=== PATIENT | male | born 1945 | race Caucasian/White ===

== ENCOUNTER 2022-12-18 17:23 | Inpatient (IN) | payer MEDICARE, SELFPAY ==
[2022-12-18] VITALS (7 sets, daily range): BP systolic 114–136; BP diastolic 69–110; PULSE 71–179; RESP 12–22; TEMP 36.2–36.8; O2SAT 94–97; BMI 34.0
--- NOTE | 2022-12-18 17:25 | ECG_ITS ---
Test Reason : TACHY Blood Pressure : / mmHG Vent. Rate : 159 BPM Atrial Rate : 318 BPM P-R Int : 000 ms QRS Dur : 070 ms QT Int : 272 ms P-R-T Axes : 000 022 049 degrees QTc Int : 442 ms Atrial flutter with 2:1 A-V conduction ST depression, consider subendocardial injury Abnormal ECG No previous ECGs available Referred By: Generic ED Physician Electronically Signed By:Agapito Ward
--- NOTE | 2022-12-18 17:26 | ED.ARRPALP ---
HPI - Arrhythmia/Palpitations General Chief Complaint: Arrhythmia/Palpitations <Susan Stockton NP - Last Filed: 12/18/22 17:30> Stated Complaint: rapid heart rate <Susan Stockton NP - Last Filed: 12/18/22 17:30> Time Seen by Provider: 12/18/22 17:30 <Susan Stockton NP - Last Filed: 12/18/22 17:30> Source: patient and RN notes reviewed <Jono Crawford - Last Filed: 12/18/22 19:32> Mode of arrival: ambulatory <Jono Crawford - Last Filed: 12/18/22 19:32> Limitations: no limitations <Jono Crawford - Last Filed: 12/18/22 19:32> History of Present Illness HPI narrative: 77-year-old male past medical history significant for hypertension, GERD, hyperlipidemia presents for evaluation of palpitations. This patient presents with his . He reports about 3 hours prior to arrival he noticed his heart was racing. He reports feeling lightheaded and short of breath. Denies any chest pain He denies any history of coronary artery disease He states that he has had this similar sensation last year a few times and then several times over the last 2 days. The patient has not sought medical care for it because ?it was not this fast. ? He heart rate was as high as 170 in triage. <Jono Crawford - Last Filed: 12/18/22 19:32> Related Data Home Medications: Home Medications Medication Instructions Recorded Confirmed atenolol 50 mg tablet 25 mg PO DAILY 12/18/22 12/18/22 enalapril maleate 20 mg tablet 10 mg PO DAILY 12/18/22 12/18/22 latanoprost 0.005 % eye drops 1 drp ophthalmic (eye) DAILY 12/18/22 12/18/22 multivitamin (Daily Multi-Vitamin 1 tab PO DAILY 12/18/22 12/18/22 tablet) omeprazole 20 mg capsule,delayed 20 mg PO DAILY 12/18/22 12/18/22 release simvastatin 10 mg tablet 10 mg PO DAILY 12/18/22 12/18/22 timolol maleate 0.5 % eye drops 1 drp ophthalmic (eye) BEDTIME 12/18/22 12/18/22 <Susan Stockton NP - Last Filed: 12/18/22 17:30> Allergies/Adverse Reactions: Allergies Allergy/AdvReac Type Severity Reaction Status Date / Time meperidine [From DEMEROL] Allergy Unknown SEVERE Unverified 07/17/20 15:50 STOMACH UPSET <Susan Stockton NP - Last Filed: 12/18/22 17:30> Review of Systems Constitutional: Constitutional: Reports as per HPI, Denies chills and Denies fatigue <Jono Crawford - Last Filed: 12/18/22 19:32> Cardiovascular: Cardiovascular: Denies chest pain, Reports lightheadedness, Reports palpitations, Reports dyspnea and Reports dyspnea on exertion <Jono Crawford - Last Filed: 12/18/22 19:32> Respiratory: Respiratory: Denies cough, Reports dyspnea and Reports dyspnea on exertion <Jono Crawford - Last Filed: 12/18/22 19:32> Gastrointestinal: Gastrointestinal: Denies abdominal pain, Denies constipation and Denies vomiting <Jono Crawford - Last Filed: 12/18/22 19:32> Genitourinary: Genitourinary: Denies difficulty urinating and Denies dysuria <Jono Crawford - Last Filed: 12/18/22 19:32> Endocrine: Endocrine: Denies fatigue and Reports palpitations <Jono Crawford - Last Filed: 12/18/22 19:32> FORMERLY [facility], [facility] Past Medical History Attestation statement: The following information was validated with the patient. <Jono Crawford - Last Filed: 12/18/22 19:32> Source: old records reviewed and obtained from family <Jono Crawford - Last Filed: 12/18/22 19:32> Social History Social History: Social History Advance Directives: Yes Advance Directives Information Provided: No Advance Directives on File: No <Susan Stockton NP - Last Filed: 12/18/22 17:30> Physical Exam Vital Signs: Vital Signs: Last Vital Signs Temp 98.2 F 12/18/22 17:27 Pulse 76 12/18/22 18:40 Resp 12 12/18/22 18:40 BP 129/79 02/18/23 18:40 Pulse Ox 96 12/18/22 18:40 O2 Del Method 12/18/22 18:40 BMI result Body Mass Index 34.0 <Susan Stockton NP - Last Filed: 12/18/22 17:30> Vital Signs: Last Vital Signs Temp 98.2 F 12/18/22 17:27 Pulse 76 12/18/22 18:40 Resp 12 12/18/22 18:40 BP 129/79 12/18/22 18:40 Pulse Ox 96 12/18/22 18:40 O2 Del Method 12/18/22 18:40 BMI result Body Mass Index 34.0 <Jono MoyaLucas - Last Filed: 12/18/22 19:32> Const: General: cooperative, healthy appearing, comfortable, no acute distress and well developed <Jono MoyaDouglas - Last Filed: 12/18/22 19:32> Orientation/consciousness: patient oriented x3 <Jono Moya - Last Filed: 12/18/22 19:32> HEENT: Head: Yes normocephalic and Yes atraumatic <Jono - Last Filed: 12/18/22 19:32> Eyes: Conjunctivae: conjunctivae normal <Jono - Last Filed: 12/18/22 19:32> Sclerae: sclerae normal <Jono - Last Filed: 12/18/22 19:32> Corneas: corneas normal <Jono - Last Filed: 12/18/22 19:32> Pupils: Equal, round and reactive pupils present and Pupil accommodation reflex normal <Jono - Last Filed: 12/18/22 19:32> Chest: Chest palpation & inspection: normal inspection of the chest and normal palpation of entire chest wall <Jono O - Last Filed: 12/18/22 19:32> Resp: Effort & Inspection: able to speak in complete sentences and abnormal respiratory pattern <Jono Moya - Last Filed: 12/18/22 19:32> Auscultation: clear to auscultation bilaterally <Jono - Last Filed: 12/18/22 19:32> Cardio: Jugular venous distension: no JVD <Jono Crawford - Last Filed: 12/18/22 19:32> Rate: abnormal rate and tachycardic <Jono Crawford - Last Filed: 12/18/22 19:32> Rhythm: regular rhythm <Jono Crawford - Last Filed: 12/18/22 19:32> GI: Inspection: No Abdominal wall edema and No distended <Jonogrupo Velasquezy - Last Filed: 12/18/22 19:32> Palpation (GI): Soft to palpation, nontender and no guarding <Jono Crawford - Last Filed: 12/18/22 19:32> Skin: General skin exam: no rashes or lesions noted <Jono Crawford - Last Filed: 12/18/22 19:32> Neuro: General: patient oriented x3 <Jono Crawford - Last Filed: 12/18/22 19:32> Cranial nerves: Yes Equal, round and reactive pupils present <Jono Crawford - Last Filed: 12/18/22 19:32> Course Course Course Narrative: This is a rapid medical exam. Deferred additional HPI, ROS, PE to primary provider. 77 yo male w/ history of HTN, HLD, GERD, BPH here with palpitations noted this afternoon. HR 170 in triage. Will bring direct into room. <Susan Stockton NP - Last Filed: 12/18/22 17:30> Reevaluation(s) Reevaluation #1: Patient reports his symptoms have improved as he is no longer lightheaded or short of breath. He does still feel palpitations. His heart rate improved to about 130 after the IV bolus of Cardizem. He also received the Cardizem p.o. which will hopefully have a lasting effect. The patient's blood pressure has remained adequate. <Jono Crawford - Last Filed: 12/18/22 19:32> Time: 18:00 <Jono Crawford - Last Filed: 12/18/22 19:32> Reevaluation #2: Patient's heart rate increased again to about 140 remains in a water. When given a bolus of Cardizem 20 mg IV as his blood pressure remains adequate. Electric cardioversion is felt to be highly risky given the patient reports he had similar symptoms in the last few days and likely has been in and out of a flutter and/or AFib. He is felt to be high risk for thromboembolic disease. The patient is also very stable, so cardioversion with electricity is deferred at this time. <Jono Crawford - Last Filed: 12/18/22 19:32> Time: 18:16 <Jono Crawford - Last Filed: 12/18/22 19:32> Reevaluation #3: Patient did not receive the 2nd dose of Cardizem as he converted to a sinus rhythm with a rate of 74 beats per minute. Repeat EKG confirms the sinus rhythm. Will discuss with the hospitalist <Jono Crawford - Last Filed: 12/18/22 19:32> Time: 18:58 <Jono Crawford - Last Filed: 12/18/22 19:32> Medications Administered Discontinued Medications Generic Name Dose Route Start Last Admin Trade Name Freq PRN Reason Stop Dose Admin Diltiazem HCl 20 mg 12/18/22 17:40 12/18/22 17:46 Diltiazem Hcl 50 Mg/10 Ml Vial IVPUSH 12/18/22 17:41 20 mg STAT STA Administration Diltiazem HCl 30 mg 12/18/22 17:40 12/18/22 17:46 Diltiazem Hcl 30 Mg Tablet PO 12/18/22 17:41 30 mg ONCE ONE Administration Protocol Diltiazem HCl 20 mg 12/18/22 18:15 12/18/22 18:42 Diltiazem Hcl 50 Mg/10 Ml Vial IVPUSH 12/18/22 18:16 Not Given STAT STA Sodium Chloride 1,000 mls @ 999 mls/hr 12/18/22 17:40 12/18/22 17:46 Ns IV 12/18/22 18:40 999 mls/hr .Q1H1M STA Administration <Susan Stockton NP - Last Filed: 12/18/22 17:30> Medications Administered Discontinued Medications Generic Name Dose Route Start Last Admin Trade Name Freq PRN Reason Stop Dose Admin Diltiazem HCl 20 mg 12/18/22 17:40 12/18/22 17:46 Diltiazem Hcl 50 Mg/10 Ml Vial IVPUSH 12/18/22 17:41 20 mg STAT STA Administration Diltiazem HCl 30 mg 12/18/22 17:40 12/18/22 17:46 Diltiazem Hcl 30 Mg Tablet PO 12/18/22 17:41 30 mg ONCE ONE Administration Protocol Diltiazem HCl 20 mg 12/18/22 18:15 12/18/22 18:42 Diltiazem Hcl 50 Mg/10 Ml Vial IVPUSH 12/18/22 18:16 Not Given STAT STA Sodium Chloride 1,000 mls @ 999 mls/hr 12/18/22 17:40 12/18/22 17:46 Ns IV 12/18/22 18:40 999 mls/hr .Q1H1M STA Administration <Jono Crawford - Last Filed: 12/18/22 19:32> Medical Decision Making Medical Decision Making [facility] Narrative: This is a 77-year-old male presents for evaluation of palpitations. He is found to be in atrial flutter with the connection based on EKG with a heart rate as high as 170. Who he is slightly hypertensive to 136/110 on arrival. The patient denies any chest pain. EKG does show some ST depressions in the anterior and inferior leads. This is likely demand ischemia. We will add a troponin level, electrolytes. Patient was also given IV fluids. He was medicated with Cardizem IV push as well as Cardizem 30 mg p.o. <Jono Crawford - Last Filed: 12/18/22 19:32> Differential Diagnosis Cardiac arrhythmia A flutter AFib SVT Sinus tachycardia Electrolyte abnormality <Jono Crawford - Last Filed: 12/18/22 19:32> Lab Data Result Diagrams: 12/18/22 17:46 12/18/22 17:46 <Susan Stockton NP - Last Filed: 12/18/22 17:30> Labs: Lab Results 12/18/22 12/18/22 12/18/22 Range/Units 17:46 17:46 17:46 WBC 12.2 H (4.8-10.8) X10*3/uL RBC 5.16 (4.60-5.80) X10*6/uL Hgb 16.2 (14.0-18.0) g/dl Hct 48.7 (42.0-52.0) % MCV 94.4 (80.0-98.0) fL MCH 31.4 (27.0-33.0) pg MCHC 33.3 (31.0-36.0) g/dl RDW 13.3 (11.0-16.0) % Plt Count 276 (160-400) X10*3/uL MPV 9.3 L (9.4-12.4) fL Immature Gran % (Auto) 0.5 H (0.0-0.4) % Neut % (Auto) 62.3 (45-73) % Lymph % (Auto) 23.3 (20-40) % Major % (Auto) 9.5 (2-11) % Eos % (Auto) 3.9 (0-4) % Baso % (Auto) 0.5 (0-2) % Lymph # (Auto) 2.8 (1.2-4.9) X10*3/uL Major # (Auto) 1.2 (0.1-1.2) X10*3/uL Eos # (Auto) 0.5 H (0.0-0.4) X10*3/uL Baso # (Auto) 0.1 (0.0-0.2) X10*3/uL Abs Immat Gran (auto) 0.06 H (0.00-0.03) X10*3/uL Absolute Neuts (auto) 7.6 (2.0-8.3) x10*3/uL Absolute Nucleated RBC 0.000 (0.0-0.012) X10*3/uL Nucleated RBC % (auto) 0.0 (0.0-0.2) /100WBC PT 13.1 (10.0-13.1) SEC INR 1.1 (0.9-1.1) Sodium 141 (135-145) mmol/L Potassium 4.4 (3.3-5.1) mmol/L Chloride 104 (96-108) mmol/L Carbon Dioxide 26 (22-29) mmol/L Anion Gap 15 (12-20) BUN 14 (9-16) mg/dL Creatinine 1.04 (0.5-1.4) mg/dL Estim Creat Clear Calc 73.0 Estimated GFR > 60 Random Glucose 122 H (60-115) mg/dL Calcium 9.6 (8.4-10.2) mg/dL Magnesium 1.7 (1.6-2.6) mg/dL Total Bilirubin 1.1 H (0.0-1.0) mg/dL Direct Bilirubin 0.3 (0.0-0.5) mg/dL AST 74 H (5-37) U/L ALT 90 H (0-40) U/L Alkaline Phosphatase 111 (39-117) U/L Troponin I High Sens (<3.5-35.0) ng/L Total Protein 6.8 (6.5-8.0) g/dL Albumin 4.1 (3.5-5.0) g/dL COVID-19 (NAVEED) (Negative) COVID-19 Clin Com 12/18/22 12/18/22 Range/Units 17:46 17:46 WBC (4.8-10.8) X10*3/uL RBC (4.60-5.80) X10*6/uL Hgb (14.0-18.0) g/dl Hct (42.0-52.0) % MCV (80.0-98.0) fL MCH (27.0-33.0) pg MCHC (31.0-36.0) g/dl RDW (11.0-16.0) % Plt Count (160-400) X10*3/uL MPV (9.4-12.4) fL Immature Gran % (Auto) (0.0-0.4) % Neut % (Auto) (45-73) % Lymph % (Auto) (20-40) % Major % (Auto) (2-11) % Eos % (Auto) (0-4) % Baso % (Auto) (0-2) % Lymph # (Auto) (1.2-4.9) X10*3/uL Major # (Auto) (0.1-1.2) X10*3/uL Eos # (Auto) (0.0-0.4) X10*3/uL Baso # (Auto) (0.0-0.2) X10*3/uL Abs Immat Gran (auto) (0.00-0.03) X10*3/uL Absolute Neuts (auto) (2.0-8.3) x10*3/uL Absolute Nucleated RBC (0.0-0.012) X10*3/uL Nucleated RBC % (auto) (0.0-0.2) /100WBC PT (10.0-13.1) SEC INR (0.9-1.1) Sodium (135-145) mmol/L Potassium (3.3-5.1) mmol/L Chloride (96-108) mmol/L Carbon Dioxide (22-29) mmol/L Anion Gap (12-20) BUN (9-16) mg/dL Creatinine (0.5-1.4) mg/dL Estim Creat Clear Calc Estimated GFR Random Glucose (60-115) mg/dL Calcium (8.4-10.2) mg/dL Magnesium (1.6-2.6) mg/dL Total Bilirubin (0.0-1.0) mg/dL Direct Bilirubin (0.0-0.5) mg/dL AST (5-37) U/L ALT (0-40) U/L Alkaline Phosphatase (39-117) U/L Troponin I High Sens 3.4 (<3.5-35.0) ng/L Total Protein (6.5-8.0) g/dL Albumin (3.5-5.0) g/dL COVID-19 (NAVEED) Negative (Negative) COVID-19 Clin Com See Note <Susan Stockton, [employer]ER - Last Filed: 12/18/22 17:30> Lab Results 12/18/22 12/18/22 12/18/22 Range/Units 17:46 17:46 17:46 WBC 12.2 H (4.8-10.8) X10*3/uL RBC 5.16 (4.60-5.80) X10*6/uL Hgb 16.2 (14.0-18.0) g/dl Hct 48.7 (42.0-52.0) % MCV 94.4 (80.0-98.0) fL MCH 31.4 (27.0-33.0) pg MCHC 33.3 (31.0-36.0) g/dl RDW 13.3 (11.0-16.0) % Plt Count 276 (160-400) X10*3/uL MPV 9.3 L (9.4-12.4) fL Immature Gran % (Auto) 0.5 H (0.0-0.4) % Neut % (Auto) 62.3 (45-73) % Lymph % (Auto) 23.3 (20-40) % Major % (Auto) 9.5 (2-11) % Eos % (Auto) 3.9 (0-4) % Baso % (Auto) 0.5 (0-2) % Lymph # (Auto) 2.8 (1.2-4.9) X10*3/uL Major # (Auto) 1.2 (0.1-1.2) X10*3/uL Eos # (Auto) 0.5 H (0.0-0.4) X10*3/uL Baso # (Auto) 0.1 (0.0-0.2) X10*3/uL Abs Immat Gran (auto) 0.06 H (0.00-0.03) X10*3/uL Absolute Neuts (auto) 7.6 (2.0-8.3) x10*3/uL Absolute Nucleated RBC 0.000 (0.0-0.012) X10*3/uL Nucleated RBC % (auto) 0.0 (0.0-0.2) /100WBC PT 13.1 (10.0-13.1) SEC INR 1.1 (0.9-1.1) Sodium 141 (135-145) mmol/L Potassium 4.4 (3.3-5.1) mmol/L Chloride 104 (96-108) mmol/L Carbon Dioxide 26 (22-29) mmol/L Anion Gap 15 (12-20) BUN 14 (9-16) mg/dL Creatinine 1.04 (0.5-1.4) mg/dL Estim Creat Clear Calc 73.0 Estimated GFR > 60 Random Glucose 122 H (60-115) mg/dL Calcium 9.6 (8.4-10.2) mg/dL Magnesium 1.7 (1.6-2.6) mg/dL Total Bilirubin 1.1 H (0.0-1.0) mg/dL Direct Bilirubin 0.3 (0.0-0.5) mg/dL AST 74 H (5-37) U/L ALT 90 H (0-40) U/L Alkaline Phosphatase 111 (39-117) U/L Troponin I High Sens (<3.5-35.0) ng/L Total Protein 6.8 (6.5-8.0) g/dL Albumin 4.1 (3.5-5.0) g/dL COVID-19 (NAVEED) (Negative) COVID-19 Clin Com 12/18/22 12/18/22 Range/Units 17:46 17:46 WBC (4.8-10.8) X10*3/uL RBC (4.60-5.80) X10*6/uL Hgb (14.0-18.0) g/dl Hct (42.0-52.0) % MCV (80.0-98.0) fL MCH (27.0-33.0) pg MCHC (31.0-36.0) g/dl RDW (11.0-16.0) % Plt Count (160-400) X10*3/uL MPV (9.4-12.4) fL Immature Gran % (Auto) (0.0-0.4) % Neut % (Auto) (45-73) % Lymph % (Auto) (20-40) % Major % (Auto) (2-11) % Eos % (Auto) (0-4) % Baso % (Auto) (0-2) % Lymph # (Auto) (1.2-4.9) X10*3/uL Major # (Auto) (0.1-1.2) X10*3/uL Eos # (Auto) (0.0-0.4) X10*3/uL Baso # (Auto) (0.0-0.2) X10*3/uL Abs Immat Gran (auto) (0.00-0.03) X10*3/uL Absolute Neuts (auto) (2.0-8.3) x10*3/uL Absolute Nucleated RBC (0.0-0.012) X10*3/uL Nucleated RBC % (auto) (0.0-0.2) /100WBC PT (10.0-13.1) SEC INR (0.9-1.1) Sodium (135-145) mmol/L Potassium (3.3-5.1) mmol/L Chloride (96-108) mmol/L Carbon Dioxide (22-29) mmol/L Anion Gap (12-20) BUN (9-16) mg/dL Creatinine (0.5-1.4) mg/dL Estim Creat Clear Calc Estimated GFR Random Glucose (60-115) mg/dL Calcium (8.4-10.2) mg/dL Magnesium (1.6-2.6) mg/dL Total Bilirubin (0.0-1.0) mg/dL Direct Bilirubin (0.0-0.5) mg/dL AST (5-37) U/L ALT (0-40) U/L Alkaline Phosphatase (39-117) U/L Troponin I High Sens 3.4 (<3.5-35.0) ng/L Total Protein (6.5-8.0) g/dL Albumin (3.5-5.0) g/dL COVID-19 (NAVEED) Negative (Negative) COVID-19 Clin Com See Note <Jono Crawford - Last Filed: 12/18/22 19:32> Discharge Plan Discharge Clinical Impression: Atrial flutter with rapid ventricular response <Susan Stockton NP - Last Filed: 12/18/22 17:30> Patient Disposition: Admitted As Inpatient <Susan Stockton NP - Last Filed: 12/18/22 17:30> Prescriptions: No Action latanoprost 0.005 % drops 1 drp ophthalmic (eye) DAILY enalapril maleate 20 mg tablet 10 mg PO DAILY simvastatin 10 mg tablet 10 mg PO DAILY omeprazole 20 mg capsule,delayed release(DR/EC) 20 mg PO DAILY timolol maleate 0.5 % drops 1 drp ophthalmic (eye) BEDTIME atenolol 50 mg tablet 25 mg PO DAILY multivitamin [Daily Multi-Vitamin] Tablet 1 tab PO DAILY <Susan Stockton NP - Last Filed: 12/18/22 17:30>
[2022-12-18] MEDS: dilTIAZem HCL 30 MG TABLET PO (17:46)
[2022-12-18] MEDS: dilTIAZem HCL 50 MG/10 ML VIAL 20 MG IVPUSH (17:46)
[2022-12-18] MEDS: 0.9 % Sodium Chloride 1,000 ML 999 ML IV (17:46)
[2022-12-18 17:57] LABS: MANUAL DIFF FLAG NO
[2022-12-18 18:09] LABS: Basophils Absolute Auto 0.1 X10*3/uL (0.0-0.2); Basophils Percent Auto 0.5 % (0-2); Eosinophils Absolute Auto 0.5 X10*3/uL (0.0-0.4); Eosinophils Percent Auto 3.9 % (0-4); Hematocrit 48.7 % (42.0-52.0); Hemoglobin 16.2 g/dl (14.0-18.0); Imm Gran Abs Auto 0.06 X10*3/uL (0.00-0.03); Imm Gran Pct Auto 0.5 % (0.0-0.4); Lymphocytes Absolute Auto 2.8 X10*3/uL (1.2-4.9); Lymphocytes Percent Auto 23.3 % (20-40); Mean Corpuscular HGB Conc 33.3 g/dl (31.0-36.0); Mean Corpuscular Hemoglobin 31.4 pg (27.0-33.0); Mean Corpuscular Volume 94.4 fL (80.0-98.0); Mean Platelet Volume 9.3 fL (9.4-12.4); Monocytes Absolute Auto 1.2 X10*3/uL (0.1-1.2); Monocytes Percent Auto 9.5 % (2-11); Neutrophils Absolute Auto 7.6 x10*3/uL (2.0-8.3); Neutrophils Percent Auto 62.3 % (45-73); Platelet Count 276 X10*3/uL (160-400); Red Blood Count 5.16 X10*6/uL (4.60-5.80); Red Cell Distribution Width 13.3 % (11.0-16.0); White Blood Count 12.2 X10*3/uL (4.8-10.8)
[2022-12-18 18:10] LABS: INTERNATIONAL NORM RATIO 1.1 (0.9-1.1); Prothrombin Time 13.1 SEC (10.0-13.1)
--- OUTSIDE RECORDS SUMMARY | 2022-12-18 18:17 | XMS_ITS | Continuity of Care Document ---
:1945 Author Organization [facility] Address [address] [place] [phone]- Care Team Providers Name Role Phone Esteban JOSEPH, Roly Severino Primary Care Physician Encounter [facility] [place] ACCT R [id number] Date(s): 07/16/20 - 08/15/20 [facility] [address] [place] [id number]- [facility] Attending Physician: Admderek, [id number] Admitting Physician: AdmtrLora Referring Physician: Admtr, [id number] Allergies, Adverse Reactions, Alerts Substance Reaction Severity Status Demerol Active Medications atenolol 25 mg oral tablet 25 mg, 1, tablet, By Mouth, Daily, Refills 0, Maintenance, 11/02/19 14:37:00 EST Start Date: 11/02/19 Status: OrderedEnalapril 0 Refills, Maintenance, 11/02/19 14:38:00 EST Start Date: 11/02/19 Status: OrderedFerro-Sequels 0 Refills, Maintenance, 11/02/19 14:38:00 EST Start Date: 11/02/19 Status: Orderedlatanoprost 0.005% ophthalmic solution 1 drops, Daily before dinner, 0 Refills, Maintenance, 11/02/19 14:37:00 EST Start Date: 11/02/19 Status: OrderedNuLYTELY with Flavor Packs oral powder for reconstitution See Instructions, 240 mL By Mouth Every 15 minutes, # 4,000 mL, 0 Refills, Maintenance, 07/16/20 16:04:00 EDT, [id number], 240 mL By Mouth Every 15 minutes Start Date: 07/16/20 Status: OrderedOmeprazole By Mouth, Daily, 0 Refills, Maintenance, 11/02/19 14:37:00 EST Start Date: 11/02/19 Status: Orderedsimvastatin 10 mg oral tablet 10 mg, 1, tablet, By Mouth, Daily at bedtime, Refills 0, Maintenance, 11/02/19 14:38:00 EST Start Date: 11/02/19 Status: Orderedtimolol maleate 0.25% ophthalmic solution 1 drops, Eyes, Both, 2 times a day, 0 Refills, Maintenance, 11/02/19 14:37:00 EST Start Date: 11/02/19 Status: OrderedVitamin B6 Daily, 0 Refills, Maintenance, 11/02/19 14:38:00 EST Start Date: 11/02/19 Status: OrderedVitamin C By Mouth, Daily, 0 Refills, Maintenance, 11/02/19 14:38:00 EST Start Date: 11/02/19 Status: Ordered
--- OUTSIDE RECORDS SUMMARY | 2022-12-18 18:17 | XMS_ITS | Continuity of Care Document ---
:1945 Author Organization [facility] Address [address] [place] [id number]- Care Team Providers Name Role Phone Esteban JOSEPH, Roly Severino [id number] Date(s): 11/02/19 - 11/12/19 [facility] [address] [place] [id number]- [facility] Attending Physician: Lora West Admitting Physician: Lora West Referring Physician: Lora West Allergies, Adverse Reactions, Alerts Substance Reaction Severity [...] 11/02/19 14:37:00 EST Start Date: 11/02/19 Status: OrderedOmeprazole By Mouth, Daily, 0 Refills, [...]
--- OUTSIDE RECORDS SUMMARY | 2022-12-18 18:17 | XMS_ITS | Continuity of Care Document ---
:1945 Author Organization [facility] Address [address] [place] [phone]- Care Team Providers Name Role Phone Esteban JOSEPH, Roly Severino Primary Care Physician [place] [facility] [place](s[place] 07/16/20 - 08/15/20 [facility] [address] [place] [id number]- [facility] Allergies, Adverse Reactions, Alerts Substance Reaction Severity [...] mL, 0 Refills, Maintenance, 07/16/20 16:04:00 EDT, [facility] #[id number], 240 mL By Mouth Every 15 [...]
[2022-12-18 18:19] LABS: Alanine Aminotransferase 90 U/L (0-40); Albumin Level 4.1 g/dL (3.5-5.0); Alkaline Phosphatase 111 U/L (39-117); Anion Gap 15 (12-20); Aspartate Amino Transferase 74 U/L (5-37); Bilirubin Direct 0.3 mg/dL (0.0-0.5); Bilirubin Total 1.1 mg/dL (0.0-1.0); Blood Urea Nitrogen 14 mg/dL (9-16); Calcium 9.6 mg/dL (8.4-10.2); Carbon Dioxide 26 mmol/L (22-29); Chloride 104 mmol/L (96-108); Estimated Glomerular Filt Rate > 60; Glucose Random 122 mg/dL (60-115); Magnesium 1.7 mg/dL (1.6-2.6); Potassium 4.4 mmol/L (3.3-5.1); Sodium 141 mmol/L (135-145); Total Protein 6.8 g/dL (6.5-8.0)
[2022-12-18 18:22] LABS: COVID-19 Test Negative (Negative); IDNOW Serial# 16C4AD1C
[2022-12-18 18:26] LABS: Troponin-I High Sensitivity 3.4 ng/L (<3.5-35.0)
--- NOTE | 2022-12-18 18:38 | PHA.MEDREC ---
Pharmacy Consult ? Medication Reconciliation Pharmacy has completed the medication reconciliation. Patient had medication list that I reviewed with him to complete med rec.
--- NOTE | 2022-12-18 18:45 | ECG_ITS ---
Test Reason : REPEAT Blood Pressure : / mmHG Vent. Rate : 074 BPM Atrial Rate : 074 BPM P-R Int : 178 ms QRS Dur : 072 ms QT Int : 380 ms P-R-T Axes : 006 022 015 degrees QTc Int : 421 ms Normal sinus rhythm Normal ECG When compared with ECG of 18-DEC-2022 17:33, Sinus rhythm has replaced Atrial flutter Vent. rate has decreased BY [address] no longer depressed in Inferior leads Nonspecific T wave abnormality no longer evident in Lateral leads Referred By: Jono Crawford Electronically Signed By:Agapito Ward
--- NOTE | 2022-12-18 19:31 | PM.IMHP ---
History of Present Illness Date of Service: 12/18/22 Chief Complaint: Palpitations This is 77-year-old male with pertinent history of essential hypertension, gastroesophageal reflux disease, mixed hyperlipidemia, diet-controlled diabetes mellitus with last A1c 7.5 who presents to the emergency department for evaluation of palpitations. Patient states he started having palpitations about 2 days ago. It was intermittent and it lasted for about an hour. His heart rate was around 120s during the episode. On the day of presentation, patient states his heart rate jumped to the 160s-170s and it was sustained and hence he decided to present to the ER for further evaluation. States he has never seen a [employer] airspace control officer but he has had intermittent palpitations for the last 2 years. Is not on anticoagulation. Is compliant with his medications. No history of CAD or CHF. Patient denies fever, chills, chest discomfort, shortness of breath, abdominal pain, changes in urinary or bowel habits. In the ER upon arrival, patient's heart rate was in the 170s and he was given IV and p.o. Cardizem. Initial rhythm revealed atrial flutter with 2:1 conduction. Soon after, patient converted to normal sinus rhythm with heart rate in the 70s. Review of Systems Constitutional: Constitutional: Reports no additional constitutional complaints Cardiovascular: Cardiovascular: Reports rapid heart rate and Reports irregular heart rhythm Respiratory: Respiratory: Reports no additional respiratory complaints Gastrointestinal: Gastrointestinal: Reports no additional gastrointestinal complaints Genitourinary: Genitourinary: Reports no additional male genitourinary complaints [facility] Medical History Essential hypertension GERD (gastroesophageal reflux disease) Mixed hyperlipidemia Non-insulin dependent type 2 diabetes mellitus Functional capacity: independent ambulation Pertinent family history: No family history of CAD Social History Advance Directives: Yes Advance Directives Information Provided: No Advance Directives on File: No Meds Allergies Allergy/AdvReac Type Severity Reaction Status Date / Time meperidine [From DEMEROL] Allergy Unknown SEVERE Unverified 07/17/20 15:50 STOMACH UPSET Active Medications: Current Medications Pharmacy Consult (Consult Rx Perform Med Rec) 1 each MISCELLANE ONCE PRN PRN Reason: Consult order Home Medications Medication Instructions Recorded Confirmed Last Taken Type atenolol 50 mg tablet 25 mg PO DAILY 12/18/22 12/18/22 12/18/22 History enalapril maleate 20 mg tablet 10 mg PO DAILY 12/18/22 12/18/22 12/18/22 History latanoprost 0.005 % eye drops 1 drp ophthalmic (eye) DAILY 12/18/22 12/18/22 12/18/22 History multivitamin (Daily Multi-Vitamin 1 tab PO DAILY 12/18/22 12/18/22 12/18/22 History tablet) omeprazole 20 mg capsule,delayed 20 mg PO DAILY 12/18/22 12/18/22 12/18/22 History release simvastatin 10 mg tablet 10 mg PO DAILY 12/18/22 12/18/22 12/18/22 History timolol maleate 0.5 % eye drops 1 drp ophthalmic (eye) BEDTIME 12/18/22 12/18/22 12/17/22 History Physical Exam Vital Signs and Narrative: Vital Signs: Last Vital Signs Temp 98.2 F 12/18/22 17:27 Pulse 76 12/18/22 18:40 Resp 12 12/18/22 18:40 BP 129/79 12/18/22 18:40 Pulse Ox 96 12/18/22 18:40 O2 Del Method 12/18/22 18:40 BMI result Body Mass Index 34.0 Middle-aged male lying in bed in no distress Neck supple, no JVD Regular rate and rhythm, S1-S2 heard Regular breath sounds bilaterally, no wheezing or crackles appreciated Abdomen soft nontender, no guarding, no rigidity Patient is awake, alert and oriented to self, place, time and person ; no focal motor deficit Psych: Normal mood No pedal edema Results Labs 12/18/22 17:46 12/18/22 17:46 Labs: Laboratory Results - last 24 hr 12/18/22 12/18/22 12/18/22 17:46 17:46 17:46 MCV 94.4 MCH 31.4 MCHC 33.3 RDW 13.3 Plt Count 276 MPV 9.3 L Immature Gran % (Auto) 0.5 H Neut % (Auto) 62.3 Lymph % (Auto) 23.3 [place] % (Auto) 9.5 Eos % (Auto) 3.9 Baso % (Auto) 0.5 Lymph # (Auto) 2.8 [place] # (Auto) 1.2 Eos # (Auto) 0.5 H Baso # (Auto) 0.1 Abs Immat Gran (auto) 0.06 H Absolute Neuts (auto) 7.6 Absolute Nucleated RBC 0.000 Nucleated RBC % (auto) 0.0 PT 13.1 INR 1.1 Anion Gap 15 Estim Creat Clear Calc 73.0 Estimated GFR > 60 Random Glucose 122 H Calcium 9.6 Magnesium 1.7 Total Bilirubin 1.1 H Direct Bilirubin 0.3 AST 74 H ALT 90 H Alkaline Phosphatase 111 Troponin I High Sens Total Protein 6.8 Albumin 4.1 COVID-19 (NAVEED) COVID-19 Torbit Com 12/18/22 12/18/22 17:46 17:46 MCV MCH MCHC RDW Plt Count MPV Immature Gran % (Auto) Neut % (Auto) Lymph % (Auto) [place] % (Auto) Eos % (Auto) Baso % (Auto) Lymph # (Auto) [place] # (Auto) Eos # (Auto) Baso # (Auto) Abs Immat Gran (auto) Absolute Neuts (auto) Absolute Nucleated RBC Nucleated RBC % (auto) PT INR Anion Gap Estim Creat Clear Calc Estimated GFR Random Glucose Calcium Magnesium Total Bilirubin Direct Bilirubin AST ALT Alkaline Phosphatase Troponin I High Sens 3.4 Total Protein Albumin COVID-19 (NAVEED) Negative COVID-19 Clin Com See Note Assessment and Plan (1) Atrial flutter with rapid ventricular response: Status: Acute Plan This is 77-year-old male with pertinent history of essential hypertension, gastroesophageal reflux disease, mixed hyperlipidemia, diet-controlled diabetes mellitus with last A1c 7.5 who presents to the emergency department for evaluation of palpitations. #. Atrial flutter with RVR: Converted to sinus rhythm with diltiazem in the ER. Will continue to watch with cardiac monitoring. Consulting Cardiology, appreciate assistance. Obtaining TSH and echo. Chads Vasc score: 4. Will benefit from anticoagulation #. Essential hypertension: Continue home p.o. antihypertensives #. Mixed hyperlipidemia: On statin #. Gastroesophageal reflux disease: On PPI #. Quf-knyystm-tufoliagl diabetes mellitus, last A1c 7.5. Initiating Accu-Cheks with sliding scale insulin while in the hospital DVT prophylaxis: Lovenox 40 mg daily Full code Cardiac diet Time Spent With Patient Time: Total time managing care of this patient today ____ minutes. Quality Stroke Does the patient have a stroke diagnosis?: No VTE Prior VTE?: No VTE Risk Level:: Medical - moderate - high VTE Device Contraindication: Treatment Not Indicated VTE Drug Contraindication: N/A - Med Ordered
[2022-12-18] MEDS: Enoxaparin Sodium 40 MG/0.4 ML SYRINGE SUBCUT (21:36)
[2022-12-18 22:08] LABS: Glucose, Whole Blood 106 mg/dL (60-115)
[2022-12-18] MEDS: 0.9 % Sodium Chloride Flush 3 ML SYRINGE IVFLUSH (22:11)
[2022-12-18] MEDS: timoloL maleate 0.5 % Oph Sol 5 ML DRBTL 1 DROP EYE-BOTH (22:15)
[2022-12-18 22:18] LABS: Thyroid Stimulating Hormone 1.77 uIU/mL (0.32-4.0)
[2022-12-19] VITALS: BP 111/61; PULSE 66; RESP 20; TEMP 36.1; O2SAT 93
[2022-12-19 03:04] VITALS: BP 113/70; PULSE 61; RESP 20; TEMP 36.3; O2SAT 93
[2022-12-19 06:21] LABS: MANUAL DIFF FLAG NO
[2022-12-19 06:29] LABS: Basophils Absolute Auto 0.1 X10*3/uL (0.0-0.2); Basophils Percent Auto 0.6 % (0-2); Eosinophils Absolute Auto 0.4 X10*3/uL (0.0-0.4); Eosinophils Percent Auto 4.3 % (0-4); Hemoglobin 14.3 g/dl (14.0-18.0); Imm Gran Abs Auto 0.04 X10*3/uL (0.00-0.03); Imm Gran Pct Auto 0.5 % (0.0-0.4); Lymphocytes Absolute Auto 2.4 X10*3/uL (1.2-4.9); Lymphocytes Percent Auto 30.2 % (20-40); Mean Corpuscular HGB Conc 32.5 g/dl (31.0-36.0); Mean Corpuscular Hemoglobin 30.7 pg (27.0-33.0); Mean Corpuscular Volume 94.4 fL (80.0-98.0); Mean Platelet Volume 9.2 fL (9.4-12.4); Monocytes Absolute Auto 0.8 X10*3/uL (0.1-1.2); Monocytes Percent Auto 10.3 % (2-11); Neutrophils Absolute Auto 4.4 x10*3/uL (2.0-8.3); Neutrophils Percent Auto 54.1 % (45-73); Platelet Count 193 X10*3/uL (160-400); Red Blood Count 4.66 X10*6/uL (4.60-5.80); Red Cell Distribution Width 13.4 % (11.0-16.0); White Blood Count 8.1 X10*3/uL (4.8-10.8)
[2022-12-19 06:45] LABS: Anion Gap 15 (12-20); Blood Urea Nitrogen 14 mg/dL (9-16); Carbon Dioxide 25 mmol/L (22-29); Chloride 106 mmol/L (96-108); Creatinine Clr Calc Pharmacy 79.1; Estimated Glomerular Filt Rate > 60; Glucose Random 111 mg/dL (60-115); Potassium 4.8 mmol/L (3.3-5.1); Sodium 141 mmol/L (135-145)
[2022-12-19 07:28] VITALS: BP 137/76; PULSE 61; RESP 18; TEMP 36.5; O2SAT 96
[2022-12-19 07:53] LABS: Glucose, Whole Blood 125 mg/dL (60-115)
[2022-12-19] MEDS: Latanoprost 0.005 % Ophth Sol 2.5 ML DROPS 1 DROP EYE-BOTH (09:14)
[2022-12-19] MEDS: Atorvastatin Calcium 10 MG TABLET PO (09:17)
[2022-12-19] MEDS: Omeprazole 20 MG CAPSULE.DR PO (09:17)
[2022-12-19] MEDS: atenoloL 25 MG TABLET PO (09:17)
[2022-12-19] MEDS: Multivitamin TABLET 1 TAB PO (09:17)
[2022-12-19] MEDS: Enalapril Maleate 10 MG TABLET PO (09:17)
[2022-12-19] MEDS: 0.9 % Sodium Chloride Flush 3 ML SYRINGE IVFLUSH (09:22)
[2022-12-19 11:27] VITALS: BP 131/79; PULSE 83; RESP 17; TEMP 36.7; O2SAT 93
--- NOTE | 2022-12-19 11:55 | PM.CNCAR ---
History of Present Illness History of Present Illness Date of Service: 12/19/22 Chief complaint: Atrial flutter Narrative: [age] gentleman presenting with palpitations. He has been experiencing palpitations over the last few months. Also had palpitations earlier this month and saw his primary care physician and was being referred to Cardiology. He had prolonged episode of palpitations with some dizziness and came to the emergency department and was noted to be in atrial flutter. He was given cough Cardizem IV and it appears he reverted back to sinus rhythm. He is completely back to his baseline and is feeling good. Denying chest pain or any dyspnea. Not in heart failure. No bleeding issues. [facility] Past Medical History Medical History Essential hypertension GERD (gastroesophageal reflux disease) Mixed hyperlipidemia Non-insulin dependent type 2 diabetes mellitus Functional capacity: independent ambulation Social History Social History Household Members: Spouse Housing: House Do you presently have visiting nurse or other home services: No Patient Tobacco Use Status: Former Tobacco user Advance Directives Date on File: 12/18/22 Meds Allergies Allergy/AdvReac Type Severity Reaction Status Date / Time meperidine [From DEMEROL] Allergy Unknown SEVERE Verified 12/18/22 20:44 STOMACH UPSET Active Medications: Current Medications Acetaminophen (Acetaminophen 325 Mg Tablet) 650 mg PO Q6H PRN PRN Reason: Pain, Mild (Pain Scale 1-3) Apixaban (Apixaban 5 Mg Tablet) 5 mg PO BID [facility] Atenolol (Atenolol 25 Mg Tablet) 25 mg PO DAILY [facility]; Protocol Last Admin: 12/19/22 09:17 Dose: 25 mg Atorvastatin Calcium (Atorvastatin Calcium 10 Mg Tablet) 10 mg PO DAILY [facility] Last Admin: 12/19/22 09:17 Dose: 10 mg Dextrose (Dextrose 50 % 25 Gm/50 Ml Syringe) 25 gm IVPUSH Q15M PRN; Protocol PRN Reason: per Hypoglycemia Standing Ord. Dronedarone (Dronedarone Hcl 400 Mg Tablet) 400 mg PO BID [facility] Enalapril Maleate (Enalapril Maleate 10 Mg Tablet) 10 mg PO DAILY [facility]; Protocol Last Admin: 12/19/22 09:17 Dose: 10 mg Glucose (Glucose Gel 15 Gm Gel..Gram.) 15 gm PO Q15M PRN; Protocol PRN Reason: per Hypoglycemia Standing Ord. Insulin Human Lispro (Insulin Lispro 100 Unit/Ml 3 Ml Vial) 0 unit SUBCUT QIDACHS [facility]; Protocol Last Admin: 12/19/22 07:54 Dose: Not Given Latanoprost (Latanoprost 0.005 % Ophth [place] 2.5 Ml Drops) 1 drop EYE-BOTH DAILY [facility] Last Admin: 12/19/22 09:14 Dose: 1 drop Melatonin (Melatonin 3 Mg Tablet) 6 mg PO BEDTIME PRN PRN Reason: Insomnia Multivitamins/Vitamin C (Multivitamin Tablet) 1 tab PO DAILY [facility] Last Admin: 12/19/22 09:17 Dose: 1 tab Omeprazole (Omeprazole 20 Mg Capsule.Dr) 20 mg PO DAILY [facility] Last Admin: 12/19/22 09:17 Dose: 20 mg Pharmacy Consult (Consult Rx Perform Med Rec) 1 each MISCELLANE ONCE PRN PRN Reason: Consult order Sodium Chloride (0.9 % Sodium Chloride Flush 3 Ml Syringe) 3 ml IVFLUSH QSHIFT [facility] Last Admin: 12/19/22 09:22 Dose: 3 ml Timolol Maleate (Timolol Maleate 0.5 % Oph [place] 5 Ml Drbtl) 1 drop EYE-BOTH BEDTIME [facility] Last Admin: 12/18/22 22:15 Dose: 1 drop Home Medications Medication Instructions Recorded Confirmed Last Taken Type atenolol 50 mg tablet 25 mg PO DAILY 12/18/22 12/18/22 12/18/22 History enalapril maleate 20 mg tablet 10 mg PO DAILY 12/18/22 12/18/22 12/18/22 History latanoprost 0.005 % eye drops 1 drp ophthalmic (eye) DAILY 12/18/22 12/18/22 12/18/22 History multivitamin (Daily Multi-Vitamin 1 tab PO DAILY 12/18/22 12/18/22 12/18/22 History tablet) omeprazole 20 mg capsule,delayed 20 mg PO DAILY 12/18/22 12/18/22 12/18/22 History release simvastatin 10 mg tablet 10 mg PO DAILY 12/18/22 12/18/22 12/18/22 History timolol maleate 0.5 % eye drops 1 drp ophthalmic (eye) BEDTIME 12/18/22 12/18/22 12/17/22 History Physical Exam Vital Signs: Vital Signs: Last Vital Signs Temp 98.1 F 12/19/22 11:27 Pulse 83 12/19/22 11:27 Resp 17 12/19/22 11:27 BP 131/79 12/19/22 11:27 Pulse Ox 93 12/19/22 11:27 O2 Del Method 12/19/22 11:27 BMI result Body Mass Index 34.0 GENERAL APPEARANCE: in no acute distress, pleasant. NECK: no carotid bruit, no jugular venous distention. SKIN: no suspicious lesions, warm and dry. HEART: no murmurs, regular rate and rhythm. LUNGS: clear to auscultation bilaterally. ABDOMEN: soft, nontender. EXTREMITIES: no edema. PERIPHERAL PULSES: equal. NEUROLOGIC: No gross deficits, AAO X 3 Objective Labs and Meds 12/19/22 06:02 12/19/22 06:02 Lab results: Laboratory Results - last 24 hr 12/18/22 12/18/22 12/18/22 17:46 17:46 17:46 WBC 12.2 H RBC 5.16 Hgb 16.2 Hct 48.7 MCV 94.4 MCH 31.4 MCHC 33.3 RDW 13.3 Plt Count 276 MPV 9.3 L Immature Gran % (Auto) 0.5 H Neut % (Auto) 62.3 Lymph % (Auto) 23.3 [place] % (Auto) 9.5 Eos % (Auto) 3.9 Baso % (Auto) 0.5 Lymph # (Auto) 2.8 [place] # (Auto) 1.2 Eos # (Auto) 0.5 H Baso # (Auto) 0.1 Abs Immat Gran (auto) 0.06 H Absolute Neuts (auto) 7.6 Absolute Nucleated RBC 0.000 Nucleated RBC % (auto) 0.0 PT 13.1 INR 1.1 Sodium 141 Potassium 4.4 Chloride 104 Carbon Dioxide 26 Anion Gap 15 BUN 14 Creatinine 1.04 Estim Creat Clear Calc 73.0 Estimated GFR > 60 POC Glucose Random Glucose 122 H Calcium 9.6 Magnesium 1.7 Total Bilirubin 1.1 H Direct Bilirubin 0.3 AST 74 H ALT 90 H Alkaline Phosphatase 111 Troponin I High Sens Total Protein 6.8 Albumin 4.1 TSH COVID-19 (NAVEED) COVID-19 Clin Com 12/18/22 12/18/22 12/18/22 17:46 17:46 20:58 WBC RBC Hgb Hct MCV MCH MCHC RDW Plt Count MPV Immature Gran % (Auto) Neut % (Auto) Lymph % (Auto) [place] % (Auto) Eos % (Auto) Baso % (Auto) Lymph # (Auto) [place] # (Auto) Eos # (Auto) Baso # (Auto) Abs Immat Gran (auto) Absolute Neuts (auto) Absolute Nucleated RBC Nucleated RBC % (auto) PT INR Sodium Potassium Chloride Carbon Dioxide Anion Gap BUN Creatinine Estim Creat Clear Calc Estimated GFR POC Glucose Random Glucose Calcium Magnesium Total Bilirubin Direct Bilirubin AST ALT Alkaline Phosphatase Troponin I High Sens 3.4 Total Protein Albumin TSH 1.77 COVID-19 (NAVEED) Negative COVID-19 Clin Com See Note 12/18/22 12/19/22 12/19/22 22:04 06:02 06:02 WBC 8.1 RBC 4.66 Hgb 14.3 Hct 44.0 MCV 94.4 MCH 30.7 MCHC 32.5 RDW 13.4 Plt Count 193 D MPV 9.2 L Immature Gran % (Auto) 0.5 H Neut % (Auto) 54.1 Lymph % (Auto) 30.2 [place] % (Auto) 10.3 Eos % (Auto) 4.3 H Baso % (Auto) 0.6 Lymph # (Auto) 2.4 [place] # (Auto) 0.8 Eos # (Auto) 0.4 Baso # (Auto) 0.1 Abs Immat Gran (auto) 0.04 H Absolute Neuts (auto) 4.4 Absolute Nucleated RBC 0.000 Nucleated RBC % (auto) 0.0 PT INR Sodium 141 Potassium 4.8 Chloride 106 Carbon Dioxide 25 Anion Gap 15 BUN 14 Creatinine 0.96 Estim Creat Clear Calc 79.1 Estimated GFR > 60 POC Glucose 106 Random Glucose 111 Calcium 9.0 D Magnesium Total Bilirubin Direct Bilirubin AST ALT Alkaline Phosphatase Troponin I High Sens Total Protein Albumin TSH COVID-19 (NAVEED) COVID-19 Clin Com 12/19/22 07:31 WBC RBC Hgb Hct MCV MCH MCHC RDW Plt Count MPV Immature Gran % (Auto) Neut % (Auto) Lymph % (Auto) [place] % (Auto) Eos % (Auto) Baso % (Auto) Lymph # (Auto) [place] # (Auto) Eos # (Auto) Baso # (Auto) Abs Immat Gran (auto) Absolute Neuts (auto) Absolute Nucleated RBC Nucleated RBC % (auto) PT INR Sodium Potassium Chloride Carbon Dioxide Anion Gap BUN Creatinine Estim Creat Clear Calc Estimated GFR POC Glucose 125 H Random Glucose Calcium Magnesium Total Bilirubin Direct Bilirubin AST ALT Alkaline Phosphatase Troponin I High Sens Total Protein Albumin TSH COVID-19 (NAVEED) COVID-19 Clin Com Assessment and Plan (1) Atrial flutter with rapid ventricular response: Status: Acute Plan 77-year-old gentleman with atrial flutter and high chads Vasc score. Continue atenolol at the same dose. Add Multaq 40 mg b.i.d.. Monitor QTC and please do not add any medications that can prolong QT interval. Apixaban 5 mg twice a day for anticoagulation. He should walk the hallways to see if he has any symptoms. We will arrange Holter monitor for him as part patient. Can be discharged home if stable. Thank you for allowing me to participate in the care of your patient. Please feel free to contact me if you have any questions. Time Spent With Patient Time: Total time managing care of this patient today ____ minutes. Procedures Date of Service Date of Service: 12/19/22
[2022-12-19 12:01] LABS: Glucose, Whole Blood 193 mg/dL (60-115)
[2022-12-19] MEDS: Insulin Lispro 100 UNIT/ML 3 ML VIAL SUBCUT (12:17)
[2022-12-19] MEDS: Dronedarone HCl 400 MG TABLET PO (12:18)
[2022-12-19] MEDS: Apixaban 5 MG TABLET PO (12:18)
--- NOTE | 2022-12-19 12:27 | P.DS_ITS ---
DS: Providers Provider Date of Service: 12/19/22 Date of admission: 12/18/22 19:30 Primary care physician: Roly Orellana MD Consults: 12/18/22 19:45 Consult to Cardiology Routine Consulting Provider: Agapito Ward Reason for consultation: atrial flutter Has provider been notified: Yes Attending physician on discharge: Zana Mccord Discharging clinician: Aundrea Patrick DS: Diagnosis Discharge Diagnosis (1) Atrial flutter with rapid ventricular response: Status: Acute DS: Summary Hospital Course Hospital Course: HP as per admitting provider This is 77-year-old male with pertinent history of essential hypertension, gastroesophageal reflux disease, mixed hyperlipidemia, diet-controlled diabetes mellitus with last A1c 7.5 who presents to the emergency department for evaluation of palpitations.? Patient states he started having palpitations about 2 days ago.? It was intermittent and it lasted for about an hour.? His heart rate was around 120s during the episode.? On the day of presentation, patient states his heart rate jumped to the 160s-170s and it was sustained and hence he decided to present to the ER for further evaluation.? States he has never seen a editorial director but he has had intermittent palpitations for the last 2 years.? Is not on anticoagulation.? Is compliant with his medications.? No history of CAD or CHF.? Patient denies fever, chills, chest discomfort, shortness of breath, abdominal pain, changes in urinary or bowel habits. In the ER upon arrival, patient's heart rate was in the 170s and he was given IV and p.o. Cardizem.? Initial rhythm revealed atrial flutter with 2:1 conduction.? Soon after, patient converted to normal sinus rhythm with heart rate in the 70s . Atrial flutter with RVR. Converted to sinus rhythm with diltiazem in the ER. No further episodes noted while admitted.? Seen and evaluated by Cardiology. Recommended to start Multaq b.i.d., continue atenolol, start Eliquis for anticoa gulation. Will be seen outpatient for Holter monitor. Essential hypertension. Continue home p.o. antihypertensives Mixed hyperlipidemia. On statin Gastroesophageal reflux disease. On PPI Bba-gtbyoie-irjvsqrye diabetes mellitus, last A1c 7.5.? continue home medications Time Spent with Patient Time attestation: Total time managing care of this patient today ____ minutes. Discharge coordination time: Greater than 30 minutes Quality: Safe Use of Opioids Does Pt have an Active Cancer Diagnosis on the Problem List?: No Quality: Stroke Does the patient have a stroke diagnosis?: No Physical Exam Vital Signs: Vital Signs: Last Vital Signs Temp 98.1 F 12/19/22 11:27 Pulse 83 12/19/22 11:27 Resp 17 12/19/22 11:27 BP 131/79 12/19/22 11:27 Pulse Ox 93 12/19/22 11:27 O2 Del Method 12/19/22 11:27 BMI result Body Mass Index 34.0 Appearing in no acute distress head is normocephalic atraumatic eyes pupils are PERRLA sclera is anicteric mouth throat mucous membranes are intact and moist neck is supple no lymphadenopathy, no JVD noted lung sounds are clear to auscultation heart regular rate rhythm, clear S1, S2 positive bowel sounds, abdomen is soft, nontender neuro patient is alert x3, no focal deficits DS: Data Data Completed and Pending Labs on day of discharge: Laboratory Results - last 24 hr 12/18/22 12/18/22 12/18/22 17:46 17:46 17:46 WBC 12.2 H RBC 5.16 Hgb 16.2 Hct 48.7 MCV 94.4 MCH 31.4 MCHC 33.3 RDW 13.3 Plt Count 276 MPV 9.3 L Immature Gran % (Auto) 0.5 H Neut % (Auto) 62.3 Lymph % (Auto) 23.3 [place] % (Auto) 9.5 Eos % (Auto) 3.9 Baso % (Auto) 0.5 Lymph # (Auto) 2.8 [place] # (Auto) 1.2 Eos # (Auto) 0.5 H Baso # (Auto) 0.1 Abs Immat Gran (auto) 0.06 H Absolute Neuts (auto) 7.6 Absolute Nucleated RBC 0.000 Nucleated RBC % (auto) 0.0 PT 13.1 INR 1.1 Sodium 141 Potassium 4.4 Chloride 104 Carbon Dioxide 26 Anion Gap 15 BUN 14 Creatinine 1.04 Estim Creat Clear Calc 73.0 Estimated GFR > 60 POC Glucose Random Glucose 122 H Calcium 9.6 Magnesium 1.7 Total Bilirubin 1.1 H Direct Bilirubin 0.3 AST 74 H ALT 90 H Alkaline Phosphatase 111 Troponin I High Sens Total Protein 6.8 Albumin 4.1 TSH COVID-19 (NAVEED) COVID-19 Clin Com 12/18/22 12/18/22 12/18/22 17:46 17:46 20:58 WBC RBC Hgb Hct MCV MCH MCHC RDW Plt Count MPV Immature Gran % (Auto) Neut % (Auto) Lymph % (Auto) [place] % (Auto) Eos % (Auto) Baso % (Auto) Lymph # (Auto) [place] # (Auto) Eos # (Auto) Baso # (Auto) Abs Immat Gran (auto) Absolute Neuts (auto) Absolute Nucleated RBC Nucleated RBC % (auto) PT INR Sodium Potassium Chloride Carbon Dioxide Anion Gap BUN Creatinine Estim Creat Clear Calc Estimated GFR POC Glucose Random Glucose Calcium Magnesium Total Bilirubin Direct Bilirubin AST ALT Alkaline Phosphatase Troponin I High Sens 3.4 Total Protein Albumin TSH 1.77 COVID-19 (NAVEED) Negative COVID-19 Clin Com See Note 12/18/22 12/19/22 12/19/22 22:04 06:02 06:02 WBC 8.1 RBC 4.66 Hgb 14.3 Hct 44.0 MCV 94.4 MCH 30.7 MCHC 32.5 RDW 13.4 Plt Count 193 D MPV 9.2 L Immature Gran % (Auto) 0.5 H Neut % (Auto) 54.1 Lymph % (Auto) 30.2 [place] % (Auto) 10.3 Eos % (Auto) 4.3 H Baso % (Auto) 0.6 Lymph # (Auto) 2.4 [place] # (Auto) 0.8 Eos # (Auto) 0.4 Baso # (Auto) 0.1 Abs Immat Gran (auto) 0.04 H Absolute Neuts (auto) 4.4 Absolute Nucleated RBC 0.000 Nucleated RBC % (auto) 0.0 PT INR Sodium 141 Potassium 4.8 Chloride 106 Carbon Dioxide 25 Anion Gap 15 BUN 14 Creatinine 0.96 Estim Creat Clear Calc 79.1 Estimated GFR > 60 POC Glucose 106 Random Glucose 111 Calcium 9.0 D Magnesium Total Bilirubin Direct Bilirubin AST ALT Alkaline Phosphatase Troponin I High Sens Total Protein Albumin TSH COVID-19 (NAVEED) COVID-19 Clin Com 12/19/22 12/19/22 07:31 11:56 WBC RBC Hgb Hct MCV MCH MCHC RDW Plt Count MPV Immature Gran % (Auto) Neut % (Auto) Lymph % (Auto) [place] % (Auto) Eos % (Auto) Baso % (Auto) Lymph # (Auto) [place] # (Auto) Eos # (Auto) Baso # (Auto) Abs Immat Gran (auto) Absolute Neuts (auto) Absolute Nucleated RBC Nucleated RBC % (auto) PT INR Sodium Potassium Chloride Carbon Dioxide Anion Gap BUN Creatinine Estim Creat Clear Calc Estimated GFR POC Glucose 125 H 193 H Random Glucose Calcium Magnesium Total Bilirubin Direct Bilirubin AST ALT Alkaline Phosphatase Troponin I High Sens Total Protein Albumin TSH COVID-19 (NAVEED) COVID-19 Clin Com Discharge Plan Discharge Anticipated Discharge Date/Time: 12/19/22 12:21 Patient Disposition: Home, Self-Care Discharge Diagnosis: Atrial fibrillation with rapid ventricular response Referrals: Roly Orellana MD [Primary Care Provider] - 1 Week Agapito Ward MD [Physician] - 1 Week ( Holter monitor) Discharge Medications: New Multaq 400 mg Tablet 400 mg PO BID Qty: 60 0RF Eliquis 5 mg Tablet 5 mg PO BID Qty: 60 0RF Continued latanoprost 0.005 % drops 1 drp ophthalmic (eye) DAILY enalapril maleate 20 mg tablet 10 mg PO DAILY simvastatin 10 mg tablet 10 mg PO DAILY omeprazole 20 mg capsule,delayed release(DR/EC) 20 mg PO DAILY timolol maleate 0.5 % drops 1 drp ophthalmic (eye) BEDTIME atenolol 50 mg tablet 25 mg PO DAILY multivitamin [Daily Multi-Vitamin] Tablet 1 tab PO DAILY Discharge Orders: Discharge Order (Routine); Ordered 12/19/22 Ordered By: Aundrea Patrick Diet: Advance to usual diet Activity on Discharge: As tolerated Stand Alone Forms: Patient Portal Discharge page Care Plan Goals: no further episodes of atrial fibrillation Health Concerns: atrial fibrillation with rapid ventricular response Plan of Treatment: Follow-up with editorial director for Holter monitor Take all medications as prescribed Assessment: see discharge summary
--- NOTE | 2022-12-19 14:05 | MHC.CM.PN ---
PTT REPORTS HE LIVES WITH HIS AND IS INDEPENDENT WITH CARE PT HAS NO SERVICES AND USES ONLY A CPAP FOR DME HE SAYS HIS IS HIS HCP PCP: PEDRO BARTHOLOMEW AND BOOSTED X 2 IMM DELIVERED PT WILL DC HOME TODAY WITH NO SERVICES TO TRANSPORT
== END 2022-12-19 14:05 | disposition home or self-care (01) | DRG 310 ==
LOC: HO.ED 19:32 → HO.EDOVER 19:42 → HO.IMC 20:28
PROVIDERS: Nurse Practitioner Family; Admitting Provider Student in an Organized Health Care Education/Training Program; Emergency Provider Emergency Medicine; PCP Internal Medicine; Visit Provider Nurse Practitioner Acute Care
DX: I48.92 Unspecified atrial flutter (principal); I10 Essential (primary) hypertension; K21.9 Gastro-esophageal reflux disease without esophagitis; E78.2 Mixed hyperlipidemia; E11.9 Type 2 diabetes mellitus without complications; Z20.822 Contact with and (suspected) exposure to COVID-19; Z87.891 Personal history of nicotine dependence; Z88.8 Allergy status to other drugs, medicaments and biological substances; Z79.899 Other long term (current) drug therapy
CPT/HCPCS: 36415; 80048; 80076; 82947; 83735; 84443; 84484; 85025; 85610; 87635; 93005; 99285; J1650

== ENCOUNTER → 2023-01-04 10:44 | Outpatient (REF) | payer MEDICARE, SELFPAY ==
--- NOTE | 2023-01-04 11:07 | HM_ITS ---
Conclusion: 1. Patient was monitored for total period of 7 days 2. Baseline was normal sinus rhythm with average heart of 58 beats per minute, lowest heart rate of 46 beats per minute and highest 78 beats per minute 3. No significant pauses noted 4. Frequent sinus bradycardia with 64.5% of time heart rate below 60 beats per minute 5. Rare ectopy noted 6. Patient reported 1 symptom of shortness of breath that correlated with sinus rhythm MTDD
== END ==
LOC: HO.CARD 10:44
PROVIDERS: PCP Internal Medicine; Visit Provider Internal Medicine Cardiovascular Disease
DX: I48.92 Unspecified atrial flutter (principal)
CPT/HCPCS: 93242

== ENCOUNTER → 2023-01-27 08:46 | Outpatient (BNVA) | payer MEDICARE, SELFPAY | PROVIDERS: PCP Internal Medicine; Referring Provider Internal Medicine; Visit Provider Internal Medicine Cardiovascular Disease | DX: R06.09 Other forms of dyspnea (principal); I48.92 Unspecified atrial flutter; I10 Essential (primary) hypertension | CPT/HCPCS: 93005; 99212 ==

== ENCOUNTER → 2023-02-04 10:05 | Outpatient (REF) | payer MEDICARE, SELFPAY ==
--- NOTE | 2023-02-04 10:09 | CA_ITS ---
Acquisition Time: 2023-02-04 10:16:18 Total Exercise Time: 00:02:58 Test Indications: AFLUTTER Medications: SEE H Protocol: MELANI Max HR: 121 BPM 84% of Pred: 144 BPM Max BP: 140/068 mmHG Max Work Load: 4.6 METS Exercise stress test with exercise 2 min 58 sec of Melani protocol, achieving 84% MPHR with request to stop due to sob, no chest discomfort, without arrythmia, with normotensive response to exercise, without EKG changes meeting criteira for ischemia at achieved workload. In recovery his breathing normalized. Test reviewed with Dr Ward Referred By: Agapito Ward Overread By: JAJA WELCH
== END ==
LOC: HO.CARD 10:05
PROVIDERS: PCP Internal Medicine; Visit Provider Internal Medicine Cardiovascular Disease
DX: R06.09 Other forms of dyspnea (principal)
CPT/HCPCS: 93017

== ENCOUNTER → 2023-03-01 09:08 | Outpatient (REF) | payer MEDICARE, SELFPAY ==
--- NOTE | ~2023-03-01 | NM_ITS ---
Lexiscan Myocardial perfusion study Indication: Atrial flutter, shortness of breath, assess for coronary disease and ischemia Technique: The patient was brought in for a Lexiscan perfusion study on 03/01/2023 and was injected 0.4 mg of Lexiscan intravenously. Within a minute of this injection 35 mCi of sestamibi was given intravenously. Images were obtained using the SPECT gamma camera interlaced with the gating device. Images were obtained in supine position. Resting perfusion study was performed on 03/02/2023. Patient was administered 35 mCi of sestamibi intravenously at rest. Images were then obtained in supine position. Images were processed with the software and compared side to side in short axis, horizontal long axis and vertical long axis views. Total DLP 115mGy-cm. Findings: Raw acquisition reviewed. The stress perfusion study showed diminished tracer uptake in the distal part of inferior wall. With CT attenuation correction, there is improvement suggestive of diaphragmatic attenuation artifact. The gated study shows normal LV systolic function with calculated LVEF of 67%. LV cavity is normal in size. The gated study shows normal wall thickening and contraction of segments. Resting study shows mildly reduced tracer uptake in the basal part of inferoseptal wall. There is improvement with CT attenuation correction suggestive of diaphragmatic attenuation artifact. Gating at rest reveals normal wall motion with ejection fraction at 48%. The findings are consistent with reversible appearing mid to distal inferior defect but possibly from diaphragmatic attenuation artifact. NM/NM cardiolite stress test Impression: 1. Myocardial perfusion imaging study shows small reversible mid to distal inferior defect. Suspected to be from diaphragmatic attenuation artifact. 2. Gated LVEF is 67% during stress and 48% during rest. Correlate with echocardiogram. 3. Transient ischemic dilatation not present. EKG component of the test reported separately.
--- NOTE | 2023-03-01 09:12 | CA_ITS ---
Acquisition Time: 2023-03-01 09:25:17 Total Exercise Time: 00:02:00 Test Indications: SOB Medications: Protocol: LEXISCAN Max HR: 086 BPM 59% of Pred: 144 BPM Max BP: 114/056 mmHG Max Work Load: 1.0 METS Pharmacological stress test with Lexiscan injection, while sitting and kicking his legs, without anginal symptoms, without arrythmia, with normotensive response to injection, with nondiagnostic EKG for ischemia. Nuclear images pending. Test reviewed with Dr Renee. Referred By: Agapito Ward Overread By: JAJA WELCH
== END ==
LOC: HO.CARD 09:08
PROVIDERS: PCP Internal Medicine; Visit Provider Internal Medicine Cardiovascular Disease
DX: R94.39 Abnormal result of other cardiovascular function study (principal)
CPT/HCPCS: 78452; 93017; A9500; J0280; J2785

== ENCOUNTER 2023-04-06 13:03 | Outpatient (REF) | payer MEDICARE, SELFPAY ==
[2023-04-06 14:07] LABS: Anion Gap 11 (12-20); Blood Urea Nitrogen 22 mg/dL (9-16); Calcium 9.8 mg/dL (8.4-10.2); Carbon Dioxide 27 mmol/L (22-29); Chloride 108 mmol/L (96-108); Estimated Glomerular Filt Rate > 60; Glucose Random 88 mg/dL (60-115); Potassium 4.7 mmol/L (3.3-5.1); Sodium 141 mmol/L (135-145)
== END 2023-04-06 13:04 | disposition home or self-care (01) ==
LOC: HO.LAB 13:03
PROVIDERS: PCP Internal Medicine; Visit Provider Nurse Practitioner Family
DX: R94.39 Abnormal result of other cardiovascular function study (principal)
CPT/HCPCS: 36415; 80048

== ENCOUNTER → 2023-05-04 12:56 | Outpatient (BNVA) | payer MEDICARE, SELFPAY | PROVIDERS: Visit Provider Internal Medicine Cardiovascular Disease | DX: I48.0 Paroxysmal atrial fibrillation (principal); R06.00 Dyspnea, unspecified; I25.10 Atherosclerotic heart disease of native coronary artery without angina pectoris; I10 Essential (primary) hypertension; Z87.891 Personal history of nicotine dependence | CPT/HCPCS: 93005; 99212 ==

== ENCOUNTER 2023-06-06 08:36 | Outpatient (REF) | payer MEDICARE, SELFPAY ==
[2023-06-06 11:48] LABS: Hematocrit 40.6 % (42.0-52.0); Mean Corpuscular Hemoglobin 31.4 pg (27.0-33.0); Mean Corpuscular Volume 98.1 fL (80.0-98.0); Mean Platelet Volume 9.7 fL (9.4-12.4); Platelet Count 243 X10*3/uL (160-400); Red Blood Count 4.14 X10*6/uL (4.60-5.80); Red Cell Distribution Width 13.4 % (11.0-16.0); White Blood Count 9.8 X10*3/uL (4.8-10.8)
[2023-06-06 12:05] LABS: INTERNATIONAL NORM RATIO 1.2 (0.9-1.1); Prothrombin Time 14.9 SEC (11.1-13.3)
[2023-06-06 12:23] LABS: Anion Gap 15 (12-20); Blood Urea Nitrogen 24 mg/dL (9-16); Calcium 10.2 mg/dL (8.4-10.2); Carbon Dioxide 24 mmol/L (22-29); Chloride 105 mmol/L (96-108); Estimated Glomerular Filt Rate > 60; Glucose Random 116 mg/dL (60-115); Potassium 4.8 mmol/L (3.3-5.1); Sodium 139 mmol/L (135-145)
== END 2023-06-06 08:37 | disposition home or self-care (01) ==
LOC: HO.HMGCLDS 08:36
PROVIDERS: PCP Internal Medicine; Visit Provider Internal Medicine Cardiovascular Disease
DX: Z01.818 Encounter for other preprocedural examination (principal); R94.39 Abnormal result of other cardiovascular function study
CPT/HCPCS: 36415; 80048; 85027; 85610

== ENCOUNTER 2023-06-09 11:15 | Outpatient (REF) | payer MEDICARE, SELFPAY ==
--- NOTE | 2023-06-09 12:08 | PFT_ITS ---
FLOWS: 1. FEV1 112% of predicted at 3.26 L. 2. FVC 92% of predicted at 3.72 L. 3. FEV1 to FVC ratio of 0.88. 4. No bronchodilator response. LUNG VOLUMES: 1. Total lung capacity 85% of predicted at 5.88 L. 2. Residual volume 87% of predicted at 2.20 L. 3. Slow vital capacity 85% of predicted at 3.68 L. 4. Expiratory reserve volume 76% of predicted at 0.87 L. 5. Diffusion capacity is normal. IMPRESSION: No obstructive or restrictive ventilatory defect. No bronchodilator response. Essentially normal pulmonary function test. MD ARINA Orlando/[facility] / [id number]
== END 2023-06-09 11:16 | disposition home or self-care (01) ==
LOC: HO.RESP 11:15
PROVIDERS: PCP Internal Medicine; Visit Provider Nurse Practitioner Family
DX: R06.09 Other forms of dyspnea (principal)
CPT/HCPCS: 94010; 94727; 94729

== ENCOUNTER → 2023-06-09 12:08 | Outpatient (BNV) | payer MEDICARE, SELFPAY | PROVIDERS: PCP Internal Medicine; Visit Provider Internal Medicine Pulmonary Disease | DX: R06.09 Other forms of dyspnea (principal); G47.33 Obstructive sleep apnea (adult) (pediatric) | CPT/HCPCS: 94060; 94727; 94729 ==

== ENCOUNTER → 2023-06-14 23:59 | Outpatient (BNV) | payer MEDICARE, SELFPAY | PROVIDERS: PCP Internal Medicine; Visit Provider Internal Medicine Cardiovascular Disease | DX: I20.8 Other forms of angina pectoris (principal) | CPT/HCPCS: 93458; 93571; 93572; 99152 ==

== ENCOUNTER 2023-06-22 13:14 | Outpatient (AMB) | payer MEDICARE, SELFPAY ==
--- NOTE | 2023-06-22 13:25 | MHC.OFFVIS ---
Intake Vital Signs 06/22/23 13:26 Height 5 ft 9 in Weight 216 lb 14.958 oz BMI 32.0 BP 110/64 Blood Pressure Location Lt brachial Position Sitting Pulse 54 Pulse Source Monitor Intake Visit Reasons: Follow up post cardiac cath Intake Note: Follow up with EKG after cardiac cath. Inflated Ball Molder Required: No Accompanied by: Self / Same As Patient Allergies meperidine [From DEMEROL] Allergy (Unknown, Verified 06/22/23 13:27) SEVERE STOMACH UPSET Medication List - Last Reconciled 06/22/23 by Agapito Ward MD apixaban (Eliquis) 5 mg PO BID aspirin 81 mg PO DAILY atenolol 25 mg PO DAILY atorvastatin 40 mg PO DAILY dronedarone (Multaq) 400 mg PO BID 90 days enalapril maleate 10 mg PO DAILY latanoprost 0.005% 1 drp ophthalmic (eye) DAILY metformin 500 mg PO BID multivitamin (Daily Multi-Vitamin tablet) 1 tab PO DAILY omeprazole 20 mg PO DAILY timolol maleate 0.5% 1 drp ophthalmic (eye) BEDTIME HPI HPI Comments History of Present Illness Details 78-year-old gentleman with paroxysmal atrial flutter. He has been on apixaban, atenolol and were not drawn. Doing well and Holter monitoring as shows sinus rhythm. EKG in the office also sinus. He has no symptoms palpitations or chest discomfort. He does have dyspnea on exertion which started over the last 5 months. He is saying his weight has been stable. His same when he goes up 1 flight of stairs he gets out of breath. He says he is out of breath for few minutes before recovery. No chest discomfort with activity. Taking medications regularly. No bleeding concerns. Blood pressure control is good. 05/04/23: He is here for follow-up. On last visit he was referred for exercise stress test. He was able to exercise for 2 minute 50 seconds and stopped due to shortness of breath. Subsequent to that he had a Lexiscan performed which showed inferior perfusion defect. It was difficult to say whether it is a true defect versus diaphragmatic attenuation. After discussion with him was sent for coronary CTA. A coronary CTA showed calcification in the LAD and stenosis involving LAD and diagonal. It was thought to have 50% stenosis in the LAD and 50% mid diagonal stenosis. Left circumflex was thought to be less than 50% and similarly RCA was thought to have less than 50% stenosis. There was also a large paraesophageal hernia noted. He had CT FFR performed after the original coronary CTA which showed borderline low FFR in the distal LAD and D2. Distal LAD CT FFR was 0.78 and apical LAD was 0.69. Second diagonal CT FFR 0.76. He is back for follow-up and is complaining that he is short of breath and fatigue. He is saying that he has progressed more over the last few months and feels more short of breath. Has no orthopnea or PND. No peripheral edema to suggest heart failure. He is taking the Multaq along with atenolol. 06/22/23: He returns for follow-up. He had coronary CTA which showed concern for coronary disease as described above. He underwent cardiac catheterization on 06/14/2023. There was a 50% proximal right coronary artery stenosis, lad had 70% stenosis in the diagonal branch and 65% stenosis distally. Left main was approximately 40% stenosis. We performed IFR assessment of left main into circumflex which was normal. IFR assessment into LAD was abnormal at 0.87 but on pullback we noticed diffuse disease and interestingly there was no significant gradient across the left main. He returns for follow-up. He has been doing okay. No chest discomfort. Continues to have some shortness of breath. PFTs have not shown any significant obstructive or restrictive defect. [facility] Medical History (Updated 06/22/23 @ 13:46 by Agapito Ward MD) Essential hypertension GERD (gastroesophageal reflux disease) Mixed hyperlipidemia Non-insulin dependent type 2 diabetes mellitus Surgical History (Updated 06/22/23 @ 13:28 by PING Nelson) History of cardiac cath History of cataract surgery History of cholecystectomy Family History Mother CHF (congestive heart failure) Father No problems noted. Sister Heart attack Social History (Updated 06/22/23 @ 13:29 by PING Nelson) Household Members: Spouse Housing: House Do you presently have visiting nurse or other home services: No Alcohol intake: current Alcohol intake frequency: holidays/special occasions only Patient Tobacco Use Status: Former Tobacco user Quit Date: 1982 Advance Directives Date on File: 12/18/22 service: Yes Current occupational status: retired Review of Systems Const Denies weakness ENT Denies dizziness Card Denies chest pain, Denies chest pain with activity, Denies syncope, Denies rapid heart rate, Denies pedal edema, Denies edema, Denies leg edema, Denies lightheadedness, Denies palpitations, Denies dyspnea, Denies dyspnea on exertion and Denies orthopnea Resp Denies cough, Denies dyspnea and Denies dyspnea on exertion GI Denies hematochezia and Denies change in stool character Musc Denies abnormal gait, Denies muscle cramps, Denies muscle weakness, Denies numbness, Denies radiating pain into limb and Denies tingling Neuro Denies abnormal gait, Denies dizziness, Denies syncope, Denies numbness, Denies tingling and Denies weakness Endo Denies palpitations Physical Exam Vital Signs: Last Vital Signs Pulse 54 06/22/23 13:26 BP 110/64 06/22/23 13:26 BMI result Body Mass Index 32.0 GENERAL APPEARANCE: in no acute distress, pleasant. NECK: no carotid bruit, no jugular venous distention. SKIN: no suspicious lesions, warm and dry. Right radial access site is stable. HEART: no murmurs, regular rate and rhythm. LUNGS: clear to auscultation bilaterally. ABDOMEN: soft, nontender. EXTREMITIES: no edema. PERIPHERAL PULSES: equal. NEUROLOGIC: No gross deficits, AAO X 3 Office Procedures EKG Details: Sinus bradycardia 54 beats per minute, normal axis, normal ECG, QTC 413 milliseconds. [id number], Complete Assessment & Plan Assessment & Plan (1) Stable angina: Code(s): I20.8 - Other forms of angina pectoris (2) CAD (coronary artery disease): Code(s): I25.10 - Atherosclerotic heart disease of [place] coronary artery without angina pectoris (3) Essential hypertension: Code(s): I10 - Essential (primary) hypertension (4) Mixed hyperlipidemia: Code(s): E78.2 - Mixed hyperlipidemia Plan Pleasant 78 year gentleman who is here for follow-up. He has history of dyspnea on exertion and underwent stress testing for but coronary CTA showing coronary disease. Cardiac catheterization was performed which showed 40% left main stenosis which was physiologically in normal by IFR assessment. LAD IFR was abnormal but it was diffuse disease. We decided to medically treat him. He currently has stable angina. He is on atenolol. He is on enalapril for blood pressure control. Blood pressure is well controlled at this point. He has paroxysmal atrial flutter and is currently taking Multaq along with apixaban. Both should be continued. I am referring him for cardiac rehabilitation for stable angina. He should have fasting lipid panel once a year with an LDL target less than 70. Thank you for allowing me to participate in the care of your patient. Please feel free to contact me if you have any questions. Orders: Orders Cardiac Rehab Today I20.8 - Other forms of angina pectoris, Z98.61 - Coronary angioplasty status Coding Level of Care Code Est Pt Level 4 (41861) Diagnoses Stable angina I20.8 CAD (coronary artery disease) I25.10 Essential hypertension I10 Mixed hyperlipidemia E78.2 CPT Codes EKG - CPT: 69571-[id number], Complete ([id number])
[2023-06-22 13:26] VITALS: BP 110/64; PULSE 54; BMI 32.0
== END 2023-06-22 13:42 | disposition home or self-care (01) ==
PROVIDERS: PCP Internal Medicine; Referring Provider Internal Medicine; Visit Provider Internal Medicine Cardiovascular Disease
DX: I25.118 Atherosclerotic heart disease of native coronary artery with other forms of angina pectoris (principal); I10 Essential (primary) hypertension; E78.2 Mixed hyperlipidemia; R00.1 Bradycardia, unspecified
CPT/HCPCS: 93010; 99214

== ENCOUNTER → 2023-06-22 13:14 | Outpatient (BNVA) | payer MEDICARE, SELFPAY | PROVIDERS: PCP Internal Medicine; Referring Provider Internal Medicine; Visit Provider Internal Medicine Cardiovascular Disease | DX: I25.118 Atherosclerotic heart disease of native coronary artery with other forms of angina pectoris (principal); I10 Essential (primary) hypertension; E78.2 Mixed hyperlipidemia | CPT/HCPCS: 93005; 99212 ==

== ENCOUNTER 2023-09-12 14:07 | Outpatient (AMB) | payer MEDICARE, SELFPAY ==
[2023-08-16 12:42] VITALS: BP 126/64; BP 128/64; BMI 32.0
[2023-09-12 14:25] VITALS: BP 110/62; PULSE 64; O2SAT 96; BMI 32.7
--- NOTE | 2023-09-12 14:25 | MHC.OFFVIS ---
Intake Vital Signs 09/12/23 14:25 Height 5 ft 9 in Weight 221 lb 5.506 oz BMI 32.7 BP 110/62 Blood Pressure Location Rt brachial Position Sitting Pulse 64 Pulse Source Pulse Oximeter Pulse Oximetry (%) 96 Oxygen Delivery Method Room Air Intake Visit Reasons: 3 mth f/up Intake Note: Pt presents to the office today for a 3 month follow up. Pt states he has been feeling better than before. Pt denies any cardiac concerns at this time. Allergies meperidine [From DEMEROL] Allergy (Unknown, Verified 09/12/23 14:25) SEVERE STOMACH UPSET Medication List - Last Reconciled 09/12/23 by Agapito Ward MD apixaban (Eliquis) 5 mg PO BID aspirin 81 mg PO DAILY atenolol 25 mg PO DAILY atorvastatin 40 mg PO DAILY dronedarone (Multaq) 400 mg PO BID 90 days enalapril maleate 10 mg PO DAILY latanoprost 0.005% 1 drp ophthalmic (eye) DAILY metformin 500 mg PO BID multivitamin (Daily Multi-Vitamin tablet) 1 tab PO DAILY omeprazole 20 mg PO DAILY timolol maleate 0.5% 1 drp ophthalmic (eye) BEDTIME HPI HPI Comments History of Present Illness Details 78-year-old gentleman with paroxysmal atrial flutter. He has been on apixaban, atenolol and were not drawn. Doing well and Holter monitoring as shows sinus rhythm. EKG in the office also sinus. He has no symptoms palpitations or chest discomfort. He does have dyspnea on exertion which started over the last 5 months. He is saying his weight has been stable. His same when he goes up 1 flight of stairs he gets out of breath. He says he is out of breath for few minutes before recovery. No chest discomfort with activity. Taking medications regularly. No bleeding concerns. Blood pressure control is good. 05/04/23: He is here for follow-up. On last visit he was referred for exercise stress test. He was able to exercise for 2 minute 50 seconds and stopped due to shortness of breath. Subsequent to that he had a Lexiscan performed which showed inferior perfusion defect. It was difficult to say whether it is a true defect versus diaphragmatic attenuation. After discussion with him was sent for coronary CTA. A coronary CTA showed calcification in the LAD and stenosis involving LAD and diagonal. It was thought to have 50% stenosis in the LAD and 50% mid diagonal stenosis. Left circumflex was thought to be less than 50% and similarly RCA was thought to have less than 50% stenosis. There was also a large paraesophageal hernia noted. He had CT FFR performed after the original coronary CTA which showed borderline low FFR in the distal LAD and D2. Distal LAD CT FFR was 0.78 and apical LAD was 0.69. Second diagonal CT FFR 0.76. He is back for follow-up and is complaining that he is short of breath and fatigue. He is saying that he has progressed more over the last few months and feels more short of breath. Has no orthopnea or PND. No peripheral edema to suggest heart failure. He is taking the Multaq along with atenolol. 06/22/23: He returns for follow-up. He had coronary CTA which showed concern for coronary disease as described above. He underwent cardiac catheterization on 06/14/2023. There was a 50% proximal right coronary artery stenosis, lad had 70% stenosis in the diagonal branch and 65% stenosis distally. Left main was approximately 40% stenosis. We performed IFR assessment of left main into circumflex which was normal. IFR assessment into LAD was abnormal at 0.87 but on pullback we noticed diffuse disease and interestingly there was no significant gradient across the left main. He returns for follow-up. He has been doing okay. No chest discomfort. Continues to have some shortness of breath. PFTs have not shown any significant obstructive or restrictive defect. 09/12/23: Rehan returns for follow-up. He has been prescribed tamsulosin for BPH. He is asking because there is dizziness and low blood pressure so seated with the medication. His blood pressure currently is 110/62. He has not started taking tamsulosin. He is saying at home his blood pressures as low as 90 by 50s. He does not have any significant symptoms currently. No chest discomfort shortness of breath. Overall he is feeling better with cardiac rehabilitation. [facility] Medical History GERD (gastroesophageal reflux disease) Non-insulin dependent type 2 diabetes mellitus Mixed hyperlipidemia Essential hypertension Surgical History History of cardiac cath History of cataract surgery History of cholecystectomy Family History Mother CHF (congestive heart failure) Father No problems noted. Sister Heart attack Social History Household Members: Spouse Housing: House Do you presently have visiting nurse or other home services: No Alcohol intake: current Alcohol intake frequency: holidays/special occasions only Patient Tobacco Use Status: Former Tobacco user Quit Date: 45 YRS AGO Tobacco use type: Cigarette Cigarette Packs Per Day: 2 Years Smoked: 10 Advance Directives Date on File: 12/18/22 service: Yes Current occupational status: retired Physical Exam Vital Signs: Last Vital Signs Pulse 64 09/12/23 14:25 BP 110/62 09/12/23 14:25 Pulse Ox 96 09/12/23 14:25 Oxygen Delivery Method Room Air 09/12/23 14:25 BMI result Body Mass Index 32.7 GENERAL APPEARANCE: in no acute distress, pleasant. NECK: no carotid bruit, no jugular venous distention. SKIN: no suspicious lesions, warm and dry. HEART: no murmurs, regular rate and rhythm. LUNGS: clear to auscultation bilaterally. ABDOMEN: soft, nontender. EXTREMITIES: no edema. PERIPHERAL PULSES: equal. NEUROLOGIC: No gross deficits, AAO X 3 Assessment & Plan Assessment & Plan (1) Stable angina: Code(s): I20.8 - Other forms of angina pectoris (2) Essential hypertension: Code(s): I10 - Essential (primary) hypertension Plan [age] gentleman is here for follow-up. He has history of stable angina. Clinically stable right now. His blood pressure is somewhat low and he is going to start taking tamsulosin. At home his blood pressures have been as low as 90/50. I have advised him to cut the enalapril to 5 mg daily. On Multaq for rhythm control strategy. In sinus rhythm. Thank you for allowing me to participate in the care of your patient. Please feel free to contact me if you have any questions. Medications: New enalapril maleate 5 mg PO DAILY 60 tabs 3RF Coding Level of Care Code Est Pt Level 4 (40708) Diagnoses Stable angina I20.8 Essential hypertension I10
== END 2023-09-12 15:07 | disposition home or self-care (01) ==
PROVIDERS: PCP Internal Medicine; Visit Provider Internal Medicine Cardiovascular Disease
DX: I20.8 Other forms of angina pectoris (principal); I10 Essential (primary) hypertension
CPT/HCPCS: 99214

== ENCOUNTER → 2023-09-12 14:07 | Outpatient (BNVA) | payer MEDICARE, SELFPAY ==
[2023-08-16 12:42] VITALS: BP 126/64; BP 128/64; BMI 32.0
== END ==
PROVIDERS: PCP Internal Medicine; Visit Provider Internal Medicine Cardiovascular Disease
DX: I20.89 Other forms of angina pectoris (principal); I10 Essential (primary) hypertension
CPT/HCPCS: 99212

== ENCOUNTER 2023-11-14 08:30 | Outpatient (RCR) | payer MEDICARE, SELFPAY ==
[2023-08-16 12:42] VITALS: BP 126/64; BP 128/64; BMI 32.0
--- NOTE | 2023-08-16 14:54 | MHC.CR.ITI ---
[address] [phone] F: [phone] Please see additional notes from [facility] Cardiac Rehab Initial Assessment/ITP Cardiac Rehab Initial Assessment/ITP Start: 08/11/23 10:22 Freq: Status: Active Protocol: Activity Type Activity Date Activity User E-sign Co-sign Detail Recorded Client Recorded Date Recorded By Document 08/16/23 12:42 RICHELLE [id number] 08/11/23 11:07 RICHELLE 08/16/23 12:42 Cardiac Rehab ITP Initial [Excercise] -Weight Control Engineer Required No -Preferred Language Maltese -Number of sessions approved 36 -Diagnosis Current Stable Angina I20.9 -Other Diagnosis CAD, Essential Hypertention. Hx of Afib, mixed Hyperlipidemia, GERD, DM2, -Comments Cardiac Catheterization , with no stenting. recommended aggressive secondary risk factor modification. Reports shortness of breath with ex. Sometimes gets pain in middle of back ( movement related) THAO has cpap. [Functional Assessment] -6 Min Walk (distance in ft) 848 -Stress Test (Mode) WALK -METS Achieved 2.23 -Resting HR 58 -Resting BP 126/64 -Resting SpO2 99 -Exercise HR 76 -Exercise BP 128/64 -Exercise SpO2 97 -RPE 11 -Dyspnea No -ECG Summary SR -Comments MILD LIGHT HEADEDNESS [Pre Rehab] -Pre Rehab Home Exercise No -Comments 1 yr ago he used to walk regularly, 3-4 times a week 1- 1.5 miles. but stopped about a year ago. REALLY WANTS TO GET BACK TO DOING MORE -Risk Stratification: Low Risk No resting or Participants exercise induced myocardial ischemia manifest as angina,No significant left ventricular dysfunction (EF > = 30%) -Fall Risk No -Assistive Devices None [Exercise Plan] [Intervention] -Exercise Prescription NuStep, Recumbent Bike, Recumbent Elliptical, Rower,Treadmill ,UBE,Upright Bike,Weights -Duration Intensity 36 Sessions -Frequency 2-3x/week -Angina with Exercise No [Exercise Education] -Exercise Education Exercise orientation, Exercise safety ,Home exercise, RPE,Self pulse checking,Signs and symptoms, Warmup/cooldown -Date Completed 08/16/23 -Initials CSP -Education Summary taught self puls at wrist. he has bp cuff at home that takes pulse as well and pulse oximeter. [Exercise Goals] -Exercise Most Days of the Week Yes -Exercise 30-45 mins/day Yes -Target HR Range +20 - +30 beats above resting -Target RPE range 11-13 -Increase METS next 30 days 0.5-1.0 METS Every two weeks -METs goal by Discharge 5 METS [Nutrition] [Hyperlipidemia] -Hyperlipidemia Yes -Are lab results available Yes -Lipid Draw Date 03/15/23 -Total Cholesterol 181 -LDL 95 -HDL 62 -Tryglycerides 118 [Diabetes] -Diabetes Yes -Diabetes Type 2 -Are lab results available No -HbA1C 5.60 -Monitors Glucose Yes -Frequency DAILY IN AM [Weight Management] -Height 5 ft 9 in -Weight 97.97 kg -BMI 32 -Recommended Diet DASH, low sodium 200 mg or less, low saturated fat, CONSISTENT CARB -Comments FINDS HE IS EATING LESS. [Drug/Alchohol Use] -Drug/Alcohol Use Yes -Type BEER -Comment ONCE IN A WHILE 1 BEER ( EVERY 2 WEEKS) [Nutritional Screen (Rate Your Plate)] -Score 52 -Interpretation of Score CAN MAKE SOME HEALTHY CHANGES -Comments 1) ADD 1 FRUIT AND VEG SERVING A DAY 2) ADD 1 MEATLESS MEAL A WEEK 3)CUT BACK ON NUMBER OF EGGS A WEEK. [Nutrition Plan] [Intervention] -Referral(s) Nutrition Brochures [Nutrition Education] -Nutrition Education Diabetes and excercise, Hydration, Nutrition, Reading food labels,Signs and symptoms of Hypo/Hyper- glycemia -Date Completed 08/16/23 -Initials CSP [Nutrition Goals] -Goals BMI < 25, Fasting BG 80- 120 mg/dL,HDL > 40,LDL < 70, Total CHOL < 200 -Weight goal 180 -Comments FEELS HE IS LOSING WEIGHT RIGHT NOW. [Psycho/Social] -Stage of Change Action -Learning Barriers Hearing -Occupation Retired -Job Description [employer] -PHQ9 Score 4 -Interpretation of Score LOW RISK FOR FOR DEPRESSION -Plan of Action/Follow-up FEELING EXCITED FOR MAKING POSITIVE IMPROVEMENTS IN HIS HEALTH -Comments A LITTLE HARD OF HEARING -Patient Self-Reports Depression No -Family Support Lives with spouse/others -Comments HAS A DOG AND CAT [Psycho/Social Plan] [Intervention] -Referral(s) No consult needed [Psycho/Social Education] -Psycho/Social Education Advanced directives, Coping techniques, Depression and CAD,Positive support system, Relaxation Techniques, Reviewed PHQ9 Score w/pt, Sexuality and CAD,Signs and symptoms of CAD ,Stress management -Date Completed 08/16/23 -Initials CSP -Education Summary DISCUSSED HOW EMOTIONAL HEALTH CAN AFFECT [Psycho/Social Goals] -Goals Not Applicable [Other Core Comp] [Risk Factors] -Risk Factors Diabetes, Dyslipidemia, Family History of CAD, Hypertension, Obesity, Physical Inactivity, Tobacco Use -Comments: DISCUSSED RISK FACTORS THAT ARE NOT MODIFIABLE. [Hypertension] -Hypertention Yes -Resting BP: 126/64 [Tobacco Use] -Patient Tobacco Use Status Former Tobacco user -Tobacco use type Cigarette -Smoking packs per day 2 -Years smoked 10 -Patient Interested in Nicotine No Replacement -Smoking Quit Date 45 YRS AGO -Exposure to secondhand smoke No [Heart Failure] -Heart Failure No [Other Core Comp Plan] [Intervention] -Referral(s) Self Monitoring BP [Other Core Comp Education] -Other Core Comp Education Medication compliance,Risk factor modifications, RPD Scale/SOB management, Understanding hypertension -Date Completed 08/16/23 -Initials CSP -Education Summary REPORTS BEING EXCELLENT WITH TAKING AM MEDS AND MISSED PM DOSE RARELY. WILL CONSIDER TIMER FOR PM MEDS [Other Core Comp Goals] -Goals Improve dyspnea ,Manage risk factors, Medication compliance, Resting BP < 130/80,Not Applicable -Comments BP STAYS LOW, WILL WORK ON MODIFICABLE RISK FACTORS [Medication Plan] [Intervention] -Medications APIXABAN, 5 MG BID ASA 81 MG DAILY ATENOLOL 25 MG DAILY DRONEDARONE 400 MG BID ENALAPRIL MALEATE 10 MG DAILY LANTADOPROST 0. 005% DROPS DAILY METFORMIN 500 MG BID MULTIVITAMIN DAILY OMEPRAZOLE 20 MG DAILY TIMOLOL MALEATE 0.5% AT BED TIME -Compliance Patient reports compliance w/ prescribed meds [Medication Education] -Education Importance of medication compliance, Medication purpose, Medication schedule, Medication side effects -Date Completed 08/16/23 -Initials CSP -Education Summary UNDERSTANDS ALL HIS MEDICATIONS AND WHAT THEY ARE FOR. [Medication Goals] -Goals Adherence to medication compliance -Comments REPORTS MED COMPLIANCE THE MOJORITY OF THE TIME. [Treatment Times] -Rehab Services with ECG Monitor -Time 1300 -End Time 1445 -Visit Duration 105
[2023-09-12 16:11] VITALS: BP 126/64; BMI 32.0
--- NOTE | 2023-09-12 16:33 | MHC.CR.ITR ---
[address] [phone] F: [phone] Please see additional notes from [facility] Reassessment/ITP Cardiac Rehab Reassessment/ITP Start: 08/11/23 10:22 Freq: Status: Active Protocol: Activity Type Activity Date Activity User E-sign Co-sign Detail Recorded Client Recorded Date Recorded By Document 09/12/23 16:11 FLORECITA [id number] 09/12/23 16:33 DEXTERXin 09/12/23 16:11 Cardiac Rehab Reassessment/ITP [Exercise] -Hat Cleaner Required No -Preferred Language Greenlandic -Progress Note Type 60-Day Note -Total Sessions Attended 10 -Comments Cardiac Catheterization , with no stenting. recommended aggressive secondary risk factor modification. Reports shortness of breath with ex. Sometimes gets pain in middle of back ( movement related) THAO has cpap. 09/12/23-VSS. Tel. SR. Rehan has increased his exercise time/intensity. Had cold symptoms/nasal congestion at last session. Denied SOB; expressed nasal congestion was bothering him. He was able to talk with exercise. [Functional Assessment] -ECG Summary SR -Home-Based Rehab Pt approved for home-based exercise -Comments 09/12/23-He is walking at home . -Fall Risk No [Exercise Plan] [Intervention] -Exercise Prescription NuStep, Recumbent Bike, Recumbent Elliptical, Rower,Treadmill ,UBE,Upright Bike,Weights -Duration Intensity 36 Sessions -Angina with Exercise No [Home Exercise] -Mode Walking -Frequency Non rehab days -Intensity Low -Comments Walking at home without issues ; he walks up to 1.6 miles/ day [Exercise Education] -Exercise Education Exercise orientation, Exercise safety ,Home exercise, RPE,Self pulse checking,Signs and symptoms, Warmup/cooldown -Date Completed 08/16/23 -Initials CSP -Education Summary taught self pulse at wrist. he has bp cuff at home that takes pulse as well and pulse oximeter. 09/12/23- Information reinforced each session. [Exercise Goals] -Exercise Most Days of the Week Yes -Exercise 30-45 mins/day Yes -Target HR Range +20 - +30 beats above resting -Target RPE range 11-13 -Increase METS next 30 days 0.5-1.0 METS Every two weeks -METs goal by Discharge 5 METS -Comments 09/12/23- Currently at Max Mets of 3.2 on 09/12/23. [Nutrition] [Hyperlipidemia] -Are lab results available Yes -Hyperlipidemia Yes [Diabetes] -Diabetes Yes -Diabetes Type 2 -HbA1C 5.60 [Weight Management] -Weight 97.97 kg -BMI 32 -Comments FINDS HE IS EATING LESS. 09/12/23-Weight 100.5KG [Drug/Alchohol Use] -Drug/Alcohol Use Yes -Comment ONCE IN A WHILE 1 BEER ( EVERY 2 WEEKS) [Nutrition Plan] [Intervention] -Attended Nutrition Brochures [Nutrition Education] -Nutrition Education Diabetes and excercise, Hydration, Nutrition, Reading food labels,Signs and symptoms of Hypo/Hyper- glycemia -Date Completed 08/16/23 -Initials CSP -Education Summary 09/12/23-No issues with Diabetes at this time. He is on Metformin . HbA1C <6. Rehan will be attending the cardiac sessions on exercise safety / guidelines and also nutrition. Written information was given during orientation. [Nutrition Goals] -Goals BMI < 25, Fasting BG 80- 120 mg/dL,HDL > 40,LDL < 70, Total CHOL < 200 -Weight goal 180 -Comments FEELS HE IS LOSING WEIGHT RIGHT NOW. 09/12/23-Weight 100.5KG [Psycho/Social] -Stage of Change Action -Occupation Retired -PHQ9 Score 4 -Interpretation of Score LOW RISK FOR FOR DEPRESSION -Plan of Action/Follow-up FEELING EXCITED FOR MAKING POSITIVE IMPROVEMENTS IN HIS HEALTH. 09/12/23- Consistent with attendance. He was out due to babysitting grandson. -Patient Self-Reports Depression No -Comments A LITTLE HARD OF HEARING [Psycho/Social Plan] [Intervention] -Attended No consult needed [Psycho/Social Education] -Psycho/Social Education Advanced directives, Coping techniques, Depression and CAD,Positive support system, Relaxation Techniques, Reviewed PHQ9 Score w/pt, Sexuality and CAD,Signs and symptoms of CAD ,Stress management -Date Completed 08/16/23 -Initials CSP -Education Summary DISCUSSED HOW EMOTIONAL HEALTH CAN AFFECT 09/12/23- Attended class on relaxation, coping techniques [Psycho/Social Goals] -Goals Not Applicable [Other Core Comp] [Hypertension] -Hypertention Yes -Resting BP: 126/64 -Comments Resting BP on 09/12 was 124/ 72. [Tobacco Use] -Change in Use No [Heart Failure] -Heart Failure No [Other Core Comp Plan] [Intervention] -Attended Self Monitoring BP [Other Core Comp Education] -Other Core Comp Education Medication compliance,Risk factor modifications, RPD Scale/SOB management, Understanding hypertension -Date Completed 08/16/23 -Initials CSP -Education Summary REPORTS BEING EXCELLENT WITH TAKING AM MEDS AND MISSED PM DOSE RARELY. WILL CONSIDER TIMER FOR PM MEDS [Other Core Comp Goals] -Goals Improve dyspnea ,Manage risk factors, Medication compliance, Resting BP < 130/80,Not Applicable -Comments BP STAYS LOW, WILL WORK ON MODIFICABLE RISK FACTORS 09/12/23-VS stable. No issues or changes with medications reported. [Medication Plan] [Intervention] -Medications APIXABAN, 5 MG BID ASA 81 MG DAILY ATENOLOL 25 MG DAILY DRONEDARONE 400 MG BID ENALAPRIL MALEATE 10 MG DAILY LANTADOPROST 0. 005% DROPS DAILY METFORMIN 500 MG BID MULTIVITAMIN DAILY OMEPRAZOLE 20 MG DAILY TIMOLOL MALEATE 0.5% AT BED TIME -Compliance Patient reports compliance w/ prescribed meds [Medication Education] -Education Importance of medication compliance, Medication purpose, Medication schedule, Medication side effects -Date Completed 08/16/23 -Initials CSP -Education Summary UNDERSTANDS ALL HIS MEDICATIONS AND WHAT THEY ARE FOR. [Medication Goals] -Goals Adherence to medication compliance -Comments REPORTS MED COMPLIANCE THE MOJORITY OF THE TIME.
[2023-10-11 13:40] VITALS: BP 126/64; BMI 32.0
--- NOTE | 2023-10-11 15:28 | MHC.CR.ITR ---
[address] [phone] F: [phone] Please see additional notes from [facility] Re[facility]P Cardiac Rehab Reassessment/ITP Start: 08/11/23 10:22 Freq: Status: Active Protocol: Activity Type Activity Date Activity User E-sign Co-sign Detail Recorded Client Recorded Date Recorded By Document 10/11/23 13:40 VICXin Desktop 10/11/23 15:28 VICXin 10/11/23 13:40 Cardiac Rehab Reassessment/ITP [Exercise] -[employer] [place] Marshal Required No -Preferred Language Sami -Progress Note Type 60-Day Note -Total Sessions Attended 18 -Comments Cardiac Catheterization , with no stenting. recommended aggressive secondary risk factor modification. Reports shortness of breath with ex. Sometimes gets pain in middle of back ( movement related) THAO has CPAP. 09/12/23-VSS. Tel. SR. Rehan has increased his exercise time/intensity. Had cold symptoms/nasal congestion at last session. Denied SOB; expressed nasal congestion was bothering him. He was able to talk with exercise. 10/11/23: Rehan has been doing well in CR, attending regularly and engaging in education as well as ex. Education includes: Relaxation and Copin09/02/23 Risk modification Understanding Htn and Medication compliance 09/30 He has achieved a MET of 4.3 and does not report any CV symptoms [Functional Assessment] -ECG Summary SR -Home-Based Rehab Pt approved for home-based exercise -Comments 09/12/23-He is walking at home . -Fall Risk No [Exercise Plan] [Intervention] -Exercise Prescription NuStep, Recumbent Bike, Recumbent Elliptical, Rower,Treadmill ,UBE,Upright Bike,Weights -Duration Intensity 36 Sessions -Exercise Minutes/Day 45 -Exercise Days/Week 3 -Angina with Exercise No -Peak METs 4.3 [Home Exercise] -Mode Walking -Frequency Non rehab days -Intensity Low -Comments Walking at home without issues ; he walks up to 1.6 miles/ day Continues with walking 2022 [Exercise Education] -Exercise Education Exercise orientation, Exercise safety ,Home exercise, RPE,Self pulse checking,Signs and symptoms, Warmup/cooldown -Date Completed 08/16/23 -Initials CSP -Education Summary taught self pulse at wrist. he has bp cuff at home that takes pulse as well and pulse oximeter. 09/12/23- Information reinforced each session. 10/11/23 Continue to remind of RPE scale and guidelines for exercise. [Exercise Goals] -Exercise Most Days of the Week Yes -Exercise 30-45 mins/day Yes -Target HR Range +20 - +30 beats above resting -Target RPE range 11-13 -Increase METS next 30 days 0.5-1.0 METS Every two weeks -METs goal by Discharge 5 METS -Comments 09/12/23- Currently at Max Mets of 3.2 on 09/12/23. 10/11/23 working toward goal [Nutrition] [Hyperlipidemia] -Are lab results available Yes -Hyperlipidemia Yes -Medication Changes No [Diabetes] -Diabetes Yes -Diabetes Type 2 -HbA1C 5.60 -Comments no new labs available [Weight Management] -Weight 97.97 kg -BMI 32 -Comments FINDS HE IS EATING LESS. 09/12/23-Weight 100.5KG [Drug/Alchohol Use] -Drug/Alcohol Use Yes -Change in Use No -Comment ONCE IN A WHILE 1 BEER ( EVERY 2 WEEKS) [Nutrition Plan] [Intervention] -Attended Nutrition Brochures [Nutrition Education] -Nutrition Education Diabetes and excercise, Hydration, Nutrition, Reading food labels,Signs and symptoms of Hypo/Hyper- glycemia -Date Completed 08/16/23 -Initials CSP -Education Summary 09/12/23-No issues with Diabetes at this time. He is on Metformin . HbA1C <6. Rehan will be attending the cardiac sessions on exercise safety / guidelines and also nutrition. Written information was given during orientation. Reminders for hydration at each session. 10/11/23 [Nutrition Goals] -Goals BMI < 25, Fasting BG 80- 120 mg/dL,HDL > 40,LDL < 70, Total CHOL < 200 -Weight goal 180 -Comments FEELS HE IS LOSING WEIGHT RIGHT NOW. 09/12/23-Weight 100.5KG [Psycho/Social] -Stage of Change Action -Occupation Retired -PHQ9 Score 4 -Interpretation of Score LOW RISK FOR FOR DEPRESSION -Plan of Action/Follow-up FEELING EXCITED FOR MAKING POSITIVE IMPROVEMENTS IN HIS HEALTH. 09/12/23- Consistent with attendance. He was out due to babysitting grandson. -Patient Self-Reports Depression No -Comments A LITTLE HARD OF HEARING 10/11/23 Reports no new concerns and feels happy [Psycho/Social Plan] [Intervention] -Attended No consult needed [Psycho/Social Education] -Psycho/Social Education Advanced directives, Coping techniques, Depression and CAD,Positive support system, Relaxation Techniques, Reviewed PHQ9 Score w/pt, Sexuality and CAD,Signs and symptoms of CAD ,Stress management -Date Completed 08/16/23 -Initials CSP -Education Summary DISCUSSED HOW EMOTIONAL HEALTH CAN AFFECT 09/12/23- Attended class on relaxation, coping techniques [Psycho/Social Goals] -Goals Not Applicable -Comments Stable/no concerns [Other Core Comp] [Hypertension] -Hypertention Yes -Resting BP: 126/64 -Medication Changes No -Comments Resting BP on 09/12 was 124/ 72. [Tobacco Use] -Change in Use No [Heart Failure] -Heart Failure No [Other Core Comp Plan] [Intervention] -Attended Self Monitoring BP [Other Core Comp Education] -Other Core Comp Education Medication compliance,Risk factor modifications, RPD Scale/SOB management, Understanding hypertension -Date Completed 08/16/23 -Initials CSP -Education Summary REPORTS BEING EXCELLENT WITH TAKING AM MEDS AND MISSED PM DOSE RARELY. WILL CONSIDER TIMER FOR PM MEDS [Other Core Comp Goals] -Goals Improve dyspnea ,Manage risk factors, Medication compliance, Resting BP < 130/80,Not Applicable -Comments BP STAYS LOW, WILL WORK ON MODIFICABLE RISK FACTORS 09/12/23-VS stable. No issues or changes with medications reported. [Medication Plan] [Intervention] -Medications APIXABAN, 5 MG BID ASA 81 MG DAILY ATENOLOL 25 MG DAILY DRONEDARONE 400 MG BID ENALAPRIL MALEATE 10 MG DAILY LANTADOPROST 0. 005% DROPS DAILY METFORMIN 500 MG BID MULTIVITAMIN DAILY OMEPRAZOLE 20 MG DAILY TIMOLOL MALEATE 0.5% AT BED TIME -Compliance Patient reports compliance w/ prescribed meds [Medication Education] -Education Importance of medication compliance, Medication purpose, Medication schedule, Medication side effects -Date Completed 08/16/23 -Initials CSP -Education Summary UNDERSTANDS ALL HIS MEDICATIONS AND WHAT THEY ARE FOR. Doing well with compliance per his report 10/22 [Medication Goals] -Goals Adherence to medication compliance -Comments REPORTS MED COMPLIANCE THE MAJORITY OF THE TIME.
[2023-11-07 08:57] VITALS: BP 126/64; BMI 32.0
--- NOTE | 2023-11-07 09:38 | MHC.CR.ITR ---
[address] [phone] F: [phone] Please see additional notes from [facility] Reassessment/ITP Cardiac Rehab Reassessment/ITP Start: 08/11/23 10:22 Freq: Status: Active Protocol: Activity Type Activity Date Activity User E-sign Co-sign Detail Recorded Client Recorded Date Recorded By Document 11/07/23 08:57 FLORECITA [id number] 11/07/23 09:05 FLORECITA 11/07/23 08:57 Cardiac Rehab Reassessment/ITP [Exercise] -Glass Products Inspector Required No -Preferred Language Slovenian -Progress Note Type 90-Day Note -Total Sessions Attended 28 -Comments Cardiac Catheterization , with no stenting. recommended aggressive secondary risk factor modification. Reports shortness of breath with ex. Sometimes gets pain in middle of back ( movement related) THAO has CPAP. 09/12/23-VSS. Tel. SR. Rehan has increased his exercise time/intensity. Had cold symptoms/nasal congestion at last session. Denied SOB; expressed nasal congestion was bothering him. He was able to talk with exercise. 10/11/23: Rehan has been doing well in CR, attending regularly and engaging in education as well as ex. Education includes: Relaxation and Copin09/02/23 Risk modification Understanding Htn and Medication compliance 09/30 He has achieved a MET of 4.3 and does not report any CV symptoms 11/07/23-VSS. Tel . SR. Max Mets 4.5. COnsistent with attendance and continues to increaseexercis e intensity. Rehan attends educational sessions: 10/14 -S/S of hyper/ hypoglycemia, DM and exercise :10/19- Relaxation Techniques 10/28-Risk Modification 11/04/23-Exercise safety, pulse taking [Functional Assessment] -ECG Summary SR -Home-Based Rehab Pt approved for home-based exercise -Comments 09/12/23-He is walking at home . 11/07/23-Rehan is walking 1.6 miles at home without CV symptoms. -Fall Risk No [Exercise Plan] [Intervention] -Exercise Prescription NuStep, Recumbent Bike, Recumbent Elliptical, Rower,Treadmill ,UBE,Upright Bike,Weights -Duration Intensity 36 Sessions -Exercise Minutes/Day 45 -Exercise Days/Week 3 -Angina with Exercise No -Peak METs 4.5 [Home Exercise] -Mode Walking -Frequency Non rehab days -Intensity Low -Comments Walking at home without issues ; he walks up to 1.6 miles/ day Continues with walking 202211/07/23- Continues walking as above [Exercise Education] -Exercise Education Exercise orientation, Exercise safety ,Home exercise, RPE,Self pulse checking,Signs and symptoms, Warmup/cooldown -Date Completed 08/16/23 -Initials CSP -Education Summary taught self pulse at wrist. he has bp cuff at home that takes pulse as well and pulse oximeter. 09/12/23- Information reinforced each session. 10/11/23 Continue to remind of RPE scale and guidelines for exercise. 11/07/22-CHecks BP, HR, O2 Sat at home. Reports RPE, and states understanding. Expresses he is comfortable taking pulse. He will check pulse with walks at home. [Exercise Goals] -Exercise Most Days of the Week Yes -Exercise 30-45 mins/day Yes -Target HR Range +20 - +30 beats above resting -Target RPE range 11-13 -Increase METS next 30 days 0.5-1.0 METS Every two weeks -METs goal by Discharge 5 METS -Comments 09/12/23- Currently at Max Mets of 3.2 on 09/12/23. 10/11/23 working toward goal 11/07/22- Increased exercise intensity today without complaints. MAx Mets is 4.5. Goal discussed today. [Nutrition] [Hyperlipidemia] -Are lab results available Yes -Hyperlipidemia Yes -Medication Changes No -Comments 11/07/23-No new labs [Diabetes] -Diabetes Yes -Diabetes Type 2 -HbA1C 5.60 -Comments no new labs available 11/07/23-No new labs. FBS , per patient , was 109 at home. [Weight Management] -Weight 97.97 kg -BMI 32 -Comments FINDS HE IS EATING LESS. 09/12/23-Weight 100.5KG 11/07/23-Weight 104 KG. Weight while he has been in the program discussed. He believes his scale at home is not accurate . [Drug/Alchohol Use] -Drug/Alcohol Use Yes -Change in Use No -Comment ONCE IN A WHILE 1 BEER ( EVERY 2 WEEKS) [Nutrition Plan] [Intervention] -Attended Nutrition Brochures [Nutrition Education] -Nutrition Education Diabetes and excercise, Hydration, Nutrition, Reading food labels,Signs and symptoms of Hypo/Hyper- glycemia -Date Completed 08/16/23 -Initials CSP -Education Summary 09/12/23-No issues with Diabetes at this time. He is on Metformin . HbA1C <6. Rehan will be attending the cardiac sessions on exercise safety / guidelines and also nutrition. Written information was given during orientation. Reminders for hydration at each session. 10/11/23 11/07/23-States he is increasing his fluid intake for hydration, is eating more fruit and vegetables, and is trimming fat off of meat. No S/S of hyper/ hypoglycemia. [Nutrition Goals] -Goals BMI < 25, Fasting BG 80- 120 mg/dL,HDL > 40,LDL < 70, Total CHOL < 200 -Weight goal 180 -Comments FEELS HE IS LOSING WEIGHT RIGHT NOW. 09/12/23-Weight 100.5KG 11/07/23-Weight 104 KG. Weight gain discussed with Rehan [Psycho/Social] -Stage of Change Action -Occupation Retired -PHQ9 Score 4 -Interpretation of Score LOW RISK FOR FOR DEPRESSION -Plan of Action/Follow-up FEELING EXCITED FOR MAKING POSITIVE IMPROVEMENTS IN HIS HEALTH. 09/12/23- Consistent with attendance. He was out due to babysitting grandson. 11/07/23- Increasing exercise intensity. Rehan is consistent with his attendance. -Patient Self-Reports Depression No -Comments A LITTLE HARD OF HEARING 10/11/23 Reports no new concerns and feels happy 11/07/23-Daughter is engaged; Rehan is optimistic. [Psycho/Social Plan] [Intervention] -Attended No consult needed [Psycho/Social Education] -Psycho/Social Education Advanced directives, Coping techniques, Depression and CAD,Positive support system, Relaxation Techniques, Reviewed PHQ9 Score w/pt, Sexuality and CAD,Signs and symptoms of CAD ,Stress management -Date Completed 08/16/23 -Initials CSP -Education Summary DISCUSSED HOW EMOTIONAL HEALTH CAN AFFECT 09/12/23- Attended class on relaxation, coping techniques 11/07/23-PhQ9 to be done again at discharge. No expression fo depression or anxiety. No CV complaints. [Psycho/Social Goals] -Goals Not Applicable -Comments Stable/no concerns [Other Core Comp] [Hypertension] -Hypertention Yes -Resting BP: 126/64 -Medication Changes No -Comments Resting BP on 09/12 was 124/ 72. 11/07/23-BP 122/ 62 at rest today [Tobacco Use] -Change in Use No [Heart Failure] -Heart Failure No [Other Core Comp Plan] [Intervention] -Attended Self Monitoring BP [Other Core Comp Education] -Other Core Comp Education Medication compliance,Risk factor modifications, RPD Scale/SOB management, Understanding hypertension -Date Completed 08/16/23 -Initials CSP -Education Summary REPORTS BEING EXCELLENT WITH TAKING AM MEDS AND MISSED PM DOSE RARELY. WILL CONSIDER TIMER FOR PM MEDS 11/07/23-Rehan states medications, reason for meds , and how they have been adjusted over time. States BS better controlled since starting Metformin. No CP, SOB. [Other Core Comp Goals] -Goals Improve dyspnea ,Manage risk factors, Medication compliance, Resting BP < 130/80,Not Applicable -Comments BP STAYS LOW, WILL WORK ON MODIFICABLE RISK FACTORS 09/12/23-VS stable. No issues or changes with medications reported. 11/07/23-VSS. No new medications . Rehan states all medications , reasons for taking. States I know my medications [Medication Plan] [Intervention] -Medications APIXABAN, 5 MG BID ASA 81 MG DAILY ATENOLOL 25 MG DAILY DRONEDARONE 400 MG BID ENALAPRIL MALEATE 10 MG DAILY LANTADOPROST 0. 005% DROPS DAILY METFORMIN 500 MG BID MULTIVITAMIN DAILY OMEPRAZOLE 20 MG DAILY TIMOLOL MALEATE 0.5% AT BED TIME -Compliance Patient reports compliance w/ prescribed meds [Medication Education] -Education Importance of medication compliance, Medication purpose, Medication schedule, Medication side effects -Date Completed 08/16/23 -Initials CSP -Education Summary UNDERSTANDS ALL HIS MEDICATIONS AND WHAT THEY ARE FOR. Doing well with compliance per his report 10/2211/07/23-No issues. [Medication Goals] -Goals Adherence to medication compliance -Comments REPORTS MED COMPLIANCE THE MAJORITY OF THE TIME. 11/07/23-No issues with medication.
[2023-11-25 16:13] VITALS: BP 126/62; BP 132/60; BMI 33.7
--- NOTE | 2023-11-25 16:26 | MHC.CR.ITD ---
[address] [phone] F: [phone] Please see additional notes from [facility] Completed full 36 sessions of CR. Joining Phase 3 here at [facility] [place] Cardiac Rehab Discharge/ITP Cardiac Rehab Discharge/ITP Start: 08/11/23 10:22 Freq: Status: Active Protocol: Activity Type Activity Date Activity User E-sign Co-sign Detail Recorded Client Recorded Date Recorded By Document 11/25/23 16:13 RICHELLE [id number] 11/25/23 16:26 RICHELLE 11/25/23 16:13 Cardiac Rehab Discharge/ITP [Exercise] -Information Technology Specialist Required No -Preferred Language Israeli -Total Sessions Attended 36 -Comments Cardiac Catheterization , with no stenting. recommended aggressive secondary risk factor modification. Reports shortness of breath with ex. Sometimes gets pain in middle of back ( movement related) THAO has CPAP. 09/12/23-VSS. Tel. SR. Rehan has increased his exercise time/intensity. Had cold symptoms/nasal congestion at last session. Denied SOB; expressed nasal congestion was bothering him. He was able to talk with exercise. 10/11/23: Rehan has been doing well in CR, attending regularly and engaging in education as well as ex. Education includes: Relaxation and Copin09/02/23 Risk modification Understanding Htn and Medication compliance 09/30 He has achieved a MET of 4.3 and does not report any CV symptoms 11/07/23-VSS. Tel . SR. Max Mets 4.5. COnsistent with attendance and continues to increaseexercis e intensity. Rehan attends educational sessions: 10/14 -S/S of hyper/ hypoglycemia, DM and exercise :10/19- Relaxation Techniques 10/28-Risk Modification 11/04/23-Exercise safety, pulse taking 11/25/2023 Pat has participated in 36 sessions of exercise including various Education in- session in- services related to Cardiac Health and Modifiable Risk factors. Pt's is doing very well and reports he has learned a lot and feels so much better now . He plans to Join Phase 3 CR here at [facility] [place]. Pt states that he was afraid when he first started rehab, didn't think he could do it, and now feels better, motivated and will continue to keep exercise a part of his lifestyle for as long as he can. [Functional Assessment] -6 Min Walk (distance in ft) 1,225 -Stress Test (Mode) WALK -METS Achieved 2.78 -Resting HR 58 -Resting BP 126/62 -Resting SpO2 97 -Exercise HR 93 -Exercise BP 132/60 -Exercise SpO2 99 -RPE 13 -Dyspnea 0 -ECG Summary SR -Fall Risk No [Exercise Plan] [Intervention] -Exercise Prescription NuStep, Recumbent Bike, Recumbent Elliptical, Rower,Treadmill ,UBE,Upright Bike,Weights -Duration Intensity 36 Sessions -Exercise Minutes/Day 45 -Exercise Days/Week 3 -Angina with Exercise No -Peak METs 4.7 [Home Exercise] -Mode Walking -Frequency Non rehab days -Intensity Low -Comments Walking at home without issues ; he walks up to 1.6 miles/ day Continues with walking 202211/07/23- Continues walking as above Continues with above and will take part in Phase 3 rehab for 45 min ex session 3 days a week. [Exercise Education] -Exercise Education Exercise orientation, Exercise safety ,Home exercise, RPE,Self pulse checking,Signs and symptoms, Warmup/cooldown -Date Completed 08/16/23 -Initials CSP -Education Summary taught self pulse at wrist. he has bp cuff at home that takes pulse as well and pulse oximeter. 09/12/23- Information reinforced each session. 10/11/23 Continue to remind of RPE scale and guidelines for exercise. 11/07/22-CHecks BP, HR, O2 Sat at home. Reports RPE, and states understanding. Expresses he is comfortable taking pulse. He will check pulse with walks at home. 11/25/2023 Reviewed importance of Medication Compliance, Trending and take BP at home and Hypertension. [Exercise Goals] -Exercise Most Days of the Week Yes -Exercise 30-45 mins/day Yes -Target HR Range +20 - +30 beats above resting -Target RPE range 11-13 -Increase METS next 30 days 0.5-1.0 METS Every two weeks -METs goal by Discharge 5 METS -Comments 09/12/23- Currently at Max Mets of 3.2 on 09/12/23. 10/11/23 working toward goal 11/07/22- Increased exercise intensity today without complaints. MAx Mets is 4.5. Goal discussed today. Met a max met of 4.7 at Discharge. He will continue to work toward a met of 5 in Phase 3. [Nutrition] [Hyperlipidemia] -Are lab results available Yes -Hyperlipidemia Yes -Lipid Draw Date 03/15/23 -Total Cholesterol 181 -LDL 95 -HDL 62 -Tryglycerides 118 -Comments 11/07/23-No new labs [Diabetes] -Diabetes Yes -Diabetes Type 2 -HbA1C 5.60 -Comments no new labs available 11/07/23-No new labs. FBS , per patient , was 109 at home. [Weight Management] -Weight 103.5 kg -BMI 33.69 -Comments FINDS HE IS EATING LESS. 09/12/23-Weight 100.5KG 11/07/23-Weight 104 KG. Weight while he has been in the program discussed. He believes his scale at home is not accurate . [Drug/Alchohol Use] -Drug/Alcohol Use Yes -Change in Use No -Comment ONCE IN A WHILE 1 BEER ( EVERY 2 WEEKS) [Nutrition Plan] [Intervention] -Attended Nutrition Brochures [Nutrition Education] -Nutrition Education Diabetes and excercise, Hydration, Nutrition, Reading food labels,Signs and symptoms of Hypo/Hyper- glycemia -Date Completed 08/16/23 -Initials CSP -Education Summary 09/12/23-No issues with Diabetes at this time. He is on Metformin . HbA1C <6. Rehan will be attending the cardiac sessions on exercise safety / guidelines and also nutrition. Written information was given during orientation. Reminders for hydration at each session. 10/11/23 11/07/23-States he is increasing his fluid intake for hydration, is eating more fruit and vegetables, and is trimming fat off of meat. No S/S of hyper/ hypoglycemia. 11/23/2023 Pt feels he is eating healthier and remembers to keep hydrated. [Nutrition Goals] -Goals BMI < 25, Fasting BG 80- 120 mg/dL,HDL > 40,LDL < 70, Total CHOL < 200 -Weight goal 180 -Comments FEELS HE IS LOSING WEIGHT RIGHT NOW. 09/12/23-Weight 100.5KG 11/07/23-Weight 104 KG. Weight gain discussed with Rehan [Psycho/Social] -Stage of Change Action -Occupation Retired -PHQ9 Score 2 -Interpretation of Score LOW RISK FOR FOR DEPRESSION -Plan of Action/Follow-up FEELING EXCITED FOR MAKING POSITIVE IMPROVEMENTS IN HIS HEALTH. 09/12/23- Consistent with attendance. He was out due to babysitting grandson. 11/07/23- Increasing exercise intensity. Rehan is consistent with his attendance. PHQ9 score is down to 2 and is related to concentration and having less interest in doing things. He looks forward to warmer weather and getting outdoors again and puttering around his property. -Patient Self-Reports Depression No -Comments A LITTLE HARD OF HEARING 10/11/23 Reports no new concerns and feels happy 11/07/23-Daughter is engaged; Rehan is optimistic. -Medication Changes No [Psycho/Social Plan] [Intervention] -Attended No consult needed [Psycho/Social Education] -Psycho/Social Education Advanced directives, Coping techniques, Depression and CAD,Positive support system, Relaxation Techniques, Reviewed PHQ9 Score w/pt, Sexuality and CAD,Signs and symptoms of CAD ,Stress management -Date Completed 08/16/23 -Initials CSP -Education Summary DISCUSSED HOW EMOTIONAL HEALTH CAN AFFECT 09/12/23- Attended class on relaxation, coping techniques 11/07/23-PhQ9 to be done again at discharge. No expression fo depression or anxiety. No CV complaints. [Psycho/Social Goals] -Goals Not Applicable -Comments Stable/no concerns [Other Core Comp] [Hypertension] -Hypertention Yes -Resting BP: 126/62 -Medication Changes No -Comments Resting BP on 09/12 was 124/ 72. 11/07/23-BP 122/ 62 at rest today Resting BP nearly the same at Discharge as it was at Admission. His BP respods well to Ex, and is usually lower after ex session. [Tobacco Use] -Change in Use No [Other Core Comp Plan] [Intervention] -Attended Self Monitoring BP [Other Core Comp Education] -Other Core Comp Education Medication compliance,Risk factor modifications, RPD Scale/SOB management, Understanding hypertension -Date Completed 08/16/23 -Initials CSP -Education Summary REPORTS BEING EXCELLENT WITH TAKING AM MEDS AND MISSED PM DOSE RARELY. WILL CONSIDER TIMER FOR PM MEDS 11/07/23-Rehan states medications, reason for meds , and how they have been adjusted over time. States BS better controlled since starting Metformin. No CP, SOB. [Other Core Comp Goals] -Goals Improve dyspnea ,Manage risk factors, Medication compliance, Resting BP < 130/80,Not Applicable -Comments BP STAYS LOW, WILL WORK ON MODIFICABLE RISK FACTORS 09/12/23-VS stable. No issues or changes with medications reported. 11/07/23-VSS. No new medications . Rehan states all medications , reasons for taking. States I know my medications [Medication Plan] [Intervention] -Medications APIXABAN, 5 MG BID ASA 81 MG DAILY ATENOLOL 25 MG DAILY DRONEDARONE 400 MG BID ENALAPRIL MALEATE 10 MG DAILY LANTADOPROST 0. 005% DROPS DAILY METFORMIN 500 MG BID MULTIVITAMIN DAILY OMEPRAZOLE 20 MG DAILY TIMOLOL MALEATE 0.5% AT BED TIME -Compliance Patient reports compliance w/ prescribed meds [Medication Education] -Education Importance of medication compliance, Medication purpose, Medication schedule, Medication side effects -Date Completed 08/16/23 -Initials CSP -Education Summary UNDERSTANDS ALL HIS MEDICATIONS AND WHAT THEY ARE FOR. Doing well with compliance per his report 10/2211/07/23-No issues. 11/25/2023 Discharge: no real changes with medication compliance. Discussed today alternative options should his was of taking meds result in decrease in compliance. [Medication Goals] -Goals Adherence to medication compliance -Comments REPORTS MED COMPLIANCE THE MAJORITY OF THE TIME. 11/07/23-No issues with medication. Reports nearly 100% accuracy with med compliance.
== END 2023-11-25 16:28 | disposition home or self-care (01) ==
LOC: HO.CR 08:30
PROVIDERS: PCP Internal Medicine; Visit Provider Internal Medicine Cardiovascular Disease
DX: Z98.61 Coronary angioplasty status (principal); I20.89 Other forms of angina pectoris
CPT/HCPCS: 93798

== ENCOUNTER 2024-01-11 08:22 | Emergency (ER) | payer MEDICARE, SELFPAY ==
[2024-01-11 08:23] VITALS: BP 152/61; PULSE 64; RESP 16; TEMP 36.8; O2SAT 95; BMI 32.5
--- NOTE | 2024-01-11 08:35 | PC.NURSE ---
Patient reports accidentally picked scab off x 1 hour ago and reports steady stream of blood since scab came off that he was been unable to control. Reports takes attila
--- NOTE | 2024-01-11 09:23 | ED_ITS ---
HPI - Wound/Laceration General Chief Complaint: Wound/Laceration Stated Complaint: Bleeding L Leg Time Seen by Provider: 01/11/24 09:07 Source: patient and family (patient's son) Mode of arrival: ambulatory Limitations: no limitations History of Present Illness HPI narrative: Patient is a 78 year old, assigned male at , with a history of CAD, atrial flutter on anti-coags, HTN, HLD, DM II, and GERD presents to the ED with a 3 hour history of a bleeding sore from his left leg. Patient states he was sitting on the toilet picking a scab, when it began to bleed uncontrollably. Patient reports he is on eliquis and usually bleeds for longer than normal, but is usually able to get it to stop after 5 minutes. He has been applying pressure all morning and has not been able to get the bleeding to stop. Denies dizziness, lightheadedness, fever, chills, SOB, chest pain. Onset (ago): hour(s) (3) Location: other (Left leg) Extremity Location: left: lower leg (2 mm wound) Place: home Patient tetanus UTD: Yes Context: self-inflicted assault (Scratching a scab) Associated symptoms: none Treatments prior to arrival: bandage Related Data Home Medications Medication Instructions Recorded Confirmed atenolol 50 mg tablet 25 mg PO DAILY 12/18/22 09/12/23 latanoprost 0.005 % eye drops 1 drp ophthalmic (eye) DAILY 12/18/22 09/12/23 multivitamin (Daily Multi-Vitamin 1 tab PO DAILY 12/18/22 09/12/23 tablet) omeprazole 20 mg capsule,delayed 20 mg PO DAILY 12/18/22 09/12/23 release timolol maleate 0.5 % eye drops 1 drp ophthalmic (eye) BEDTIME 12/18/22 09/12/23 metformin 500 mg tablet 500 mg PO BID 01/27/23 09/12/23 Previous Rx's Medication Instructions Recorded aspirin 81 mg tablet,delayed 81 mg PO DAILY #120 tabs 05/04/23 release atorvastatin 40 mg tablet 40 mg PO DAILY #90 tabs 05/04/23 dronedarone 400 mg tablet (Multaq) 400 mg PO BID 90 days #180 tabs 08/22/23 apixaban 5 mg tablet (Eliquis) 5 mg PO BID #60 tabs 08/29/23 enalapril maleate 5 mg tablet 5 mg PO DAILY #60 tabs 09/12/23 Allergies Allergy/AdvReac Type Severity Reaction Status Date / Time meperidine [From DEMEROL] Allergy Unknown SEVERE Verified 01/11/24 08:26 STOMACH UPSET Review of Systems 2 Constitutional: Constitutional: Reports no additional constitutional complaints, Denies chills, Denies fever(s) and Denies night sweats Eyes: Eyes: Reports no additional eye complaints, Denies blurry vision, Denies change in vision, Denies diplopia, Denies eye discharge, Denies loss of vision and Denies eye pain ENT: Denies dizziness Cardiovascular: Cardiovascular: Reports no additional cardiovascular complaints, Denies chest pain, Denies lightheadedness, Denies Loss of Consciousness and Denies dyspnea Respiratory: Respiratory: Reports no additional respiratory complaints and Denies dyspnea Gastrointestinal: Gastrointestinal: Reports no additional gastrointestinal complaints, Denies abdominal pain, Denies melena, Denies hematochezia, Denies change in bowel habits and Denies change in stool character Genitourinary: Genitourinary: Reports no additional male genitourinary complaints, Denies hematuria, Denies oliguria, Denies difficulty urinating, Denies dysuria, Denies urinary frequency, Denies urinary hesitancy, Denies urinary incontinence and Denies urinary urgency Musculoskeletal: Musculoskeletal: Reports no additional musculoskeletal complaints, Denies numbness and Denies tingling Comments: left lower leg laceration Neurologic: Denies dizziness, Denies loss of vision, Denies numbness and Denies tingling Psychiatric: Psychiatric: Reports no additional psychiatric complaints Endocrine: Endocrine: Reports no additional endocrine complaints Hematologic/Lymphatic: Hematologic/Lymphatic: Reports no additional hematologic/lymphatic complaints Allergic/Immunologic: Allergic/Immunologic: Reports no additional allergic/immunologic complaints PMFSH Past Medical History Attestation statement: The following information was validated with the patient. (patient's son validated all information) Source: old records reviewed, obtained from family (patient's son provided additional history and confirmed the history provided by the patient.) and nursing notes reviewed Medical History GERD (gastroesophageal reflux disease) Non-insulin dependent type 2 diabetes mellitus Mixed hyperlipidemia Essential hypertension Surgical History History of cardiac cath History of cataract surgery History of cholecystectomy Family History Family History Mother CHF (congestive heart failure) Father No problems noted. Sister Heart attack Social History Social History Household Members: Spouse Housing: House Do you presently have visiting nurse or other home services: No Alcohol intake: current Alcohol intake frequency: holidays/special occasions only Patient Tobacco Use Status: Former Tobacco user Quit Date: 45 YRS AGO Tobacco use type: Cigarette Cigarette Packs Per Day: 2 Years Smoked: 10 Advance Directives: Yes Advance Directives on File: Yes Advance Directives Date on File: 12/18/22 service: Yes Current occupational status: retired Physical Exam 2 Vital Signs: Vital Signs: Last Vital Signs Temp 98.3 F 01/11/24 08:23 Pulse 64 01/11/24 08:23 Resp 16 01/11/24 08:23 BP 152/61 H 01/11/24 08:23 Pulse Ox 95 01/11/24 08:23 O2 Del Method Room Air 01/11/24 08:23 BMI result Body Mass Index 32.5 Const: General: cooperative, no acute distress, alert and awake Nutritional Appearance: overweight Orientation/consciousness: patient oriented x3 L imitations: no limitations HEENT: Head: Yes normal to inspection Ears: hearing grossly normal bilaterally General nose exam: Normal external nose present Face and sinus: Yes normal facial exam Mouth: Normal oral and palatal mucosa present, no drooling and no muffled voice Eyes: General: appearance normal, both eyes and all related structures P eriorbital: periorbital findings normal Eyelids: Yes eyelids normal C onjunctivae: conjunctivae normal Pupils: Equal, round and reactive pupils present EOM: EOMs intact bilaterally Neck: Neck: Yes normal visual inspection Chest: Chest palpation & inspection: normal inspection of the chest Resp: Effort & Inspection: normal respiratory effort and able to speak in complete sentences Auscultation: clear to auscultation bilaterally Cardio: Jugular venous distension: no JVD Palpation: normal PMI Rate: r egular rate Rhythm: regular rhythm GI: Inspection: Yes normal to inspection Neuro: General: patient oriented x3 Cranial nerves: Yes Equal, round and reactive pupils present Cognition (Neuro): normal cognition Motor exam (neuro): 5/5 motor strength present throughout Sensory Exam: Normal double simultaneous stimulation for sensation Coordination: [id number] test normal Extrem: Other: very small laceration to the left anterolateral lower leg, minimal oozing of blood, no gaping General: Yes full ROM and Yes capillary refill normal Ankle/foot/toe images: 1. 2 mm bleeding wound Psych: Appearance: grossly normal Mental Status: mental status grossly normal Affect: normal affect Attitude: cooperative Thought process: N ormal thought process present Thought content: Normal thought content present Insight: Good insight present (Psych) Medical Decision Making Medical Decision Making MDM Narrative: Patient is a 78 year old assigned male at with a history of DM, CAD, and atrial fib on an anti-coag, presenting to the emergency department today with left lower leg bleeding. Patient's physical exam was as noted in the physical exam portion of this note. I explained my physical exam findings to the patient and the patient's son. I answered all questions asked by the patient and the patient's son. Patient's left lower leg wound had dermabond and pressure applied which resolved the bleeding, without incident. Patient's PMS was intact prior to and after dermabond and bandage placement. I stressed the importance of the patient taking his medication as prescribed. I stressed the importance of the patient following up with his primary care provider. I stressed the importance of the patient returning to the emergency department immediately if his symptoms were to worsen or if he were to develop any dizziness, shortness of breath, difficulty breathing, chest pain, blurry vision, loss of vision, nausea, vomiting, abdominal pain, fever, chills, back pain, or any other complaints. Patient verbalized agreement and understanding with this treatment plan and discharge. Differential Diagnosis Differential Diagnoses: The differential diagnosis associated with the presentation includes Left lower leg laceration Left lower leg abrasion Admission/Observation Consideration of admission/observation: Escalation of care including admission/observation considered Patient would have been admitted to the hospital had his clinical presentation warranted hospital admission. Independent Historian Clinical information obtained from an independent historian. History obtained from or confirmed by: Other (patient's son provided additional history and confirmed the history provided by the patient.) Chronic Conditions Patient?s care impacted by: Diabetes Procedures Laceration Laceration 1: Site: lower extremity Side (If applicable): left Size (cm): 0.25 Depth: simple, single layer Skin layer closed with: other (dermabond) Size (cm): other (dermabond) Technique: other (dermabond) Discharge Plan Discharge Clinical Impression: Laceration of left leg Patient Disposition: Home, Self-Care Instructions: Laceration (DC) Additional Instructions: Do NOT get the affected area wet for at LEAST 7 days. Follow up with your primary care provider. Return to the emergency department immediately if your symptoms worsen or if you develop any dizziness, shortness of breath, difficulty breathing, chest pain, blurry vision, loss of vision, nausea, vomiting, abdominal pain, fever, chills, back pain, or any other complaints. Do NOT remove your bandage until the evening of 01/12/2024. Prescriptions: No Action Multaq 400 mg tablet 400 mg PO BID 90 Days Qty: 180 3RF Eliquis 5 mg tablet 5 mg PO BID Qty: 60 6RF latanoprost 0.005 % drops 1 drp ophthalmic (eye) DAILY omeprazole 20 mg capsule,delayed release(DR/EC) 20 mg PO DAILY timolol maleate 0.5 % drops 1 drp ophthalmic (eye) BEDTIME atenolol 50 mg tablet 25 mg PO DAILY multivitamin [Daily Multi-Vitamin] Tablet 1 tab PO DAILY metformin 500 mg tablet 500 mg PO BID aspirin 81 mg tablet,delayed release (DR/EC) 81 mg PO DAILY Qty: 120 4RF atorvastatin 40 mg tablet 40 mg PO DAILY Qty: 90 3RF enalapril maleate 5 mg tablet 5 mg PO DAILY Qty: 60 3RF Referrals: Roly Orellana MD [Primary Care Provider] - Interventions: ED Discharge Assessment Last Done: 01/11/24 10:33 Discharge Date/Time: 01/11/24 10:34 Print Language: Irish
--- NOTE | 2024-01-11 09:23 | ED.GENADULT ---
HPI - General Adult General Chief complaint: Wound/Laceration Stated complaint: Bleeding L Leg Time Seen by Provider: 01/11/24 09:07 Source: patient Mode of arrival: ambulatory Limitations: no limitations Related Data Home Medications Medication Instructions Recorded Confirmed atenolol 50 mg tablet 25 mg PO DAILY 12/18/22 09/12/23 latanoprost 0.005 % eye drops 1 drp ophthalmic (eye) DAILY 12/18/22 09/12/23 multivitamin (Daily Multi-Vitamin 1 tab PO DAILY 12/18/22 09/12/23 tablet) omeprazole 20 mg capsule,delayed 20 mg PO DAILY 12/18/22 09/12/23 release timolol maleate 0.5 % eye drops 1 drp ophthalmic (eye) BEDTIME 12/18/22 09/12/23 metformin 500 mg tablet 500 mg PO BID 01/27/23 09/12/23 Previous Rx's Medication Instructions Recorded aspirin 81 mg tablet,delayed 81 mg PO DAILY #120 tabs 05/04/23 release atorvastatin 40 mg tablet 40 mg PO DAILY #90 tabs 05/04/23 dronedarone 400 mg tablet (Multaq) 400 mg PO BID 90 days #180 tabs 08/22/23 apixaban 5 mg tablet (Eliquis) 5 mg PO BID #60 tabs 08/29/23 enalapril maleate 5 mg tablet 5 mg PO DAILY #60 tabs 09/12/23 Allergies Allergy/AdvReac Type Severity Reaction Status Date / Time meperidine [From DEMEROL] Allergy Unknown SEVERE Verified 01/11/24 08:26 STOMACH UPSET PMFSH Past Medical History Medical History GERD (gastroesophageal reflux disease) Non-insulin dependent type 2 diabetes mellitus Mixed hyperlipidemia Essential hypertension Surgical History History of cardiac cath History of cataract surgery History of cholecystectomy Family History Family History Mother CHF (congestive heart failure) Father No problems noted. Sister Heart attack Social History Social History Household Members: Spouse Housing: House Do you presently have visiting nurse or other home services: No Alcohol intake: current Alcohol intake frequency: holidays/special occasions only Patient Tobacco Use Status: Former Tobacco user Quit Date: 45 YRS AGO Tobacco use type: Cigarette Cigarette Packs Per Day: 2 Years Smoked: 10 Advance Directives: Yes Advance Directives on File: Yes Advance Directives Date on File: 12/18/22 service: Yes Current occupational status: retired Physical Exam ED Vital Signs: Vital Signs - 24 hr 01/11/24 08:23 Temperature 98.3 F Pulse Rate 64 Respiratory Rate 16 Blood Pressure 152/61 H Pulse Oximetry 95 Oxygen Delivery Method Room Air BMI result Body Mass Index 32.5 Discharge Plan Discharge Prescriptions: No Action Multaq 400 mg tablet 400 mg PO BID 90 Days Qty: 180 3RF Eliquis 5 mg tablet 5 mg PO BID Qty: 60 6RF latanoprost 0.005 % drops 1 drp ophthalmic (eye) DAILY omeprazole 20 mg capsule,delayed release(DR/EC) 20 mg PO DAILY timolol maleate 0.5 % drops 1 drp ophthalmic (eye) BEDTIME atenolol 50 mg tablet 25 mg PO DAILY multivitamin [Daily Multi-Vitamin] Tablet 1 tab PO DAILY metformin 500 mg tablet 500 mg PO BID aspirin 81 mg tablet,delayed release (DR/EC) 81 mg PO DAILY Qty: 120 4RF atorvastatin 40 mg tablet 40 mg PO DAILY Qty: 90 3RF enalapril maleate 5 mg tablet 5 mg PO DAILY Qty: 60 3RF
== END 2024-01-11 10:34 | disposition home or self-care (01) ==
PROVIDERS: Emergency Provider Emergency Medicine Emergency Medical Services; PCP Internal Medicine
DX: S81.812A Laceration without foreign body, left lower leg, initial encounter (principal); M79.605 Pain in left leg; W45.8XXA Other foreign body or object entering through skin, initial encounter; Y93.9 Activity, unspecified; Y92.9 Unspecified place or not applicable; Y99.8 Other external cause status
CPT/HCPCS: 12001; 99282; 99283; 99284

== ENCOUNTER 2024-01-16 12:35 | Outpatient (AMB) | payer MEDICARE, SELFPAY ==
[2023-08-16 12:42] VITALS: BP 126/64; BP 128/64; BMI 32.0
[2024-01-16 12:50] VITALS: BP 136/70; PULSE 52; BMI 34.2
--- NOTE | 2024-01-16 12:50 | MHC.OFFVIS ---
Intake Vital Signs 01/16/24 12:50 Height 5 ft 9 in Weight 231 lb 7.766 oz BMI 34.2 BP 136/70 Blood Pressure Location Lt brachial Position Sitting Pulse 52 Intake Visit Reasons: 4 mth f/up Intake Note: pt is here for a 4 mth f/up/ pts states that he its doing fine. [employer] Insurance Required: No Accompanied by: Self / Same As Patient Allergies meperidine [From DEMEROL] Allergy (Unknown, Verified 01/11/24 08:26) SEVERE STOMACH UPSET Medication List - Last Reconciled 01/16/24 by Agapito Ward MD apixaban (Eliquis) 5 mg PO BID aspirin 81 mg PO DAILY atenolol 25 mg PO DAILY atorvastatin 40 mg PO DAILY dronedarone (Multaq) 400 mg PO BID 90 days enalapril maleate 5 mg PO DAILY latanoprost 0.005% 1 drp ophthalmic (eye) DAILY metformin 500 mg PO BID multivitamin (Daily Multi-Vitamin tablet) 1 tab PO DAILY omeprazole 20 mg PO DAILY timolol maleate 0.5% 1 drp ophthalmic (eye) BEDTIME HPI HPI Comments History of Present Illness Details 78-year-old gentleman with paroxysmal atrial flutter. He has been on apixaban, atenolol and were not drawn. Doing well and Holter monitoring as shows sinus rhythm. EKG in the office also sinus. He has no symptoms palpitations or chest discomfort. He does have dyspnea on exertion which started over the last 5 months. He is saying his weight has been stable. His same when he goes up 1 flight of stairs he gets out of breath. He says he is out of breath for few minutes before recovery. No chest discomfort with activity. Taking medications regularly. No bleeding concerns. Blood pressure control is good. 05/04/23: He is here for follow-up. On last visit he was referred for exercise stress test. He was able to exercise for 2 minute 50 seconds and stopped due to shortness of breath. Subsequent to that he had a Lexiscan performed which showed inferior perfusion defect. It was difficult to say whether it is a true defect versus diaphragmatic attenuation. After discussion with him was sent for coronary CTA. A coronary CTA showed calcification in the LAD and stenosis involving LAD and diagonal. It was thought to have 50% stenosis in the LAD and 50% mid diagonal stenosis. Left circumflex was thought to be less than 50% and similarly RCA was thought to have less than 50% stenosis. There was also a large paraesophageal hernia noted. He had CT FFR performed after the original coronary CTA which showed borderline low FFR in the distal LAD and D2. Distal LAD CT FFR was 0.78 and apical LAD was 0.69. Second diagonal CT FFR 0.76. He is back for follow-up and is complaining that he is short of breath and fatigue. He is saying that he has progressed more over the last few months and feels more short of breath. Has no orthopnea or PND. No peripheral edema to suggest heart failure. He is taking the Multaq along with atenolol. 06/22/23: He returns for follow-up. He had coronary CTA which showed concern for coronary disease as described above. He underwent cardiac catheterization on 06/14/2023. There was a 50% proximal right coronary artery stenosis, lad had 70% stenosis in the diagonal branch and 65% stenosis distally. Left main was approximately 40% stenosis. We performed IFR assessment of left main into circumflex which was normal. IFR assessment into LAD was abnormal at 0.87 but on pullback we noticed diffuse disease and interestingly there was no significant gradient across the left main. He returns for follow-up. He has been doing okay. No chest discomfort. Continues to have some shortness of breath. PFTs have not shown any significant obstructive or restrictive defect. 09/12/23: Rehan returns for follow-up. He has been prescribed tamsulosin for BPH. He is asking because there is dizziness and low blood pressure so seated with the medication. His blood pressure currently is 110/62. He has not started taking tamsulosin. He is saying at home his blood pressures as low as 90 by 50s. He does not have any significant symptoms currently. No chest discomfort shortness of breath. Overall he is feeling better with cardiac rehabilitation. 01/16/24: He returns for follow-up. He said he accidentally scratched a scab on his left leg and had significant bleeding which took him to the emergency department and it took them 3 1/2 hour to achieve hemostasis with manual compression. He is saying he has been very careful since then. His blood pressure is better controlled now he was previously hypotensive and his enalapril dose was cut to 5 mg. Denying any significant chest discomfort or shortness of breath. [facility] Medical History GERD (gastroesophageal reflux disease) Non-insulin dependent type 2 diabetes mellitus Mixed hyperlipidemia Essential hypertension Surgical History History of cardiac cath History of cataract surgery History of cholecystectomy Family History Mother CHF (congestive heart failure) Father No problems noted. Sister Heart attack Social History Household Members: Spouse Housing: House Do you presently have visiting nurse or other home services: No Alcohol intake: current Alcohol intake frequency: holidays/special occasions only Patient Tobacco Use Status: Former Tobacco user Quit Date: 45 YRS AGO Tobacco use type: Cigarette Cigarette Packs Per Day: 2 Years Smoked: 10 Advance Directives Date on File: 12/18/22 service: Yes Current occupational status: retired Review of Systems Const Denies chills, Denies fatigue, Denies fever(s), Denies frequent falls, Denies weakness, Denies weight gain and Denies weight loss ENT Denies dizziness Card Denies chest pain, Denies leg edema, Denies lightheadedness, Denies palpitations, Denies dyspnea and Denies dyspnea on exertion Resp Denies cough, Denies dyspnea and Denies dyspnea on exertion GI Denies hematochezia Musc Denies abnormal gait, Denies muscle weakness, Denies numbness, Denies radiating pain into limb and Denies tingling Neuro Denies abnormal gait, Denies dizziness, Denies frequent falls, Denies numbness, Denies tingling and Denies weakness Endo Denies fatigue and Denies palpitations Physical Exam Vital Signs: Last Vital Signs Pulse 52 01/16/24 12:50 BP 136/70 01/16/24 12:50 BMI result Body Mass Index 34.2 GENERAL APPEARANCE: in no acute distress, pleasant. NECK: no carotid bruit, no jugular venous distention. SKIN: no suspicious lesions, warm and dry. HEART: no murmurs, regular rate and rhythm. LUNGS: clear to auscultation bilaterally. ABDOMEN: soft, nontender. EXTREMITIES: no edema. PERIPHERAL PULSES: equal. NEUROLOGIC: No gross deficits, AAO X 3 Office Procedures EKG Details: Sinus bradycardia, 52 beats per minute, EKG otherwise normal, QTC 407 milliseconds. [id number], Complete Assessment & Plan Assessment & Plan (1) Stable angina: Code(s): I20.8 - Other forms of angina pectoris (2) Atrial flutter: Code(s): I48.92 - Unspecified atrial flutter (3) Essential hypertension: Code(s): I10 - Essential (primary) hypertension Plan Pleasant 78 year gentleman who is here for follow-up. He has 40% left main as well as diffuse LAD stenosis. He had IFR assessment of left main into circumflex which was normal and IFR in LAD was abnormal but pullback was only abnormal in the LAD and left main was not significant physiologically. We decided to medically treat him and he has been doing reasonably well with this approach. He also had episode of atrial flutter in the past and has been on Eliquis and dronedarone. He is also taking baby aspirin at this point. I have explained to him that if he has any further episodes of bleeding then we may have to consider stopping aspirin. Currently no changes in medications. He will see us back in 4 months. Thank you for allowing me to participate in the care of your patient. Please feel free to contact me if you have any questions. Coding Level of Care Code Est Pt Level 4 (76075) Diagnoses Stable angina I20.8 Atrial flutter I48.92 Essential hypertension I10 CPT Codes EKG - CPT: 00760-[id number], Complete ([id number])
== END 2024-01-16 13:16 | disposition home or self-care (01) ==
PROVIDERS: PCP Internal Medicine; Visit Provider Internal Medicine Cardiovascular Disease
DX: I20.89 Other forms of angina pectoris (principal); I48.92 Unspecified atrial flutter; I10 Essential (primary) hypertension
CPT/HCPCS: 93010; 99214

== ENCOUNTER → 2024-01-16 12:35 | Outpatient (BNVA) | payer MEDICARE, SELFPAY | PROVIDERS: PCP Internal Medicine; Visit Provider Internal Medicine Cardiovascular Disease | DX: I48.92 Unspecified atrial flutter (principal); I20.89 Other forms of angina pectoris; I10 Essential (primary) hypertension; R06.00 Dyspnea, unspecified; Z79.01 Long term (current) use of anticoagulants | CPT/HCPCS: 93005; 99212 ==

== ENCOUNTER 2024-05-21 09:05 | Outpatient (AMB) | payer MEDICARE, SELFPAY ==
--- NOTE | 2024-05-21 09:24 | A.OFFVIS_ITS ---
Vital Signs 05/21/24 09:25 Height 5 ft 9 in Weight 228 lb 6.382 oz BMI 33.7 BP 110/64 Blood Pressure Location Lt brachial Position Sitting Pulse 54 Pulse Source Monitor Intake Visit Reasons: 4 mth f/up Intake Note: 4 mth f/up with ekg/ pt is feeling fine. [employer] Supervisor Required: No Accompanied by: Self / Same As Patient Allergies meperidine [From DEMEROL] Allergy (Unknown, Verified 01/11/24 08:26) SEVERE STOMACH UPSET Medication List - Last Reconciled 05/21/24 by Agapito Ward MD apixaban (Eliquis) 5 mg PO BID aspirin 81 mg PO DAILY atenolol 25 mg PO DAILY atorvastatin 40 mg PO DAILY dorzolamide-timolol (PF) 2-0.5 % 1 drp ophthalmic (eye) BID dronedarone (Multaq) 400 mg PO BID 90 days enalapril maleate 5 mg PO DAILY latanoprost 0.005% 1 drp ophthalmic (eye) DAILY metformin 500 mg PO BID multivitamin (Daily Multi-Vitamin tablet) 1 tab PO DAILY omeprazole 20 mg PO DAILY timolol maleate 0.5% 1 drp ophthalmic (eye) BEDTIME HPI Comments Details: 78-year-old gentleman with paroxysmal atrial flutter. He has been on apixaban, atenolol and were not drawn. Doing well and Holter monitoring as shows sinus rhythm. EKG in the office also sinus. He has no symptoms palpitations or chest discomfort. He does have dyspnea on exertion which started over the last 5 months. He is saying his weight has been stable. His same when he goes up 1 flight of stairs he gets out of breath. He says he is out of breath for few minutes before recovery. No chest discomfort with activity. Taking medications regularly. No bleeding concerns. Blood pressure control is good. 05/04/23: He is here for follow-up. On last visit he was referred for exercise stress test. He was able to exercise for 2 minute 50 seconds and stopped due to shortness of breath. Subsequent to that he had a Lexiscan performed which showed inferior perfusion defect. It was difficult to say whether it is a true defect versus diaphragmatic attenuation. After discussion with him was sent for coronary CTA. A coronary CTA showed calcification in the LAD and stenosis involving LAD and diagonal. It was thought to have 50% stenosis in the LAD and 50% mid diagonal stenosis. Left circumflex was thought to be less than 50% and similarly RCA was thought to have less than 50% stenosis. There was also a large paraesophageal hernia noted. He had CT FFR performed after the original coronary CTA which showed borderline low FFR in the distal LAD and D2. Distal LAD CT FFR was 0.78 and apical LAD was 0.69. Second diagonal CT FFR 0.76. He is back for follow-up and is complaining that he is short of breath and fatigue. He is saying that he has progressed more over the last few months and feels more short of breath. Has no orthopnea or PND. No peripheral edema to suggest heart failure. He is taking the Multaq along with atenolol. 06/22/23: He returns for follow-up. He had coronary CTA which showed concern for coronary disease as described above. He underwent cardiac catheterization on 06/14/2023. There was a 50% proximal right coronary artery stenosis, lad had 70% stenosis in the diagonal branch and 65% stenosis distally. Left main was approximately 40% stenosis. We performed IFR assessment of left main into circumflex which was normal. IFR assessment into LAD was abnormal at 0.87 but on pullback we noticed diffuse disease and interestingly there was no significant gradient across the left main. He returns for follow-up. He has been doing okay. No chest discomfort. Continues to have some shortness of breath. PFTs have not shown any significant obstructive or restrictive defect. 09/12/23: Rehan returns for follow-up. He has been prescribed tamsulosin for BPH. He is asking because there is dizziness and low blood pressure so seated with the medication. His blood pressure currently is 110/62. He has not started taking tamsulosin. He is saying at home his blood pressures as low as 90 by 50s. He does not have any significant symptoms currently. No chest discomfort shortness of breath. Overall he is feeling better with cardiac rehabilitation. 01/16/24: He returns for follow-up. He said he accidentally scratched a scab on his left leg and had significant bleeding which took him to the emergency department and it took them 3 1/2 hour to achieve hemostasis with manual compression. He is saying he has been very careful since then. His blood pressure is better controlled now he was previously hypotensive and his enalapril dose was cut to 5 mg. Denying any significant chest discomfort or shortness of breath. 05/21/24: He is here for follow-up. He has been experiencing shortness of breath with activity. He is saying that when he goes up hill he gets out of breath. No chest discomfort. He was previously referred for cardiac rehabilitation and had some improvement in symptoms. [facility] Medical History GERD (gastroesophageal reflux disease) Non-insulin dependent type 2 diabetes mellitus Mixed hyperlipidemia Essential hypertension Surgical History History of cardiac cath History of cataract surgery History of cholecystectomy Family History Mother CHF (congestive heart failure) Father No problems noted. Sister Heart attack Social History Household Members: Spouse Housing: House Do you presently have visiting nurse or other home services: No Alcohol intake: current Alcohol intake frequency: holidays/special occasions only Patient Tobacco Use Status: Former Tobacco user Tobacco use type: Cigarette Cigarette Packs Per Day: 2 Years Smoked: 10 Advance Directives Date on File: 12/18/22 service: Yes Current occupational status: retired Review of Systems Const Denies chills, Denies fatigue, Denies fever(s), Denies frequent falls, Denies weakness, Denies weight gain and Denies weight loss ENT Denies dizziness Card Denies chest pain, Denies leg edema, Denies lightheadedness, Denies palpitations, Denies dyspnea and Denies dyspnea on exertion Resp Denies cough, Denies dyspnea and Denies dyspnea on exertion GI Denies hematochezia Musc Denies abnormal gait, Denies muscle weakness, Denies numbness, Denies radiating pain into limb and Denies tingling Neuro Denies abnormal gait, Denies dizziness, Denies frequent falls, Denies numbness, Denies tingling and Denies weakness Endo Denies fatigue and Denies palpitations Physical Exam Vital Signs: Last Vital Signs Pulse 54 05/21/24 09:25 BP 110/64 05/21/24 09:25 BMI result Body Mass Index 33.7 GENERAL APPEARANCE: in no acute distress, pleasant. NECK: no carotid bruit, no jugular venous distention. SKIN: no suspicious lesions, warm and dry. HEART: no murmurs, regular rate and rhythm. LUNGS: clear to auscultation bilaterally. ABDOMEN: soft, nontender. EXTREMITIES: no edema. PERIPHERAL PULSES: equal. NEUROLOGIC: No gross deficits, AAO X 3 Office Procedures EKG Details: Sinus bradycardia 54 beats per minute, left ventricular hypertrophy, QTC 400 milliseconds. [id number], Complete Assessment & Plan Assessment & Plan (1) Dyspnea on exertion: Code(s): R06.09 - Other forms of dyspnea Category: Medical (2) Stable angina: Code(s): I20.8 - Other forms of angina pectoris Category: Medical Plan [age] year gentleman who is here for follow-up. He has dyspnea on exertion. He had 40% left main stenosis as well as diffuse LAD stenosis. IFR was abnormal in the LAD but pullback showed many step-ups pointing to her diffuse LAD stenosis. He has been medically treated since then. Clinically not in heart failure. Arranging PFTs and the echocardiogram. Refer him back to cardiac rehabilitation. If dyspnea does not improve or ECHO showed any LV dysfunction then we will consider repeat diagnostic catheterization to see if there is any progression in the left main or LAD. He will see us back in few months. Thank you for allowing me to participate in the care of your patient. Please feel free to contact me if you have any questions. Orders: Orders CA echo transthoracic complete Today I20.8 - Other forms of angina pectoris Cardiac Rehab Today I20.8 - Other forms of angina pectoris, Z98.61 - Coronary angioplasty status PFT pulmonary function test Today R06.09 - Other forms of dyspnea Coding Level of Care Code Est Pt Level 4 (55424) Diagnoses Dyspnea on exertion R06.09 Stable angina I20.8 CPT Codes EKG - CPT: 80603-[id number], Complete ([id number])
[2024-05-21 09:25] VITALS: BP 110/64; PULSE 54; BMI 33.7
== END 2024-05-21 09:50 | disposition home or self-care (01) ==
PROVIDERS: PCP Internal Medicine; Visit Provider Internal Medicine Cardiovascular Disease
DX: R06.09 Other forms of dyspnea (principal); I20.89 Other forms of angina pectoris
CPT/HCPCS: 93010; 99214

== ENCOUNTER → 2024-05-21 09:05 | Outpatient (BNVA) | payer MEDICARE, SELFPAY | PROVIDERS: PCP Internal Medicine; Visit Provider Internal Medicine Cardiovascular Disease | DX: I20.89 Other forms of angina pectoris (principal); R06.09 Other forms of dyspnea; Z87.891 Personal history of nicotine dependence; Z98.61 Coronary angioplasty status | CPT/HCPCS: 93005; 99212 ==

== ENCOUNTER → 2024-06-13 09:36 | Outpatient (REF) | payer MEDICARE, SELFPAY ==
--- NOTE | 2024-06-13 09:38 | CA_ITS ---
Transthoracic Echocardiogram Patient (Last, First, Middle): Rehan Hathaway D Gender: Male Date of : 1945 Age: 79 Procedure Date: 06/13/2024 Procedure Type: Transthoracic Echocardiogram Location: OP Height: 175.26 cm Weight: 103.42 kg BSA: 2.18 m2 Heart Rate: 56 bpm BP: 112 / 68 mmHg Director Power: SB Referring MD: Agapito Ward MD Protective Services Officer: Agapito Ward MD Symptoms: I20.8 - Other forms of angina pectoris Study Quality: Adequate w contrast ECG Rhythm: Bradycardia Conclusions: - Normal left ventricular size, thickness, systolic function, and wall motion. The visually estimated ejection fraction is between 55-60%. Abnormal diastolic function is noted. Spectral Doppler is indicative of a pseudonormal filling pattern. E/E prime ratio is between 8 and 15 consistent with indeterminate filling pressures. - Normal right ventricular cavity size and systolic function. Findings Procedure Information Contrast agent, definity, is being given per protocol without apparent complications. The quality of the study was technically difficult. The study quality is limited by patients body habitus and lung artifact. Left Ventricle Normal left ventricular size, thickness, systolic function, and wall motion. The visually estimated ejection fraction is between 55-60%. Abnormal diastolic function is noted. Spectral Doppler is indicative of a pseudonormal filling pattern. E/E prime ratio is between 8 and 15 consistent with indeterminate filling pressures. Right Ventricle Normal right ventricular cavity size and systolic function. Atria The left atrium is normal in size. Aortic Valve Normal aortic valve structure and function. There is no aortic valve stenosis. There is no aortic valve regurgitation. Mitral Valve The mitral valve appears normal. There is no mitral valve regurgitation. There is no mitral valve stenosis. Pulmonic Valve Normal pulmonic valve structure and function. There is trace pulmonic valve regurgitation. Tricuspid Valve Normal tricuspid valve structure. There is no tricuspid valve regurgitation. Normal right atrial pressure. There is no evidence of pulmonary hypertension. Great Vessels All visible segments of the aorta are normal in size. The visualized portions of the pulmonary artery and branches are normal. Venous The inferior vena cava is normal in size and collapses greater than 50% with inspiration. Pericardium/Pleural There is no evidence of pericardial effusion. Prior Study Comparison No prior study available for comparison. Measurements 2D Linear Measurements IVSd: 0.82 0.6-0.9/0.6-1.0 cm LVIDd: 5.10 3.9-5.3/4.2-5.9 cm LVIDd Index: 2.34 2.4-3.2/2.2-3.1 cm/m2 LVIDs: 3.15 2.0-3.6 cm LVPWd: 0.58 0.7-1.1 cm LA Diam: 3.30 2.7-3.8/3.0-4.0 cm LAIDs Index: 1.51 1.5-2.3 cm/m2 LV Mass: 147.52 67-162/88-224 g LV Mass Index: 67.67 43-95/49-115 g/m2 LVOT Diam: 2.40 3.0+(-)1.3 cm 2D Systolic Function EF 4C: 51.70 >55% EF 2C: 68.50 >55% EF BiP: 59.50 >55% Mitral Valve MV Pk E: 0.69 MV PK A: 0.59 MV Decel Time: 214.00 E/A: 1.20 E'Lateral: 6.20 E'Medial: 5.66 E/E' Med: 12.30 E/E' Lat: 11.20 PHT: 63.00 MVA PHT: 3.49 Decel [place]: 3.24 Aortic Valve AoV Pk [place]: 1.11 AoV Pk Grad: 5.00 MOO: 4.60 LVOT LVOT Pk [place]: 1.13 LVOT Mn [place]: 0.78 LVOT VTI: 0.25 LVOT Pk Grad: 5.00 LVOT Mn Grad: 3.00 LVOT Diam: 2.40 LVOT Area: 4.52 Diastolic Function MV Pk E: 0.69 MV Pk A: 0.59 E/A: 1.20 E'Medial: 5.66 E/E' Med: 12.30 E' Laterial: 6.20 E/E' Lat: 11.20 Right Ventricle TAPSE (mm): 21.90 TVS' [place]: 11.70 Tricuspid Valve TR Pk [place]: 1.83 TR Pk Grad: 13.00 RA Press: 8.00 RVSP: 21.00 Great Vessels Aorta Sinus of Valsalva: 3.50 2.0-3.5 cm Ao Asc: 3.40 2.1-3.4 cm Ao Arch: 3.40 Pulmonary Veins Pulm Vein S/D 1.20 Pulmonary Valve PV Pk [place]: 1.05 Peak PV Grad: 4.00 Updated in Other Vendor System with Status of Final Agapito Ward MD electronically signed on 06/13/2024 9:01:55 PM with status of Final
== END ==
LOC: HO.CARD 09:36
PROVIDERS: PCP Internal Medicine; Visit Provider Internal Medicine Cardiovascular Disease
DX: I20.81 Angina pectoris with coronary microvascular dysfunction (principal)
CPT/HCPCS: 93306; Q9957

== ENCOUNTER → 2024-06-13 09:38 | Outpatient (BNV) | payer MEDICARE, SELFPAY | PROVIDERS: PCP Internal Medicine; Visit Provider Internal Medicine Cardiovascular Disease | DX: I20.89 Other forms of angina pectoris (principal); R93.1 Abnormal findings on diagnostic imaging of heart and coronary circulation | CPT/HCPCS: 93306 ==

== ENCOUNTER 2024-09-24 08:19 | Outpatient (AMB) | payer MEDICARE, SELFPAY ==
[2024-09-24 09:07] VITALS: BP 92/56; PULSE 66; BMI 32.0
--- NOTE | 2024-09-24 09:07 | A.OFFVIS_ITS ---
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 Required: No Accompanied by: Self / Same As Patient Allergies meperidine [From DEMEROL] Allergy (Unknown, Verified 01/11/24 08:26) SEVERE STOMACH UPSET Medication List - Last Reconciled 09/24/24 by Agapito Ward MD apixaban (Eliquis) 5 mg PO BID aspirin 81 mg PO DAILY atenolol 25 mg PO DAILY atorvastatin 40 mg PO DAILY dorzolamide-timolol (PF) 2-0.5 % 1 drp ophthalmic (eye) BID dronedarone (Multaq) 400 mg PO BID 90 days enalapril maleate 5 mg PO DAILY latanoprost 0.005% 1 drp ophthalmic (eye) DAILY metformin 500 mg PO BID multivitamin (Daily Multi-Vitamin tablet) 1 tab PO DAILY omeprazole 20 mg PO DAILY sertraline 50 mg PO DAILY timolol maleate 0.5% 1 drp ophthalmic (eye) BEDTIME HPI Comments Details: 79-year-old gentleman with paroxysmal atrial flutter. He has been on apixaban, atenolol and were not drawn. Doing well and Holter monitoring as shows sinus rhythm. EKG in the office also sinus. He has no symptoms palpitations or chest discomfort. He does have dyspnea on exertion which started over the last 5 months. He is saying his weight has been stable. His same when he goes up 1 flight of stairs he gets out of breath. He says he is out of breath for few minutes before recovery. No chest discomfort with activity. Taking medications regularly. No bleeding concerns. Blood pressure control is good. 05/04/23: He is here for follow-up. On last visit he was referred for exercise stress test. He was able to exercise for 2 minute 50 seconds and stopped due to shortness of breath. Subsequent to that he had a Lexiscan performed which showed inferior perfusion defect. It was difficult to say whether it is a true defect versus diaphragmatic attenuation. After discussion with him was sent for coronary CTA. A coronary CTA showed calcification in the LAD and stenosis involving LAD and diagonal. It was thought to have 50% stenosis in the LAD and 50% mid diagonal stenosis. Left circumflex was thought to be less than 50% and similarly RCA was thought to have less than 50% stenosis. There was also a large paraesophageal hernia noted. He had CT FFR performed after the original coronary CTA which showed borderline low FFR in the distal LAD and D2. Distal LAD CT FFR was 0.78 and apical LAD was 0.69. Second diagonal CT FFR 0.76. He is back for follow-up and is complaining that he is short of breath and fatigue. He is saying that he has progressed more over the last few months and feels more short of breath. Has no orthopnea or PND. No peripheral edema to suggest heart failure. He is taking the Multaq along with atenolol. 06/22/23: He returns for follow-up. He had coronary CTA which showed concern for coronary disease as described above. He underwent cardiac catheterization on 06/14/2023. There was a 50% proximal right coronary artery stenosis, lad had 70% stenosis in the diagonal branch and 65% stenosis distally. Left main was approximately 40% stenosis. We performed IFR assessment of left main into circumflex which was normal. IFR assessment into LAD was abnormal at 0.87 but on pullback we noticed diffuse disease and interestingly there was no significant gradient across the left main. He returns for follow-up. He has been doing okay. No chest discomfort. Continues to have some shortness of breath. PFTs have not shown any significant obstructive or restrictive defect. 09/12/23: Rehan returns for follow-up. He has been prescribed tamsulosin for BPH. He is asking because there is dizziness and low blood pressure so seated with the medication. His blood pressure currently is 110/62. He has not started taking tamsulosin. He is saying at home his blood pressures as low as 90 by 50s. He does not have any significant symptoms currently. No chest discomfort shortness of breath. Overall he is feeling better with cardiac rehabilitation. 01/16/24: He returns for follow-up. He said he accidentally scratched a scab on his left leg and had significant bleeding which took him to the emergency department and it took them 3 1/2 hour to achieve hemostasis with manual compression. He is saying he has been very careful since then. His blood pressure is better controlled now he was previously hypotensive and his enalapril dose was cut to 5 mg. Denying any significant chest discomfort or shortness of breath. 05/21/24: He is here for follow-up. He has been experiencing shortness of bravo ath with activity. He is saying that when he goes up hill he gets out of breath. No chest discomfort. He was previously referred for cardiac rehabilitation and had some improvement in symptoms. 09/24/2024: He is here for follow-up. He has been going to cardiac rehabilitation and has been exercising regularly. He is saying that his breathing has been improving. He is saying he also had very good sugar control and recent A1c was also good. He underwent PFTs which showed no significant lung disease or problem with diffusion capacity. Main issue was some restriction which was due to being overweight. Overall he has been doing well and has no concerning symptoms. [facility] Medical History GERD (gastroesophageal reflux disease) Non-insulin dependent type 2 diabetes mellitus Mixed hyperlipidemia Essential hypertension Surgical History History of cardiac cath History of cataract surgery History of cholecystectomy Family History Mother CHF (congestive heart failure) Father No problems noted. Sister Heart attack Social History Household Members: Spouse Housing: House Do you presently have visiting nurse or other home services: No Alcohol intake: current Alcohol intake frequency: holidays/special occasions only Patient Tobacco Use Status: Former Tobacco user Tobacco use type: Cigarette Cigarette Packs Per Day: 2 Years Smoked: 10 Advance Directives Date on File: 12/18/22 service: Yes Current occupational status: retired Review of Systems Const Denies chills, Denies fatigue, Denies fever(s), Denies weight gain and Denies weight loss ENT Denies dizziness Card Denies chest pain, Denies leg edema, Denies lightheadedness, Denies palpitations, Denies dyspnea on exertion, Denies orthopnea and Denies other Resp Denies cough and Denies dyspnea on exertion GI Denies hematochezia and Denies change in stool character Musc Denies abnormal gait, Denies muscle weakness, Denies numbness, Denies radiating pain into limb and Denies tingling Neuro Denies abnormal gait, Denies dizziness, Denies numbness and Denies tingling Endo Denies fatigue and Denies palpitations Physical Exam Vital Signs: Last Vital Signs Pulse 66 09/24/24 09:07 BP 92/56 L 09/24/24 09:07 BMI result Body Mass Index 32.0 GENERAL APPEARANCE: in no acute distress, pleasant. NECK: no carotid bruit, no jugular venous distention. SKIN: no suspicious lesions, warm and dry. HEART: no murmurs, regular rate and rhythm. LUNGS: clear to auscultation bilaterally. ABDOMEN: soft, nontender. Abdominal obesity. EXTREMITIES: no edema. PERIPHERAL PULSES: equal. NEUROLOGIC: No gross deficits, AAO X 3 Office Procedures EKG Details: Sinus rhythm 66 beats per minute, normal axis, normal ECG, QTC 429 milliseconds. [id number], Complete Assessment & Plan Assessment & Plan (1) Stable angina: Code(s): I20.8 - Other forms of angina pectoris Category: Medical (2) Atrial flutter: Code(s): I48.92 - Unspecified atrial flutter Category: Medical (3) Dyspnea on exertion: Code(s): R06.09 - Other forms of dyspnea Category: Medical Plan Pleasant 79-year-old gentleman who is here for follow-up. He has known history of diabetes, hypertension and hyperlipidemia. He has known coronary artery disease and had 40% left main disease as well as diffuse LAD stenosis on cardiac catheterization in the past. We performed IFR assessment of left main into LAD and it was abnormal with multiple step-ups in LAD. Due to diffuse disease he was medically treated. He has done well with this strategy and is going to cardiac rehabilitation and has been progressing. PFTs did not show any significant lung disease or issues with diffusion capacity. He does have restrictive defect which is due to obesity and we discussed about weight loss and that he should continue to exercise. He seems motivated and has been asymptomatic. We will continue same strategy for now. He will see us back in 4 months. Thank you for allowing me to participate in the care of your patient. Please feel free to contact me if you have any questions. Coding Level of Care Code Est Pt Level 4 (84771) Diagnoses Stable angina I20.8 Atrial flutter I48.92 Dyspnea on exertion R06.09 CPT Codes EKG - CPT: 69568-[id number], Complete ([id number])
== END 2024-09-24 09:35 | disposition home or self-care (01) ==
PROVIDERS: PCP Internal Medicine; Visit Provider Internal Medicine Cardiovascular Disease
DX: I20.89 Other forms of angina pectoris (principal); I48.92 Unspecified atrial flutter; R06.09 Other forms of dyspnea
CPT/HCPCS: 93010; 99214

== ENCOUNTER → 2024-09-24 08:19 | Outpatient (BNVA) | payer MEDICARE, SELFPAY | PROVIDERS: PCP Internal Medicine; Visit Provider Internal Medicine Cardiovascular Disease | DX: I48.92 Unspecified atrial flutter (principal); R06.09 Other forms of dyspnea; I20.89 Other forms of angina pectoris; I10 Essential (primary) hypertension | CPT/HCPCS: 93005; 99212 ==

== ENCOUNTER 2024-10-19 07:00 | Outpatient (RCR) | payer MEDICARE, SELFPAY | END 2024-10-19 10:48 | disposition home or self-care (01) | LOC: HO.CR 07:00 | PROVIDERS: PCP Internal Medicine; Visit Provider Internal Medicine Cardiovascular Disease | DX: I20.81 Angina pectoris with coronary microvascular dysfunction (principal); Z98.61 Coronary angioplasty status | CPT/HCPCS: 93798 ==

== ENCOUNTER 2025-01-23 08:29 | Outpatient (AMB) | payer MEDICARE, SELFPAY ==
[2024-09-24 09:34] VITALS: BP 126/62; BP 132/60; BMI 33.7
--- OUTSIDE RECORDS SUMMARY | 2025-01-23 08:55 | XMS_ITS | Data Portability ---
Author Organization [facility], Main Office Address [address] [facility] [address] [place] [address] Care Team Providers Care Hospice Team Lead Name Role Phone PEDRO ORELLANA Primary Care Provider LAMAR MAYEN Route Salesman [phone] CESAR LEROY Referring Provider ELIANA ORTIZ Cement Truck Loader RIAN AN Urologist [facility] Referring Provider Assessment No assessment recorded. Plan of Treatment Reminders Order Date Submit Date Provider Last Modified By Organization Details Last Modified Time Details Appointments None recorded . Lab hemoglob in A1C, fingerst ick 2023 024 [email or web address] In-Office Order, Internal Use Only DO Not Attach Compendium DO Not Attach Compendium, Do Not Delete/merge, [id number] 10:40:45 CMP, serum or plasma 2023 024 [email or web address] [facility] (Centralized Electronic Ordering - All Locations), Patient Can Go To The Location Of Their Choice, [id number] 4 10:40:43 hemoglob in A1C, fingerst ick 2023 024 [email or web address] In-Office Order, Internal Use Only DO Not Attach Compendium DO Not Attach Compendium, Do Not Delete/merge, [id number] 4 11:27:10 microalb umin/cre atinine, mass ratio, urine 2023 024 [email or web address] [facility] (Centralized Electronic Ordering - All Locations), Patient Can Go To The Location Of Their Choice, 4 11:27:09 lipid panel, serum 2023 024 KIMBERLEY [facility] (Centralized Electronic Ordering - All Locations), Patient Can Go To The Location Of Their Choice, 4 16:07:20 CMP, serum or plasma 2023 024 KIMBERLEY [facility] (Centralized Electronic Ordering - All Locations), Patient Can Go To The Location Of Their Choice, 4 16:07:19 hemoglob in A1C, fingerst ick 2022 023 [email or web address] In-Office Order, Internal Use Only DO Not Attach Compendium DO Not Attach Compendium, Do Not Delete/merge, [id number] 3 11:04:07 TSH, serum or plasma 2022 023 KIMBERLEY [facility], [address], [address], [place], [address], 3 04:53:49 CMP, serum or plasma 2022 023 KIMBERLEY [facility], [address], [address], [place], [address], 3 04:53:47 hemoglob in A1C, fingerst ick 2022 023 [email or web address] In-Office Order, Internal Use Only DO Not Attach Compendium DO Not Attach Compendium, Do Not Delete/merge, [id number] 3 11:17:57 microalb umin, urine 2022 023 KIMBERLEY [facility], [address], [address], [place], [address], 3 15:19:05 lipid panel, serum 2022 023 KIMBERLEY [facility], [address], [address], [place], [address], 3 17:14:48 Referral None recorded . Procedures None recorded . Surgeries None recorded . Imaging XR, cervical spine - Neck pain for 8 months especial ly when turning to the left. R/o lesion. 2023 024 [email or web address] In-Office Order, Internal Use Only DO Not Attach Compendium DO Not Attach Compendium, Do Not Delete/merge, [id number] 4 17:04:10 Medication Orders sertrali ne 50 mg tablet 2023 024 [email or web address] [id number], [address] [place], [address], 4 14:18:24 tamsulos in 0.4 mg capsule 2022 023 [email or web address] [id number], [address] [place], [address], 3 13:51:55 Patient TargetsNo targets recorded. Patient Instructions Encounter Date Encounter Id Patient Instructions Last Modified By Organization Details Last Modified Time 03/15/2023 [id number] high blood press ure: care instructions [email or web address] Not available 03/15/2023 11:17:57 learning about h igh blood pressure acennerazzo Not available 03/15/2023 11:17:57 type 2 diabetes: care instructions acennerazzo Not available 03/15/2023 11:17:57 shortness of bravo ath: care instructions acennerazzo Not available 03/15/2023 12:29:38 high cholesterol : care instructions acennerazzo Not available 03/15/2023 11:17:57 09/06/2023 [id number] gastroesophageal reflux disease (GERD): care instructions acennerazzo Not available 09/06/2023 11:04:04 preventing falls : care instructions acennerazzo Not available 09/06/2023 11:04:04 medicare prevent gisela services guide (male 74 rs and under) acennerazzo Not available 09/06/2023 11:04:46 medicare prevent gisela services guide (male >75yrs) acennerazzo Not available 09/06/2023 11:04:46 high cholesterol : care instructions acennerazzo Not available 09/06/2023 11:04:04 type 2 diabetes: care instructions acennerazzo Not available 09/06/2023 11:04:05 high blood press ure: care instructions acennerazzo Not available 09/06/2023 11:04:04 learning about h igh blood pressure acennerazzo Not available 09/06/2023 11:04:04 shortness of bravo ath: care instructions acennerazzo Not available 09/06/2023 13:48:15 03/13/2024 [id number] electrical cardioversion: before your procedure acennerazzo Not available 03/13/2024 09:42:07 Electrophysiolog y (EP) Study: Before Your Procedure acennerazzo Not available 03/13/2024 09:42:07 high cholesterol : care instructions acennerazzo Not available 03/13/2024 09:47:41 08/09/2024 [id number] depression treatment: care instructions acennerazzo Not available 08/09/2024 15:54:47 09/11/2024 [id number] advance care planning: care instructions acennerazzo Not available 09/11/2024 10:40:43 type 2 diabetes: care instructions acennerazzo Not available 09/11/2024 10:40:43 preventing falls : care instructions acennerazzo Not available 09/11/2024 10:40:43 well visit, over 65: care instructions acennerazzo Not available 09/11/2024 10:40:43 Reason for Referral None Reported. Results Created Date Observation Date Name Description Value Unit Range Abnormal Flag Note LastModifiedBy Organization Detail LastModifiedTime 03/15/20 23 03/15/2023 URINA RY MICRO ALBUM IN micro-albumi n 33.0 mg/L (<20) high The urine micro album in test is desig blair to monit or renal funct ion. When scree candy for Bence Lindsey prote inuri a, urine elect ropho resis is recom rafa dLuisa Not Available [facility] (Centralized Electronic Ordering - All Locations) Patient Can Go To The Location Of Their Choice, 03/15/2023 15:19:05 03/15/2003/15/2023 URINA RY MICRO ALBUM IN malb/creat ratio 32.1 mg/gm (0-20) high Not Available [facility] ([facility] Ordering - All Locations) Patient Can Go To The Location Of Their Choice, 03/15/2023 15:19:05 03/15/20 23 03/15/2023 URINA RY MICRO ALBUM IN urine creat for micro albumin 103.8 mg/dL Not Available [facility] ([facility] Ordering - All Locations) Patient Can Go To The Location Of Their Choice, 03/15/2023 15:19:05 03/15/2003/15/2023 LIPID PANEL cholesterol, total 181 mg/dL (<200) Not Available [facility] ([facility] Ordering - All Locations) Patient Can Go To The Location Of Their Choice, 03/15/2023 17:14:48 03/15/2003/15/2023 LIPID PANEL triglyceride 118 mg/dL (<150) Not Available [facility] ([facility] Ordering - All Locations) Patient Can Go To The Location Of Their Choice, 03/15/2023 17:14:48 03/15/2003/15/2023 LIPID PANEL HDL chol 62 mg/dL (>39) Not Available [facility] (Centralized Electronic Ordering - All Locations) Patient Can Go To The Location Of Their Choice, 03/15/2023 17:14:48 03/15/2003/15/2023 LIPID PANEL LDL cholesterol, calculated 95 mg/dL (0-130 ) Not Available [facility] (Centralized Electronic Ordering - All Locations) Patient Can Go To The Location Of Their Choice, 03/15/2023 17:14:48 03/15/2003/15/2023 LIPID PANEL non HDL cholesterol (calc) 119 mg/dL (<160) Not Available [facility] ([facility] Ordering - All Locations) Patient Can Go To The Location Of Their Choice, 03/15/2023 17:14:48 03/15/2003/15/2023 hemog lobin A1C, finge rstic k A1C 5.7 % 4-6 normal Not Available In-Office Order Internal Use Only DO Not Attach Compendium DO Not Attach Compendium, Do Not Delete/merge, [id number] 03/15/2023 10:48:57 09/06/2009/07/2023 COMPR EHENS GISELA METAB OLIC PANL glucose 98 mg/dL (70-99 ) Not Available [facility] (Centralized Electronic Ordering - All Locations) Patient Can Go To The Location Of Their Choice, 09/07/2023 04:53:47 09/06/2009/07/2023 COMPR EHENS GISELA METAB OLIC PANL BUN 22 mg/dL (8-23) Not Available [facility] (Centralized Electronic Ordering - All Locations) Patient Can Go To The Location Of Their Choice, 09/07/2023 04:53:47 09/06/2009/07/2023 COMPR EHENS GISELA METAB OLIC PANL creatinine 0.9 mg/dL (0.7-1 .2) Not Available [facility] (Centralized Electronic Ordering - All Locations) Patient Can Go To The Location Of Their Choice, 09/07/2023 04:53:47 09/06/2009/07/2023 COMPR EHENS GISELA METAB OLIC PANL sodium 140 mmol/ L (133-1 45) Not Available [facility] (Centralized Electronic Ordering - All Locations) Patient Can Go To The Location Of Their Choice, 09/07/2023 04:53:47 09/06/2009/07/2023 COMPR EHENS GISELA METAB OLIC PANL potassium 4.6 mmol/ L (3.6-5 .2) Not Available [facility] (Centralized Electronic Ordering - All Locations) Patient Can Go To The Location Of Their Choice, 09/07/2023 04:53:47 09/06/2009/07/2023 COMPR EHENS GISELA METAB OLIC PANL chloride 105 mmol/ L (98-10 7) Not Available [facility] (Centralized Electronic Ordering - All Locations) Patient Can Go To The Location Of Their Choice, 09/07/2023 04:53:47 09/06/2009/07/2023 COMPR EHENS GISELA METAB OLIC PANL bicarbonate 25 mmol/ L (22-29 ) Not Available [facility] (Centralized Electronic Ordering - All Locations) Patient Can Go To The Location Of Their Choice, 09/07/2023 04:53:47 09/06/2009/07/2023 COMPR EHENS GISELA METAB OLIC PANL anion gap 10 (4-17) Not Available [facility] (Centralized Electronic Ordering - All Locations) Patient Can Go To The Location Of Their Choice, 09/07/2023 04:53:47 09/06/2009/07/2023 COMPR EHENS GISELA METAB OLIC PANL albumin 4.1 gm/dL (3.4-4 .8) Not Available [facility] (Centralized Electronic Ordering - All Locations) Patient Can Go To The Location Of Their Choice, 09/07/2023 04:53:47 09/06/2009/07/2023 COMPR EHENS GISELA METAB OLIC PANL calcium 9.4 mg/dL (8.6-1 0.5) Not Available [facility] ([facility]ized Electronic Ordering - All Locations) Patient Can Go To The Location Of Their Choice, 09/07/2023 04:53:47 09/06/2009/07/2023 COMPR EHENS GISELA METAB OLIC PANL bilirubin,to elizabeth 0.9 mg/dL (0-1.2 ) Not Available [facility] ([facility]ized Electronic Ordering - All Locations) Patient Can Go To The Location Of Their Choice, 09/07/2023 04:53:47 09/06/2009/07/2023 COMPR EHENS GISELA METAB OLIC PANL total protein 6.2 gm/dL (6.2-8 .2) Not Available [facility] ([facility]ized Electronic Ordering - All Locations) Patient Can Go To The Location Of Their Choice, 09/07/2023 04:53:47 09/06/2009/07/2023 COMPR EHENS GISELA METAB OLIC PANL Ag ratio 2.0 Not Available [facility] ([facility]ized Electronic Ordering - All Locations) Patient Can Go To The Location Of Their Choice, 09/07/2023 04:53:47 09/06/2009/07/2023 COMPR EHENS GISELA METAB OLIC PANL AST 21 U/L (0-40) Not Available [facility] ([facility]ized Electronic Ordering - All Locations) Patient Can Go To The Location Of Their Choice, 09/07/2023 04:53:47 09/06/2009/07/2023 COMPR EHENS GISELA METAB OLIC PANL alk phos 95 U/L (40-12 9) Not Available [facility] ([facility]ized Electronic Ordering - All Locations) Patient Can Go To The Location Of Their Choice, 09/07/2023 04:53:47 09/06/2009/07/2023 COMPR EHENS GISELA METAB OLIC PANL ALT 20 U/L (0-41) Not Available [facility] ([facility]ized Electronic Ordering - All Locations) Patient Can Go To The Location Of Their Choice, 09/07/2023 04:53:47 09/06/2009/07/2023 COMPR EHENS GISELA METAB OLIC PANL estimated GFR creatinine 85 mL/mi n/1.7 3_M2 Creat inine based estim ated glome rular filtr ation (eGFR ) in adult s is calcu lated using the Natio nal Kidne y Found ation recom rafa d 2020 CKD-E PI equat ion. Estim ates GFR from serum creat inine , age and sex. Not Available [facility] (Centralized Electronic Ordering - All Locations) Patient Can Go To The Location Of Their Choice, 09/07/2023 04:53:47 09/06/2009/07/2023 TSH WITH REFLE X TO FT4 TSH 1.19 uIU/m L (0.4-4 .2) Not Available [facility] ([facility]ized Electronic Ordering - All Locations) Patient Can Go To The Location Of Their Choice, 09/07/2023 04:53:49 09/06/2009/06/2023 hemog lobin A1C, finge rstic k A1C 5.8 % 4-6 Not Available In-Office Order Internal Use Only DO Not Attach Compendium DO Not Attach Compendium, Do Not Delete/merge, [id number] 09/06/2023 10:41:25 03/13/20 24 03/14/2024 COMP. METAB OLIC PANEL (14) glucose 103 mg/dL 70-99 above high normal Not Available [facility] ([facility]) [address] [facility] [address], [place], [address], 03/14/2024 16:07:19 03/13/20 24 03/14/2024 COMP. METAB OLIC PANEL (14) BUN 20 mg/dL 8-27 Not Available [facility] ([facility]) [address] [place], [address], 03/14/2024 16:07:19 03/13/20 24 03/14/2024 COMP. METAB OLIC PANEL (14) creatinine 1.07 mg/dL 0.76-1 .27 Not Available [facility] ([facility]) [address] [place], [address], 03/14/2024 16:07:19 03/13/20 24 03/14/2024 COMP. METAB OLIC PANEL (14) eGFR 71 mL/mi n/1.7 3 >59 Not Available [facility] ([facility]) [address] [place], [address], 03/14/2024 16:07:19 03/13/20 24 03/14/2024 COMP. METAB OLIC PANEL (14) BUN/creatini ne ratio 19 10-24 Not Available [facility] ([facility]) [address] [place], [address], 03/14/2024 16:07:19 03/13/20 24 03/14/2024 COMP. METAB OLIC PANEL (14) sodium 139 mmol/ L 134-14 4 Not Available [facility] ([facility]) [address] [place], [address], 03/14/2024 16:07:19 03/13/20 24 03/14/2024 COMP. METAB OLIC PANEL (14) potassium 4.9 mmol/ L 3.5-5. 2 Not Available [facility] ([facility]) [address] [place], [address], 03/14/2024 16:07:19 03/13/20 24 03/14/2024 COMP. METAB OLIC PANEL (14) chloride 103 mmol/ L 96-106 Not Available [facility] ([facility]) [address] [facility] [place], [address], 03/14/2024 16:07:19 03/13/20 24 03/14/2024 COMP. METAB OLIC PANEL (14) carbon dioxide, total 24 mmol/ L 20-29 Not Available [facility] ([facility]) [address] [facility], [place], [address], 03/14/2024 16:07:19 03/13/20 24 03/14/2024 COMP. METAB OLIC PANEL (14) calcium 9.2 mg/dL 8.6-10 .2 Not Available [facility] ([facility]) [address] [facility] [place], [address], 03/14/2024 16:07:19 03/13/20 24 03/14/2024 COMP. METAB OLIC PANEL (14) protein, total 6.2 g/dL 6.0-8. 5 Not Available [facility] ([facility]) [address] [place], [address], 03/14/2024 16:07:19 03/13/20 24 03/14/2024 COMP. METAB OLIC PANEL (14) albumin 3.9 g/dL 3.8-4. 8 Not Available [facility] ([facility]) [address] [place], [address], 03/14/2024 16:07:19 03/13/20 24 03/14/2024 COMP. METAB OLIC PANEL (14) globulin, total 2.3 g/dL 1.5-4. 5 Not Available [facility] ([facility]) [address] [place], [address], 03/14/2024 16:07:19 03/13/20 24 03/14/2024 COMP. METAB OLIC PANEL (14) A/G ratio 1.7 1.2-2. 2 Not Available [facility] ([facility]) [address] [facility] [place], [address], 03/14/2024 16:07:19 03/13/20 24 03/14/2024 COMP. METAB OLIC PANEL (14) bilirubin, total 1.0 mg/dL 0.0-1. 2 Not Available [facility] ([facility]) [address] [facility] [place], [address], 03/14/2024 16:07:19 03/13/20 24 03/14/2024 COMP. METAB OLIC PANEL (14) alkaline phosphatase 151 IU/L 44-121 above high normal Not Available [facility] ([facility]) [address] [facility] [place], [address], 03/14/2024 16:07:19 03/13/20 24 03/14/2024 COMP. METAB OLIC PANEL (14) AST (SGOT) 32 IU/L 0-40 Not Available [facility] ([facility]) [address] [facility] [place], [address], 03/14/2024 16:07:19 03/13/20 24 03/14/2024 COMP. METAB OLIC PANEL (14) ALT (SGPT) 25 IU/L 0-44 Not Available [facility] ([facility]) [address] [facility] [place], [address], 03/14/2024 16:07:19 03/13/20 24 03/14/2024 LIPID PANEL cholesterol, total 112 mg/dL 100-19 9 Not Available [facility] ([facility]) [address] [facility] [place], [address], 03/14/2024 16:07:20 03/13/20 24 03/14/2024 LIPID PANEL triglyceride s 69 mg/dL 0-149 Not Available [facility] ([facility]) [address] [facility] [place], [address], 03/14/2024 16:07:20 03/13/20 24 03/14/2024 LIPID PANEL HDL cholesterol 50 mg/dL >39 Not Available [facility] ([facility]) [address] [place], [address], 03/14/2024 16:07:20 03/13/20 24 03/14/2024 LIPID PANEL VLDL cholesterol moshe 15 mg/dL 5-40 Not Available [facility] ([facility]) [address] [place], [address], 03/14/2024 16:07:20 03/13/20 24 03/14/2024 LIPID PANEL LDL chol calc ([facility]) 47 mg/dL 0-99 Not Available [facility] ([facility]) [address] [place], [address], 03/14/2024 16:07:20 03/13/20 24 03/14/2024 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 Not Available [facility] ([facility]) [address] [place], [address], 03/14/2024 16:07:21 03/13/20 24 03/14/2024 ALBUM IN/CR EAT RATIO , RANDO M UR albumin, urine 21.4 ug/mL not estab. Not Available [facility] ([facility]) [address] [place], [address], 03/14/2024 16:07:21 03/13/20 24 03/14/2024 ALBUM IN/CR EAT RATIO , RANDO M UR alb/creat ratio 21 mg/g_ creat 0-29 Kanika l: 0 - 29 Moder ately incre ased: 30 - 300 Sever darío incre ased: >300 Not Available [facility] ([facility]) [address], [place], [address], 03/14/2024 16:07:21 03/13/20 24 03/13/2024 hemog lobin A1C, finge rstic k A1C 6.5 % 4-6 Not Available In-Office Order Internal Use Only DO Not Attach Compendium DO Not Attach Compendium, Do Not Delete/merge, [id number] 03/13/2024 09:15:04 09/11/20 24 09/11/2024 hemog lobin A1C, finge rstic k A1C 6.0 % 4-6 normal Not Available In-Office Order Internal Use Only DO Not Attach Compendium DO Not Attach Compendium, Do Not Delete/merge, [id number] 09/11/2024 10:32:56 09/11/20 24 09/11/2024 XR, cervi moshe spine , 4 or 5 view Cervic al Spine 4 or 5 Views Reason : cervic algia neck pain for eight months ; Clinic al Questi on(s): lesion COMPAR KAY: None. FINDIN GS: No bone lesion s or fractu res. Normal odonto id and C1/2 relati onship . Alignm ent is normal . There is marked disc space narrow ing with margin al osteop hyte format ion at C5-C6. There is modera te disc space narrow ing at C6-C7 with minima l osteop hyte format ion. There is multil evel uncove rtebra l joint arthro armani as well as scatte red facet hypert rophy. There is mild neural forami nal encroa chment at C5-C6 and C6-C7 right C5-C6 left. Normal prever tebral soft tissue s and clear lung apices . IMPRES SAMINA: Multil evel cervic al spondy losis, most advanc ed at C5-C6. No acute findin gs. WSN: [id number] Orderi ng Physic fariha: Pedro Godinez Dictat ed By: Kelsey gonzalez MD, Sofie alberts H Dictat ed Date/T zuri: 4:20 pm Review ed By: Kelsey gonzalez MD, Sofie Fernandez Signed By: Sofie Wagner MD Signed Date/T zuri: 4:20 pm Transc ribed By: LAVELL Transc ribed Date/T zuri: 4:16 pm Patien t Class: Outpat ient [facility] (Outpt Imaging) [address], [place], [address], 09/12/2024 09:39:16 Result Notes None recorded. Problems Name Problem SNOMED Code Status Onset Date Resolution Date Notes Provider Name and Address Organization Details Recorded Time Acute sinusiti s 26802882 Completed 201205/21/2014 RECORDED 01/23/20 13 8:43AM BY MARIO QUIROZ ON/HENRY Orellana MD [address] [facility] [address], [place], [address] , [facility] 6 09:46:56 Au' s esophagu s [id number] Active Last EGD by Dr Cl gonzalez 08/2017; now seeing Dr Chambers . Pedro Orellana MD [address] [facility] [address], [place], [address] , [facility] 4 10:28:30 Cough [id number] Completed 201105/21/2014 RECORDED 07/24/20 12 9:12AM BY MARIO QUIROZ ON/HENRY Orellana MD [address], [place], [address] , [facility] 6 09:46:56 Essentia l hyperten samina [id number] Completed 201105/21/2014 RECORDED 07/24/20 12 9:12AM BY MARIO QUIROZ ON/HENRY Orellana MD [address] [facility] [address], [place], [address] , [facility] 6 09:46:56 General examinat ion of patient Completed 200705/21/2014 RECORDED 02/13/20 08 1:57PM BY PEDRO CHEATHAM MD, MARIO ON/ADDEN DUM Pedro Orellana MD [address], [place], [address] , [facility] 6 09:46:56 Pure hypercho lesterol emia [id number] Completed 12/31/2016 Pedro Orellana MD [address] [facility] [address], [place], [address] , [facility] 7 13:18:50 Essentia l hyperten samina 98554757 Active Not Available [facility] 3 12:19:36 Renewal of prescrip tion Completed 201205/21/2014 RECORDED 01/23/20 13 8:43AM BY SHELLI VALENZUELA I, MARIO ON/EN DUM Pedro Orellana MD [address] [facility] [address], [place], [address] , [facility] 6 09:46:56 Administ ration of bacteria l and viral vaccine Completed 200705/21/2014 RECORDED 08/14/20 08 4:17PM BY RICKEY GUTIERREZ, OFFICE VISIT Pedro Orellana MD [address] [facility] [address], [place], [address] , [facility] 6 09:46:56 Nocturia [id number] Completed 201105/21/2014 RECORDED 07/24/20 12 9:11AM BY MARIO QUIROZ ON/HENRY Orellana MD [address] [facility] [address], [place], [address] , [facility] 6 09:46:56 Immuniza tion refused Completed 201305/21/2014 IMPRESSI ON: HE WILL BE GETTING IT AT WORK.; RECORDED 02/06/20 14 6:57AM BY MARIO QUIROZ ON/HENRY Orellana MD [address] [facility] [address], [place], [address] , [facility] 6 09:46:56 Tobacco user [id number] Completed 201205/21/2014 RECORDED 07/31/20 13 6:59AM BY MARIO QUIROZ ON/HENRY Orellana MD [address] [facility] [address], [place], [address] , [facility] 6 09:46:56 History of clinical finding in subject [id number] Completed 201208/08/2014 RECORDED 07/31/20 13 6:59AM BY MARIO QUIROZ ON/HENRY Orellana MD [address] [facility] [address], [place], [address] , [facility] 6 09:46:56 Active or passive immuniza tion Completed 201205/21/2014 RECORDED 01/23/20 13 9:29AM BY PEDRO CHEATHAM MD, OFFICE VISIT Pedro Orellana MD [address] [address], [place], [address] , [facility] 6 09:46:56 Hemorrha ge of rectum and anus 699283207 Completed 201105/21/2014 RECORDED 07/24/20 12 9:11AM BY MARIO QUIROZ/HENRY Orellana MD [address] [facility] [address], [place], [address] , [facility] 6 09:46:56 Influenz a vaccine needed [id number] 06 Completed 201105/21/2014 RECORDED 07/24/20 12 9:16AM BY SHELLI VALENZUELA I, OFFICE VISIT Pedro Orellana MD [address] [facility] [address], [place], [address] , [facility] 6 09:46:56 Adult health examinat ion Completed 201308/08/2014 RECORDED 02/06/20 14 9:25AM BY SHELLI VALENZUELA I, OFFICE VISIT Pedro Orellana MD [address] [facility] [address], [place], [address] , [facility] 6 09:46:56 Adult health examinat ion Completed 201105/21/2014 RECORDED 07/24/20 12 9:11AM BY MARIO QUIROZ ON/ADDEN DUM Pedro Orellana MD [address] [facility] [address], [place], [address] , [facility] 6 09:46:56 Dyspnea 070523898 Completed 201105/21/2014 RECORDED 07/24/20 12 9:11AM BY MARIO QUIROZ ON/ADDRE Orellana MD [address] [facility] [address], [place], [address] , [facility] 3 13:51:35 Screenin g for malignan t neoplasm of colon Completed 201105/21/2014 RECORDED 07/24/20 12 9:11AM BY MARIO QUIROZ ON/ADDEN ALMAZ Orellana MD [address] [facility] [address], [place], [address] , [facility] 6 09:46:56 Tinnitus [id number] Completed 201105/21/2014 RECORDED 07/24/20 12 9:11AM BY MARIO QUIROZ ON/ADDRE Orellana MD [address] [address], [place], [address] , [facility] 6 09:46:56 Acute sinusiti s [id number] Completed 201206/10/2014 RECORDED 01/23/20 13 8:43AM BY MARIO QUIROZ ON/HENRY Orellana MD [address] [facility] [address], [place], [address] , [facility] 6 09:46:56 Cough [id number] Completed 201106/10/2014 RECORDED 07/24/20 12 9:12AM BY MARIO QUIROZ/HENRY Orellana MD [address] [facility] [address], [place], [address] , [facility] 6 09:46:56 Essentia l hyperten samina [id number] Completed 201106/10/2014 RECORDED 07/24/20 12 9:12AM BY MARIO QUIROZ ON/HENRY Orellana MD [address], [place], [address] , [facility] 6 09:46:56 General examinat ion of patient Completed 200706/10/2014 RECORDED 02/13/20 08 1:57PM BY PEDRO CHEATHAM MD, MARIO ON/HENRY Orellana MD [address], [place], [address] , [facility] 6 09:46:56 Renewal of prescrip tion Completed 201206/10/2014 RECORDED 01/23/20 13 8:43AM BY MARIO QUIROZ/HENRY Orellana MD [address] [facility] [address], [place], [address] , [facility] 6 09:46:56 Administ ration of bacteria l and viral vaccine Completed 200706/10/2014 RECORDED 08/14/20 08 4:17PM BY RICKEY GUTIERREZ, OFFICE VISIT Pedro Orellana MD [address] [facility] [address], [place], [address] , [facility] 6 09:46:56 Nocturia [id number] Completed 201106/10/2014 RECORDED 07/24/20 12 9:11AM BY MARIO QUIROZ ON/ADDEN DUM Pedro Orellana MD [address] [facility] [address], [place], [address] , [facility] 6 09:46:56 Immuniza tion refused Completed 201306/10/2014 IMPRESSI ON: HE WILL BE GETTING IT AT WORK.; RECORDED 02/06/20 14 6:57AM BY MARIO QUIROZ ON/ADDEN DUM Pedro Orellana MD [address] [facility] [address], [place], [address] , [facility] 6 09:46:56 Tobacco user [id number] Completed 201206/10/2014 RECORDED 07/31/20 13 6:59AM BY MARIO QUIROZ ON/ADDEN DUM Pedro Orellana MD [address] [address], [place], [address] , [facility] 6 09:46:56 Active or passive immuniza tion Completed 201206/10/2014 RECORDED 01/23/20 13 9:29AM BY PEDRO CHEATHAM MD, OFFICE VISIT Pedro Orellana MD [address] [facility] [address], [place], [address] , [facility] 6 09:46:56 Hemorrha ge of rectum and anus 449513734 Completed 201106/10/2014 RECORDED 07/24/20 12 9:11AM BY MARIO QUIROZ ON/ADDEN ALMAZ Orellana MD [address], [place], [address] , [facility] 6 09:46:56 Influenz a vaccine needed [id number] 06 Completed 201106/10/2014 RECORDED 07/24/20 12 9:16AM BY SHELLI VALENZUELA I, OFFICE VISIT Pedro Orellana MD [address] [facility] [address], [place], [address] , [facility] 6 09:46:56 Dyspnea [id number] Completed 201106/10/2014 RECORDED 07/24/20 12 9:11AM BY MARIO QUIROZ ON/ADDEN ALMAZ Orellana MD [address] [facility] [address], [place], [address] , [facility] 3 13:51:35 Screenin g for malignan t neoplasm of colon Completed 201106/10/2014 RECORDED 07/24/20 12 9:11AM BY MARIO QUIROZ ON/HENRY Orellana MD [address] [facility] [address], [place], [address] , [facility] 6 09:46:56 Tinnitus [id number] Completed 201106/10/2014 RECORDED 07/24/20 12 9:11AM BY MARIO QUIROZ ON/ADDEN ALMAZ Orellana MD [address] [facility] [address], [place], [address] , [facility] 6 09:46:56 Nocturia 827294787 Active Not Available [facility] 3 12:19:36 Anemia 104318323 Active Not Available [facility] 3 12:19:36 Sinusiti s 59835780 Active Not Available [facility] 3 12:19:36 Glaucoma 44210295 Active Open angle; on drops Not Available [facility] 3 12:19:36 Tinea corporis 97206714 Active Not Available [facility] 3 12:19:36 Gastroes ophageal reflux disease 800571347 Active 2016 Not Available [facility] 3 12:19:36 Binocula r diplopia 914440323 Active 2017 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 Followed by Dr Diop Not Available [facility] 3 12:19:36 Hyperlip idemia 75316470 Active 2017 Pedro Orellana MD [address], [place], [address] , [facility] 4 10:29:12 Hydronep hrosis 32236942 Active 2017 Left; seen by urology; secondar y to left ureteral stone. Not Available [facility] 3 12:19:36 Glaucoma 39529216 Active 2020 Using drops Pedro Orellana MD [address], [place], [address] , [facility] 4 10:30:13 Obstruct gisela sleep apnea syndrome 98468490 Active 2021 Not Available [facility] 3 12:19:36 Atrial flutter 1701653 Active 2022 Followed by cardiolo gy On eliquis. Pedro Orellana MD [address], [place], [address] , [facility] 4 10:29:04 Coronary arterios clerosis 63144468 Active 2022 He had a cath done showing 50% stenosis in LAD, 50% in diagonal . RCA and left circumfl ex both <50%. Treated medicall y. Pedro Orellana MD [address], [place], [address] , [facility] 4 10:29:59 Dyspnea 606033431 Active 2022 Cardiac cath done; no stentabl e lesions. PFT's were normal. 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 Followed by HALIE Orellana MD [address] [facility] [address], [place], [address] , [facility] 5 11:01:05 Problem Notes None recorded. Procedures Surgical History Date Name Laterality Status Provider Name and Address Organization Details Recorded Time 09/11 Advanced Care Planning completed Deisy Miller LPN [facility] 4 09:52:54 01/30 diabetic retinopathy screening completed Lupe Rojas [facility] 4 08:08:18 09/06 Advanced Care Planning completed Pedro Orellana MD [address] [facility] [address], [place], [address] , [facility] 3 11:06:49 09/06 Diabetic Foot Exam (Monofilament) completed Pedro Orellana MD [address] [facility] [address], [place], [address] , [facility] 3 11:06:12 10/25 /2023 Eye Surgery completed Rebeca Murphy MA [facility] 3 10:25:24 06/22 cardiac catheterization completed Lupe Rojas [facility] 3 12:43:19 10/31 Cataract Surgery completed Nikky Castellanos MA [facility] 2 09:38:30 10/07 Colonoscopy completed Amarilis Batres [facility] 0 14:10:13 10/07 esophagogastroduodenoscopy completed Kolotn Batres [facility] 0 14:53:18 05/05 Six-Item Cognitive Test completed Shelli Hay [facility] 0 09:15:00 04/17 Mini-Cog Test completed Shelli Hay [facility] 9 09:23:00 04/17 Mini-Cog Test completed Shelli Hay [facility] 8 09:59:57 09/09 Endoscopic us exam esoph completed Elsa Chin [facility] 7 14:41:11 08/29 Upper GI Endoscopy completed Rosalina Cutler [facility] 7 16:38:21 04/13 Fall Risk Assessment completed Shelli Hay [facility] 7 13:02:11 04/13 Mini-Cog Test completed Shelli Hay [facility] 7 13:02:20 02/06 [facility] 10:14[facility]42 02/06 Mini-Cog Test completed Linda Steve [facility] 5 10:14:42 Circumcision completed [facility] 5 10:06:30 Cholecystectomy completed Pedro Orellana MD [address] [facility] [address], [place], [address] , [facility] 4 11:26:44 Tonsillectomy completed Nikky Castellanos MA [facility] 2 09:38:30 release of trigger finger completed Fernie kaiser MA [facility] 3 09:39:09 Imaging Results Imaging Date Name Status LastModified by Organiz ation Details LastModified Time 09/11/2024 XR, cervical spine, 4 or 5 view completed [facility] [address] [place], [address], 09/12/2024 09:39:16 Procedure Notes None recorded. Medical Equipment None Reported. Allergies Allergen ID Allergen Name Allergen Category Reaction Reaction Severity Criticality Documentation Date Start Date Code Code System Note Provider Name and Address Organization Details Recorded Time 26239 Demerol medicatio n nausea severe Not available 05/14/2014 76496 1 RxNorm Not Available [facility] 3 12:19:38 66041 No known allergy (situatio n) Not available Not available Not available Not available 05/14/20142011 86422 6003 SNOMED COMME NT: RECOR DED 07/24 9:12A M BY SHELLI LEÓN, OFFIC E VISIT ; Linda mercado [facility] 5 10:05:59 Medications Name Sig Start Date Stop Date Status Note LastModified by Organization Details LastModified Time amoxicill in 500 mg capsule Take 4 capsules as needed by oral route for 3 days. 09/06 completed For Dental care Not Available Not Available Not Available latanopro st 0.005 % eye drops LOCATION : BOTH EYES. ONE DROP INTO BOTH EYES AT BEDTIME, 90 DAY SUPPLY active Not Available Not Available No t Available atorvasta tin 40 mg tablet TAKE 1 TABLET BY MOUTH EVERY DAY active Not Available Not Available No t Available metformin 500 mg tablet TAKE 1 TABLET TWICE A DAY BY ORAL ROUTE FOR 90 DAYS. 2024 active Not Available Not Available Not Avai lable ketoconaz ole 2 % shampoo PLEASE SEE ATTACHED FOR DETAILED DIRECTIO NS active Not Available Not Available No t Available enalapril maleate 5 mg tablet TAKE 1 TABLET BY MOUTH DAILY active Not Available Not Available No t Available atorvasta tin 10 mg tablet DAILY 2008 active RECORDED 01/09/20 10 9:40AM BY FERNIE MCBRIDE MA, OFFICE VISIT; Not Available Not Available Not Available ofloxacin 0.3 % eye drops DROP 1 DROP 4 TIMES A DAY INTO RIGHT EYE FOR 1 WEEK 05/31 completed Not Available Not Available Not Available metoprolo l succinate ER 50 mg tablet,ex tended release 24 hr Take 1 tablet every day by oral route. 02/02 completed Not Available Not Available Not Available valacyclo vir 1 gram tablet Take 1 tablet every 8 hours by oral route for 7 days. 04/13 completed Not Available Not Available Not Available enalapril maleate 20 mg tablet TAKE 1 TABLET BY MOUTH EVERY DAY 09/16 completed Having dizzines s and low BP. Not Available Not Available Not Available simvastat in 10 mg tablet TAKE 1 TABLET BY MOUTH EVERY DAY 09/06 completed Not Available Not Available Not Available ciproflox acin 500 mg tablet 10/17 completed Not Available Not Available Not Available sulfameth oxazole 800 mg-trimet hoprim 160 mg tablet 10/17 completed Not Available Not Available Not Available peg-elect rolyte solution 420 gram oral solution MIX DIRECTED AND DRINK 240 ML BY MOUTH EVERY 15 MINUTES. FINISH ENTIRE JUG. 10/08 completed Not Available Not Available Not Available tramadol 50 mg tablet 10/17 completed Not Available Not Available Not Available oxycodone -acetamin ophen 5 mg-325 mg tablet 10/17 completed Not Available Not Available Not Available prednisol one acetate 1 % eye drops,shalom pension USE 1 DROP INTO THE RIGHT EYE 4 TIMES DAILY DIRECTED 05/31 completed Not Available Not Available Not Available Vitamin C 1,000 mg tablet Take 1 tablet every day by oral route. 12/15 completed taking 500 mg daily Not Available Not Available Not Available tamsulosi n 0.4 mg capsule TAKE 1 CAPSULE BY MOUTH DAILY FOR 90 DAYS, FOR BPH. active Not Available Not Available No t Available betametha sone, augmented 0.05 % topical ointment APPLY TO THE AFFECTED AREA(S) BY TOPICAL ROUTE ONCE DAILY ; DO NOT EXCEED 45 GRAMS PER WEEK. 05/16 completed Not Available Not Available Not Available omeprazol e 20 mg capsule,d elayed release TAKE 1 CAPSULE BY MOUTH EVERY DAY active Not Available Not Available No t Available dorzolami de 22.3 mg-timolo l 6.8 mg/mL eye drops APPLY ONE DROP TO THE LEFT EYE TWICE DAILY. active Not Available Not Available No t Available codeine 10 mg-guaife nesin 100 mg/5 mL oral liquid TAKE 10 MILLILIT ERS BY MOUTH EVERY 4 HOURS NEEDED 03/15 completed Not Available Not Available Not Available pyridoxin e (vitamin B6) 100 mg tablet TAKE 1 TABLET BY MOUTH EVERY DAY 05/31 completed Not Available Not Available Not Available oxycodone -acetamin ophen 7.5 mg-325 mg tablet 10/17 completed Not Available Not Available Not Available timolol maleate 0.5 % eye drops INSTILL 1 DROP INTO BOTH EYES EVERY MORNING active Not Available Not Available No t Available fluticaso ne propionat e 50 mcg/actua tion nasal spray,shalom pension [place] 2 sprays every day by nasal route as needed for 60 days. 2020 active Not Available Not Available Not Avai lable sertralin e 50 mg tablet TAKE 1 TABLET BY MOUTH EVERY DAY FOR DEPRESSI ON/MOOD 2024 active Not Available Not Available Not Avai lable doxycycli ne hyclate 100 mg tablet take 2 tabs at one time 04/17 completed Not Available Not Available Not Available atenolol 50 mg tablet TAKE 1 TABLET BY MOUTH EVERY DAY active Not Available Not Available No t Available amoxicill in 875 mg-potass ium clavulana te 125 mg tablet Take 1 tablet every 12 hours by oral route for 10 days. active Not Available Not Available No t Available ProctoCar e-HC 2.5 % rectal cream with applicato r THREE TIMES DAILY 06/12 completed RECORDED 06/23/20 09 2:45PM BY PEDRO CHEATHAM MD, MEDICATI ON AUTO-BRIANDA CTIVATIO N; Not Available Not Available Not Available Multivita min 50 Plus tablet Take 1 tablet every day by oral route. active Not Available Not Available No t Available bromfenac 0.09 % eye drops DROP 1 DROP ONCE DAILY INTO RIGHT EYE EVERY DAY 05/31 completed Not Available Not Available Not Available Boostrix Tdap 2.5 Lf unit-8 mcg-5 Lf/0.5 mL intramusc ular syringe 05/16 completed Not Available Not Available Not Available iron 1 PO QD 05/31 completed Not Available Not Available Not Available dorzolami de 09/11 completed Not Available Not Available Not Available Promethaz ine W/Codeine AT BEDTIME 02/20 completed RECORDED 04/23/20 11 2:41PM BY PEDRO CHEATHAM MD, MEDICATI ON AUTO-BRIANDA CTIVATIO N; Not Available Not Available Not Available hydrocodo ne 5 mg-acetam inophen 300 mg tablet Take 1 tablet every 8 hours by oral route as needed for 7 days. 10/17 completed Not Available Not Available Not Available Multaq 400 mg tablet TAKE 1 TABLET BY MOUTH TWICE A DAY active Not Available Not Available No t Available Eliquis 5 mg tablet TAKE 1 TABLET BY MOUTH TWICE A DAY active Not Available Not Available No t Available B6 100 mg-FA 800 mcg-B12 200 mcg-co Q10 100 mg-herbal no.225 tablet Take 1 tablet every day by oral route. 11/11 completed Not Available Not Available Not Available Fluzone High-Dose 0678-5970 (PF) 180 mcg/0.5 mL intramusc ular syringe 10/17 completed Not Available Not Available Not Available Fluzone High-Dose Quad (PF) 240 mcg/0.7 mL IM syringe PHARMACY ADMINIST ERED 11/11 completed Not Available Not Available Not Available Vitals Date Recorded Body height Body mass index (BMI) Body weight Heart rate Oxygen saturation Oxygen saturation in Arterial blood by Pulse oximetry Body temperature Systolic blood pressure Diastolic blood pressure Provider Name and Address Organization Details Last Updated DateTime 3 173.99 cm 33 kg/m2 89315.4 2 g 55 /min 95 % 95 % 97.7 [degF] 118 mm[Hg] 74 mm[Hg] Nikky Castellanos MA [facility] 3 10:52:53 Date Recorded Body height Body mass index (BMI) Body weight Heart rate Oxygen saturation Oxygen saturation in Arterial blood by Pulse oximetry Body temperature Systolic blood pressure Diastolic blood pressure Provider Name and Address Organization Details Last Updated DateTime 3 173.99 cm 32.8 kg/m2 53553.7 3 g 73 /min 100 % 100 % 97.7 [degF] 133 mm[Hg] 83 mm[Hg] Rebeca Murphy MA [facility] 3 10:23:04 Date Recorded Body height Body mass index (BMI) Body weight Heart rate Oxygen saturation Oxygen saturation in Arterial blood by Pulse oximetry Body temperature Systolic blood pressure Diastolic blood pressure Provider Name and Address Organization Details Last Updated DateTime 4 173.99 cm 34.3 kg/m2 886155. 65 g 53 /min 96 % 96 % 98 [degF] 118 mm[Hg] 71 mm[Hg] Rebeca Murphy MA [facility] 4 09:22:04 Date Recorded Body height Body mass index (BMI) Body weight Heart rate Oxygen saturation Oxygen saturation in Arterial blood by Pulse oximetry Body temperature Systolic blood pressure Diastolic blood pressure Provider Name and Address Organization Details Last Updated DateTime 4 173.99 cm 34.2 kg/m2 561288. 06 g 63 /min 96 % 96 % 98.3 [degF] 115 mm[Hg] 74 mm[Hg] Rebeca Murphy MA [facility] 4 14:04:03 Date Recorded Body height Body mass index (BMI) Body weight Heart rate Oxygen saturation Oxygen saturation in Arterial blood by Pulse oximetry Body temperature Systolic blood pressure Diastolic blood pressure Provider Name and Address Organization Details Last Updated DateTime 4 173.99 cm 32.7 kg/m2 76255.1 4 g 52 /min 99 % 99 % 98 [degF] 132 mm[Hg] 77 mm[Hg] Deisy Miller LPN [facility] 4 09:57:42 Social History Question Answer Notes LastModified by Organizat ion Details LastModified Time Tobacco Smoking Status Former Smoker 1 ppd for about 10 years; quit 50 years ago Not Available [facility] 09/02/2020 03:36:38 Do You Have An Advance Directive? Yes Information not available 05/31/2022 What Is Your Level Of Alcohol Consumption? Occasional Information not available 05/31/2022 Animal Exposure? Yes Information not available 05/31/2022 Is Blood Transfusion Acceptable In An Emergency? Yes [id number] Information not available 09/02/2020 What Is Your Level Of Caffeine Consumption? Moderate 2 Cups Coffee Daily Information not available 05/31/2022 How Much Tobacco Do You Chew? None [id number] Information not available 09/02/2020 Are You Currently Employed? No Retired [email or web address] Information not available 12/29/2022 What Type Of Diet Are You Following? REGULAR [id number] Information not available 09/02/2020 Which Illicit Or Recreational Drugs Have You Used? None [id number] Information not available 09/02/2020 Do You Or Have You Ever Used E-cigarettes Or Vape? 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 No Information not available 05/31/2022 When Did You Quit Smoking? 16+yearssince alejo [email or web address] Information not available 05/12/2021 Are There Any Guns Present In Your Home? No Information not available 05/31/2022 Legally Blind In One Or Both Eyes? No Information not available 05/31/2022 Live Alone Or With Others? With Others (Tiffany) Information not available 05/31/2022 Do You Take Precautions To Prevent Distracted Driving? Yes coy Information not available 02/10/2016 How Often Do You Need To Have Someone Help You When You Read Instructions, Pamphlets, Or Other Written Material From Your Doctor Or Pharmacy? Never [email or web address] Information not available 02/10/2016 Have You Served In The ? Yes [email or web address] Information not available 04/13/2017 Have You Or Anyone In Your Household Had Any Of The Following Symptoms In The Last 14 Days: Sore Throat, Cough, Chills, Body Aches For Unknown Reasons, Shortness Of Breath For Unknown Reasons, Loss Of Smell, Loss Of Taste, Fever At Or Greater Than 100 Degrees Fahrenheit? No [email or web address] Information not available 11/11/2020 Are You Or Anyone In Your Household A Health Care Provider Or Emergency Responder? No [email or web address] Information not available 11/11/2020 To The Best Of Your Knowledge Have You Been In Close Proximity To Any Individual Who Tested Positive For COVID-19? No [email or web address] Information not available 11/11/2020 Have You Recently Traveled To A COVID-19 High Risk Area Or Gathering In The Last 10 Days? No [email or web address] Information not available 11/11/2020 Marital Status Informatio n not available 05/31/2022 What Was The Date Of Your Most Recent Tobacco Screening? 09/11/2024 [email or web address] Information not available 09/11/2024 Total Number Of Stairs In Home 28 Information not available 05/31/2022 How Many Children Do You Have? 3 2 Sons And 1 Daughter And 3 GC [email or web address] Information not available 05/31/2022 What Is Your Current Pack Years? 10-19packyear s Information not available 12/29/2022 Difficulty Reading? No Information not available 05/31/2022 What Is Your Relationship Status? Information not available 05/31/2022 Do You Use Your Seat Belt Or Car Seat Routinely? Yes Information not available 05/31/2022 Seat Belts Used Routinely No Information not available 05/31/2022 Are You Sexually Active? No [id number] Information not available 09/02/2020 Smoke Alarm In Home Yes Information not available 05/31/2022 Do You Have Smoke And Carbon Monoxide Detectors In Your Home? Yes Information not available 05/31/2022 At What Age Did You Start Smoking Tobacco? 20 Quit At 30 Information not available 12/29/2022 Are You Passively Exposed To Smoke? No [email or web address] Information not available 05/12/2021 Do You Or Have You Ever Used Smokeless Tobacco? Never Used Smokeless Tobacco [id number] Information not available 09/02/2020 How Much Tobacco Do You Smoke? 1 PPD Information not available 12/29/2022 What Types Of Sporting Activities Do You Participate In? Golf Information not available 05/31/2022 Do You Use Any Illicit Or Recreational Drugs? No Information not available 05/31/2022 Do You Use Sunscreen Routinely? No [id number] Information not available 09/02/2020 How Many Years Have You Smoked Tobacco? 10 Information not available 05/31/2022 Do You Or Have You Ever Used Any Other Forms Of Tobacco Or Nicotine? No Information not available 05/31/2022 Sex: Unknown Functional Status Question Answer Note LastModified by Organizat ion Details LastModified Time Do you have difficulty walking or climbing stairs? No Information not available 05/31/2022 Difficulty driving at night? No Information no t available 05/31/2022 Are you able to walk? [email or web address] Information not available 05/31/2022 Are you able to care for yourself? Yes [id number] Information not available 09/02/2020 Do you have difficulty dressing or bathing? No Information not available 05/31/2022 What is your exercise level? Occasional Information not available 05/31/2022 Mental Status Question Answer Note LastModified by Organization D etails LastModified Time Do you have difficulty concentrating, remembering or making decisions? No Information no t available 05/31/2022 Family History Relationship Description Onset Age of this Age Resolved Age Notes LastModified by Organization Details LastModified Time Mother Diabetes mellitus 96 [email or web address] Not available 04/30 10:23:52 Mother Hypertensive disorder [email or web address] Not available 02/09 09:26:14 Mother Sleep disorder [email or web address] Not available 05/12 09:55:40 Mother Atrial fibrillation 94 96 [email or web address] Not available 0 05/12/2021 10:23:35 Mother Congestive heart failure 96 [email or web address] Not available 2021 09:25:32 Father Diabetes mellitus 84 [email or web address] Not available 2021 09:25:32 Sister Hypertensive disorder [email or web address] Not available 03/2020 09:38:01 Sister Hypertensive disorder [email or web address] Not available 03/2020 09:38:07 Sister Myocardial infarction 64 [email or web address] Not available 05/31 09:25:32 Unspecified Relation Depressive disorder [email or web address] Not available 2021 09:25:32 Son Small cell neuroendocri ne carcinoma 40 [email or web address] Not available 10:00:39 Notes:2 sisters (he's oldest ) Medical History Condition Response Coronary Artery Disease N Other N Gout N Kidney Stones Y Blood Diseases N Hyperthyroidism N Breast Cancer N Lung Disease N COPD N Depression N Hypothyroidism N Defects or Inherited Disease N Anesthesia Complications N Headaches/Migraines N Varicose Veins N Anxiety Disorder N Obesity N Vision or Eye Problems Y Arthritis N Head Injury/Concussion N Polyps N Infertility N Congenital Anomalies N Acid Reflux (GERD) Y Cancer N Stroke N ADHD N Endometriosis N High Cholesterol Y Liver Disease N Fibromyalgia N Kidney Disease N Heart Problems N Ear or Hearing Problems Y Hospitalizations N Thyroid Problems N GI Problems N Acne N Skin Problems N Eating Disorder N Anemia Y Constipation N Bladder Problems N Mental Illness N Ovarian Cancer N Diabetes N Blood Transfusions N Seizures/Epilepsy N Tuberculosis N AIDS/HIV N Congestive Heart Failure (CHF) N Eczema N Diverticulitis N Abuse/Domestic Violence N Allergies N Asthma N Reflux/GERD N Hepatitis N Pulmonary Embolism N Hypertension Y Osteoporosis N Chicken Pox N Autism Spectrum Disorder (ASD) N Immunizations Vaccine Type Date Status Note Provider Nam e and Address Organization Details Recorded Time Influenza, high-dose, trivalent, PF 8 completed Lupe mercado [facility] 08/19/2023 12:42:50 Influenza, adjuvanted, trivalent, PF 9 completed Lupe mercado [facility] 08/19/2023 12:42:50 Influenza, high-dose, quadrivalent, PF 0 completed Lupe mercado [facility] 08/19/2023 12:42:50 COVID-19, mRNA, LNP-S, PF, 30 mcg/0.3 mL dose 1 completed Lupe Rojas null, [facility] 08/19/2023 12:42:50 COVID-19, mRNA, LNP-S, PF, 30 mcg/0.3 mL dose 1 completed Lupe Rojas null, [facility] 08/19/2023 12:42:50 COVID-19, mRNA, LNP-S, PF, 30 mcg/0.3 mL dose 1 completed Lupe Rojas null, [facility] 08/19/2023 12:42:50 Influenza, adjuvanted, quadrivalent, PF 1 completed Lupe Rojas null, [facility] 08/19/2023 12:42:50 Tdap 8 completed Lupe Rojas null, [facility] 08/19/2023 12:42:50 Pneumococcal conjugate PCV 13 5 completed Not Available [facility] 11/17/2019 02:21:36 Influenza, split virus, quadrivalent, PF 5 completed Not Available [facility] 11/17/2019 02:22:01 COVID-19, mRNA, LNP-S, bivalent, PF, 30 mcg/0.3 mL dose 2 completed Lupe Rojas null, [facility] 08/19/2023 12:42:50 Influenza, high-dose, quadrivalent, PF 2 completed Lupe Rojas null, [facility] 08/19/2023 12:42:50 Influenza, adjuvanted, quadrivalent, PF 3 completed Deisy Miller LPN null, [facility] 09/11/2024 09:57:55 COVID-19, mRNA, LNP-S, PF, 50 mcg/0.5 mL 3 completed Lupe mercado, [facility] 08/19/2023 12:42:50 COVID-19, mRNA, LNP-S, PF, 50 mcg/0.5 mL 4 completed Lupe mercado, [facility] 09/03/2024 13:43:20 Influenza, high-dose, trivalent, PF 4 completed Lupe mercado, [facility] 09/03/2024 13:43:20 Influenza, high-dose, trivalent, PF 6 completed Not Available [facility] 11/17/2019 02:22:03 Influenza, high-dose, trivalent, PF 7 completed Not Available [facility] 11/17/2019 02:22:21 Influenza, split virus, trivalent, PF 4 completed Not Available [facility] 11/17/2019 02:21:57 Td (adult), 2 Lf tetanus toxoid, preservative free, adsorbed 8 completed Not Available [facility] 11/17/2019 02:21:30 Tdap 8 completed Lupe mercado, [facility] 08/19/2023 12:42:50 pneumococcal polysaccharide PPV23 3 completed Lupe mercado, [facility] 08/19/2023 12:42:50 Past Encounters Encounter ID Performer Location Encounter Start Date Encounter Closed Date Diagnosis/Indication Diagnosis SNOMED-CT Code Diagnosis ICD10 Code Diagnosis Note [id number] [facility]ce [address] [facility] [place] [address] 01/19/2007 00:00:00 [id number] auto[facility] erce [address] [facility],[address] [place] [address] 01/19/2007 00:00:00 [id number] auto[employer]Comm erce [address] [facility],[address] [place] [address] 02/13/2008 00:00:00 [id number] [address] erce [address] [place] [address] 02/13/2008 00:00:00 [id number] auto[facility]Comm erce [address] [place] [address] 02/13/2008 00:00:00 [id number] auto[facility] [facility] [address] [place] [address] 08/14/2008 00:00:00 [id number] auto[facility] erce [address] [place] [address] 05/13/2009 00:00:00 [id number] auto[facility] erce [address] [facility] [address] [place] [address] 05/13/2009 00:00:00 [id number] auto[employer]Comm erce [address] [facility] [address] [place] [address] 05/13/2009 00:00:00 [id number] auto[employer] erce [address] [facility] [address] [place] [address] 11/25/2009 00:00:00 [id number] auto[employer] erce [address] [facility] [address] [place] [address] 11/25/2009 00:00:00 [id number] auto[employer]Comm erce [address] [facility],[address] [place] [address] 11/25/2009 00:00:00 [id number] auto[employer]Comm erce [address] [facility] [address] [place] [address] 11/25/2009 00:00:00 [id number] auto[employer] erce [address] [facility] [address] [place] [address] 01/08/2010 00:00:00 [id number] autoEComm erce [address] [facility] [address] [place] [address] 01/08/2010 00:00:00 [id number] autoEComm erce [address] [facility] [address] [place] [address] 01/08/2010 00:00:00 [id number] autoEComm erce [address] [place] [address] 01/08/2010 00:00:00 [id number] auto[employer] erce [address] [place] [address] 07/16/2010 00:00:00 [id number] autoEComm erce [address] [place] [address] 07/16/2010 00:00:00 [id number] autoEComm erce [address] [place] [address] 07/16/2010 00:00:00 [id number] autoEComm erce [address] [place] [address] 07/16/2010 00:00:00 [id number] autoEComm erce [address] [facility] [address] [place] [address] 01/18/2011 00:00:00 [id number] autoEComm erce [address] [facility] [address] [place] [address] 01/18/2011 00:00:00 [id number] auto[employer]Comm erce [address] [facility] [address] [place] [address] 01/18/2011 00:00:00 [id number] autoEComm erce [address] [facility] [address] [place] [address] 01/18/2011 00:00:00 [id number] autoEComm erce [address] [place] [address] 02/10/2011 00:00:00 [id number] auto[facility]Comm erce [address] [place] [address] 02/10/2011 00:00:00 [id number] auto[facility] erce [address] [place] [address] 02/10/2011 00:00:00 [id number] auto[employer]Comm erce [address] [place] [address] 08/11/2011 00:00:00 [id number] autoEComm erce [address] [place] [address] 01/26/2012 00:00:00 [id number] autoEComm erce [address] [place] [address] 01/26/2012 00:00:00 [id number] auto[facility] erce [address] [place] [address] 01/26/2012 00:00:00 [id number] autoEComm erce [address] [place] [address] 01/26/2012 00:00:00 [id number] autoEComm erce [address] [place] [address] 07/24/2012 00:00:00 [id number] autoEComm erce [address] [place] [address] 07/24/2012 00:00:00 [id number] auto[facility] erce [address] [place] [address] 2013 00:00:00 [id number] autoEComm erce [address] [place] [address] 2013 00:00:00 [id number] autoEComm erce [address] [place] [address] 07/31/2013 00:00:00 [id number] autoEComm erce [address] [place] [address] 07/31/2013 00:00:00 [id number] autoEComm erce [address] [place] [address] 02/05/2014 00:00:00 [id number] auto[facility] erce [address] [place] [address] 02/05/2014 00:00:00 [id number] autoEComm erce [address] [facility], [address] [place], [place] [address] 02/05/2014 00:00:00 [id number] autoEComm erce [address] [facility] [place], [place] [address] 02/05/2014 00:00:00 [id number] Shelli Hay Main Office [address] [address] [place] [address] 08/08/2014 10:22:43 08/08/2014 11:26:35 Needs influenza immunization 866328691 Essential hypertension 12272402 Pure hypercholesterolemia 694049649 Au's esophagus 163311635 followed by Dr Molina; due for an EGD next year. [id number] Linda Steve Main Office [address] [address] [place] [address] 01/21/2015 12:42:34 01/21/2015 14:16:20 Sinusitis 08851733 [id number] Hermila Isabel Main Office [address] [address] [place] [address] 02/06/2015 09:53:17 02/06/2015 10:59:08 Adult health examination 875108082 Anemia 013765458 Essential hypertension 52707895 Pure hypercholesterolemia 272215668 Varicella vaccination 44338532 [id number] Peña Hinojosa Main Office [address] [address] [place] [address] 08/12/2015 08:49:42 08/12/2015 09:45:21 Essential hypertension 52717990 I10 Anemia 247971207 D64.9 Administra tion of pneumococcal vaccine 87565742 Z23 Au's esophagus 3029 [address] Molina and had EGD in April. [id number] Pedro Orellana MD Main Office [address] [address] [place] [address] 08/21/2015 09:00:11 08/21/2015 09:07:10 Needs influenza immunization 612163394 Z23 [id number] Elsa Chin Main Office [address] [address] [place] [address] 02/10/2016 09:01:34 02/10/2016 10:19:13 Adult health examination 081581365 Z00.00 Varicella vaccination 68 808853 Z23 Essential hypertension 05240380 I10 good control; continue current mgmt Pure hypercholesterolemia 323853749 E78.0 good control [id number] Pedro Orellana MD Main Office [address] [facility] [address] [place] [address] 08/11/2016 09:30:37 08/11/2016 10:40:04 Essential hypertension 85354657 I10 Influenza vaccine needed 4624107110 106 Z23 Body mass index 30+ - obesity 322662557 E66.01 Dyspnea on exertion 6084 5006 R06.09 Varicella vaccination 68 011946 Z23 [id number] Pedro Orellana MD Main Office [address] [facility] [address] [place] [address] 01/10/2017 10:41:07 01/10/2017 11:08:38 Herpes zoster 1336906 B02.9 Will treat with antiviral and he was instructed to call here if pain becomes a problem and we will start neurontin. [id number] Pedro Orellana MD Main Office [address] [address] [place] [address] 04/13/2017 12:41:23 04/13/2017 13:39:47 Adult health examination 136672246 Z00.00 Has had pneumonia shots and tetanus but not UTD with shingles. He had a bout of shingles a few years ago and is not sure if his insurance will cover the shot. Anemia 705779143 D64.9 Varicella vaccination 68 286529 Z23 Screening for malignant neoplasm of colon 634214073 Z12.11 He is due for a 5-year f/u this year. Last done by Dr Molina Essential hypertension 04471233 I10 Good control; continue current mgmt. [id number] Pedro Orellana MD Main Office [address] [facility] [address] [place] [address] 10/12/2017 08:56:06 10/12/2017 09:51:28 Essential hypertension 49214595 I10 Good control; continue current mgmt. Influenza vaccine needed 4566555803 106 Z23 Tinea corporis 79546408 B35.4 Obesity 081209927 E66.9 Body mass index 30+ - obesity 443547471 Z68.34 Gastroesop hageal reflux disease 523269170 K21.9 Cough 61752468 R05 [id number] Pedro Orellana MD Main Office [address] [address] [place] [address] 02/02/2018 15:12:25 02/02/2018 16:15:04 Tick bite 33018940 S00.96XA He will call if he develops a bulls eye rash. Skin lesion 32106919 L98 .9 [id number] Pedro Orellana MD Main Office [address] [address] [place] [address] 04/17/2018 09:16:16 04/17/2018 10:31:32 Adult health examination 917490421 Z00.00 Has had pneumonia shots and tetanus but not UTD with shingles. He had a bout of shingles a few years ago and is not sure if his insurance will cover the shot. He is due for a colonoscop y in 2021. Gastroesop hageal reflux disease 952525225 K21.9 Essential hypertension 38511489 I10 Good control; continue current mgmt. Hyperlipidemia 61230658 E78.5 Au's esophagus 3029 [address]22[address] Davis. Due for an EGD in 2018. [id number] Pedro Orellana MD Main Office [address] [address] [place] [address] 05/16/2018 15:55:09 05/16/2018 16:53:06 Flank pain 579591902 R10.9 [id number] Pedro Orellana MD Main Office [address] [address] [place] [address] 10/17/2018 08:46:15 10/17/2018 09:35:33 Essential hypertension 80487340 I10 Good control; continue current mgmt. Requires a tetanus booster 462429015 Z23 [id number] Pedro Orellana MD Main Office [address] [address] [place] [address] 04/17/2019 09:13:14 04/17/2019 10:32:38 Adult health examination 260542112 Z00.00 Has had pneumonia shots and tetanus but not UTD with shingles. He had a bout of shingles a few years ago and his insurance will not cover the shot. He is due for a colonoscop y in 2021. Hyperlipidemia 50661631 E78.5 Glaucoma 28391642 H40.9 on drops and followed by ophthshoaib Au's esophagus 3029 [address] Davis. Due for an EGD in 2019. Anemia 673863784 D64.9 Essential hypertension 08685088 I10 Good control; continue current mgmt. [id number] Pedro Orellana MD Main Office [address] [facility] [place] [address] 10/17/2019 08:48:22 10/17/2019 10:06:27 Essential hypertension 57750352 I10 Good control; continue current mgmt. Au's esophagus 3029 [address] Davis. Due for an EGD in 2018. Glaucoma 27643642 H40.9 on drops and followed by ophtho Hyperlipidemia 10047749 E78.5 [id number] Pedro [facility] MD [facility] [address] [facility] [place] [address] 05/05/2020 08:08:13 05/05/2020 10:53:36 Adult health examination 234258198 Z00.00 Has had pneumonia shots and tetanus but not UTD with shingles. He had a bout of shingles a few years ago and his insurance will not cover the shot. He is due for a colonoscop y in 2021. Au's esophagus 3029 76786 K22.70 Last EGD was 2017. Dr Chambers will do the next one the end of this year. Essential hypertension 31428898 I10 Good control; continue current mgmt. Binocular diplopia 28207 5008 H53.2 Wears special glasses which have resolved this. Hyperlipidemia 14703835 E78.5 On meds and at goal. Snoring 43458384 R06.83 Not interested in a sleep study at this time. [id number] Maira Mcintyre [facility] [address] [facility] [place] [address] 07/11/2020 12:59:20 07/11/2020 15:10:32 Diarrhea 55646743 R19.7 MARLENE diet, clear fluids, advance to bland diet as tolerated. Avoid dairy for a few days. Call if any increasing pain, blood in stool, fevers. Will go to lab to have bloodwork to rule out acute infection (check for elevated wbc and esr), take home stool collection kit and return sandy to lab. Stop lomotil and can try immodium if stool studies negative. If diarrhea persistent and labs normal would refer to GI. [id number] Pedro Orellana MD Main Office [address] [facility] [address] [place] [address] 11/11/2020 08:54:59 11/11/2020 10:43:21 Essential hypertension 96374467 I10 Good control; continue current mgmt. Raynaud's phenomenon 266 427296 I73.00 Skin lesion 23005520 L98 .9 We discussed a derm referral for a full body check but he declined. Pain of le ft shoulder joint 4229280915 3765589 M25.512 He will do exercises at home and take pain meds prn. He will call for a referral if this persists or gets worse. Right now he is not interested in injection or PT. Increased frequency of urination 988810464 R35.0 Intermitte nt claudication 03201679 I73.9 Type 2 meche betes mellitus without complication 713921508 E11.9 We discussed starting meds but he would like to try lifestyle changes first. This is a new dx. He will f/u in 6 months. [id number] Pedro Orellana MD Main Office [address] [facility] [address] [place] [address] 05/12/2021 09:48:15 05/12/2021 10:48:36 Adult health examination 833248482 Z00.00 Has had pneumonia shots and tetanus but not UTD with shingles. He had a bout of shingles a few years ago and his insurance will not cover the shot. He is due for a colonoscop y in 2021. He is UTD with COVID vaccine. Benign pro static hyperplasia with outflow obstruction 310497998 N40.1 Having incontinen ce. Will start med and see him back in a few months. Essential hypertension 28460488 I10 Good control; continue current mgmt. Gastroesop hageal reflux disease 451782509 K21.9 Hyperlipidemia 87034117 E78.5 On meds and at goal. Hyperglycemia 25868681 R 73.9 Parents with dm2. [id number] Pedro Orellana MD Main Office [address] [facility] [address] [place] [address] 08/13/2021 10:22:50 08/13/2021 11:06:39 Essential hypertension 17795260 I10 Good control; continue current mgmt. Gastroesop hageal reflux disease 861743166 K21.9 [id number] LUIS Foreman Main Office [address] [facility] [address] [facility] [place] [address] 10/08/2021 12:38:32 10/08/2021 13:45:22 Pre-surgery evaluation 235585936 Z01.818 Low cardiac risk for cataract surgery, no labs or EKG requested, should proceed as scheduled. Bilateral cataracts 9572 2003 H26.9 Having one surgery right 10/14 and the other on left 11/11. Essential hypertension 44734242 I10 BP well controlled , continue as directed. Glaucoma 50588785 H40.9 Au's esophagus 3029 64029 K22.70 [id number] Pedro Orellana MD Main Office [address] [facility] [address] [place] [address] 05/31/2022 09:24:33 05/31/2022 10:41:46 Adult health examination 396190338 Z00.00 Has had pneumonia shots and tetanus but not UTD with shingles. He had a bout of shingles a few years ago and his insurance will not cover the shot. He had his last colonoscop y September 2020 and does not want another one. He is UTD with COVID vaccine and boosted x1. Intermitte nt claudication 52859864 I73.9 This has improved some. Type 2 meche betes mellitus without complication 217534875 E11.9 His A1C went from 6.7 to 6.1 last year. He has never been on meds. Thoracic back pain 09548 8004 M54.6 possibly muscular; will get an xray to r/o compressio n fracture. Hereditary essential tremor 248102607 G25.0 This appears to be benign. Dyspnea on exertion 6084 5006 R06.09 Has not been as active because of back pain and probably due to deconditio candy. Daytime somnolence 17632 66251 00 R40.0 Some snoring at night as well. Hyperlipidemia 72732763 E78.5 On meds and at goal. [id number] Pedro Orellana MD [facility] [address] [address] [place] [address] 09/02/2022 11:04:52 09/06/2022 11:22:23 COVID-19 626971494 U07.1 He is past the window for taking paxlovid. Advised him to continue resting and to not try to do too much when he is feeling better in order to avoid a relapse. Cough 34926037 R05.9 Secondary to PND. Nasal discharge 82948179 J00 Advised an OTC decongesta nt. [id number] Pedro Orellana MD [address] Office [address] [place] [address] 12/15/2022 09:09:14 12/15/2022 09:51:22 Essential hypertension 86608827 I10 Good control; continue current mgmt. Hyperlipidemia 71448705 E78.5 On meds and at goal. Hyperglycemia 98587285 R 73.9 Both parents w/diabetes . Anemia 133441760 D64.9 Tachycardia 7772021 R00. 0 He gets episodes monthly with dizziness that may last for about an hour. Denies CP or SOB. Will refer to cardiology for further evaluation . May need a 30-day recorder to r/o an arrhythmia . Type 2 meche betes mellitus without complication 745391098 E11.9 His A1C went from 6.2 to 7.4. He will make a concerted effort to bring this down with lifestyle changes and will f/u in 3 months. [id number] Maira Mcintyre Main Office [address] [address] [place] [address] 12/21/2022 08:30:25 12/29/2022 07:13:37 [id number] Maira Mcintyre Main Office [address] [place] [address] [place] [address] 12/29/2022 09:20:56 12/29/2022 10:15:02 Atrial flutter 4884136 I48.92 See intake, converted to NSR, on multaq and eliquis, to followup with cardiology , has appt, stable at thsi time. Essential hypertension 55372702 I10 BP is controlled on present regimen, continue all meds at current dosages. Continue with low salt diet, exercise Type 2 meche betes mellitus 82302366 E11.9 recently diagnosed, on metformin and getting diabetes education. Has followup in February with Dr Mireles. [id number] Pedro Orellana MD Main Office [address] [facility] [address] [facility] [place] [address] 03/15/2023 10:18:21 03/15/2023 11:27:55 Essential hypertension 75830554 I10 Good control; continue current mgmt. Type 2 meche betes mellitus without complication 551886166 E11.9 A1C has gone from 7.4 to 5.7. We will continue with the same dose of metformin and recheck in 3 months. If it is still normal we will discuss decreasing his dose Hyperlipidemia 50213095 E78.5 On meds and at goal. Will recheck fasting lipid level. Dyspnea 065466512 R06.00 With exertion. Seen by cardiology and had a nuclear stress that was abnormal and will be getting a cath done at [facility]. Also getting PFT's done. [id number] Pedro Orellana MD Main Office [address] [facility] [address] [facility] [place] [address] 09/06/2023 10:15:55 09/06/2023 11:12:26 Adult health examination 593918690 Z00.00 Has had pneumonia shots and tetanus but not UTD with shingles. He had a bout of shingles a few years ago and his insurance will not cover the shot. He had his last colonoscop y September 2020 and does not want another one. He is UTD with COVID vaccine and boosted x1. Essential hypertension 49331156 I10 Good control; continue current mgmt. Gastroesop hageal reflux disease 110921093 K21.9 Hyperlipidemia 69347315 E78.5 On meds and at goal. Will recheck fasting lipid level. Type 2 meche betes mellitus without complication 902884321 E11.9 A1C remains below 6.0. He will continue with the same meds and we will now follow him every 6 months. Advance care planning 71 5453486 Z71.89 Discussed HCP and MOLST forms. Benign pro static hyperplasia with outflow obstruction 434740905 N40.1 Having incontinen ce. Will restart med and see him back in a few months. Dyspnea 436817816 R06.00 With exertion. Seen by cardiology and had a cardiac cath showing some blockage but did not need a stent or surgery. PFT's were normal. He was referred to cardiac rehab and has been exercising on his own. Coronary arteriosclerosis 08959323 I25.10 [id number] Meenakshi Davis Main Office [address] [facility] [address] [place] [address] 03/13/2024 09:00:22 03/13/2024 09:57:11 Atrial flutter 0132679 I48.92 Followed by cardiology . Next appointmen t is in 2 months. Hyperlipidemia 64395062 E78.5 On meds and at goal. Will recheck fasting lipid level. Fatigue 86202686 R53.83 Probably multifacto rial---age , deconditio candy, and meds. He will speak to his cardiologi about stopping his beta antwon. Type 2 meche betes mellitus without complication 992009322 E11.9 Very good control. No changes. [id number] Pedro Orellana MD Main Office [address] [facility] [address] [place] [address] 08/09/2024 14:03:02 08/09/2024 15:32:17 Mild major depression, single episode 51052273 F32.0 Will start a low dose of sertraline and then see him in one month to adjust the dose as needed. [id number] Pedro Orellana MD Main Office [address] [facility] [address] [place] [address] 09/11/2024 09:40:39 09/11/2024 10:46:05 Adult health examination [id number] Z00.00 Has had pneumonia shots and tetanus but not UTD with shingles. He had a bout of shingles a few years ago and his insurance will not cover the shot. He had his last colonoscop y September 2020 and does not want another one. He is UTD with COVID vaccine and had a recent booster along with a flu vaccine. Advance di rective discussed with patient [id number] Z71.89 Type 2 meche betes mellitus without complication [id number] E11.9 Very good control. No changes. Neck pain [id number] M54.2 Probable arthritis. Health Concerns Section Related Observation LastModified by Organization Detai ls LastModified Time None Recorded Concern Status LastModified by Organization Details LastModified Time None Recorded Advance Directives Directive Y: Payers Encounter Date Sequence Insurance Name Policy Number Policy Reed Covered Member ID Reed Member ID Guarantor Name 03/15/2023 1 [facility] (MEDICARE REPLACEMENT PPO) [id number] Rehan D Dout [id number] Rehan D Dout 09/06/2023 1 [facility] (MEDICARE [place]PLACEMENT PPO) [id number] Rehan D Dout [id number] Rehan D Dout 03/13/2024 1 [place] PPO) [id number] Rehan D Dout [id number] Rehan D Dout 08/09/2024 1 [place] PPO) [id number] Rehan D Dout [id number] Rehan D Dout 09/11/2024 1 [place] PPO) [id number] Rehan D Dout [id number] Rehan D Dout Notes Date Note Type Note Provider Name and Address Organization Details Recorded Time 03/15/2023 text/html AnemiaReported bypatient.Notes:Mild anemia with an elevated MCV.Diabetes F/UReported bypatient.Context:no rmal range of home blood sugars (in the low 100s); seeing eye doctor regularly; checking feet regularly Associated Symptoms:no dizziness; no sweats; no headaches; no confusion; no increased urination; no blurred vision; no calluses on feet;weight loss (13 lbs)HyperlipidemiaRe ported bypatient.Notes:On meds and last LDL was at goal.Hypertension F/UReported bypatient.Associated Symptoms:no dizziness; no lightheadedness; no chest pain; no shortness of breath; no palpitations; no edema; no calf pain with exertion Lifestyle:regular exercise; limiting/avoiding salt Medications:taking medications as directed; no side effects from medication Having GARCIAS. Seen by cardiology and had an abnormal nuclear stress and will be getting a cath done. Also scheduled for PFT's. Pedro Orellana MD [address] [address], [place], [phone], [facility] 03/15/2023 12:31:25 09/06/2023 text/html Medicare Annual Wellness VisitReported bypatient.Diet and Nutrition:healthy diet Fracture Risk:no history of fractures Physical Activity:decreased physical activity(he just started to do some walking to build up his stamina.) Depression Risk:no significant changes in weight; no history of depression;sleep disturbances or insomnia(gets up once nightly; now improved with CPAP) Concentration and Memory:no memory lapses or loss Speech/Motor difficulties:no speech difficulties; no difficulty writing/copying Hearing:wears hearing aids Vision:no vision problems Activities of Daily Living:able to bathe with limited or no assistance; able to dress with limited or no assistance; able to get out of chair or bed with limited or no assistance; able to toilet with limited or no assistance Instrumental Activities of Daily Living:able to do house work with limited or no assistance; able to manage medications with limited or no assistance; able to manage money with limited or no assistance; able to prepare meals with limited or no assistance Home Safety:working smoke/CO detectors; no fire arms;does not use seatbeltsNotes:Jael g mid back with radiation to left side for months or longer. Denies injury. 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 He becomes easily SOB when climbing stairs. He has been less active recently because of this and low back pain; no injury. He was seen by cardiology and had a cath done which showed some blockages but nothing that needed surgery or stenting. PFT's were normal. He was referred to cardiac rehab. Pedro Orellana MD [address] [address], [place], [phone], [facility] 09/06/2023 13:52:32 03/13/2024 text/html Diabetes F/URepo rted bypatient.Context:no rmal range of home blood sugars (in the low 100s); seeing eye doctor regularly; checking feet regularly Associated Symptoms:no dizziness; no sweats; no headaches; no confusion; no increased urination; no blurred vision; no calluses on feet;weight loss (13 lbs)HyperlipidemiaRe ported bypatient.Notes:On meds and last LDL was at goal.Hypertension F/UReported bypatient.Associated Symptoms:no dizziness; no lightheadedness; no chest pain; no shortness of breath; no palpitations; no edema; no calf pain with exertion Lifestyle:regular exercise; limiting/avoiding salt Medications:taking medications as directed; no side effects from medication Having more fatigue recently. He cannot do as much as in the past and finds this frustrating. He has some GARCIAS which is probably from his atrial flutter and he is followed regularly by cardiology. He is on a beta antwon which is probably adding to his fatigue. Meenakshi mercado [facility] 03/16/2024 11:27:15 08/09/2024 text/html Anxiety/Depressi onRe ported bypatient.Quality:sy mptoms worse in the evening;symptoms worse during the day;mood worse Severity:able to maintain relationships; does not interfere with activities of daily living Duration:symptoms lasting over 2 weeks Context:no major life stressors Modifying Factors:social support Associated Symptoms:no significant weight gain; no significant weight loss; appetite good; energy good; maintaining functionality;high irritability;anxiety ;hypersensitivityNot es:He has never taken meds in the past. Pedro Orellana MD [address] [facility] [address], [place], [address], [facility] 08/09/2024 15:58:01 09/11/2024 text/html Medicare Annual Wellness VisitReported bypatient.Diet and Nutrition:healthy diet Fracture Risk:no history of fractures Physical Activity:decreased physical activity(improving since he started cardiac rehab 3 times a week.) Depression Risk:no significant changes in weight; no history of depression;sleep disturbances or insomnia(gets up once nightly; now improved with CPAP) Concentration and Memory:no memory lapses or loss Speech/Motor difficulties:no speech difficulties; no difficulty writing/copying Hearing:wears hearing aids Vision:no vision problems Activities of Daily Living:able to bathe with limited or no assistance; able to dress with limited or no assistance; able to get out of chair or bed with limited or no assistance; able to toilet with limited or no assistance Instrumental Activities of Daily Living:able to do house work with limited or no assistance; able to manage medications with limited or no assistance; able to manage money with limited or no assistance; able to prepare meals with limited or no assistance Home Safety:working smoke/CO detectors; no fire arms;does not use seatbeltsNotes:Jael phipps mid back with radiation to left side for months or longer. Denies injury. 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 He becomes easily SOB when climbing stairs but this has been improving since he started cardiac rehab 3 times a week. His PFTs were normal and his cardiac cath showed some blockage which is treated medically. Pedro Orellana MD [address] [address], [place], [phone], [facility] 09/11/2024 12:27:34
--- NOTE | 2025-01-23 08:57 | A.OFFVIS_ITS ---
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 Machine Required: No Accompanied by: Self / Same As Patient Allergies meperidine [From DEMEROL] Allergy (Unknown, Verified 01/11/24 08:26) SEVERE STOMACH UPSET Medication List - Last Reconciled 01/23/25 by Agapito Ward MD apixaban (Eliquis) 5 mg PO BID aspirin 81 mg PO DAILY atenolol 25 mg PO DAILY atorvastatin 40 mg PO DAILY dorzolamide-timolol (PF) 2-0.5 % 1 drp ophthalmic (eye) BID dronedarone (Multaq) 400 mg PO BID 90 days enalapril maleate 5 mg PO DAILY latanoprost 0.005% 1 drp ophthalmic (eye) DAILY metformin 500 mg PO BID multivitamin (Daily Multi-Vitamin tablet) 1 tab PO DAILY omeprazole 20 mg PO DAILY sertraline 50 mg PO DAILY timolol maleate 0.5% 1 drp ophthalmic (eye) BEDTIME HPI Comments Details: 79-year-old gentleman with paroxysmal atrial flutter. He has been on apixaban, atenolol and were not drawn. Doing well and Holter monitoring as shows sinus rhythm. EKG in the office also sinus. He has no symptoms palpitations or chest discomfort. He does have dyspnea on exertion which started over the last 5 months. He is saying his weight has been stable. His same when he goes up 1 flight of stairs he gets out of breath. He says he is out of breath for few minutes before recovery. No chest discomfort with activity. Taking medications regularly. No bleeding concerns. Blood pressure control is good. 05/04/23: He is here for follow-up. On last visit he was referred for exercise stress test. He was able to exercise for 2 minute 50 seconds and stopped due to shortness of breath. Subsequent to that he had a Lexiscan performed which showed inferior perfusion defect. It was difficult to say whether it is a true defect versus diaphragmatic attenuation. After discussion with him was sent for coronary CTA. A coronary CTA showed calcification in the LAD and stenosis involving LAD and diagonal. It was thought to have 50% stenosis in the LAD and 50% mid diagonal stenosis. Left circumflex was thought to be less than 50% and similarly RCA was thought to have less than 50% stenosis. There was also a large paraesophageal hernia noted. He had CT FFR performed after the original coronary CTA which showed borderline low FFR in the distal LAD and D2. Distal LAD CT FFR was 0.78 and apical LAD was 0.69. Second diagonal CT FFR 0.76. He is back for follow-up and is complaining that he is short of breath and fatigue. He is saying that he has progressed more over the last few months and feels more short of breath. Has no orthopnea or PND. No peripheral edema to suggest heart failure. He is taking the Multaq along with atenolol. 06/22/23: He returns for follow-up. He had coronary CTA which showed concern for coronary disease as described above. He underwent cardiac catheterization on 06/14/2023. There was a 50% proximal right coronary artery stenosis, lad had 70% stenosis in the diagonal branch and 65% stenosis distally. Left main was approximately 40% stenosis. We performed IFR assessment of left main into circumflex which was normal. IFR assessment into LAD was abnormal at 0.87 but on pullback we noticed diffuse disease and interestingly there was no significant gradient across the left main. He returns for follow-up. He has been doing okay. No chest discomfort. Continues to have some shortness of breath. PFTs have not shown any significant obstructive or restrictive defect. 09/12/23: Rehan returns for follow-up. He has been prescribed tamsulosin for BPH. He is asking because there is dizziness and low blood pressure so seated with the medication. His blood pressure currently is 110/62. He has not started taking tamsulosin. He is saying at home his blood pressures as low as 90 by 50s. He does not have any significant symptoms currently. No chest discomfort shortness of breath. Overall he is feeling better with cardiac rehabilitation. 01/16/24: He returns for follow-up. He said he accidentally scratched a scab on his left leg and had significant bleeding which took him to the emergency department and it took them 3 1/2 hour to achieve hemostasis with manual compression. He is saying he has been very careful since then. His blood pressure is better controlled now he was previously hypotensive and his enalapril dose was cut to 5 mg. Denying any significant chest discomfort or shortness of breath. 05/21/24: He is here for follow-up. He has been experiencing shortness of breath with activity. He is saying that when he goes up hill he gets out of breath. No chest discomfort. He was previously referred for cardiac rehabilitation and had some improvement in symptoms. 09/24/2024: He is here for follow-up. He has been going to cardiac rehabilitation and has been exercising regularly. He is saying that his breathing has been improving. He is saying he also had very good sugar control and recent A1c was also good. He underwent PFTs which showed no significant l rashel disease or problem with diffusion capacity. Main issue was some restriction which was due to being overweight. Overall he has been doing well and has no concerning symptoms. 01/23/2025: He is here for follow-up. He has been exercising at rehab facility and progressing in his breathing is becoming better with exercise. Denying any chest discomfort. Blood pressure is low again. I have advised him to stop the enalapril. [facility] Medical History GERD (gastroesophageal reflux disease) Non-insulin dependent type 2 diabetes mellitus Mixed hyperlipidemia Essential hypertension Surgical History History of cardiac cath History of cataract surgery History of cholecystectomy Family History Mother CHF (congestive heart failure) Father No problems noted. Sister Heart attack Social History Household Members: Spouse Housing: House Do you presently have visiting nurse or other home services: No Alcohol intake: current Alcohol intake frequency: holidays/special occasions only Patient Tobacco Use Status: Former Tobacco user Tobacco use type: Cigarette Cigarette Packs Per Day: 2 Years Smoked: 10 Advance Directives Date on File: 12/18/22 service: Yes Current occupational status: retired Review of Systems Const Denies chills, Denies fatigue, Denies fever(s), Denies frequent falls, Denies weakness, Denies weight gain and Denies weight loss ENT Denies dizziness Card Denies chest pain, Denies leg edema, Denies lightheadedness, Denies palpitations, Denies dyspnea and Denies dyspnea on exertion Resp Denies cough, Denies dyspnea and Denies dyspnea on exertion GI Denies hematochezia Musc Denies abnormal gait, Denies muscle weakness, Denies numbness, Denies radiating pain into limb and Denies tingling Neuro Denies abnormal gait, Denies dizziness, Denies frequent falls, Denies numbness, Denies tingling and Denies weakness Endo Denies fatigue and Denies palpitations Physical Exam Vital Signs: Last Vital Signs Pulse 64 01/23/25 08:59 BP 92/54 L 01/23/25 08:59 BMI result Body Mass Index 31.6 GENERAL APPEARANCE: in no acute distress, pleasant. NECK: no carotid bruit, no jugular venous distention. SKIN: no suspicious lesions, warm and dry. HEART: no murmurs, regular rate and rhythm. LUNGS: clear to auscultation bilaterally. ABDOMEN: soft, nontender. Abdominal obesity. EXTREMITIES: no edema. PERIPHERAL PULSES: equal. NEUROLOGIC: No gross deficits, AAO X 3 Office Procedures EKG Details: Sinus rhythm 64 beats per minute, minimal voltage criteria for left ventricular hypertrophy, QTC 412 milliseconds. [id number], Complete Assessment & Plan Assessment & Plan (1) Stable angina: Code(s): I20.8 - Other forms of angina pectoris Category: Medical (2) Atrial flutter: Code(s): I48.92 - Unspecified atrial flutter Category: Medical (3) Dyspnea on exertion: Code(s): R06.09 - Other forms of dyspnea Category: Medical Plan Pleasant 80-year-old gentleman who is here for follow-up. He has known history of diabetes, hypertension and hyperlipidemia. He has known coronary artery disease and had 40% left main disease as well as diffuse LAD stenosis on cardiac catheterization in the past. We performed IFR assessment of left main into LAD and it was abnormal with multiple step-ups in LAD. Due to diffuse disease he was medically treated. He has done well with this strategy and is going to re habilitation and has been progressing. His blood pressure is low and I have advised him to stop the enalapril. Clinically stable and we will continue regular exercise. Follow-up with us in 4 months. If he has any change in symptomatology then we will do further testing otherwise medical management for now. Thank you for allowing me to participate in the care of your patient. Please feel free to contact me if you have any questions. Medications: Discontinued enalapril maleate Discontinued Reason: Doctor's Order 5 mg PO DAILY 90 tabs 3RF Coding Level of Care Code Est Pt Level 4 (86359) Diagnoses Stable angina I20.8 Atrial flutter I48.92 Dyspnea on exertion R06.09 CPT Codes EKG - CPT: 11375-Ikrtfbvwynflmteky, Complete ([id number])
[2025-01-23 08:59] VITALS: BP 92/54; PULSE 64; BMI 31.6
== END 2025-01-23 09:16 | disposition home or self-care (01) ==
LOC: HO.HCS 08:29
PROVIDERS: PCP Internal Medicine; Visit Provider Internal Medicine Cardiovascular Disease
DX: I20.89 Other forms of angina pectoris (principal); I48.92 Unspecified atrial flutter; R06.09 Other forms of dyspnea
CPT/HCPCS: 93010; 99214

== ENCOUNTER → 2025-01-23 08:29 | Outpatient (BNVA) | payer MEDICARE, SELFPAY ==
[2024-09-24 09:34] VITALS: BP 126/62; BP 132/60; BMI 33.7
== END ==
PROVIDERS: PCP Internal Medicine; Visit Provider Internal Medicine Cardiovascular Disease
DX: I20.89 Other forms of angina pectoris (principal); I48.92 Unspecified atrial flutter; R06.09 Other forms of dyspnea
CPT/HCPCS: 93005; 99212

== ENCOUNTER 2025-05-29 08:06 | Outpatient (AMB) | payer MEDICARE, SELFPAY ==
[2024-09-24 09:34] VITALS: BP 126/62; BP 132/60; BMI 33.7
--- OUTSIDE RECORDS SUMMARY | 2025-05-29 08:11 | XMS_ITS | Clinical Summary ---
Author Organization [facility] Address [address] [place], [place] [id number] Phone Care Team Providers Care Tile Power Shear Operator Name Role Phone Roly Orellana MD Primary Care Provid er Social History Tobacco Use Types Packs/Day Years Used Date Smoking Tobacco: Never Assessed Sex and Gender Information Value Date Recorded Sex Assigned at Not on file Legal Sex Male 2:50 PM EST Gender Identity Not on file Sexual Orientation Not on file Plan of Treatment Not on file Medical Devices Not on file Insurance MEDICARE PPO BLUE REPLACEMENT MEDICARE PPO BLUE REPLACEMENT MEDICARE PPO BLUE [place]PLAC[place] REPLACEMENT Care Teams Tile Power Shear Operator Relationship Specialty Start Date End Date Roly Orellana MD [address] [address] PCP - General Pediatrics 12/17/22 Additional Source Comments The information contained in this document represents components of the legal health record. It is not the complete legal health record.[facility]
--- OUTSIDE RECORDS SUMMARY | 2025-05-29 08:11 | XMS_ITS | Patient Health Record ---
Author Organization [facility] Address [address] [place] [address] Care Team Providers Care Station Attendant Name Role Phone Esteban JOSEPH, Roly Primary Care Provider Unav ailable Gustabo Lang Unavailable [phone] Allergies No Known Allergies Results Component Value Reference Range Notes HEMOGLOBIN A1C (GLYCOHEMOGLO BIN) Reviewed date:02/05/2025 02:05:35 PM Interpretation: Performing Lab: Notes/Report: HEMOGLOBIN A1C % (HH) 6.6 HEMOGLOBIN A1C (GLYCOHEMOGLO BIN) Reviewed date:05/24/2025 12:08:59 PM Interpretation: Performing Lab: Notes/Report: HEMOGLOBIN A1C % (HH) 6.4 Reason For Referral No Information Medications Medication SIG (Take, Route, Frequency, Duration) Notes Start Date End Date Status Tamsulosin HCl 0.4 MG 1 capsule Orally O nce a day Active Sertaconazole Nitrate Active Dorzolamide HCl-Timolol Mal 2-0.5 % 1 drop into affected eye Ophthalmic Twice a day Active Baby Aspirin Active Extra Depth Orthopedic Shoes (1 Pair) with Customized Heat Molded Multidensity Innersoles (3 Pair) as directed Dx: NIDDM/Polyneuropathy (E11.42), Hammertoe Foot Deformity (M20.41,M20.42), Preulcerative Skin Lesion(s) (L85.1 02/05/2025 Active Ammonium Lactate 12 % 1 application Exte rnally to affected areas of dry skin to feet except for between the toes Twice a day; Duration: 30 days Active Latanoprost 0.005 % 1 drop into affected eye in the evening Ophthalmic Once a day Active Timolol Maleate 0.5 % 1 drop into affect ed eye Ophthalmic Once a day Active Atenolol 50 MG 1 tablet Orally Once a day Active Omeprazole 20 MG 1 capsule 1/2 to 1 h our before morning meal Orally Once a day Active Multaq 400 MG 1 tablet with meals Orally Twice a day Active Eliquis 5 MG as directed Orally Active Atorvastatin Calcium 40 MG 1 tablet Orally Once a day Active metFORMIN HCl 500 MG 1 tablet with a sary l Orally Once a day Active Enalapril Maleate 5 MG 1 tablet Orally O nce a day Not-Taking Immunizations Vaccine Route Administration Date Status Comme nts Influenza Unknown 07/31/2024 Administered Social History Tobacco Use: Social History Observation Description Date Details (start date - stop date) Never Smoker NA - NA Tobacco use other than smoking: Question Answer Notes Are you an other tobacco user? No Tobacco Control (Standard) Question Answer Notes Tobacco use: Nonsmoker AUDIT-C (Standard) Question Answer Notes Did you have a drink contain ing alcohol in the past year? Yes How often did you have six o r more drinks on one occasion in the past year? Never (0 point) How many drinks did you have on a typical day when you were drinking in the past year? 1 or 2 drinks (0 point) How often did you have a dri nk containing alcohol in the past year? Never (0 point) Points 0 Interpretation Negative Problems Problem Type SNOMED Code ICD Code Onset Dates Problem Status W/U Status Risk Notes Problem Acquired hammer toe of right foot (5284095346488713 ) Other hammer toe(s) (acquired), right foot (M20.41) Active confirmed Problem Acquired hammer toe of left foot (0322166454162777 ) Other hammer toe(s) (acquired), left foot (M20.42) Active confirmed Problem Polyneuropathy due to type 2 diabetes mellitus (050127144) Type 2 diabetes mellitus with diabetic polyneuropathy (E11.42) Active confirmed Vital Signs Blood pressure diastolic 65 mm Hg 05/24/2025 Height 5 ft 9inch in 05/24/2025 Blood pressure systolic 128 mm Hg 05/24/2025 Weight 215 lbs 05/24/2025 BMI 31.75 kg/m2 05/24/2025 Procedures Procedure Date Ordered Date Performed Result Body Sit e 95529-SNUD SKIN LESIONS, 2 TO 4 02/05/2025 N/A J0945-TMKSEKOS DYSTROPHIC NAILS ANY # 02/05/2025 N/A 98383-UTAG SKIN LESIONS, 2 TO 4 05/24/2025 N/A Z2716-SSVGHGWP DYSTROPHIC NAILS ANY # 05/24/2025 N/A Encounters Encounter Location Date Provider Diagnosis [address] [address] 02/05/2025 Gustabo Lang Type 2 diabetes mellitus with diabetic polyneuropathy E11.42 ; Other hammer toe(s) (acquired), right foot M20.41 and Other hammer toe(s) (acquired), left foot M20.42 [facility] [address] 05/24/2025 Gustabo Lang Type 2 diabetes mellitus with diabetic polyneuropathy E11.42 and Xerosis of skin L85.3 Assessments Encounter Date Diagnosis (ICD Code) Assessment Notes Treatment Notes Treatment Clinical Notes Section Notes 02/05/2025 Other hammer toe(s) (acquired), right foot (ICD-10 - M20.41) Patient Educated with: DIABETIC FOOT CARE INSTRUCTIONS. pdf (DIABETIC FOOT CARE INSTRUCTIONS. pdf) 02/05/2025 Type 2 diabetes mellitus with diabetic polyneuropathy (ICD-10 - E11.42) 05/24/2025 Type 2 diabetes mellitus with diabetic polyneuropathy (ICD-10 - E11.42) 05/24/2025 Xerosis of skin (ICD-10 - L85.3) 02/05/2025 Other hammer toe(s) (acquired), left foot (ICD-10 - M20.42) Plan Of Treatment Pending Test Test Name Order Date 31079-RWHO SKIN LESIONS, 2 TO 4 02/06/20 15731-ZHWM SKIN LESIONS, 2 TO 4 05/24/20 Y8409-OGHXYINM DYSTROPHIC NAILS ANY # V8561-XCYPXZHE DYSTROPHIC NAILS ANY # Next Appt Details Provider Name:Gustabo Lang , 09/10/2025 01:30:00 PM, [address] [place] [address], [phone], Insurance Providers Payer Name Payer Address Payer Phone Subscriber Number Group Number Insured Name Patient Relationship to Insured Coverage Start Date Coverage End Date [facility] 65 Medicare Preferred [address] [place] [address] [id number] Rehan Hathaway Self - patient is the insured Medical (General) History Medical History History ICD Code Arthritis CAD (Cholesterol) Cataracts type II diabetes Glaucoma Heart disease High Blood Pressure Reflux ( GERD) Measles Mumps Chicken pox Transfusions Surgical History Surgery Date(Month/Year) Gall bladder
[2025-05-29 08:57] VITALS: BP 100/72; PULSE 57; BMI 31.6
--- NOTE | 2025-05-29 08:57 | MHC.OFFVIS ---
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: No Allergies meperidine (From DEMEROL) Allergy (Unknown, Verified 01/11/24 08:26) SEVERE STOMACH UPSET Medication List - Last Reconciled 05/29/25 by Agapito Ward MD apixaban (Eliquis) 5 mg PO BID aspirin 81 mg PO DAILY atenolol 25 mg PO DAILY atorvastatin 40 mg PO DAILY dorzolamide-timolol (PF) 2-0.5 % 1 drp ophthalmic (eye) BID dronedarone (Multaq) 400 mg PO BID 90 days latanoprost 0.005% 1 drp ophthalmic (eye) DAILY metformin 500 mg PO BID multivitamin (Daily Multi-Vitamin tablet) 1 tab PO DAILY omeprazole 20 mg PO DAILY sertraline 50 mg PO DAILY timolol maleate 0.5% 1 drp ophthalmic (eye) BEDTIME HPI Comments Details: 80-year-old gentleman with paroxysmal atrial flutter. He has been on apixaban, atenolol and were not drawn. Doing well and Holter monitoring as shows sinus rhythm. EKG in the office also sinus. He has no symptoms palpitations or chest discomfort. He does have dyspnea on exertion which started over the last 5 months. He is saying his weight has been stable. His same when he goes up 1 flight of stairs he gets out of breath. He says he is out of breath for few minutes before recovery. No chest discomfort with activity. Taking medications regularly. No bleeding concerns. Blood pressure control is good. 05/04/23: He is here for follow-up. On last visit he was referred for exercise stress test. He was able to exercise for 2 minute 50 seconds and stopped due to shortness of breath. Subsequent to that he had a Lexiscan performed which showed inferior perfusion defect. It was difficult to say whether it is a true defect versus diaphragmatic attenuation. After discussion with him was sent for coronary CTA. A coronary CTA showed calcification in the LAD and stenosis involving LAD and diagonal. It was thought to have 50% stenosis in the LAD and 50% mid diagonal stenosis. Left circumflex was thought to be less than 50% and similarly RCA was thought to have less than 50% stenosis. There was also a large paraesophageal hernia noted. He had CT FFR performed after the original coronary CTA which showed borderline low FFR in the distal LAD and D2. Distal LAD CT FFR was 0.78 and apical LAD was 0.69. Second diagonal CT FFR 0.76. He is back for follow-up and is complaining that he is short of breath and fatigue. He is saying that he has progressed more over the last few months and feels more short of breath. Has no orthopnea or PND. No peripheral edema to suggest heart failure. He is taking the Multaq along with atenolol. 06/22/23: He returns for follow-up. He had coronary CTA which showed concern for coronary disease as described above. He underwent cardiac catheterization on 06/14/2023. There was a 50% proximal right coronary artery stenosis, lad had 70% stenosis in the diagonal branch and 65% stenosis distally. Left main was approximately 40% stenosis. We performed IFR assessment of left main into circumflex which was normal. IFR assessment into LAD was abnormal at 0.87 but on pullback we noticed diffuse disease and interestingly there was no significant gradient across the left main. He returns for follow-up. He has been doing okay. No chest discomfort. Continues to have some shortness of breath. PFTs have not shown any significant obstructive or restrictive defect. 09/12/23: Rehan returns for follow-up. He has been prescribed tamsulosin for BPH. He is asking because there is dizziness and low blood pressure so seated with the medication. His blood pressure currently is 110/62. He has not started taking tamsulosin. He is saying at home his blood pressures as low as 90 by 50s. He does not have any significant symptoms currently. No chest discomfort shortness of breath. Overall he is feeling better with cardiac rehabilitation. 01/16/24: He returns for follow-up. He said he accidentally scratched a scab on his left leg and had significant bleeding which took him to the emergency department and it took them 3 1/2 hour to achieve hemostasis with manual compression. He is saying he has been very careful since then. His blood pressure is better controlled now he was previously hypotensive and his enalapril dose was cut to 5 mg. Balbirying any significant chest discomfort or shortness of breath. 05/21/24: He is here for follow-up. He has been experiencing shortness of breath with activity. He is saying that when he goes up hill he gets out of breath. No chest discomfort. He was previously referred for cardiac rehabilitation and had some improvement in symptoms. 09/24/2024: He is here for follow-up. He has been going to cardiac rehabilitation and has been exercising regularly. He is saying that his breathing has been improving. He is saying he also had very good sugar control and recent A1c was also good. He underwent PFTs which showed no significant lung disease or problem with diffusion capacity. Main issue was some restriction which was due to being overweight. Overall he has been doing well and has no concerning symptoms. 01/23/2025: He is here for follow-up. He has been exercising at rehab facility and progressing in his breathing is becoming better with exercise. Denying any chest discomfort. Blood pressure is low again. I have advised him to stop the enalapril. 05/29/2025: He is here for follow-up. He continues to have dizziness and lightheadedness. This has been bothering him at the cardiac rehab 2. He is saying that he gets tired and fatigued when he exercises. He is saying that his breathing is more or less stable but he gets some dyspnea. Blood pressure in the office is 100/72. He was previously taken off the enalapril. He is saying that he drinks lot of water. [facility] Medical History GERD (gastroesophageal reflux disease) Non-insulin dependent type 2 diabetes mellitus Mixed hyperlipidemia Essential hypertension Surgical History History of cardiac cath History of cataract surgery History of cholecystectomy Family History Mother CHF (congestive heart failure) Father No problems noted. Sister Heart attack Social History Household Members: Spouse Housing: House Do you presently have visiting nurse or other home services: No Alcohol intake: current Alcohol intake frequency: holidays/special occasions only Patient Tobacco Use Status: Former Tobacco user Tobacco use type: Cigarette Cigarette Packs Per Day: 2 Years Smoked: 10 Advance Directives Date on File: 12/18/22 service: Yes Current occupational status: retired Review of Systems Const Denies chills, Denies fatigue, Denies fever(s), Denies frequent falls, Denies weakness, Denies weight gain and Denies weight loss ENT Denies dizziness Card Denies chest pain, Denies leg edema, Denies lightheadedness, Denies palpitations, Denies dyspnea, Denies dyspnea on exertion, Denies orthopnea and Denies other (loss of consciousness) Resp Denies cough, Denies dyspnea and Denies dyspnea on exertion GI Denies hematochezia and Denies change in stool character Musc Denies abnormal gait, Denies muscle weakness, Denies numbness, Denies radiating pain into limb and Denies tingling Neuro Denies abnormal gait, Denies dizziness, Denies frequent falls, Denies numbness, Denies tingling and Denies weakness Endo Denies fatigue and Denies palpitations Physical Exam Vital Signs: Last Vital Signs Pulse 57 05/29/25 08:57 BP 100/72 05/29/25 08:57 BMI result Body Mass Index 31.6 GENERAL APPEARANCE: in no acute distress, pleasant. NECK: no carotid bruit, no jugular venous distention. SKIN: no suspicious lesions, warm and dry. HEART: no murmurs, regular rate and rhythm. Sinus bradycardia LUNGS: clear to auscultation bilaterally. ABDOMEN: soft, nontender. Abdominal obesity. EXTREMITIES: no edema. PERIPHERAL PULSES: equal. NEUROLOGIC: No gross deficits, AAO X 3 Office Procedures EKG Details: Sinus bradycardia 57 beats per minute, normal axis, otherwise normal EKG, QTC is 418 milliseconds. 70129-Wvjjozoodthgljzch, Complete Assessment & Plan Assessment & Plan (1) Stable angina: Code(s): I20.8 - Other forms of angina pectoris Category: Medical (2) Atrial flutter: Code(s): I48.92 - Unspecified atrial flutter Category: Medical (3) Dyspnea on exertion: Code(s): R06.09 - Other forms of dyspnea Category: Medical Plan Pleasant 80-year-old gentleman who is here for follow-up. He has known history of diabetes, hypertension and hyperlipidemia. He has known coronary artery disease and had 40% left main disease as well as diffuse LAD stenosis on cardiac catheterization in the past. We performed IFR assessment of left main into LAD and it was abnormal with multiple step-ups in LAD. Due to diffuse disease he was medically treated. With medical management. He has background of atrial flutter and is currently on Multaq for rhythm control strategy and continues to be in sinus rhythm. He is on Eliquis for anticoagulation. He has been experiencing some dizziness. Previously his blood pressure was low and he was taken off the enalapril. He is also taking timolol eyedrops with sometimes can worsen the bradycardia. He is bradycardic at rest but with activities his heart rates cross 100 beats per minute and I think he does not have any chronotropic incompetence. I have advised him to stop the atenolol for now. He will report to us in a week how he is feeling. If blood pressure starts rising then we can try half dose of atenolol or started different medication. Follow up with us in 2 months. Thank you for allowing me to participate in the care of your patient. Please feel free to contact me if you have any questions. Coding Level of Care Code Est Pt Level 4 (83297) Diagnoses Stable angina I20.8 Atrial flutter I48.92 Dyspnea on exertion R06.09 CPT Codes EKG - CPT: 71254-Oqhutvrcluownxfel, Complete ([id number])
== END 2025-05-29 10:00 | disposition home or self-care (01) ==
LOC: HO.HCS 08:07
PROVIDERS: PCP Internal Medicine; Visit Provider Internal Medicine Cardiovascular Disease
DX: I20.89 Other forms of angina pectoris (principal); I48.92 Unspecified atrial flutter; R06.09 Other forms of dyspnea
CPT/HCPCS: 93010; 99214

== ENCOUNTER → 2025-05-29 08:06 | Outpatient (BNVA) | payer MEDICARE, SELFPAY ==
[2024-09-24 09:34] VITALS: BP 126/62; BP 132/60; BMI 33.7
== END ==
PROVIDERS: PCP Internal Medicine; Visit Provider Internal Medicine Cardiovascular Disease
DX: I10 Essential (primary) hypertension (principal); I48.92 Unspecified atrial flutter; R06.09 Other forms of dyspnea; I20.89 Other forms of angina pectoris; E11.9 Type 2 diabetes mellitus without complications; E78.5 Hyperlipidemia, unspecified; R42 Dizziness and giddiness
CPT/HCPCS: 93005; 99212

== ENCOUNTER 2025-07-25 04:33 | Emergency (ER) | payer MEDICARE, SELFPAY ==
[2024-09-24 09:34] VITALS: BP 126/62; BP 132/60; BMI 33.7
--- NOTE | ~2025-07-25 | CT_ITS ---
CLINICAL HISTORY: Constipation; Night Sweats; Weight Loss CT abdomen and pelvis with contrast Comparison: None provided Findings: No consolidation or effusion. Moderate hiatal hernia. Severe atherosclerotic disease of the coronary arteries. The gallbladder is absent. The liver, spleen, splenule, adrenal glands and pancreas are unremarkable. Kidneys, ureters and bladder demonstrate no acute or suspicious abnormality. There is extensive diverticulosis along the colon. No bowel obstruction or free air. No retroperitoneal or mesenteric adenopathy. Moderate to severe atherosclerotic disease of the aorta. 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 Impression: Extensive diverticulosis without current evidence of diverticulitis. No bowel obstruction or definite focal or segmental bowel wall thickening. No acute process identified. Large hiatal hernia. This document has been electronically signed by: Marcelo Olguin MD on 07/25/2025 08:29:48
--- NOTE | ~2025-07-25 | XR_ITS ---
CLINICAL HISTORY: Cough; Diaphoresis 2 view chest x-ray Comparison: None provided Findings: No consolidation or effusion. There is [id number] hiatal hernia. There is scattered mild pulmonary scarring. There is mild left lower lobe pulmonary infiltrate and mild linear subsegmental atelectasis. Heart size is normal. No acute fracture. IMPRESSION: [id number] hiatal hernia mild left lower lobe pulmonary infiltrate and mild linear subsegmental atelectasis. This document has been electronically signed by: Leonard Szymanski MD on 07/25/2025 06:57:22
[2025-07-25 04:36] VITALS: BP 172/74; PULSE 84; RESP 16; TEMP 36.6; O2SAT 95; BMI 32.5
--- NOTE | 2025-07-25 04:43 | ECG_ITS ---
Test Reason : CHEST DISCOMFORT Blood Pressure : */* mmHG Vent. Rate : 78 BPM Atrial Rate : 78 BPM P-R Int : 166 ms QRS Dur : 76 ms QT Int : 364 ms P-R-T Axes : 25 16 22 degrees QTcB Int : 414 ms Normal sinus rhythm Normal ECG When compared with ECG of 18-Dec-2022 18:58, No significant change was found Referred By: Generic ED Physician Electronically Signed By: Agapito Ward
--- NOTE | 2025-07-25 05:07 | ED.CHESTPAIN ---
HPI - Chest Pain General Chief Complaint: Chest Pain Stated Complaint: Afib? Time Seen by Provider: 07/25/25 05:06 Source: patient and family Mode of arrival: ambulatory Limitations: no limitations History of Present Illness ED Provider: Arvin NEWMAN HPI narrative: The patient is a 80-year-old male with a history of CAD, atrial fibrillation on Eliquis b.i.d., hypertension, hyperlipidemia, fpy-trqrsxf-teelaokmc diabetes, and GERD, who presents to the ED reporting he woke this morning around 03:00 with a ?odd sensation? in his left chest with dizziness described as an off-balance sensation. The patient denies left chest sensation as a pain, palpitations, racing heart sensation, pleurisy, or heaviness, patient states he is unable to describe this sensation. Patient reports he checked his blood pressure and heart rate, noted the heart rate indicate her on his pulse oximeter to be subjectively irregular but normal rate. The patient denies associated fever/chills, nausea, vomiting, diarrhea, abdominal pain, headache, or focal neurological deficit. Due to chest sensation, dizziness, and considered for atrial fibrillation, patient notified his daughter of his symptoms who brought him to the ED for evaluation. Patient reports left chest sensation and dizziness resolved prior to arrival in the ED. The patient advises for the past 2 days he has also been experiencing slight constipation, and has experienced night sweats. Patient reports mild nonproductive cough which is chronic for him, reports he attended a football game on Tuesday, denies any known sick contacts from that event or otherwise. The patient denies any recent fall or blunt trauma. In addition to the reported night sweats for the past 2 days the patient also reports he has experienced a 15 lb unintentional weight loss over the past 6 months. Patient reports he has also begun experiencing issues with constipation, denies associated hematochezia, melena, hematemesis, or other sources of bleeding. Related Data Home Medications ?Medication ?Instructions ?Recorded ?Confirmed latanoprost 0.005 % eye drops 1 drp ophthalmic (eye) DAILY 12/18/22 07/29/25 multivitamin (Daily Multi-Vitamin 1 tab PO DAILY 12/18/22 07/29/25 tablet) omeprazole 20 mg capsule,delayed 20 mg PO DAILY 12/18/22 07/29/25 release timolol maleate 0.5 % eye drops 1 drp ophthalmic (eye) BEDTIME 12/18/22 07/29/25 metformin 500 mg tablet 500 mg PO BID 01/27/23 07/29/25 dorzolamide-timolol (PF) 2 %-0.5 % 1 drp ophthalmic (eye) BID 05/21/24 07/29/25 eye drops in a dropperette sertraline 50 mg tablet 50 mg PO DAILY 09/24/24 07/29/25 Previous Rx's ?Medication ?Instructions ?Recorded aspirin 81 mg tablet,delayed 81 mg PO DAILY #120 tabs 05/04/23 release dronedarone 400 mg tablet (Multaq) 400 mg PO BID 90 days #180 tabs 09/10/24 atorvastatin 40 mg tablet 40 mg PO DAILY #90 tabs 04/02/25 apixaban 5 mg tablet (Eliquis) 5 mg PO BID #180 tabs 07/22/25 doxycycline hyclate 100 mg tablet 100 mg PO BID #14 tabs 07/25/25 Allergies Allergy/AdvReac Type Severity Reaction Status Date / Time meperidine (From DEMEROL) Allergy Unknown SEVERE Verified 07/29/25 15:18 STOMACH UPSET Review of Systems Review of Systems: Yes all other systems are reviewed and are negative [facility] Past Medical History Medical History (Updated 07/29/25 @ 15:56 by PHILIP Chand) GERD (gastroesophageal reflux disease) Non-insulin dependent type 2 diabetes mellitus Mixed hyperlipidemia Essential hypertension Surgical History (Updated 07/29/25 @ 15:57 by Ainsley Dutta NP-C) History of cardiac cath History of cataract surgery History of cholecystectomy Family History Family History Mother CHF (congestive heart failure) Father No problems noted. Sister Heart attack Social History Social History Household Members: Spouse Housing: House Do you presently have visiting nurse or other home services: No Alcohol intake: former Patient Tobacco Use Status: Former Tobacco user Tobacco use type: Cigarette Cigarette Packs Per Day: 2 Years Smoked: 10 Advance Directives Date on File: 12/18/22 service: Yes Current occupational status: retired Physical Exam Vital Signs: Vital Signs: Last Vital Signs Temp 97.9 F 07/25/25 09:02 Pulse 57 07/25/25 09:02 Resp 14 07/25/25 09:02 BP 165/85 H 07/25/25 09:02 Pulse Ox 96 07/25/25 09:02 O2 Del Method Room Air 07/25/25 08:47 BMI result Body Mass Index 32.5 CONSTITUTIONAL: The patient appears non-toxic, well nourished and in no acute distress. Vital signs as documented. HEAD: Atraumatic, normocephalic. EYES: EOMs grossly intact, pupils equal, conjunctiva clear, no exudate. ENT: Nares patent, no discharge. Airway patent, no audible stridor, visible mucosa is pink and moist without noted lesions. NECK: Trachea is midline, no obvious masses or gross abnormalities. CHEST: Symmetric movement, normal appearance. LUNGS: LS present and CTAB, no w/r/r. Non-labored work of breathing. CARDIAC: Regular Rhythm, S1/S2 appreciated, no murmurs, rubs or gallops. ABDOMEN: Abdomen soft and non-tender x4 quadrants, no palpable masses or organomegaly. : Deferred. EXTREMITIES: Normal tone, moves all extremities spontaneously without reported pain. No obvious acute injury or deformity noted. NEURO: Alert and oriented x3, CN II-XII appear grossly intact. Cerebellar Functioning grossly intact. No obvious sensory or motor deficits. Speech clear and appropriate. PSYCH: normal affect, appropriate eye contact, fluid speech, with appropriate response to questioning. No reported suicidality or homicidality. SKIN: Warm, dry, color appropriate, normal turgor. No rashes noted. Medications Administered Discontinued Medications Generic Name Dose Route Start Last Admin Trade Name Freq PRN Reason Stop Dose Admin Doxycycline Monohydrate 100 mg 07/25/25 08:47 07/25/25 08:53 Doxycycline Monohydrate 100 Mg Capsule PO 07/25/25 08:48 100 mg ONCE ONE Administration Iohexol 85 ml 07/25/25 06:46 07/25/25 06:46 Iohexol 350 Mg/Ml 100 Ml Infus..Btl IV 07/25/25 06:47 85 ml ONCE ONE Administration Medical Decision Making Medical Decision Making MDM Narrative: 5:32 AM 07/25/2025 (George NEWMAN): The patient is a 80-year-old male with a history of CAD, atrial fibrillation on Eliquis b.i.d., hypertension, hyperlipidemia, ssk-zolelpq-xyxyrxlsx diabetes, and GERD, who presents to the ED reporting he woke this morning around 03:00 with a ?odd sensation? in his left chest with dizziness described as an off-balance sensation. The patient denies left chest sensation as a pain, palpitations, racing heart sensation, pleurisy, or heaviness, patient states he is unable to describe this sensation. Patient reports he checked his blood pressure and heart rate, noted the heart rate indicate her on his pulse oximeter to be subjectively irregular but normal rate. The patient denies associated fever/chills, nausea, vomiting, diarrhea, abdominal pain, headache, or focal neurological deficit. Due to chest sensation, dizziness, and considered for atrial fibrillation, patient notified his daughter of his symptoms who brought him to the ED for evaluation. Patient reports left chest sensation and dizziness resolved prior to arrival in the ED. The patient advises for the past 2 days he has also been experiencing slight constipation, and has experienced night sweats. Patient reports mild nonproductive cough which is chronic for him, reports he attended a football game on Tuesday, denies any known sick contacts from that event or otherwise. The patient denies any recent fall or blunt trauma. In addition to the reported night sweats for the past 2 days the patient also reports he has experienced a 15 lb unintentional weight loss over the past 6 months. Patient reports he has also begun experiencing issues with constipation, denies associated hematochezia, melena, hematemesis, or other sources of bleeding. On arrival in the ED the patient is in a rate controlled sinus rhythm, without hypoxia, fever, or tachypnea. The source of the patient's symptoms over the past few days is not entirely clear, may be viral in nature, we will obtain basic laboratory evaluation, cardiac enzymes x2, chest x-ray, and viral swabs. Additionally, due to the patient's night sweats and unintentional weight loss, with associated diarrhea, we will obtain CT abdomen to evaluate for malignant or other acute intra-abdominal pathology. 6:10 AM 07/25/2025 (George NEWMAN): Patient's case signed out to Dr. Lindsey pending remainder of workup. Admission/Observation Consideration of admission/observation: Escalation of care including admission/observation considered Lab Data MDM Lab Attestation statement: I reviewed the patient's lab results. 07/25/25 04:51 07/25/25 04:51 Labs: Lab Results 07/25/25 07/25/25 07/25/25 Range/Units 04:51 05:32 06:53 WBC 8.1 (4.8-10.8) X10*3/uL RBC 4.18 L (4.60-5.80) X10*6/uL Hgb 11.6 L (14.0-18.0) g/dl Hct 36.7 L (42.0-52.0) % MCV 87.8 (80.0-98.0) fL MCH 27.8 (27.0-33.0) pg MCHC 31.6 (31.0-36.0) g/dl RDW 17.2 H (11.0-16.0) % Plt Count 243 (160-400) X10*3/uL MPV 9.3 L (9.4-12.4) fL Immature Gran % (Auto) 0.4 (0.0-0.4) % Neut % (Auto) 61.8 (45-73) % Lymph % (Auto) 21.9 (20-40) % [place] % (Auto) 8.1 (2-11) % Eos % (Auto) 7.1 H (0-4) % Baso % (Auto) 0.7 (0-2) % Lymph # (Auto) 1.8 (1.2-4.9) X10*3/uL [place] # (Auto) 0.7 (0.1-1.2) X10*3/uL Eos # (Auto) 0.6 H (0.0-0.4) X10*3/uL Baso # (Auto) 0.1 (0.0-0.2) X10*3/uL Abs Immat Gran (auto) 0.03 (0.00-0.03) X10*3/uL Absolute Neuts (auto) 5.0 (2.0-8.3) x10*3/uL Absolute Nucleated RBC 0.000 (0.0-0.012) X10*3/uL Nucleated RBC % (auto) 0.0 (0.0-0.2) /100WBC PT 18.7 H (10.9-12.4) SEC INR 1.6 H (0.9-1.1) Sodium 143 (135-145) mmol/L Potassium 4.1 (3.3-5.1) mmol/L Chloride 109 H (96-108) mmol/L Carbon Dioxide 25 (22-29) mmol/L Anion Gap 13 (12-20) BUN 20 H (9-16) mg/dL Creatinine 0.97 (0.5-1.4) mg/dL Estim Creat Clear Calc 73.0 Estimated GFR > 60 Random Glucose 139 H (60-115) mg/dL Calcium 9.0 D (8.4-10.2) mg/dL Magnesium 1.7 (1.6-2.6) mg/dL Total Bilirubin 0.7 (0.0-1.0) mg/dL AST 30 (5-37) U/L ALT 24 (0-40) U/L Alkaline Phosphatase 108 (39-117) U/L Troponin I High Sens < 2.7 < 2.7 (<3.5-35.0) ng/L Total Protein 6.3 L (6.5-8.0) g/dL Albumin 3.9 (3.5-5.0) g/dL Lipase 22 (8-78) U/L COVID-19 (NAVEED) Negative (Negative) COVID-19 Clin Com See Note Influenza Type A (SUZY) Negative (Negative) Influenza Type B (SUZY) Negative (Negative) Influenza A & B Note See Note Independent Interpretation I performed an independent interpretation of an: EKG (EKG shows sinus rhythm with a rate of 78, no evidence of acute ischemia, no ST elevation, no ectopy. QTC 414. Compared to previous on 12/18/2022 there is no significant morphology changes. ) External Record Review External record reviewed: Outpatient record and Prior outpatient labs Discharge Plan Discharge Clinical Impression: Pneumonia, Chest pain, Abdominal pain Patient Disposition: Home, Self-Care Instructions: Abdominal Pain (ED) Prescriptions: New doxycycline hyclate 100 mg tablet 100 mg PO BID Qty: 14 0RF No Action Multaq 400 mg tablet 400 mg PO BID 90 Days Qty: 180 3RF atorvastatin 40 mg tablet 40 mg PO DAILY Qty: 90 3RF Eliquis 5 mg tablet 5 mg PO BID Qty: 180 3RF latanoprost 0.005 % drops 1 drp ophthalmic (eye) DAILY omeprazole 20 mg capsule,delayed release(DR/EC) 20 mg PO DAILY timolol maleate 0.5 % drops 1 drp ophthalmic (eye) BEDTIME multivitamin [Daily Multi-Vitamin] Tablet 1 tab PO DAILY metformin 500 mg tablet 500 mg PO BID aspirin 81 mg tablet,delayed release (DR/EC) 81 mg PO DAILY Qty: 120 4RF dorzolamide-timolol (PF) 2-0.5 % dropperette 1 drp ophthalmic (eye) BID sertraline 50 mg tablet 50 mg PO DAILY Referrals: Roly Orellana MD [Primary Care Provider, Medical] Interventions: ED Discharge Assessment Last Done: 07/25/25 09:02 Discharge Date/Time: 07/25/25 09:03 Print Language: [place]
[2025-07-25 05:18] LABS: MANUAL DIFF FLAG NO
[2025-07-25 05:19] LABS: Hematocrit 36.7 % (42.0-52.0); Hemoglobin 11.6 g/dl (14.0-18.0); Imm Gran Abs Auto 0.03 X10*3/uL (0.00-0.03); Imm Gran Pct Auto 0.4 % (0.0-0.4); Lymphocytes Absolute Auto 1.8 X10*3/uL (1.2-4.9); Mean Corpuscular HGB Conc 31.6 g/dl (31.0-36.0); Mean Corpuscular Hemoglobin 27.8 pg (27.0-33.0); Mean Corpuscular Volume 87.8 fL (80.0-98.0); NRBC Abs Auto 0.000 X10*3/uL (0.0-0.012); NRBC Pct Auto 0.0 /100WBC (0.0-0.2); Platelet Count 243 X10*3/uL (160-400); Red Blood Count 4.18 X10*6/uL (4.60-5.80); White Blood Count 8.1 X10*3/uL (4.8-10.8)
[2025-07-25 05:24] LABS: INTERNATIONAL NORM RATIO 1.6 (0.9-1.1); Prothrombin Time 18.7 SEC (10.9-12.4)
[2025-07-25 05:41] LABS: Alanine Aminotransferase 24 U/L (0-40); Albumin Level 3.9 g/dL (3.5-5.0); Alkaline Phosphatase 108 U/L (39-117); Anion Gap 13 (12-20); Aspartate Amino Transferase 30 U/L (5-37); Blood Urea Nitrogen 20 mg/dL (9-16); Calcium 9.0 mg/dL (8.4-10.2); Carbon Dioxide 25 mmol/L (22-29); Chloride 109 mmol/L (96-108); Creatinine Clr Calc Pharmacy 73.0; Estimated Glomerular Filt Rate > 60; Lipase 22 U/L (8-78); Magnesium 1.7 mg/dL (1.6-2.6); Potassium 4.1 mmol/L (3.3-5.1); Sodium 143 mmol/L (135-145); Total Protein 6.3 g/dL (6.5-8.0)
[2025-07-25 05:42] LABS: Troponin-I High Sensitivity < 2.7 ng/L (<3.5-35.0)
[2025-07-25 05:52] LABS: COVID-19 Test Negative (Negative); IDNOW Serial# 08D9AD1C; IDNOW Serial# 6674DD1D; Influenza B2 Negative (Negative)
--- OUTSIDE RECORDS SUMMARY | 2025-07-25 05:55 | XMS_ITS | Patient Health Record ---
Author Organization [facility] Address [address] [place] [address] Care Team Providers Care Utilities Manager Name Role Phone Esteban JOSEPH, Roly Primary Care Provider Unav ailable Gustabo Lang Unavailable [phone] Allergies No Known Allergies Results Component Value [...] Problem Acquired hammer toe of right foot (6240751544196932 ) Other hammer toe(s) (acquired), right foot (M20.41) Active confirmed Problem Acquired hammer toe of left foot ([id number] ) Other hammer toe(s) (acquired), left foot (M20.42) Active confirmed Problem Polyneuropathy due to type 2 diabetes mellitus (942387881) Type 2 diabetes mellitus with diabetic polyneuropathy (E11.42) Active confirmed Vital Signs Blood pressure diastolic 65 mm Hg 05/24/2025 Height 5 ft 9inch in 05/24/2025 Blood pressure systolic 128 mm Hg 05/24/2025 Weight 215 lbs 05/24/2025 BMI 31.75 kg/m2 05/24/2025 Procedures Procedure Date Ordered Date Performed Result Body Sit e 94083-WPLB SKIN LESIONS, 2 TO 4 02/05/2025 N/A [id number] DYSTROPHIC NAILS ANY # 02/05/2025 N/A 87318-RPEG SKIN LESIONS, 2 TO 4 05/24/2025 N/A [id number] DYSTROPHIC NAILS ANY # 05/24/2025 N/A Encounters Encounter Location Date Provider Diagnosis [address] [address] 02/05/2025 Gustabo Lang Type 2 diabetes mellitus with diabetic polyneuropathy E11.42 ; Other hammer toe(s) (acquired), right foot M20.41 and Other hammer toe(s) (acquired), left foot M20.42 [facility] [address] 05/24/2025 Gustabo Lang Type 2 diabetes mellitus [...] Treatment Pending Test Test Name Order Date 52479-EOCF SKIN LESIONS, 2 TO 4 02/06/20 76236-RVTT SKIN LESIONS, 2 TO 4 05/24/20 [id number] DYSTROPHIC NAILS ANY # U8460-VCPKUHQU DYSTROPHIC NAILS ANY # Next Appt Details Provider Name:Gustabo Lang , 09/10/2025 01:30:00 PM, [address] [place] [address], [id number], Insurance Providers Payer Name Payer Address Payer Phone Subscriber Number Group Number Insured Name Patient Relationship to Insured Coverage Start Date Coverage End Date [facility] 65 Medicare Preferred [address] [place] [address] [id number] Rehan Hathaway Self - patient is the insured Medical (General) History Medical History History ICD Code Arthritis CAD (Cholesterol) Cataracts type II diabetes Glaucoma Heart disease High Blood Pressure Reflux ( GERD) Measles Mumps Chicken pox Transfusions Surgical History Surgery Date(Month/Year) Gall bladder
--- OUTSIDE RECORDS SUMMARY | 2025-07-25 05:56 | XMS_ITS | Data Portability ---
Author Organization [facility], Main Office Address [address] [facility] [address] [place] [id number] Care Team Providers Care [employer] Installer Name Role Phone PEDRO ORELLANA Primary Care Provider LAMAR MAYEN [employer] Support Technicians [phone] CESAR LEROY Referring Provider [phone] Buyer RIAN AN Urologist [facility] Referring Provider [phone] Assessment No assessment recorded. Plan of Treatment Reminders Order Date Submit Date Provider Last Modified By Organization Details Last Modified Time Details Appointments [id number] 2024 09:00A M Pedro cramer MD Not available Not available Not available Lab PSA, serum or plasma 2024 025 K[facility] (Centralized Electronic Ordering - All Locations), Patient Can Go To The Location Of Their Choice, 02/26/2025 18:07:03 HbA1c (hemog lobin A1c), blood 2024 025 [facility] (Centralized Electronic Ordering - All Locations), Patient Can Go To The Location Of Their Choice, 02/26/2025 18:07:04 microa lbumin /creat inine, mass ratio, urine 2024 025 [facility] (Centralized Electronic Ordering - All Locations), Patient Can Go To The Location Of Their Choice, 02/26/2025 18:07:02 CMP, serum or plasma 04/28/ 2025 04/28/2 025 [facility] (Centralized Electronic Ordering - All Locations), Patient Can Go To The Location Of Their Choice, 02/26/2025 18:07:01 lipid panel, serum 2024 025 [facility] (Centralized Electronic Ordering - All Locations), Patient Can Go To The Location Of Their Choice, 02/26/2025 18:07:02 CBC w/ auto diff 2024 025 [facility] (Centralized Electronic Ordering - All Locations), Patient Can Go To The Location Of Their Choice, 02/26/2025 18:07:00 hemogl obin A1C, finger stick 2023 024 [email or web address] In-Office Order, Internal Use Only DO Not Attach Compendium DO Not Attach Compendium, Do Not Delete/merge, 09/11/2024 10:40:45 CMP, serum or plasma 2023 024 [email or web address] [facility] (Centralized Electronic Ordering - All Locations), Patient Can Go To The Location Of Their Choice, 04/09/2025 10:09:44 hemogl obin A1C, finger stick 2023 024 [email or web address] In-Office Order, Internal Use Only DO Not Attach Compendium DO Not Attach Compendium, Do Not Delete/merge, 03/16/2024 11:27:10 microa lbumin /creat inine, mass ratio, urine 2023 024 [email or web address] [facility] (Centralized Electronic Ordering - All Locations), Patient Can Go To The Location Of Their Choice, 03/16/2024 11:27:09 lipid panel, serum 2023 024 [facility] (Centralized Electronic Ordering - All Locations), Patient Can Go To The Location Of Their Choice, 03/14/2024 16:07:20 CMP, serum or plasma 2023 024 [facility] (Centralized Electronic Ordering - All Locations), Patient Can Go To The Location Of Their Choice, 03/14/2024 16:07:19 hemogl obin A1C, finger stick 2022 023 [email or web address] In-Office Order, Internal Use Only DO Not Attach Compendium DO Not Attach Compendium, Do Not Delete/merge, [id number] 09/06/2023 11:04:07 TSH, serum or plasma 2022 023 [facility], [address], [place], [address], 09/07/2023 04:53:49 CMP, serum or plasma 2022 023 [facility] [facility], [address], [place], [address], 09/07/2023 04:53:47 Referral None record ed. Procedures None record ed. Surgeries None record ed. Imaging XR, cervic al spine - Neck pain for 8 months especi ally when turnin g to the left. R/o lesion . 2023 024 [email or web address] In-Office Order, Internal Use Only DO Not Attach Compendium DO Not Attach Compendium, Do Not Delete/merge, [id number] 09/12/2024 17:04:10 Medication Orders sertra line 50 mg tablet 2023 024 [email or web address] [id number], [address] [place], [address], 08/31/2024 14:18:24 tamsul osin 0.4 mg capsul e 2022 023 [email or web address] [id number], [address] [place], [address], 09/06/2023 13:51:55 Patient TargetsNo targets recorded. Patient Instructions Encounter Date Encounter Id Patient Instructions Last Modified By Organization Details Last Modified Time 09/06/2023 [id number] gastroesophageal reflux disease (GERD): care instructions [email or web address] Not available 09/06/2023 11:04:04 preventing falls : [...] instructions [email or web address] Not available 09/06/2023 13:48:15 03/13/2024 [id number] electrical cardioversion: before your procedure [email or web address] Not available 03/13/2024 09:42:07 Electrophysiolog y (EP) Study: Before Your Procedure [email or web address] Not available 03/13/2024 09:42:07 high cholesterol : care instructions [email or web address] Not available 03/13/2024 09:47:41 08/09/2024 [id number] depression treatment: care instructions [email or web address] Not available 08/09/2024 15:54:47 09/11/2024 [id number] advance care planning: care instructions [email or web address] Not available 09/11/2024 10:40:43 type 2 diabetes: care instructions [email or web address] Not available 09/11/2024 10:40:43 preventing falls : care instructions [email or web address] Not available 09/11/2024 10:40:43 well visit, over 65: care instructions [email or web address] Not available 09/11/2024 10:40:43 02/25/2025 [id number] high blood press ure: care instructions acennerazzo Not available 02/25/2025 17:00:30 learning about h igh blood pressure acennerazzo Not available 02/25/2025 17:00:30 type 2 diabetes: care instructions acennerazzo Not available 02/25/2025 15:27:02 Reason for Referral None Reported. Results Created Date Observation Date Name Description Value Unit Range Abnormal Flag Note LastModifiedBy Organization Detail LastModifiedTime 09/06/2009/07/2023 COMPR EHENS GISELA METAB OLIC PANL [...] DO Not Attach Compendium, Do Not Delete/merge, [id number] 09/06/2023 10:41:25 03/13/20 24 03/14/2024 COMP. METAB OLIC PANEL (14) glucose 103 mg/dL 70-99 above high normal Not Available [facility] ([facility]) [address] [facility], [place], [address], 03/14/2024 16:07:19 03/13/20 24 03/14/2024 COMP. METAB OLIC PANEL (14) BUN 20 mg/dL 8-27 Not Available [facility] ([facility]) [address] [facility], [place], [address], 03/14/2024 16:07:19 03/13/20 24 03/14/2024 COMP. METAB OLIC PANEL (14) creatinine 1.07 mg/dL 0.76-1 .27 Not Available [facility] ([facility]) [address] [facility], [place], [address], 03/14/2024 16:07:19 03/13/20 24 03/14/2024 COMP. METAB OLIC PANEL (14) eGFR 71 mL/mi n/1.7 3 >59 Not Available [facility] ([facility]) [address] [place], [address], 03/14/2024 16:07:19 03/13/20 24 03/14/2024 COMP. METAB OLIC PANEL (14) BUN/creatini ne ratio 19 10-24 Not Available [facility] ([facility]) [address] [place], [address], 03/14/2024 16:07:19 03/13/20 24 03/14/2024 COMP. METAB OLIC PANEL (14) sodium 139 mmol/ L 134-14 4 Not Available [facility] ([facility]) [address] [place], [address], 03/14/2024 16:07:19 03/13/20 24 03/14/2024 COMP. METAB OLIC PANEL (14) potassium 4.9 mmol/ L 3.5-5. 2 Not Available [facility] ([facility]) [address] [place], [address], 03/14/2024 16:07:19 03/13/20 24 03/14/2024 COMP. METAB OLIC PANEL (14) chloride 103 mmol/ L 96-106 Not Available [facility] ([facility] [address] [facility] [place], [address], 03/14/2024 16:07:19 03/13/20 24 03/14/2024 COMP. METAB OLIC PANEL (14) carbon dioxide, total 24 mmol/ L 20-29 Not Available [facility] ([facility]) [address] [facility], [place], [address], 03/14/2024 16:07:19 03/13/20 24 03/14/2024 COMP. METAB OLIC PANEL (14) calcium 9.2 mg/dL 8.6-10 .2 Not Available [facility] ([facility]) [address] [facility], [place], [address], 03/14/2024 16:07:19 03/13/20 24 03/14/2024 COMP. METAB OLIC PANEL (14) protein, total 6.2 g/dL 6.0-8. 5 Not Available [facility] ([facility]) [address] [facility] [place], [address], 03/14/2024 16:07:19 03/13/20 24 03/14/2024 COMP. METAB OLIC PANEL (14) albumin 3.9 g/dL 3.8-4. 8 Not Available [facility] ([facility]) [address] [facility] [place], [address], 03/14/2024 16:07:19 03/13/20 24 03/14/2024 COMP. METAB OLIC PANEL (14) globulin, total 2.3 g/dL 1.5-4. 5 Not Available [facility] ([facility]) [address] [facility] [place], [address], 03/14/2024 16:07:19 03/13/20 24 03/14/2024 COMP. METAB OLIC PANEL (14) A/G ratio 1.7 1.2-2. 2 Not Available [facility] ([place] [facility]) [address] [place], [address], 03/14/2024 16:07:19 03/13/20 24 03/14/2024 COMP. METAB OLIC PANEL (14) bilirubin, total 1.0 mg/dL 0.0-1. 2 Not Available [facility] ([place] [facility]) [address] [place], [address], 03/14/2024 16:07:19 03/13/20 24 03/14/2024 COMP. METAB OLIC PANEL (14) alkaline phosphatase 151 IU/L 44-121 above high normal Not Available [facility] ([place] [facility]) [address] [facility] [place], [address], 03/14/2024 16:07:19 03/13/20 24 03/14/2024 COMP. METAB OLIC PANEL (14) AST (SGOT) 32 IU/L 0-40 Not Available [facility] ([place] [facility]) [address] [place], [address], 03/14/2024 16:07:19 03/13/20 24 03/14/2024 COMP. METAB OLIC PANEL (14) ALT (SGPT) 25 IU/L 0-44 Not Available [facility] ([place] [facility]) [address] [facility] [place], [address], 03/14/2024 16:07:19 03/13/20 24 03/14/2024 LIPID PANEL cholesterol, total 112 mg/dL 100-19 9 Not Available [facility] ([place] [facility]) [address] [facility] [place], [address], 03/14/2024 16:07:20 03/13/20 24 03/14/2024 LIPID PANEL triglyceride s 69 mg/dL 0-149 Not Available [facility] ([place] [facility]) [address] [facility] [place], [address], 03/14/2024 16:07:20 03/13/20 24 03/14/2024 LIPID PANEL HDL cholesterol 50 mg/dL >39 Not Available [facility] ([facility]) [address] [place], [address], 03/14/2024 16:07:20 03/13/20 24 03/14/2024 LIPID PANEL VLDL cholesterol moshe 15 mg/dL 5-40 Not Available [facility] ([facility]) [address] [facility], [place], [address], 03/14/2024 16:07:20 03/13/20 24 03/14/2024 LIPID PANEL LDL chol calc ([facility]) 47 mg/dL 0-99 Not Available [facility] ([facility]) [address] [facility], [place], [address], 03/14/2024 16:07:20 03/13/20 24 03/14/2024 LIPID PANEL comment: HEALTH MANAGEMENT CONSULTANT Not Available [facility] ([facility]) [address] [facility], [place], [address], 03/14/2024 16:07:20 03/13/20 24 03/14/2024 ALBUM IN/CR EAT RATIO , RANDO M UR creatinine, urine 100.0 mg/dL not estab. Not Available [facility] ([facility]) [address] [place], [address], 03/14/2024 16:07:21 03/13/20 24 03/14/2024 ALBUM IN/CR EAT RATIO , RANDO M UR albumin, urine 21.4 ug/mL not estab. Not Available [facility] ([facility]) [address] [place], [address], 03/14/2024 16:07:21 03/13/20 24 03/14/2024 ALBUM IN/CR EAT RATIO , RANDO M UR alb/creat ratio 21 mg/g_ creat 0-29 Kanika l: 0 - 29 Moder ately incre ased: 30 - 300 Sever darío incre ased: >300 Not Available [facility] ([facility]) [address] [facility], [place], [address], 03/14/2024 16:07:21 03/13/20 24 03/13/2024 hemog lobin A1C, finge rstic k A1C 6.5 % 4-6 Not Available In-Office Order Internal Use Only DO Not Attach Compendium DO Not Attach Compendium, Do Not Delete/merge, [id number] 03/13/2024 09:15:04 09/11/20 24 09/11/2024 hemog lobin A1C, finge rstic k A1C 6.0 % 4-6 normal Not Available In-Office Order Internal Use Only DO Not Attach Compendium DO Not Attach Compendium, Do Not Delete/merge, [id number] 09/11/2024 10:32:56 02/26/20 25 02/26/2025 CBC WITH DIFFE RENTI AL/PL ATELE T WBC 10.2 x10e3 /uL 3.4-10 .8 normal Not Available [facility] ([facility]) [address] [facility], [place], [address], 02/26/2025 18:07:00 02/26/20 25 02/26/2025 CBC WITH DIFFE RENTI AL/PL ATELE T RBC 3.78 x10e6 /uL 4.14-5 .80 below low normal Not Available [facility] ([facility]) [address] [facility], [place], [address], 02/26/2025 18:07:00 02/26/20 25 02/26/2025 CBC WITH DIFFE RENTI AL/PL ATELE T hemoglobin 11.2 g/dL 13.0-1 7.7 below low normal Not Available [facility] ([facility]) [address] [place], [address], 02/26/2025 18:07:00 02/26/20 25 02/26/2025 CBC WITH DIFFE RENTI AL/PL ATELE T hematocrit 34.9 % 37.5-5 1.0 below low normal Not Available [facility] ([facility]) [address] [place], [address], 02/26/2025 18:07:00 02/26/20 25 02/26/2025 CBC WITH DIFFE RENTI AL/PL ATELE T MCV 92 fL 79-97 normal Not Available [facility] ([facility]) [address] [place], [address], 02/26/2025 18:07:00 02/26/20 25 02/26/2025 CBC WITH DIFFE RENTI AL/PL ATELE T MCH 29.6 pg 26.6-3 3.0 normal Not Available [facility] ([facility]) [address] [place], [address], 02/26/2025 18:07:00 02/26/20 25 02/26/2025 CBC WITH DIFFE RENTI AL/PL ATELE T MCHC 32.1 g/dL 31.5-3 5.7 normal Not Available [facility] ([facility]) [address] [place], [address], 02/26/2025 18:07:00 02/26/20 25 02/26/2025 CBC WITH DIFFE RENTI AL/PL ATELE T RDW 13.1 % 11.6-1 5.4 Not Available [facility] ([facility]) [address] [place], [address], 02/26/2025 18:07:00 02/26/20 25 02/26/2025 CBC WITH DIFFE RENTI AL/PL ATELE T platelets 278 x10e3 /uL 150-45 0 normal Not Available [facility] ([facility]) [address] [place], [address], 02/26/2025 18:07:00 02/26/20 25 02/26/2025 CBC WITH DIFFE RENTI AL/PL ATELE T neutrophils 63 % not estab. normal Not Available [facility] ([facility]) [address] [facility], [place], [address], 02/26/2025 18:07:00 02/26/20 25 02/26/2025 CBC WITH DIFFE RENTI AL/PL ATELE T lymphs 21 % not estab. normal Not Available [facility] ([facility]) [address] [facility], [place], [address], 02/26/2025 18:07:00 02/26/20 25 02/26/2025 CBC WITH DIFFE RENTI AL/PL ATELE T monocytes 9 % not estab. normal Not Available [facility] ([facility]) [address] [facility], [place], [address], 02/26/2025 18:07:00 02/26/20 25 02/26/2025 CBC WITH DIFFE RENTI AL/PL ATELE T eos 6 % not estab. normal Not Available [facility] ([facility]) [address] [facility], [place], [address], 02/26/2025 18:07:00 02/26/20 25 02/26/2025 CBC WITH DIFFE RENTI AL/PL ATELE T basos 1 % not estab. normal Not Available [facility] ([facility]) [address] [place], [address], 02/26/2025 18:07:00 02/26/20 25 02/26/2025 CBC WITH DIFFE RENTI AL/PL ATELE T immature cells HEALTH MANAGEMENT CONSULTANT Not Available [facility] ([facility]) [address] [place], [address], 02/26/2025 18:07:00 02/26/20 25 02/26/2025 CBC WITH DIFFE RENTI AL/PL ATELE T neutrophils (absolute) 6.5 x10e3 /uL 1.4-7. 0 normal Not Available [facility] ([facility]) [address] [place], [address], 02/26/2025 18:07:00 02/26/20 25 02/26/2025 CBC WITH DIFFE RENTI AL/PL ATELE T lymphs (absolute) 2.1 x10e3 /uL 0.7-3. 1 normal Not Available [facility] ([facility]) [address] [facility], [place], [address], 02/26/2025 18:07:00 02/26/20 25 02/26/2025 CBC WITH DIFFE RENTI AL/PL ATELE T monocytes(ab solute) 0.9 x10e3 /uL 0.1-0. 9 normal Not Available [facility] ([facility]) [address] [place], [address], 02/26/2025 18:07:00 02/26/20 25 02/26/2025 CBC WITH DIFFE RENTI AL/PL ATELE T eos (absolute) 0.6 x10e3 /uL 0.0-0. 4 above high normal Not Available [facility] ([facility]) [address] [facility], [place], [address], 02/26/2025 18:07:00 02/26/20 25 02/26/2025 CBC WITH DIFFE RENTI AL/PL ATELE T baso (absolute) 0.1 x10e3 /uL 0.0-0. 2 normal Not Available [facility] ([facility]) [address] [place], [address], 02/26/2025 18:07:00 02/26/20 25 02/26/2025 CBC WITH DIFFE RENTI AL/PL ATELE T immature granulocytes 0 % not estab. Not Available [facility] ([facility]) [address] [place], [address], 02/26/2025 18:07:00 02/26/20 25 02/26/2025 CBC WITH DIFFE RENTI AL/PL ATELE T immature grans (abs) 0.0 x10e3 /uL 0.0-0. 1 Not Available [facility] ([facility]) [address], [place], [address], 02/26/2025 18:07:00 02/26/20 25 02/26/2025 CBC WITH DIFFE RENTI AL/PL ATELE T NRBC HEALTH MANAGEMENT CONSULTANT Not Available [facility] ([facility]) [address], [place], [address], 02/26/2025 18:07:00 02/26/20 25 02/26/2025 CBC WITH DIFFE RENTI AL/PL ATELE T hematology comments: HEALTH MANAGEMENT CONSULTANT Not Available [facility] ([facility]) [address], [place], [address], 02/26/2025 18:07:00 02/26/20 25 02/26/2025 COMP. METAB OLIC PANEL (14) glucose 82 mg/dL 70-99 normal Not Available [facility] ([facility]) [address], [place], [address], 02/26/2025 18:07:01 02/26/20 25 02/26/2025 COMP. METAB OLIC PANEL (14) BUN 22 mg/dL 8-27 normal Not Available [facility] ([facility]) [address] [place], [address], 02/26/2025 18:07:01 02/26/20 25 02/26/2025 COMP. METAB OLIC PANEL (14) creatinine 0.97 mg/dL 0.76-1 .27 normal Not Available [facility] ([facility]) [address] [place], [address], 02/26/2025 18:07:01 02/26/20 25 02/26/2025 COMP. METAB OLIC PANEL (14) eGFR 80 mL/mi n/1.7 3 >59 normal Not Available [facility] ([facility]) [address] [place], [address], 02/26/2025 18:07:01 02/26/20 25 02/26/2025 COMP. METAB OLIC PANEL (14) BUN/creatini ne ratio 23 10-24 normal Not Available [facility] ([facility]) [address] [facility] [place], [address], 02/26/2025 18:07:01 02/26/20 25 02/26/2025 COMP. METAB OLIC PANEL (14) sodium 141 mmol/ L 134-14 4 normal Not Available [facility] ([facility]) [address] [facility] [place], [address], 02/26/2025 18:07:01 02/26/20 25 02/26/2025 COMP. METAB OLIC PANEL (14) potassium 4.6 mmol/ L 3.5-5. 2 normal Not Available [facility] ([facility]) [address] [facility], [place], [address], 02/26/2025 18:07:01 02/26/20 25 02/26/2025 COMP. METAB OLIC PANEL (14) chloride 105 mmol/ L 96-106 normal Not Available [facility] ([facility]) [address] [facility] [place], [address], 02/26/2025 18:07:01 02/26/20 25 02/26/2025 COMP. METAB OLIC PANEL (14) carbon dioxide, total 21 mmol/ L 20-29 normal Not Available [facility] ([facility]) [address] [facility] [place], [address], 02/26/2025 18:07:01 02/26/20 25 02/26/2025 COMP. METAB OLIC PANEL (14) calcium 9.1 mg/dL 8.6-10 .2 normal Not Available [facility] ([facility]) [address] [facility] [place], [address], 02/26/2025 18:07:01 02/26/20 25 02/26/2025 COMP. METAB OLIC PANEL (14) protein, total 6.2 g/dL 6.0-8. 5 normal Not Available [facility] ([facility]) [address] [facility] [place], [address], 02/26/2025 18:07:01 02/26/20 25 02/26/2025 COMP. METAB OLIC PANEL (14) albumin 4.0 g/dL 3.8-4. 8 normal Not Available [facility] ([facility]) [address] [facility] [place], [address], 02/26/2025 18:07:01 02/26/20 25 02/26/2025 COMP. METAB OLIC PANEL (14) globulin, total 2.2 g/dL 1.5-4. 5 Not Available [facility] ([facility]) [address] [facility] [place], [address], 02/26/2025 18:07:01 02/26/20 25 02/26/2025 COMP. METAB OLIC PANEL (14) bilirubin, total 1.1 mg/dL 0.0-1. 2 normal Not Available [facility] ([facility]) [address] [facility] [place], [address], 02/26/2025 18:07:01 02/26/20 25 02/26/2025 COMP. METAB OLIC PANEL (14) alkaline phosphatase 120 IU/L 44-121 normal Not Available [facility] ([facility]) [address] [facility] [place], [address], 02/26/2025 18:07:01 02/26/20 25 02/26/2025 COMP. METAB OLIC PANEL (14) AST (SGOT) 25 IU/L 0-40 normal Not Available [facility] ([facility]) [address] [facility], [place], [address], 02/26/2025 18:07:01 02/26/20 25 02/26/2025 COMP. METAB OLIC PANEL (14) ALT (SGPT) 19 IU/L 0-44 normal Not Available [facility] ([facility]) [address] [place], [address], 02/26/2025 18:07:01 02/26/20 25 02/26/2025 LIPID PANEL cholesterol, total 111 mg/dL 100-19 9 normal Not Available [facility] ([facility]) [address] [place], [address], 02/26/2025 18:07:02 02/26/20 25 02/26/2025 LIPID PANEL triglyceride s 76 mg/dL 0-149 normal Not Available [facility] ([facility]) [address] [place], [address], 02/26/2025 18:07:02 02/26/20 25 02/26/2025 LIPID PANEL HDL cholesterol 53 mg/dL >39 normal Not Available [facility] ([facility]) [address] [place], [address], 02/26/2025 18:07:02 02/26/20 25 02/26/2025 LIPID PANEL VLDL cholesterol moshe 16 mg/dL 5-40 Not Available [facility] ([facility]) [address] [place], [address], 02/26/2025 18:07:02 02/26/20 25 02/26/2025 LIPID PANEL LDL chol calc ([facility]) 42 mg/dL 0-99 Not Available [facility] ([facility]) [address] [place], [address], 02/26/2025 18:07:02 02/26/20 25 02/26/2025 LIPID PANEL LDL calc comment: HEALTH MANAGEMENT CONSULTANT Not Available [facility] ([facility]) [address] [place], [address], 02/26/2025 18:07:02 02/26/20 25 02/26/2025 ALBUM IN/CR EAT RATIO , RANDO M UR creatinine, urine 104.5 mg/dL not estab. normal Not Available [facility] ([facility]) [address] [facility], [place], [address], 02/26/2025 18:07:02 02/26/20 25 02/26/2025 ALBUM IN/CR EAT RATIO , RANDO M UR albumin, urine 22.8 ug/mL not estab. Not Available [facility] ([facility]) [address] [facility], [place], [address], 02/26/2025 18:07:02 02/26/2002/26/2025 ALBUM IN/CR EAT RATIO , RANDO M UR alb/creat ratio 22 mg/g_ creat 0-29 Kanika l: 0 - 29 Moder ately incre ased: 30 - 300 Sever darío incre ased: >300 Not Available [facility] ([facility]) [address] [facility], [place], [address], 02/26/2025 18:07:02 02/26/20 25 02/25/2025 PSA TOTAL (REFL EX TO FREE) reflex criteria Commen t The perce nt free PSA is perfo rmed on a refle x basis only when the total PSA is betwe en 4.0 and 10.0 ng/mL . Not Available [facility] ([facility]) [address] [place], [address], 02/26/2025 18:07:03 02/26/2002/26/2025 PSA TOTAL (REFL EX TO FREE) prostate specific Ag 0.3 NG/mL 0.0-4. 0 normal Deepti ECLIA metho dolog y. Accor ding to the [employer]i can [employer] g[employer] iatio n, Serum PSA shoul d decre ase and remai n at undet ectab le level s after radic al prost atect [place]. The AUA defin es bioch emica l recur rence as an initi al PSA value 0.2 ng/mL or great er follo wed by a subse quent confi rmato ry PSA value 0.2 ng/mL or great er. Value s obtai blair with diffe rent assay metho ds or kits canno t be used inter simpson eably . Resul ts canno t be inter prete d as absol ivonne evide nce of the prese nce or absen ce of stephanie childs disea se. Not Available [facility] ([facility]) [address] [facility] [facility], [place], [address], 02/26/2025 18:07:03 02/26/20 25 02/26/2025 HEMOG LOBIN A1C hemoglobin A1C 6.0 % 4.8-5. 6 above high normal Predi abete s: 5.7 - 6.4 Diabe dena: >6.4 Glyce thelma contr ol for adult s with diabe dena: <7.0 Not Available [facility] ([facility]) [address] [facility], [place], [address], 02/26/2025 18:07:03 09/11/20 24 09/11/2024 XR, cervi moshe spine [...] at C5-C6. No acute findin gs. WSN: [id number] Orderi ng Physic fariha: Pedro Godinez Dictat ed By: Sofie Wagner MD Dictat ed Date/T zuri: 4:20 pm Review ed By: Sofie Wagner MD Signed By: Sofie Wagner MD Signed Date/T zuri: 4:20 pm Transc ribed By: LAVELL Transc ribed Date/T zuri: 4:16 pm Patien t Class: Outpat ient [facility] (Out[facility]) [address] [place], [address], 09/12/2024 09:39:16 Result Notes Documentation Provider Name and Address Organization Details Recorded Time Xr, Cervical Spine, 4 Or 5 View : Cervical Spine 4 or 5 Views Reason: cervicalgia neck pain for eight months; Clinical Question(s): lesion COMPARISON: None. FINDINGS: No bone lesions or fractures. Normal odontoid and C1/2 relationship. Alignment is normal. There is marked disc space narrowing with marginal osteophyte formation at C5-C6. There is moderate disc space narrowing at C6-C7 with minimal osteophyte formation. There is multilevel uncovertebral joint arthropathy as well as scattered facet hypertrophy. There is mild neural foraminal encroachment at C5-C6 and C6-C7 right C5-C6 left. Normal prevertebral soft tissues and clear lung apices. IMPRESSION: Multilevel cervical spondylosis, most advanced at C5-C6. No acute findings. WSN: [id number] Ordering Physician: Pedro Orellana Dictated By: Myles Braswell MD Dictated Date/Time: 09/11/24 4:20 pm Reviewed By: Myles Braswell MD Signed By: Myles Braswell MD Signed Date/Time: 09/11/24 4:20 pm Transcribed By: LAVELL Transcribed Date/Time: 09/11/24 4:16 pm Patient Class: Outpatient Pedro Orellana MD [address] [facility] [address] [facility], [place], [address], [facility] 09/11/2024 18:59:11 Problems Name Problem SNOMED Code Status Onset Date Resolution Date Notes Provider Name and Address Organization Details Recorded Time Au' s esophagu s 959377389 Active Last EGD by Dr Cl gonzalez 08/2017; now seeing Dr Chambers . 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 Completed 12/31/2016 Pedro Orellana MD [address] [address], [place], [address] , [facility] 7 13:18:50 Essentia l hyperten samina 73959782 Active Not Available [facility] 3 12:19:36 Nocturia 563436018 Active Not Available [facility] 3 12:19:36 Anemia 932938129 Active Pedro Orellana MD [address] [address], [place], [address] , [facility] 5 19:54:50 Sinusiti s 64842162 Active Not Available [facility] 3 12:19:36 Glaucoma 53800593 Active Open angle; on drops Not Available [facility] 3 12:19:36 Tinea corporis 03593218 Active Not Available [facility] 3 12:19:36 General examinat ion of patient Completed 200705/21/2014 RECORDED 02/13/20 08 1:57PM BY PEDRO CHEATHAM MD, ANNOTATI ON/ADDRE DUM Pedro Orellana MD [address], [place], [address] , [facility] 6 09:46:56 General examinat ion of patient Completed 200706/10/2014 RECORDED 02/13/20 08 1:57PM BY PEDRO CHEATHAM MD, ANNOTATI ON/ADDEN DUM Pedro Orellana MD [address] [address], [place], [address] , [facility] 6 09:46:56 Administ ration of bacteria l and viral vaccine Completed 200705/21/2014 RECORDED 08/14/20 08 4:17PM BY RICKEY GUTIERREZ, OFFICE VISIT Pedro Orellana MD [address] [address], [place], [address] , [facility] 6 09:46:56 Administ ration of bacteria l and viral vaccine Completed 200706/10/2014 RECORDED 08/14/20 08 4:17PM BY RICKEY GUTIERREZ, OFFICE VISIT Pedro Orellana MD [address] [address], [place], [address] , [facility] 6 09:46:56 Cough 99471746 Completed 201105/21/2014 RECORDED 07/24/20 12 9:12AM BY MARIO QUIROZ ON/HENRY Orellana MD [address], [place], [address] , [facility] 6 09:46:56 Essentia l hyperten samina 27668156 Completed 201105/21/2014 RECORDED 07/24/20 12 9:12AM BY MARIO QUIROZ ON/HENRY Orellana MD [address], [place], [address] , [facility] 6 09:46:56 Nocturia 468471212 Completed 201105/21/2014 RECORDED 07/24/20 12 9:11AM BY MARIO QUIROZ ON/HENRY Orellana MD [address] [address], [place], [address] , [facility] 6 09:46:56 Hemorrha ge of rectum and anus 973679527 Completed 201105/21/2014 RECORDED 07/24/20 12 9:11AM BY MARIO QUIROZ ON/HENRY Orellana MD [address], [place], [address] , [facility] 6 09:46:56 Influenz a vaccine needed [id number] 06 Completed 201105/21/2014 RECORDED 07/24/20 12 9:16AM BY SHELLI VALENZUELA I, OFFICE VISIT Pedro Orellana MD [address], [place], [address] , [facility] 6 09:46:56 Adult health examinat ion Completed 201105/21/2014 RECORDED 07/24/20 12 9:11AM BY MARIO QUIROZ ON/HENRY Orellana MD [address] [address], [place], [address] , [facility] 6 09:46:56 Dyspnea 522954506 Completed 201105/21/2014 RECORDED 07/24/20 12 9:11AM BY MARIO QUIROZ ON/HENRY Orellana MD [address], [place], [address] , [facility] 3 13:51:35 Screenin g for malignan t neoplasm of colon Completed 201105/21/2014 RECORDED 07/24/20 12 9:11AM BY MARIO QUIROZ ON/HENRY Orellana MD [address], [place], [address] , [facility] 6 09:46:56 Tinnitus 31611779 Completed 201105/21/2014 RECORDED 07/24/20 12 9:11AM BY MARIO QUIROZ ON/HENRY Orellana MD [address], [place], [address] , [facility] 6 09:46:56 Cough 11481484 Completed 201106/10/2014 RECORDED 07/24/20 12 9:12AM BY MARIO QUIROZ ON/HENRY Orellana MD [address], [place], [address] , [facility] 6 09:46:56 Essentia l hyperten samina 98428582 Completed 201106/10/2014 RECORDED 07/24/20 12 9:12AM BY MARIO QUIROZ ON/HENRY Orellana MD [address] [address], [place], [address] , [facility] 6 09:46:56 Nocturia 536676723 Completed 201106/10/2014 RECORDED 07/24/20 12 9:11AM BY MARIO QUIROZ ON/HENRY Orellana MD [address] [address], [place], [address] , [facility] 6 09:46:56 Hemorrha ge of rectum and anus 875005911 Completed 201106/10/2014 RECORDED 07/24/20 12 9:11AM BY MARIO QUIROZ ON/HENRY Orellana MD [address] [address], [place], [address] , [facility] 6 09:46:56 Influenz a vaccine needed [id number] 06 Completed 201106/10/2014 RECORDED 07/24/20 12 9:16AM BY SHELLI VALENZUELA I, OFFICE VISIT Pedro Orellana MD [address], [place], [address] , [facility] 6 09:46:56 Dyspnea 832422352 Completed 201106/10/2014 RECORDED 07/24/20 12 9:11AM BY MARIO QUIROZ/HENRY Orellana MD [address], [place], [address] , [facility] 3 13:51:35 Screenin g for malignan t neoplasm of colon Completed 201106/10/2014 RECORDED 07/24/20 12 9:11AM BY MARIO QUIROZ/HENRY Orellana MD [address], [place], [address] , [facility] 6 09:46:56 Tinnitus 58825008 Completed 201106/10/2014 RECORDED 07/24/20 12 9:11AM BY MARIO QUIROZ/HENRY Orellana MD [address] [facility] [address], [place], [address] , [facility] 6 09:46:56 Acute sinusiti s 53909396 Completed 201205/21/2014 RECORDED 01/23/20 13 8:43AM BY MARIO QUIROZ/HENRY Orellana MD [address], [place], [address] , [facility] 6 09:46:56 Renewal of prescrip tion Completed 201205/21/2014 RECORDED 01/23/20 13 8:43AM BY MARIO QUIROZ/HENRY Orellana MD [address] [facility] [address], [place], [address] , [facility] 6 09:46:56 Active or passive immuniza tion Completed 201205/21/2014 RECORDED 01/23/20 13 9:29AM BY PEDRO CHEATHAM MD, OFFICE VISIT Pedro Orellana MD [address], [place], [address] , [facility] 6 09:46:56 Acute sinusiti s 54370683 Completed 201206/10/2014 RECORDED 01/23/20 13 8:43AM BY MARIO QUIROZ ON/ADDEN ALMAZ Orellana MD [address], [place], [address] , [facility] 6 09:46:56 Renewal of prescrip tion Completed 201206/10/2014 RECORDED 01/23/20 13 8:43AM BY MARIO QUIROZ ON/ADDRE Orellana MD [address], [place], [address] , [facility] 6 09:46:56 Active or passive immuniza tion Completed 201206/10/2014 RECORDED 01/23/20 13 9:29AM BY PEDRO CHEATHAM MD, OFFICE VISIT Pedro Orellana MD [address], [place], [address] , [facility] 6 09:46:56 Tobacco user [id number] Completed 201205/21/2014 RECORDED 07/31/20 13 6:59AM BY MARIO QUIROZ ON/ADDEN ALMAZ Orellana MD [address], [place], [address] , [facility] 6 09:46:56 History of clinical finding in subject 893237919 Completed 201208/08/2014 RECORDED 07/31/20 13 6:59AM BY MARIO QUIROZ ON/HENRY Orellana MD [address], [place], [address] , [facility] 6 09:46:56 Tobacco user [id number] Completed 201206/10/2014 RECORDED 07/31/20 13 6:59AM BY MARIO QUIROZ ON/HENRY Orellana MD [address], [place], [address] , [facility] 6 09:46:56 Immuniza tion refused Completed 201305/21/2014 IMPRESSI ON: HE WILL BE GETTING IT AT WORK.; RECORDED 02/06/20 14 6:57AM BY MARIO QUIROZ ON/HENRY Orellana MD [address], [place], [address] , [facility] 6 09:46:56 Adult health examinat ion Completed 201308/08/2014 RECORDED 02/06/20 14 9:25AM BY SHELLI VALENZUELA I, OFFICE VISIT Pedro Orellana MD [address], [place], [address] , [facility] 6 09:46:56 Immuniza tion refused Completed 201306/10/2014 IMPRESSI ON: HE WILL BE GETTING IT AT WORK.; RECORDED 02/06/20 14 6:57AM BY MARIO QUIROZ ON/HENRY Orellana MD [address], [place], [address] , [facility] 6 09:46:56 Gastroes ophageal reflux disease 334208425 Active 2016 Not Available [facility] 3 12:19:36 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 Followed by Dr Diop Not Available [facility] 3 12:19:36 Hyperlip idemia 16878167 Active 2017 Pedro Orellana MD [address], [place], [address] , [facility] 4 10:29:12 Hydronep hrosis 64525064 Active 2017 Left; seen by urology; secondar y to left ureteral stone. Not Available [facility] 3 12:19:36 Glaucoma 92733385 Active 2020 Using drops Pedro Orellana MD [address], [place], [address] , [facility] 4 10:30:13 Obstruct gisela sleep apnea syndrome 29340811 Active 2021 Not Available [facility] 3 12:19:36 Atrial flutter 2064640 Active 2022 Followed by cardiolo gy On eliquis. Pedro Orellana MD [address], [place], [address] , [facility] 4 10:29:04 Coronary arterios clerosis 50725626 Active 2022 He had a cath done showing 50% stenosis in LAD, 50% in diagonal . RCA and left circumfl ex both <50%. Treated medicall y. Pedro Orellana MD [address], [place], [address] , [facility] 4 10:29:59 Dyspnea 590467928 Active 2022 Cardiac cath done; no stentabl e lesions. PFT's were normal. 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 Followed by HALIE Orellana MD [address], [place], [address] , [facility] 5 11:01:05 Problem Notes None recorded. Procedures Surgical History Date Name Laterality Status Provider Name and Address Organization Details Recorded Time 09/11 Advanced Care Planning completed Deisy Miller LPN [facility] 4 09:52:54 01/30 diabetic retinopathy screening completed Lupe Rojas [facility] 4 08:08:18 09/06 Advanced Care Planning completed Pedro Orellana MD [address] [facility] [address], [place], [address] , [facility] 3 11:06:49 09/06 Diabetic Foot Exam (Monofilament) completed Pedro Orellana MD [address], [place], [address] , [facility] 3 11:06:12 08/24 Eye Surgery completed Rebeca Murphy MA [facility] 3 10:25:24 06/22 cardiac catheterization completed Lupe Rojas [facility] 3 12:43:19 10/31 Cataract Surgery completed Nikky Castellanos MA [facility] 2 09:38:30 10/07 Colonoscopy completed Amarilis Batres [facility] 0 14:10:13 10/07 esophagogastroduodenoscopy completed Kolton Batres [facility] 0 14:53:18 05/05 Six-Item Cognitive Test completed Shelli Hay [facility] 0 09:15:00 04/17 Mini-Cog Test completed Shelli Hay [facility] 9 09:23:00 04/17 Mini-Cog Test completed Shelli Hay [facility] 8 09:59:57 09/09 Endoscopic us exam esoph completed Elsa Chin [facility] 7 14:41:11 08/29 Upper GI Endoscopy completed Rosalina Cutler [facility] 7 16:38:21 04/13 Fall Risk Assessment completed Shelli Hay [facility] 7 13:02:11 04/13 Mini-Cog Test completed Shelli Hay [facility] 7 13:02:20 02/06 Fall Risk Assessment completed [facility] 5 10:14:42 02/06 Mini-Cog Test completed [facility] 5 10:14:42 Circumcision completed [facility] 5 10:06:30 Cholecystectomy completed Pedro Orellana MD [address] [facility] [address], [place], [address] , [facility] 4 11:26:44 Tonsillectomy completed Nikky Castellanos MA [facility] 2 09:38:30 release of trigger finger completed Fernie kaiser MA [facility] 3 09:39:09 Imaging Results None recorded. Procedure Notes None recorded. Medical Equipment None Reported. Allergies Allergen ID Allergen Name Allergen Category Reaction Reaction Severity Criticality Documentation Date Start Date Code Code System Note Provider Name and Address Organization Details Recorded Time 79492 Demerol medicatio n nausea severe Not available 05/14/2014 45358 1 RxNorm Not Available [facility] 3 12:19:38 61063 No known allergy (situatio n) Not available Not available Not available Not available 05/14/20142011 07529 6003 SNOMED COMME NT: RECOR DED 07/24 9:12A M BY SHELLI LEÓN, KATELYN E VISIT ; Lidna mercado [place] - [facility] 5 10:05:59 Medications Name Sig Start Date Stop Date Status Note LastModified by Organization Details LastModified Time amoxicill in 500 mg capsule TAKE 1 CAPSULE BY MOUTH FOUR TIMES A DAY UNTIL GONE 02/25 completed Not Available Not Available Not Available latanopro [...] DAY BY ORAL ROUTE FOR 90 DAYS. active Not Available Not Available No t Available ketoconaz ole 2 % shampoo PLEASE SEE ATTACHED FOR DETAILED DIRECTIO NS active Not Available Not Available No t Available enalapril maleate 5 mg tablet TAKE 1 TABLET BY MOUTH DAILY 02/25 completed Not Available Not Available Not Available atorvasta tin 10 mg tablet DAILY 2008 active RECORDED 01/09/20 10 9:40AM BY FERNIE MCBRIDE MA, OFFICE VISIT; Not Available Not Available Not Available ibuprofen 800 mg tablet TAKE 1 TABLET BY MOUTH EVERY 8 HOURS NEEDED FOR PAIN active Not Available Not Available No t Available ofloxacin 0.3 % eye drops DROP [...] oxycodone -acetamin ophen 5 mg-325 mg tablet TAKE 1 TABLET EVERY 4-6 HOURS NEEDED FOR PAIN 02/25 completed Not Available Not Available Not Available codeine 10 mg-guaife nesin 200 mg/5 mL oral liquid Take 10 mL every 4 hours by oral route as needed for 7 days. 12/15 completed Not Available Not Available Not Available [...] MOUTH DAILY FOR 90 DAYS, FOR BPH. 2024 active Not Available Not Available Not Avai lable betametha sone, augmented 0.05 % topical ointment [...] completed Not Available Not Available Not Available lorazepam 1 mg tablet TAKE 2 TABLETS BY MOUTH 1 AND 1/4 HOURS BEFORE APPOINTM ENT active Not Available Not Available No t Available oxycodone -acetamin ophen 7.5 mg-325 mg tablet 10/17 completed Not Available Not Available Not Available timolol maleate 0.5 % eye drops INSTILL 1 DROP INTO BOTH EYES EVERY MORNING active Not Available Not Available No t Available fluticaso ne propionat e 50 mcg/actua tion nasal spray,shalom pension [place] 2 sprays every day by nasal route [...] TAKE 1 TABLET BY MOUTH EVERY DAY 2024 active Not Available Not Available Not Avai lable amoxicill in 875 mg-potass ium clavulana te [...] Available Not Available Not Available Fluzone High-Dose 3807-9599 (PF) 180 mcg/0.5 mL intramusc ular syringe 10/17 completed Not Available Not Available Not Available Fluzone High-Dose Quad (PF) 240 mcg/0.7 mL IM syringe PHARMACY ADMINIST ERED 11/11 completed Not Available Not Available Not Available Vitals Date Recorded Body height Body mass index (BMI) Body weight Heart rate Oxygen saturation Oxygen saturation in Arterial blood by Pulse oximetry Body temperature Systolic And Diastolic Provider Name and Address Organization Details Last Updated DateTime 5 173.99 cm 32.5 kg/m2 20548.5 4 g 64 /min 99 % 99 % 98 [degF] 108/65 mm[Hg] Vinayak cassidy MA [facility] 5 14:51:04 Date Recorded Body height Body mass index (BMI) Body weight Heart rate Oxygen saturation Oxygen saturation in Arterial blood by Pulse oximetry Body temperature Systolic And Diastolic Provider Name and Address Organization Details Last Updated DateTime 4 173.99 cm 34.3 kg/m2 566718. 65 g 53 /min 96 % 96 % 98 [degF] 118/71 mm[Hg] Rebeca Murphy MA [facility] 4 09:22:04 Date Recorded Body height Body mass index (BMI) Body weight Heart rate Oxygen saturation Oxygen saturation in Arterial blood by Pulse oximetry Body temperature Systolic And Diastolic Provider Name and Address Organization Details Last Updated DateTime 4 173.99 cm 34.2 kg/m2 323726. 06 g 63 /min 96 % 96 % 98.3 [degF] 115/74 mm[Hg] Rebeca Murphy MA [facility] 4 14:04:03 Date Recorded Body height Body mass index (BMI) Body weight Heart rate Oxygen saturation Oxygen saturation in Arterial blood by Pulse oximetry Body temperature Systolic And Diastolic Provider Name and Address Organization Details Last Updated DateTime 3 173.99 cm 32.8 kg/m2 81710.7 3 g 73 /min 100 % 100 % 97.7 [degF] 133/83 mm[Hg] Rebeca Murphy MA [facility] 3 10:23:04 Date Recorded Body height Body mass index (BMI) Body weight Heart rate Oxygen saturation Oxygen saturation in Arterial blood by Pulse oximetry Body temperature Systolic And Diastolic Provider Name and Address Organization Details Last Updated DateTime 4 173.99 cm 32.7 kg/m2 94682.1 4 g 52 /min 99 % 99 % 98 [degF] 132/77 mm[Hg] Deisy Miller LPN [facility] 4 09:57:42 Social History Question Answer Notes LastModified by Organizat ion Details LastModified Time Tobacco Smoking Status Former Smoker 1 ppd for about 10 years; quit 50 years ago Not Available [facility] 09/02/2020 03:36:38 Do You Have An Advance Directive? Yes Information not available 05/31/2022 Animal Exposure? Yes Informat ion not available 05/31/2022 Is Blood Transfusion Acceptable In An Emergency? Yes [id number] Information not available 09/02/2020 What Is Your Level Of Caffeine Consumption? Moderate 2 Cups Coffee Daily Information not available 05/31/2022 How Much Tobacco Do You Chew? None [id number] Information not available 09/02/2020 What Type Of Diet Are You Following? REGULAR [id number] Information not available 09/02/2020 Which Illicit Or Recreational Drugs Have You Used? None [id number] Information not available 09/02/2020 Education 12 Information no t available 05/31/2022 Have There Been Any Changes To Your Family Or Social Situation? No Information not available 05/31/2022 When Did You Quit Smoking? 16+yearssinc elastcigaret te [email or web address] Information not available 05/12/2021 Are There Any Guns Present In Your Home? No Information not available 05/31/2022 Legally Blind In One Or Both Eyes? No Information not available 05/31/2022 Live Alone Or With Others? With Others (Tiffany) Information not available 05/31/2022 Do You Take Precautions To Prevent Distracted Driving? Yes Information not available 02/10/2016 How Often Do You Need To Have Someone Help You When You Read Instructions, Pamphlets, Or Other Written Material From Your Doctor Or Pharmacy? Never Information not available 02/10/2016 Have You Served In The ? Yes Information not available 04/13/2017 Have You Or Anyone In Your Household Had Any Of The Following Symptoms In The Last 14 Days: Sore Throat, Cough, Chills, Body Aches For Unknown Reasons, Shortness Of Breath For Unknown Reasons, Loss Of Smell, Loss Of Taste, Fever At Or Greater Than 100 Degrees Fahrenheit? No Information not available 11/11/2020 Are You Or Anyone In Your Household A Health Care Provider Or Emergency Responder? No [email or web address] Information not available 11/11/2020 To The Best Of Your Knowledge Have You Been In Close Proximity To Any Individual Who Tested Positive For COVID-19? No [email or web address] Information not available 11/11/2020 Have You Recently Traveled To A COVID-19 High Risk Area Or Gathering In The Last 10 Days? No Information not available 11/11/2020 Marital Status Informatio [...] 05/31/2022 What Is Your Current Pack Years? [id number] rs Information not available 12/29/2022 Difficulty Reading? No Information not available 05/31/2022 What Is Your Relationship Status? Information not available 05/31/2022 Do You Use Your Seat Belt Or Car Seat Routinely? Yes Information not available 05/31/2022 Seat Belts Used Routinely No Information not available 05/31/2022 Are You Sexually Active? No [id number] Information not available 09/02/2020 Smoke Alarm In Home Yes Information not available 05/31/2022 Do You Have Smoke And Carbon Monoxide Detectors In Your Home? Yes Information not available 05/31/2022 At What Age Did You Start Smoking Tobacco? 20 Quit At 30 Information not available 12/29/2022 Are You Passively Exposed To Smoke? No [email or web address] Information not available 05/12/2021 How Much Tobacco Do You Smoke? 1 PPD Information not available 12/29/2022 What Types Of Sporting Activities Do You Participate In? Golf Information not available 05/31/2022 Do You Use Sunscreen Routinely? No [id number] Information not available 09/02/2020 How Many Years Have You Smoked Tobacco? 10 Information not available 05/31/2022 Do You Have Difficulty Walking Or Climbing Stairs? No Information not available 05/31/2022 Sex: Unknown Functional Status Question Answer Note LastModified by Organizat ion Details LastModified Time Do you use any illicit or recreational drugs? No Information not available 05/31/2022 Do you or have you ever used any other forms of tobacco or nicotine? No Information not available 05/31/2022 What is your level of alcohol consumption? Occasional Information not available 05/31/2022 Do you or have you ever used smokeless tobacco? Never used smokeless tobacco [id number] Information not available 09/02/2020 Are you currently employed? No retired [email or web address] Information not available 12/29/2022 Difficulty driving at night? No Information no t available 05/31/2022 Are you able to walk independently without assistance or assistive devices? YESWOREST Information not available 05/31/2022 Are you able to care for yourself independently? 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 No Information not available 05/31/2022 Do you or have you ever used e-cigarettes or vape? Never used electronic cigarettes Information not available 05/31/2022 What is your [...] Not available 02/09 09:26:14 Mother Sleep disorder [email or web address] Not available 05/12 09:55:40 Mother Atrial fibrillation [...] high-dose, trivalent, PF 8 completed Lupe mercado [facility] 08/19/2023 12:42:50 Influenza, adjuvanted, trivalent, PF 9 completed Lupe mercado [facility] 08/19/2023 12:42:50 Influenza, high-dose, quadrivalent, PF 0 completed Lupe mercado [facility] 08/19/2023 12:42:50 COVID-19, mRNA, LNP-S, PF, 30 mcg/0.3 mL dose 1 completed Lupe mercado [facility] 08/19/2023 12:42:50 COVID-19, mRNA, LNP-S, PF, 30 mcg/0.3 mL dose 04/03/202 1 completed Lupe Gainesnett null, [facility] 08/19/2023 12:42:50 COVID-19, mRNA, LNP-S, PF, 30 mcg/0.3 mL dose 1 completed Lupe Gainesnett null, [facility] 08/19/2023 12:42:50 Influenza, adjuvanted, quadrivalent, PF 1 completed Lupe Rojas null, [facility] 08/19/2023 12:42:50 Tdap 8 completed Lupe Rojas null, [facility] 08/19/2023 12:42:50 Pneumococcal conjugate PCV 13 5 completed Not Available [facility] 11/17/2019 02:21:36 Influenza, split virus, quadrivalent, PF 5 completed Not Available [facility] 11/17/2019 02:22:01 COVID-19, mRNA, LNP-S, bivalent, PF, 30 mcg/0.3 mL dose 2 completed Lupe Rojas null, [facility] 08/19/2023 12:42:50 Influenza, high-dose, quadrivalent, PF 2 completed Lupe Rojas null, [facility] 08/19/2023 12:42:50 Influenza, adjuvanted, quadrivalent, PF 3 completed Deisy Miller OUTPATIENT SERVICES DIRECTOR null, [facility] 09/11/2024 09:57:55 COVID-19, mRNA, LNP-S, PF, 50 mcg/0.5 mL 3 completed Lupe Rojas null, [facility] 08/19/2023 12:42:50 COVID-19, mRNA, LNP-S, PF, 50 mcg/0.5 mL 4 completed Lupe Rojas null, [facility] 09/03/2024 13:43:20 Influenza, high-dose, trivalent, PF 4 completed Lupe Rojas null, [facility] 09/03/2024 13:43:20 Influenza, high-dose, trivalent, PF 6 completed Not Available [facility] 11/17/2019 02:22:03 Influenza, high-dose, trivalent, PF 7 completed Not Available [facility] 11/17/2019 02:22:21 Influenza, split virus, trivalent, PF 4 completed Not Available [facility] 11/17/2019 02:21:57 Td (adult), 2 Lf tetanus toxoid, preservative free, adsorbed 8 completed Not Available [facility] 11/17/2019 02:21:30 Tdap 8 completed Lupe mercado [facility] 08/19/2023 12:42:50 pneumococcal polysaccharide PPV23 3 completed Lupe mercado [facility] 08/19/2023 12:42:50 Past Encounters Encounter ID Performer Location Encounter Start Date Encounter Closed Date Diagnosis/Indication Diagnosis SNOMED-CT Code Diagnosis ICD10 Code Diagnosis IMO Codes Diagnosis Note [id number] [facility]ce [address] [facility] [place] [address] 01/19/2007 00:00:00 [id number] auto[facility]Comm erce [address] [facility] [place] [address] 01/19/2007 00:00:00 [id number] auto[employer]Comm erce [address] [facility] [place] [address] 02/13/2008 00:00:00 [id number] auto[employer]Comm erce [address] [facility] [place] [address] 02/13/2008 00:00:00 [id number] auto[employer]Comm erce [address] [facility] [place] [address] 02/13/2008 00:00:00 [id number] auto[employer] erce [address] [facility] [place] [address] 08/14/2008 00:00:[address] [id number] [address]ce [address] [place] [address] 05/13/2009 00:00:00 [id number] auto[employer] erce [address] [place] [address] 05/13/2009 00:00:00 [id number] [address] erce [address] [place] [address] 05/13/2009 00:00:00 [id number] auto[employer] erce [address] [place] [address] 11/25/2009 00:00:00 [id number] auto[employer] erce [address] [place] [address] 11/25/2009 00:00:00 [id number] autoEComm erce [address] [facility] [address] [place] [address] 11/25/2009 00:00:00 [id number] autoEComm erce [address] [facility] [address] [place] [address] 11/25/2009 00:00:00 [id number] auto[employer] erce [address] [facility] [address] [place] [address] 01/08/2010 00:00:00 [id number] auto[employer] erce [address] [facility] [address] [place] [address] 01/08/2010 00:00:00 [id number] auto[employer]Comm erce [address] [place] [address] 01/08/2010 00:00:00 [id number] auto[employer] erce [address] [place] [address] 01/08/2010 00:00:00 [id number] autoEComm erce [address] [facility] [address] [place] [address] 07/16/2010 00:00:00 [id number] autoEComm erce [address] [place] [address] 07/16/2010 00:00:00 [id number] autoEComm erce [address] [place] [address] 07/16/2010 00:00:00 [id number] autoEComm erce [address] [place] [address] 07/16/2010 00:00:00 [id number] autoEComm erce [address] [facility] [facility] [address] [place] [address] 01/18/2011 00:00:00 [id number] autoEComm erce [address] [facility] [address] [place] [address] 01/18/2011 00:00:00 [id number] autoEComm erce [address] [facility] [place] [address] 01/18/2011 00:00:00 [id number] autoEComm erce [address] [facility] [facility] [address] [place] [address] 01/18/2011 00:00:00 [id number] autoEComm erce [address] [facility] [place] [address] 02/10/2011 00:00:00 [id number] autoEComm erce [address] [facility] [place] [address] 02/10/2011 00:00:00 [id number] autoEComm erce [address] [facility] [facility] [address] [place] [address] 02/10/2011 00:00:00 [id number] autoEComm erce [address] [facility] [facility] [address] [place] [address] 08/11/2011 00:00:00 [id number] autoEComm erce [address] [facility] [facility] [address] [place] [address] 01/26/2012 00:00:00 [id number] autoEComm erce [address] [facility] [place] [address] 01/26/2012 00:00:00 [id number] autoEComm erce [address] [place] [address] 01/26/2012 00:00:00 [id number] autoEComm erce [address] [place] [address] 01/26/2012 00:00:00 [id number] autoEComm erce [address] [place] [address] 07/24/2012 00:00:00 [id number] autoEComm erce [address] [place] [address] 07/24/2012 00:00:00 [id number] autoEComm erce [address] [facility] [facility] [address] [place] [address] 2013 00:00:00 [id number] autoEComm erce [address] [facility] [place] [address] 2013 00:00:00 [id number] autoEComm erce [address] [facility] [place] [address] 07/31/2013 00:00:00 [id number] autoEComm erce [address] [facility] [place] [address] 07/31/2013 00:00:00 [id number] autoEComm erce [address] [facility] [place] [address] 02/05/2014 00:00:00 [id number] autoEComm erce [address] [place] [address] 02/05/2014 00:00:00 [id number] autoEComm erce [address] [facility] [facility] [address] [place] [address] 02/05/2014 00:00:00 [id number] autoEComm erce [address] [facility] [place] [address] 02/05/2014 00:00:00 [id number] Pedro Orellana MD Main Office [address] [address] [place] [address] 08/08/2014 10:22:43 08/08/2014 11:26:35 Needs influenza immunization 774317641 Essential hypertension 11357746 Pure hypercholesterolemia 966967999 Au's esophagus 047756655 followed by Dr Molina; due for an EGD next year. [id number] Pedro Orellana MD Main Office [address] [address] [place] [address] 01/21/2015 12:42:34 01/21/2015 14:16:20 Sinusitis 85041560 [id number] Pedro Orellana MD Main Office [address] [address] [place] [address] 02/06/2015 09:53:17 02/06/2015 10:59:08 Adult health examination 689768796 Anemia 240462791 Essential hypertension 75356284 Pure hypercholesterolemia 368514962 Varicella vaccination 23318149 [id number] Pedro Orellana MD Main Office [address] [address] [place] [address] 08/12/2015 08:49:42 08/12/2015 09:45:21 Essential hypertension 07623167 I10 Anemia 957755556 D64.9 Administra tion of pneumococcal vaccine 88991481 Z23 Au's esophagus 3029 [address] Molina and had EGD in April. [id number] Pedro Orellana MD Main Office [address] [address] [place] [address] 08/21/2015 09:00:11 08/21/2015 09:07:10 Needs influenza immunization 779442880 Z23 [id number] Pedro Orellana MD Main Office [address] [address] [place] [address] 02/10/2016 09:01:34 02/10/2016 10:19:13 Adult health examination 163115578 Z00.00 Varicella vaccination 68 250016 Z23 Essential hypertension 95918712 I10 good control; continue current mgmt Pure hypercholesterolemia 337089573 E78.0 good control [id number] Pedro Orellana MD Main Office [address] [address] [place] [address] 08/11/2016 09:30:37 08/11/2016 10:40:04 Essential hypertension 55304321 I10 Influenza vaccine needed 9434236558 106 Z23 Body mass index 30+ - obesity 763148791 E66.01 Dyspnea on exertion 6084 5006 R06.09 Varicella vaccination 68 059851 Z23 [id number] Pedro Orellana MD Main Office [address] [address] [place] [address] 01/10/2017 10:41:07 01/10/2017 11:08:38 Herpes zoster 1942628 B02.9 Will treat with antiviral and he was instructed to call here if pain becomes a problem and we will start neurontin. [id number] Pedro Orellana MD Main Office [address] [address] [place] [address] 04/13/2017 12:41:23 04/13/2017 13:39:47 Adult health examination 482981920 Z00.00 Has had pneumonia shots and tetanus but not UTD with shingles. He had a bout of shingles a few years ago and is not sure if his insurance will cover the shot. Anemia 925863061 D64.9 Varicella vaccination 68 606312 Z23 Screening for malignant neoplasm of colon 098800482 Z12.11 He is due for a 5-year f/u this year. Last done by Dr Molina Essential hypertension 70211366 I10 Good control; continue current mgmt. [id number] Pedro Orellana MD Main Office [address] [address] [place] [address] 10/12/2017 08:56:06 10/12/2017 09:51:28 Essential hypertension 22670545 I10 Good control; continue current mgmt. Influenza vaccine needed 1961108656 106 Z23 Tinea corporis 58014966 B35.4 Obesity 508735052 E66.9 Body mass index 30+ - obesity 728790290 Z68.34 Gastroesop hageal reflux disease 250606848 K21.9 Cough 45773976 R05 [id number] Pedro Orellana MD Main Office [address] [address] [place] [address] 02/02/2018 15:12:25 02/02/2018 16:15:04 Tick bite 06829137 S00.96XA He will call if he develops a bulls eye rash. Skin lesion 70528520 L98 .9 [id number] Pedro Orellana MD Main Office [address] [place] [address] 04/17/2018 09:16:16 04/17/2018 10:31:32 Adult health examination 305371887 Z00.00 Has had pneumonia shots and tetanus but not UTD with shingles. He had a bout of shingles a few years ago and is not sure if his insurance will cover the shot. He is due for a colonoscop y in 2021. Gastroesop hageal reflux disease 077954261 K21.9 Essential hypertension 12486810 I10 Good control; continue current mgmt. Hyperlipidemia 41150083 E78.5 Au's esophagus 3029 [address] Davis. Due for an EGD in 2018. [id number] Pedro Orellana MD Main Office [address] [address] 05/16/2018 15:55:09 05/16/2018 16:53:06 Flank pain 187626582 R10.9 [id number] Pedro Orellana MD Main Office [address] [address] 10/17/2018 08:46:15 10/17/2018 09:35:33 Essential hypertension 28993469 I10 Good control; continue current mgmt. Requires a tetanus booster 915961980 Z23 [id number] Pedro Orellana MD Main Office [address] [place] [address] 04/17/2019 09:13:14 04/17/2019 10:32:38 Adult health examination 991964496 Z00.00 Has had pneumonia shots and tetanus but not UTD with shingles. He had a bout of shingles a few years ago and his insurance will not cover the shot. He is due for a colonoscop y in 2021. Hyperlipidemia 02817212 E78.5 Glaucoma 81059111 H40.9 on drops and followed by marietta Ua's esophagus 30[address] Davis. Due for an EGD in 2019. Anemia 286090945 D64.9 Essential hypertension 08927286 I10 Good control; continue current mgmt. [id number] Pedro Orellana MD Main Office [address] [facility] [address] [place] [address] 10/17/2019 08:48:22 10/17/2019 10:06:27 Essential hypertension 76336463 I10 Good control; continue current mgmt. Au's esophagus 3029 [address] Davis. Due for an EGD in 2019. Glaucoma 64373214 H40.9 on drops and followed by ophtho Hyperlipidemia 46176175 E78.5 [id number] Pedro Orellana MD [facility] [address] [facility] [address] [place] [address] 05/05/2020 08:08:13 05/05/2020 10:53:36 Adult health examination 994124768 Z00.00 Has had pneumonia shots and tetanus but not UTD with shingles. He had a bout of shingles a few years ago and his insurance will not cover the shot. He is due for a colonoscop y in 2021. Au's esophagus 3029 42608 K22.70 Last EGD was 2016. Dr Chambers will do the next one the end of this year. Essential hypertension 57036220 I10 Good control; continue current mgmt. Binocular diplopia 54654 5008 H53.2 Wears special glasses which have resolved this. Hyperlipidemia 58811508 E78.5 On meds and at goal. Snoring 76097619 R06.83 Not interested in a sleep study at this time. [id number] Mouna bartholomew MD [facility] [address] [facility] [address] [place] [address] 07/11/2020 12:59:20 07/11/2020 15:10:32 Diarrhea 25436620 R19.7 MARLENE diet, clear fluids, advance to [...] and labs normal would refer to GI. [id number] Pedro Orellana MD Main Office [address] [address] [place] [address] 11/11/2020 08:54:59 11/11/2020 10:43:21 Essential hypertension 48098168 I10 Good control; continue current mgmt. Raynaud's phenomenon 266 532614 I73.00 Skin lesion 38532536 L98 .9 We discussed a derm referral for a full body check but he declined. Pain of le ft shoulder joint 3970016562 1080528 M25.512 He will do exercises at home and take pain meds prn. He will call for a referral if this persists or gets worse. Right now he is not interested in injection or PT. Increased frequency of urination 385406501 R35.0 Intermitte nt claudication 32580553 I73.9 Type 2 meche betes mellitus without complication 585857161 E11.9 We discussed starting meds but he would like to try lifestyle changes first. This is a new dx. He will f/u in 6 months. [id number] Pedro Orellana MD Main Office [address] [address] [place] [address] 05/12/2021 09:48:15 05/12/2021 10:48:36 Adult health examination 752977177 Z00.00 Has had pneumonia shots and tetanus but not UTD with shingles. He had a bout of shingles a few years ago and his insurance will not cover the shot. He is due for a colonoscop y in 2021. He is UTD with COVID vaccine. Benign pro static hyperplasia with outflow obstruction 106771629 N40.1 Having incontinen ce. Will start med and see him back in a few months. Essential hypertension 06823545 I10 Good control; continue current mgmt. Gastroesop hageal reflux disease 214014168 K21.9 Hyperlipidemia 69477497 E78.5 On meds and at goal. Hyperglycemia 34257676 R 73.9 Parents with dm2. [id number] Pedro Orellana MD Main Office [address] [place] [address] 08/13/2021 10:22:50 08/13/2021 11:06:39 Essential hypertension 51964646 I10 Good control; continue current mgmt. Gastroesop hageal reflux disease 061796194 K21.9 [id number] Pedro Orellana MD Main Office [address] [address] [place] [address] 10/08/2021 12:38:32 10/08/2021 13:45:22 Pre-surgery evaluation 246824287 Z01.818 Low cardiac risk for cataract surgery, no labs or EKG requested, should proceed as scheduled. Bilateral cataracts 9572 2003 H26.9 Having one surgery right 10/14 and the other on left 11/11. Essential hypertension 06183294 I10 BP well controlled , continue as directed. Glaucoma 77760592 H40.9 Au's esophagus 3029 52156 K22.70 [id number] Pedro Orellana MD Main Office [address] [address] [place] [address] 05/31/2022 09:24:33 05/31/2022 10:41:46 Adult health examination 926492949 Z00.00 Has had pneumonia shots and tetanus but not UTD with shingles. He had a bout of shingles a few years ago and his insurance will not cover the shot. He had his last colonoscop y September 2020 and does not want another one. He is UTD with COVID vaccine and boosted x1. Intermitte nt claudication 88776126 I73.9 This has improved some. Type 2 meche betes mellitus without complication 440346416 E11.9 His A1C went from 6.7 to 6.1 last year. He has never been on meds. Thoracic back pain 50650 8004 M54.6 possibly muscular; will get an xray to r/o compressio n fracture. Hereditary essential tremor 161789505 G25.0 This appears to be benign. Dyspnea on exertion 6084 5006 R06.09 Has not been as active because of back pain and probably due to deconditio candy. Daytime somnolence 46441 52508 00 R40.0 Some snoring at night as well. Hyperlipidemia 23955105 E78.5 On meds and at goal. [id number] Pedro Orellana MD [facility] [address] [address] [place] [address] 09/02/2022 11:04:52 09/06/2022 11:22:23 COVID-19 355035504 U07.1 He is past the window for taking paxlovid. Advised him to continue resting and to not try to do too much when he is feeling better in order to avoid a relapse. Cough 23349813 R05.9 Secondary to PND. Nasal discharge 85455535 J00 Advised an OTC decongesta nt. [id number] Pedro Orellana MD Main Office [address] [address] [place] [address] 12/15/2022 09:09:14 12/15/2022 09:51:22 Essential hypertension 62035116 I10 Good control; continue current mgmt. Hyperlipidemia 81626684 E78.5 On meds and at goal. Hyperglycemia 45627836 R 73.9 Both parents w/diabetes . Anemia 866615353 D64.9 Tachycardia 5457826 R00. 0 He gets episodes monthly with dizziness that may last for about an hour. Denies CP or SOB. Will refer to cardiology for further evaluation . May need a 30-day recorder to r/o an arrhythmia . Type 2 meche betes mellitus without complication 690085666 E11.9 His A1C went from 6.2 to 7.4. He will make a concerted effort to bring this down with lifestyle changes and will f/u in 3 months. [id number] Pedro Orellana MD Main Office [address] [address] [place] [address] 12/21/2022 08:30:25 12/29/2022 07:13:37 [id number] Maira gomez NP [address] Office [address] [place] [address] 12/29/2022 09:20:56 12/29/2022 10:15:02 Atrial flutter 1337007 I48.92 See intake, converted to NSR, on multaq and eliquis, to followup with cardiology , has appt, stable at thsi time. Essential hypertension 71910392 I10 BP is controlled on present regimen, continue all meds at current dosages. Continue with low salt diet, exercise Type 2 meche betes mellitus 05876757 E11.9 recently diagnosed, on metformin and getting diabetes education. Has followup in February with Dr Mireles. [id number] Pedro Orellana MD Main Office [address] [facility] [address] [place] [address] 03/15/2023 10:18:21 03/15/2023 11:27:55 Essential hypertension 03591714 I10 Good control; continue current mgmt. Type 2 meche betes mellitus without complication 548586111 E11.9 A1C has gone from 7.4 to 5.7. We will continue with the same dose of metformin and recheck in 3 months. If it is still normal we will discuss decreasing his dose Hyperlipidemia 55206219 E78.5 On meds and at goal. Will recheck fasting lipid level. Dyspnea 423709693 R06.00 With exertion. Seen by cardiology and had a nuclear stress that was abnormal and will be getting a cath done at [facility]. Also getting PFT's done. [id number] Pedro Orellana MD Main Office [address] [facility] [address] [place] [address] 09/06/2023 10:15:55 09/06/2023 11:12:26 Adult health examination 141263353 Z00.00 Has had pneumonia shots and tetanus but not UTD with shingles. He had a bout of shingles a few years ago and his insurance will not cover the shot. He had his last colonoscop y September 2020 and does not want another one. He is UTD with COVID vaccine and boosted x1. Essential hypertension 28254130 I10 Good control; continue current mgmt. Gastroesop hageal reflux disease 952902603 K21.9 Hyperlipidemia 45664597 E78.5 On meds and at goal. Will recheck fasting lipid level. Type 2 meche betes mellitus without complication 914425167 E11.9 A1C remains below 6.0. He will continue with the same meds and we will now follow him every 6 months. Advance care planning 71 9637602 Z71.89 Discussed HCP and MOLST forms. Benign pro static hyperplasia with outflow obstruction 611044613 N40.1 Having incontinen ce. Will restart med and see him back in a few months. Dyspnea 293329492 R06.00 With exertion. Seen by cardiology and had a cardiac cath showing some blockage but did not need a stent or surgery. PFT's were normal. He was referred to cardiac rehab and has been exercising on his own. Coronary arteriosclerosis 73193110 I25.10 [id number] Pedro Orellana MD Main Office [address] [facility] [address] [address] [place] [address] 03/13/2024 09:00:22 03/13/2024 09:57:11 Atrial flutter 0693174 I48.92 Followed by cardiology . Next appointmen t is in 2 months. Hyperlipidemia 39521365 E78.5 On meds and at goal. Will recheck fasting lipid level. Fatigue 68980207 R53.83 Probably multifacto rial---age , deconditio candy, and meds. He will speak to his cardiologi st about stopping his beta antwon. Type 2 meche betes mellitus without complication [id number] E11.9 Very good control. No changes. [id number] Pedro Orellana MD Main Office [address] [facility] [address] [place] [address] 08/09/2024 14:03:02 08/09/2024 15:32:17 Mild major depression, single episode [id number] F32.0 Will start a low dose of sertraline and then see him in one month to adjust the dose as needed. [id number] Pedro Orellana MD Main Office [address] [facility] [address] [place] [address] 09/11/2024 09:40:39 09/11/2024 10:46:05 Adult health examination [id number] Z00.00 Has had pneumonia shots and tetanus [...] vaccine. Advance di rective discussed with patient [id number] Z71.89 Type 2 meche betes mellitus without complication [id number] E11.9 Very good control. No changes. Neck pain [id number] M54.2 Probable arthritis. [id number] Pedro Orellana MD Main Office [address] [facility] [address] [facility] [place] [address] 02/25/2025 14:26:30 02/25/2025 15:34:14 Type 2 diabetes mellitus without complication [id number] E11.9 Very good control. No changes. Will check labs. Nocturia [id number] R35.1 [id number] Atrial flutter [id number] I 48.92 Followed by cardiology . Next appointmen t is in 2 months. Essential hypertension [id number] I10 Good control; continue current mgmt. Health Concerns Section Related Observation LastModified by Organization Detai ls LastModified Time None Recorded Concern Status LastModified by Organization Details LastModified Time None Recorded Advance Directives Directive Y: Payers Insurance Date Sequence Insurance Name Policy Number Policy Reed Covered Member ID Reed Member ID Guarantor Name 03/08/2025 1 [facility]: MED[place] P[place] BLUE (MEDICARE REPLACEMENT PPO) [id number] Rehan Hathaway [id number] Rehan Hathaway Notes Date Note Type Note Provider Name and Address Organization Details Recorded Time 3 text/html Medicare Annual Wellness VisitReported by PatientSocial/Behavioral HistoryFor physical activity, patient reportsdecreased physical activity (he just started to do some walking to build up his stamina.). For diet and nutrition, patient reportshealthy diet. For fracture risk, patient reportsno history of fractures.Mental Status:For depression risk, patient reportssleep disturbances or insomnia (gets up once nightly; now improved with cpap)but reportsno significant changes in weightandno history of depression. For concentration and memory, patient reportsno memory lapses or loss. For speech/motor difficulties, patient reportsno speech difficultiesandno difficulty writing/copying.Functional AbilityFor home safety, patient reportsdoes not use seatbeltsbut reportsworking smoke/co detectorsandno fire arms. For hearing, patient reportswears hearing aids. For vision, patient reportsno vision problems. For activities of daily living, patient reportsable to bathe with limited or no assistance,able to dress with limited or no assistance,able to get out of chair or bed with limited or no assistance, andable to toilet with limited or no assistance. For instrumental activities of daily living, patient reportsable to do house work with limited or no assistance,able to manage medications with limited or no assistance,able to manage money with limited or no assistance, andable to prepare meals with limited or no assistance.Having mid back with radiation to left side for months or longer. Denies injury. 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 He becomes easily SOB when climbing stairs. He has been less active recently because of this and low back pain; no injury. He was seen by cardiology and had a cath done which showed some blockages but nothing that needed surgery or stenting. PFT's were normal. He was referred to cardiac rehab.ROS as noted in the HPI Pedro Orellana MD [address] [address], [place], [address], [facility] 09/06/2023 13:52:32 4 text/html Hypertension F/UReported by PatientHPIFor associated symptoms, patient reportsno dizziness,no lightheadedness,no chest pain,no shortness of breath,no palpitations,no edema, andno calf pain with exertion. For lifestyle, patient reportsregular exerciseandlimiting/avoidin g salt. For medications, patient reportstaking medications as directedandno side effects from medication. HyperlipidemiaReported by PatientOn meds and last LDL was at goal. Diabetes F/UReported by PatientHPIFor associated symptoms, patient reportsweight loss (13 lbs)but reportsno dizziness,no sweats,no headaches,no confusion,no increased urination,no blurred vision, andno calluses on feet. For context, patient reportsnormal range of home blood sugars (in the low 100s),seeing eye doctor regularly, andchecking feet regularly.ROS as noted in the HPI Having more fatigue recently. He cannot do as much as in the past and finds this frustrating. He has some GARCIAS which is probably from his atrial flutter and he is followed regularly by cardiology. He is on a beta antwon which is probably adding to his fatigue. Meenakshi mercado, [facility] 03/16/2024 11:27:15 4 text/html Anxiety/DepressionReported by PatientHPIFor quality, patient reportssymptoms worse in the evening,symptoms worse during the day, andmood worse. For associated symptoms, patient reportshigh irritability,anxiety, andhypersensitivitybut reportsno significant weight gain,no significant weight loss,appetite good,energy good, andmaintaining functionality. For severity, patient reportsable to maintain relationshipsanddoes not interfere with activities of daily living. For duration, patient reportssymptoms lasting over 2 weeks. For context, patient reportsno major life stressors. For modifying factors, patient reportssocial support.He has never taken meds in the past.ROS as noted in the HPI Pedro Orellana MD [address], [address], [facility] 08/09/2024 15:58:01 4 text/html Medicare Annual Wellness VisitReported by PatientSocial/Behavioral HistoryFor physical activity, patient reportsdecreased physical activity (improving since he started cardiac rehab 3 times a week.). For diet and nutrition, patient reportshealthy diet. For fracture risk, patient reportsno history of fractures.Mental Status:For depression risk, patient reportssleep disturbances or insomnia (gets up once nightly; now improved with cpap)but reportsno significant changes in weightandno history of depression. For concentration and memory, patient reportsno memory lapses or loss. For speech/motor difficulties, patient reportsno speech difficultiesandno difficulty writing/copying.Functional AbilityFor home safety, patient reportsdoes not use seatbeltsbut reportsworking smoke/co detectorsandno fire arms. For hearing, patient reportswears hearing aids. For vision, patient reportsno vision problems. For activities of daily living, patient reportsable to bathe with limited or no assistance,able to dress with limited or no assistance,able to get out of chair or bed with limited or no assistance, andable to toilet with limited or no assistance. For instrumental activities of daily living, patient reportsable to do house work with limited or no assistance,able to manage medications with limited or no assistance,able to manage money with limited or no assistance, andable to prepare meals with limited or no assistance.Having mid back with radiation to left side for months or longer. Denies injury. 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 He becomes easily SOB when climbing stairs but this has been improving since he started cardiac rehab 3 times a week. His PFTs were normal and his cardiac cath showed some blockage which is treated medically.ROS as noted in the HPI Pedro Orellana MD [address] [facility] [address], [place], [address], [facility] 09/11/2024 12:27:34 5 text/html Hypertension F/UReported by PatientHPIFor associated symptoms, patient reportsno dizziness,no lightheadedness,no chest pain,no shortness of breath,no palpitations,no edema, andno calf pain with exertion. For lifestyle, patient reportsregular exerciseandlimiting/avoidin g salt. For medications, patient reportstaking medications as directedandno side effects from medication.Followed by cardiology for his atrial flutter and doing well on meds. Diabetes F/UReported by PatientHPIFor associated symptoms, patient reportsweight loss (13 lbs)but reportsno dizziness,no sweats,no headaches,no confusion,no increased urination,no blurred vision, andno calluses on feet. For context, patient reportsnormal range of home blood sugars (in the low 100s),seeing eye doctor regularly, andchecking feet regularly.ROS as noted in the HPI Pedro Orellana MD [address] [facility] [address], [place], [address] 02/25/2025 17:00:57
--- OUTSIDE RECORDS SUMMARY | 2025-07-25 05:56 | XMS_ITS | Clinical Summary ---
Author Organization [facility] Address [address] [place], [place] [id number] Phone Care Team Providers Care Brush Sander Name Role Phone Roly Orellana MD Primary [...] [place]AC[place] Care Teams Brush Sander Relationship Specialty Start Date End Date Roly Orellana MD [address] [address] PCP - General Pediatrics 12/17/22 Additional Source Comments The information contained in this document represents components of the legal health record. It is not the complete legal health record.[facility]
[2025-07-25] MEDS: iohexoL 350 MG/ML 100 ML INFUS..BTL 85 ML IV (06:46)
[2025-07-25 07:32] LABS: Troponin-I High Sensitivity < 2.7 ng/L (<3.5-35.0)
[2025-07-25 08:47] VITALS: BP 165/85; PULSE 57; RESP 14; TEMP 36.6; O2SAT 96
--- NOTE | 2025-07-25 08:47 | ED.CHESTPAIN ---
HPI - Chest Pain General Chief Complaint: Chest Pain Stated Complaint: Afib? Time Seen by Provider: 07/25/25 05:06 Source: patient and family Mode of arrival: ambulatory Limitations: no limitations Related Data Home Medications ?Medication ?Instructions ?Recorded ?Confirmed atenolol 50 mg tablet 25 mg PO DAILY 12/18/22 05/29/25 latanoprost 0.005 % eye drops 1 drp ophthalmic (eye) DAILY 12/18/22 05/29/25 multivitamin (Daily Multi-Vitamin 1 tab PO DAILY 12/18/22 05/29/25 tablet) omeprazole 20 mg capsule,delayed 20 mg PO DAILY 12/18/22 05/29/25 release timolol maleate 0.5 % eye drops 1 drp ophthalmic (eye) BEDTIME 12/18/22 05/29/25 metformin 500 mg tablet 500 mg PO BID 01/27/23 05/29/25 dorzolamide-timolol (PF) 2 %-0.5 % 1 drp ophthalmic (eye) BID 05/21/24 05/29/25 eye drops in a dropperette sertraline 50 mg tablet 50 mg PO DAILY 09/24/24 05/29/25 Previous Rx's ?Medication ?Instructions ?Recorded aspirin 81 mg tablet,delayed 81 mg PO DAILY #120 tabs 05/04/23 release dronedarone 400 mg tablet (Multaq) 400 mg PO BID 90 days #180 tabs 09/10/24 atorvastatin 40 mg tablet 40 mg PO DAILY #90 tabs 04/02/25 apixaban 5 mg tablet (Eliquis) 5 mg PO BID #180 tabs 07/22/25 doxycycline hyclate 100 mg tablet 100 mg PO BID #14 tabs 07/25/25 Allergies Allergy/AdvReac Type Severity Reaction Status Date / Time meperidine (From DEMEROL) Allergy Unknown SEVERE Verified 07/25/25 04:36 STOMACH UPSET PMFSH Past Medical History Medical History GERD (gastroesophageal reflux disease) Non-insulin dependent type 2 diabetes mellitus Mixed hyperlipidemia Essential hypertension Surgical History History of cardiac cath History of cataract surgery History of cholecystectomy Family History Family History Mother CHF (congestive heart failure) Father No problems noted. Sister Heart attack Social History Social History Household Members: Spouse Housing: House Do you presently have visiting nurse or other home services: No Alcohol intake: former Patient Tobacco Use Status: Former Tobacco user Tobacco use type: Cigarette Cigarette Packs Per Day: 2 Years Smoked: 10 Smoked in Last 30 Days: No Use of substances other than those prescribed or required for medical reasons: No Advance Directives: Yes Advance Directives on File: Yes Advance Directives Date on File: 12/18/22 service: Yes Current occupational status: retired Physical Exam Vital Signs: Vital Signs: Last Vital Signs Temp 97.9 F 07/25/25 04:36 Pulse 84 07/25/25 04:36 Resp 16 07/25/25 04:36 BP 172/74 H 07/25/25 04:36 Pulse Ox 95 07/25/25 04:36 O2 Del Method Room Air 07/25/25 04:36 BMI result Body Mass Index 32.5 Course Reevaluation(s) Reevaluation #1: I assumed care for this patient at 07:00. 1. Second troponin is negative, chest x-ray is questioning right pulmonary infiltrate, unremarkable CT abdomen pelvis. Will start the patient on doxycycline. Time: 08:48 Medications Administered Discontinued Medications Generic Name Dose Route Start Last Admin Trade Name Freq PRN Reason Stop Dose Admin Iohexol 85 ml 07/25/25 06:46 07/25/25 06:46 Iohexol 350 Mg/Ml 100 Ml Infus..Btl IV 07/25/25 06:47 85 ml ONCE ONE Administration Medical Decision Making Lab Data 07/25/25 04:51 07/25/25 04:51 Labs: Lab Results 07/25/25 07/25/25 07/25/25 Range/Units 04:51 05:32 06:53 WBC 8.1 (4.8-10.8) X10*3/uL RBC 4.18 L (4.60-5.80) X10*6/uL Hgb 11.6 L (14.0-18.0) g/dl Hct 36.7 L (42.0-52.0) % MCV 87.8 (80.0-98.0) fL MCH 27.8 (27.0-33.0) pg MCHC 31.6 (31.0-36.0) g/dl RDW 17.2 H (11.0-16.0) % Plt Count 243 (160-400) X10*3/uL MPV 9.3 L (9.4-12.4) fL Immature Gran % (Auto) 0.4 (0.0-0.4) % Neut % (Auto) 61.8 (45-73) % Lymph % (Auto) 21.9 (20-40) % Storey % (Auto) 8.1 (2-11) % Eos % (Auto) 7.1 H (0-4) % Baso % (Auto) 0.7 (0-2) % Lymph # (Auto) 1.8 (1.2-4.9) X10*3/uL Storey # (Auto) 0.7 (0.1-1.2) X10*3/uL Eos # (Auto) 0.6 H (0.0-0.4) X10*3/uL Baso # (Auto) 0.1 (0.0-0.2) X10*3/uL Abs Immat Gran (auto) 0.03 (0.00-0.03) X10*3/uL Absolute Neuts (auto) 5.0 (2.0-8.3) x10*3/uL Absolute Nucleated RBC 0.000 (0.0-0.012) X10*3/uL Nucleated RBC % (auto) 0.0 (0.0-0.2) /100WBC PT 18.7 H (10.9-12.4) SEC INR 1.6 H (0.9-1.1) Sodium 143 (135-145) mmol/L Potassium 4.1 (3.3-5.1) mmol/L Chloride 109 H (96-108) mmol/L Carbon Dioxide 25 (22-29) mmol/L Anion Gap 13 (12-20) BUN 20 H (9-16) mg/dL Creatinine 0.97 (0.5-1.4) mg/dL Estim Creat Clear Calc 73.0 Estimated GFR > 60 Random Glucose 139 H (60-115) mg/dL Calcium 9.0 D (8.4-10.2) mg/dL Magnesium 1.7 (1.6-2.6) mg/dL Total Bilirubin 0.7 (0.0-1.0) mg/dL AST 30 (5-37) U/L ALT 24 (0-40) U/L Alkaline Phosphatase 108 (39-117) U/L Troponin I High Sens < 2.7 < 2.7 (<3.5-35.0) ng/L Total Protein 6.3 L (6.5-8.0) g/dL Albumin 3.9 (3.5-5.0) g/dL Lipase 22 (8-78) U/L COVID-19 (NAVEED) Negative (Negative) COVID-19 Clin Com See Note Influenza Type A (SUZY) Negative (Negative) Influenza Type B (SUZY) Negative (Negative) Influenza A & B Note See Note Discharge Plan Discharge Clinical Impression: Pneumonia, Chest pain, Abdominal pain Patient Disposition: Home, Self-Care Instructions: Abdominal Pain (ED) Prescriptions: New doxycycline hyclate 100 mg tablet 100 mg PO BID Qty: 14 0RF No Action Multaq 400 mg tablet 400 mg PO BID 90 Days Qty: 180 3RF atorvastatin 40 mg tablet 40 mg PO DAILY Qty: 90 3RF Eliquis 5 mg tablet 5 mg PO BID Qty: 180 3RF latanoprost 0.005 % drops 1 drp ophthalmic (eye) DAILY omeprazole 20 mg capsule,delayed release(DR/EC) 20 mg PO DAILY timolol maleate 0.5 % drops 1 drp ophthalmic (eye) BEDTIME atenolol 50 mg tablet 25 mg PO DAILY multivitamin [Daily Multi-Vitamin] Tablet 1 tab PO DAILY metformin 500 mg tablet 500 mg PO BID aspirin 81 mg tablet,delayed release (DR/EC) 81 mg PO DAILY Qty: 120 4RF dorzolamide-timolol (PF) 2-0.5 % dropperette 1 drp ophthalmic (eye) BID sertraline 50 mg tablet 50 mg PO DAILY Referrals: Roly Orellana MD [Primary Care Provider, Medical] Print Language: Faroese
[2025-07-25 09:02] VITALS: BP 165/85; PULSE 57; RESP 14; TEMP 36.6; O2SAT 96
== END 2025-07-25 09:03 | disposition home or self-care (01) ==
PROVIDERS: Physician Assistant; Emergency Provider Emergency Medicine; PCP Internal Medicine
DX: J18.9 Pneumonia, unspecified organism (principal); R10.9 Unspecified abdominal pain; R07.9 Chest pain, unspecified
CPT/HCPCS: 36415; 71046; 74177; 80053; 83690; 83735; 84484; 85025; 85610; 87502; 87635; 93005; 99285; Q9967

== ENCOUNTER → 2025-07-25 04:43 | Outpatient (BNV) | payer MEDICARE, SELFPAY ==
[2024-09-24 09:34] VITALS: BP 126/62; BP 132/60; BMI 33.7
== END ==
PROVIDERS: Emergency Provider Emergency Medicine; PCP Internal Medicine; Visit Provider Internal Medicine Cardiovascular Disease
DX: R07.89 Other chest pain (principal)
CPT/HCPCS: 93010

== ENCOUNTER → 2025-07-25 05:24 | Outpatient (BNV) | payer MEDICARE, SELFPAY ==
[2024-09-24 09:34] VITALS: BP 126/62; BP 132/60; BMI 33.7
== END ==
PROVIDERS: Emergency Provider Emergency Medicine; PCP Internal Medicine; Visit Provider Radiology Diagnostic Radiology
DX: K57.90 Diverticulosis of intestine, part unspecified, without perforation or abscess without bleeding (principal); K44.9 Diaphragmatic hernia without obstruction or gangrene; R05.9 Cough, unspecified; R61 Generalized hyperhidrosis
CPT/HCPCS: 71046; 74177

== ENCOUNTER 2025-07-29 14:40 | Outpatient (AMB) | payer MEDICARE, SELFPAY ==
[2024-09-24 09:34] VITALS: BP 126/62; BP 132/60; BMI 33.7
[2025-07-29 15:08] VITALS: BP 130/72; PULSE 77; BMI 32.0
--- NOTE | 2025-07-29 15:08 | MHC.OFFVIS ---
Vital Signs 07/29/25 15:08 Height 5 ft 9 in Weight 216 lb 7.903 oz BMI 32.0 BP 130/72 Blood Pressure Location Lt brachial Position Sitting Pulse 77 Pulse Source Monitor Intake Visit Reasons: 2 month follow-up Certified Energy Manager Required: No Allergies meperidine (From DEMEROL) Allergy (Unknown, Verified 07/29/25 15:18) SEVERE STOMACH UPSET Medication List - Last Reconciled 07/29/25 by Ainsley Dutta NP-C apixaban (Eliquis) 5 mg PO BID aspirin 81 mg PO DAILY atorvastatin 40 mg PO DAILY dorzolamide-timolol (PF) 2-0.5 % 1 drp ophthalmic (eye) BID doxycycline hyclate 100 mg PO BID dronedarone (Multaq) 400 mg PO BID 90 days latanoprost 0.005% 1 drp ophthalmic (eye) DAILY metformin 500 mg PO BID multivitamin (Daily Multi-Vitamin tablet) 1 tab PO DAILY omeprazole 20 mg PO DAILY sertraline 50 mg PO DAILY timolol maleate 0.5% 1 drp ophthalmic (eye) BEDTIME HPI HPI 2 month follow-up: Details: Rehan is a 80-year-old male with past medical history of hypertension, hyperlipidemia, diabetes, mild obesity, nonobstructive coronary disease, paroxysmal atrial flutter who presents for follow-up. On last visit his atenolol was stopped due to possible chronotropic incompetence. Today he reports that he does not feel much different after the stop of metoprolol. He has been having issues with chronic lightheadedness over the last 1-2 years. He says when he gets up and walks he feels off balanced. It is not dizziness or spinning. No heart palpitations, presyncope, syncope, falls. No chest discomfort at rest or with activity. No shortness of breath, PND, orthopnea or edema. Taking all meds as directed. Recently treated for mild pneumonia with symptoms of coughing, night sweats. [facility] Medical History (Updated 07/29/25 @ 15:56 by Ainsley Dutta, VICTOR M-C) GERD (gastroesophageal reflux disease) Non-insulin dependent type 2 diabetes mellitus Mixed hyperlipidemia Essential hypertension Surgical History (Updated 07/29/25 @ 15:57 by Ainsley Dutta NP-C) History of cardiac cath History of cataract surgery History of cholecystectomy Family History Mother CHF (congestive heart failure) Father No problems noted. Sister Heart attack Social History Household Members: Spouse Housing: House Do you presently have visiting nurse or other home services: No Alcohol intake: former Patient Tobacco Use Status: Former Tobacco user Tobacco use type: Cigarette Cigarette Packs Per Day: 2 Years Smoked: 10 Advance Directives Date on File: 12/18/22 service: Yes Current occupational status: retired Review of Systems Const All systems reviewed & are unremarkable except as noted in HPI and below ENT Details: lightheadedness and off balance Denies dizziness Card Denies chest pain, Denies chest pain at rest, Denies chest pain with activity, Denies rapid heart rate, Denies pedal edema, Denies edema, Denies leg edema, Reports lightheadedness, Denies palpitations, Denies dyspnea, Denies dyspnea on exertion and Denies orthopnea Resp Denies cough, Denies dyspnea and Denies dyspnea on exertion GI Denies hematochezia and Denies change in stool character Musc Denies abnormal gait, Denies limited range of motion, Denies muscle cramps, Denies muscle weakness, Denies numbness, Denies radiating pain into limb, Denies stiffness and Denies tingling Neuro Denies abnormal gait, Denies dizziness, Denies numbness and Denies tingling Endo Denies palpitations Physical Exam Vital Signs: Last Vital Signs Pulse 77 07/29/25 15:08 BP 130/72 07/29/25 15:08 BMI result Body Mass Index 32.0 Const General: cooperative, healthy appearing, comfortable and no acute distress Orientation/consciousness: patient oriented x3 Neck Neck: Yes normal visual inspection Resp Effort & Inspection: normal respiratory effort Auscultation: clear to auscultation bilaterally, no rales, no rhonchi and no wheezes Cardio Rate: regular rate Rhythm: regular rhythm Heart sounds: S1 normal heart sound present, S2 normal heart sound present, no gallops, no murmurs and no rubs Neuro General: patient oriented x3 Extrem General: Yes normal to inspection and No no pedal edema Psych Appearance: grossly normal Mental Status: mental status grossly normal Speech and movement: Normal speech and movement present Office Procedures EKG Details: Today, read by me, normal sinus rhythm, rate 77, QTC 432 milliseconds [id number], Complete Assessment & Plan Assessment & Plan (1) CAD (coronary artery disease): Code(s): I25.10 - Atherosclerotic heart disease of [place] coronary artery without angina pectoris Category: Medical Plan: History of CAD, with cardiac catheterization 06/14/2023 showing slru-yj-oheefnec stenosis, including 40% left main with normal IFR assessment. He continues to attend cardiac rehab 3 times weekly which he says he tolerates well. No anginal symptoms. EKG today showing normal sinus rhythm with no acute ST or T-wave abnormalities, rate 77. Continue aspirin indefinitely. He was recently taken off atenolol. Continue atorvastatin with ideal LDL goal less than 70. Signs and symptoms of angina reviewed with him. Cardiology follow-up 6 months, sooner if needed. (2) History of cardiac cath: Comment: Cardiac catheterization on 06/14/2023. There was a 50% proximal right coronary artery stenosis, lad had 70% stenosis in the diagonal branch and 65% stenosis distally. Left main was approximately 40% stenosis. IFR assessment of left main into circumflex which was normal. IFR assessment into LAD was abnormal at 0.87 but on pullback we noticed diffuse disease and there was no significant gradient across the left main. Code(s): Z98.890 - Other specified postprocedural states Category: Surgical Plan: As above (3) Essential hypertension: Code(s): I10 - Essential (primary) hypertension Category: Medical Plan: Blood pressure goal less than 130/80. Currently controlled. Not orthostatic on exam when checked by me. (4) Mixed hyperlipidemia: Code(s): E78.2 - Mixed hyperlipidemia Category: Medical Plan: [place] LDL goal less than 70. No recent lipid profile in our system. Labs followed by his PCP. Will forward this note to PCP. (5) Atrial flutter: Code(s): I48.92 - Unspecified atrial flutter Category: Medical Plan: History of paroxysmal atrial flutter, treated with rhythm control. EKG today showing sinus rhythm. Labs 07/25/2025 showed creatinine 0.97, hematocrit 36.7 Continue Multaq 400 mg b.i.d.. Continue Eliquis 5 mg b.i.d.. Office EKG in 3 months. Office follow-up with the EKG 6 months. (6) Light-headedness: Code(s): R42 - Dizziness and giddiness Category: Medical Plan: Reports chronic lightheadedness, unsteadiness with ambulation over the last 1-2 years. Does not seem blood pressure related. Atenolol recently stopped and no significant change in his symptom. May be vertigo, reviewed with him. Plan Time spent on chart review, documentation, interview and assessment Coding Level of Care Code Est Pt Level 4 (58864) Complex EM visit Add On G2211 Diagnoses CAD (coronary artery disease) I25.10 History of cardiac cath Z98.890 Essential hypertension I10 Mixed hyperlipidemia E78.2 Atrial flutter I48.92 Light-headedness R42 CPT Codes EKG - CPT: 33604-Knqazsnufemqrjzcg, Complete ([id number]) Time Spent (min) 30
--- OUTSIDE RECORDS SUMMARY | 2025-07-29 16:30 | XMS_ITS | Patient Health Record ---
Author Organization [facility] Address [address] [place] [address] Care Team Providers Care Radiation Officer Name Role Phone Esteban JOSEPH, Roly Primary Care Provider Unav ailable Gustabo Lang Unavailable [phone] Allergies No Known Allergies Results Component Value [...] Problem Acquired hammer toe of right foot (5283647745592375 ) Other hammer toe(s) (acquired), right foot (M20.41) Active confirmed Problem Acquired hammer toe of left foot ([id number] ) Other hammer toe(s) (acquired), left foot (M20.42) Active confirmed Problem Polyneuropathy due to type 2 diabetes mellitus (180684067) Type 2 diabetes mellitus with diabetic polyneuropathy (E11.42) Active confirmed Vital Signs Blood pressure diastolic 65 mm Hg 05/24/2025 Height 5 ft 9inch in 05/24/2025 Blood pressure systolic 128 mm Hg 05/24/2025 Weight 215 lbs 05/24/2025 BMI 31.75 kg/m2 05/24/2025 Procedures Procedure Date Ordered Date Performed Result Body Sit e 43205-NHWI SKIN LESIONS, 2 TO 4 02/05/2025 N/A P8835-EPTDRLPE DYSTROPHIC NAILS ANY # 02/05/2025 N/A 56123-NJLL SKIN LESIONS, 2 TO 4 05/24/2025 N/A O5266-DNEDAXLO DYSTROPHIC NAILS ANY # 05/24/2025 N/A Encounters Encounter Location Date Provider Diagnosis [address] [address] 02/05/2025 Gustabo Lang Type 2 diabetes mellitus with diabetic polyneuropathy E11.42 ; Other hammer toe(s) (acquired), right foot M20.41 and Other hammer toe(s) (acquired), left foot M20.42 [facility] [address] 05/24/2025 Gustabo Lang Type 2 diabetes mellitus [...] Treatment Pending Test Test Name Order Date 16315-LIRN SKIN LESIONS, 2 TO 4 02/06/20 24170-RPIO SKIN LESIONS, 2 TO 4 05/24/20 V7889-OSIIYOJH DYSTROPHIC NAILS ANY # C9577-MMAONNWM DYSTROPHIC NAILS ANY # Next Appt Details Provider Name:Gustabo Lang , 09/10/2025 01:30:00 PM, [address] [place] [address], [id number], Insurance Providers Payer Name Payer Address Payer Phone Subscriber Number Group Number Insured Name Patient Relationship to Insured Coverage Start Date Coverage End Date [facility] 65 Medicare Preferred [address] [place] [address] [phone] [id number] Rehan Hathaway Self - patient is the insured Medical (General) History Medical History History ICD Code Arthritis CAD (Cholesterol) Cataracts type II diabetes Glaucoma Heart disease High Blood Pressure Reflux ( GERD) Measles Mumps Chicken pox Transfusions Surgical History Surgery Date(Month/Year) Gall bladder
--- OUTSIDE RECORDS SUMMARY | 2025-07-29 16:31 | XMS_ITS | Data Portability ---
Author Organization [facility], Main Office Address [address] [facility] [address] [place] [id number] Care Team Providers Care Security Program Manager Name Role Phone PEDRO ORELLANA Primary Care Provider LAMAR MAYEN Laboratory Sample Carrier CESAR LEROY Referring Provider [phone] ELIANA ORTIZ Front End Web Developer RIAN AN Urologist [facility] Referring Provider Assessment No assessment recorded. [...] DO Not Attach Compendium, Do Not Delete/merge, [id number] 09/06/2023 11:04:07 TSH, serum or plasma 2022 023 [facility], [address], [place], [address], 09/07/2023 04:53:49 CMP, serum or plasma 2022 023 [facility], [address], [place], [address], 09/07/2023 04:53:47 Referral None record ed. Procedures None record ed. Surgeries None record ed. Imaging XR, cervic al spine - Neck pain for 8 months especi ally when turnin g to the left. R/o lesion . 2023 024 [email or web address] In-Office Order, Internal Use Only DO Not Attach Compendium DO Not Attach Compendium, Do Not Delete/merge, [id number] 09/12/2024 17:04:10 Medication Orders sertra line 50 mg tablet 2023 024 [email or web address] [id number], [address] [place], [address], 08/31/2024 14:18:24 tamsul osin 0.4 mg capsul e 2022 023 [email or web address] [id number], [address] [place], [address], 09/06/2023 13:51:55 Patient TargetsNo targets recorded. Patient Instructions Encounter Date Encounter Id Patient Instructions Last Modified By Organization Details Last Modified Time 09/06/2023 [id number] gastroesophageal reflux disease (GERD): care instructions [email or web address] [...] instructions [email or web address] Not available 09/06/2023 13:48:15 03/13/2024 [id number] electrical cardioversion: before your procedure [email or web address] Not available 03/13/2024 09:42:07 Electrophysiolog y (EP) Study: Before Your Procedure [email or web address] Not available 03/13/2024 09:42:07 high cholesterol : care instructions [email or web address] Not available 03/13/2024 09:47:41 08/09/2024 [id number] depression treatment: care instructions acennerazzo Not available 08/09/2024 15:54:47 09/11/2024 [id number] advance care planning: care instructions acennerazzo Not available 09/11/2024 10:40:43 type 2 diabetes: care instructions acennerazzo Not available 09/11/2024 10:40:43 preventing falls : care instructions acennerazzo Not available 09/11/2024 10:40:43 well visit, over 65: care instructions [email or web address] Not available 09/11/2024 10:40:43 02/25/2025 [id number] high blood press ure: care instructions acennerazzo [...] Their Choice, 09/07/2023 04:53:47 09/06/2009/07/2023 COMPR EHENS GIESLA METAB OLIC PANL chloride 105 mmol/ L [...] DO Not Attach Compendium, Do Not Delete/merge, [id number] 09/06/2023 10:41:25 03/13/20 24 03/14/2024 COMP. METAB OLIC PANEL (14) glucose 103 mg/dL 70-99 above high normal Not Available [facility] ([facility]) [address], [place], [address], 03/14/2024 16:07:19 03/13/20 24 03/14/2024 COMP. METAB OLIC PANEL (14) BUN 20 mg/dL 8-27 Not Available [facility] ([facility]) [address] [facility] [address], [place], [address], 03/14/2024 16:07:19 03/13/20 24 03/14/2024 COMP. METAB OLIC PANEL (14) creatinine 1.07 mg/dL 0.76-1 .27 Not Available [facility] ([facility]) [address] [facility] [address], [place], [address], 03/14/2024 16:07:19 03/13/20 24 03/14/2024 COMP. METAB OLIC PANEL (14) eGFR 71 mL/mi n/1.7 3 >59 Not Available [facility] ([facility]) [address] [place], [address], 03/14/2024 16:07:19 03/13/20 24 03/14/2024 COMP. METAB OLIC PANEL (14) BUN/creatini ne ratio 19 10-24 Not Available [facility] ([facility]) [address] [place], [address], 03/14/2024 16:07:19 03/13/20 24 03/14/2024 COMP. METAB OLIC PANEL (14) sodium 139 mmol/ L 134-14 4 Not Available [facility] ([facility]) [address] [place], [address], 03/14/2024 16:07:19 03/13/20 24 03/14/2024 COMP. METAB OLIC PANEL (14) potassium 4.9 mmol/ L 3.5-5. 2 Not Available [facility] ([facility]) [address] [place], [address], 03/14/2024 16:07:19 03/13/20 24 03/14/2024 COMP. METAB OLIC PANEL (14) chloride 103 mmol/ L 96-106 Not Available [facility] ([facility] [address] [place], [address], 03/14/2024 16:07:19 03/13/20 24 03/14/2024 COMP. METAB OLIC PANEL (14) carbon dioxide, total 24 mmol/ L 20-29 Not Available [facility] ([facility]) [address] [facility], [place], [address], 03/14/2024 16:07:19 03/13/20 24 03/14/2024 COMP. METAB OLIC PANEL (14) calcium 9.2 mg/dL 8.6-10 .2 Not Available [facility] ([facility]) [address] [facility] [address], [place], [address], 03/14/2024 16:07:19 03/13/20 24 03/14/2024 COMP. METAB OLIC PANEL (14) protein, total 6.2 g/dL 6.0-8. 5 Not Available [facility] ([facility]) [address] [facility], [address], 03/14/2024 16:07:19 03/13/20 24 03/14/2024 COMP. METAB OLIC PANEL (14) albumin 3.9 g/dL 3.8-4. 8 Not Available [facility] ([facility]) [address] [place], [address], 03/14/2024 16:07:19 03/13/20 24 03/14/2024 COMP. METAB OLIC PANEL (14) globulin, total 2.3 g/dL 1.5-4. 5 Not Available [facility] ([facility]) [address] [facility], [address], 03/14/2024 16:07:19 03/13/20 24 03/14/2024 COMP. METAB OLIC PANEL (14) A/G ratio 1.7 1.2-2. 2 Not Available [facility] ([place] [facility]) [address] [place], [address], 03/14/2024 16:07:19 03/13/20 24 03/14/2024 COMP. METAB OLIC PANEL (14) bilirubin, total 1.0 mg/dL 0.0-1. 2 Not Available [facility] ([place] [facility]) [address] [place], [address], 03/14/2024 16:07:19 03/13/20 24 03/14/2024 COMP. METAB OLIC PANEL (14) alkaline phosphatase 151 IU/L 44-121 above high normal Not Available [facility] ([place] [facility]) [address] [facility], [address], 03/14/2024 16:07:19 03/13/20 24 03/14/2024 COMP. METAB OLIC PANEL (14) AST (SGOT) 32 IU/L 0-40 Not Available [facility] ([place] [facility]) [address] [place], [address], 03/14/2024 16:07:19 03/13/20 24 03/14/2024 COMP. METAB OLIC PANEL (14) ALT (SGPT) 25 IU/L 0-44 Not Available [facility] ([place] [facility]) [address] [facility], [address], 03/14/2024 16:07:19 03/13/20 24 03/14/2024 LIPID PANEL cholesterol, total 112 mg/dL 100-19 9 Not Available [facility] ([place] [facility]) [address] [facility], [address], 03/14/2024 16:07:20 03/13/20 24 03/14/2024 LIPID PANEL triglyceride s 69 mg/dL 0-149 Not Available [facility] ([place] [facility]) [address] [facility], [address], 03/14/2024 16:07:20 03/13/20 24 03/14/2024 LIPID PANEL HDL cholesterol 50 mg/dL >39 Not Available [facility]) [address] [place], [address], 03/14/2024 16:07:20 03/13/20 24 03/14/2024 LIPID PANEL VLDL cholesterol moshe 15 mg/dL 5-40 Not Available [facility] ([facility]) [address], [place], [address], 03/14/2024 16:07:20 03/13/20 24 03/14/2024 LIPID PANEL LDL chol calc ([facility]) 47 mg/dL 0-99 Not Available [facility] ([facility]) [address], [place], [address], 03/14/2024 16:07:20 03/13/20 24 03/14/2024 LIPID PANEL comment: INDIRECT SALES EXEC Not Available [facility] ([facility]) [address], [place], [address], 03/14/2024 16:07:20 03/13/20 24 03/14/2024 ALBUM IN/CR EAT RATIO , RANDO M UR creatinine, urine 100.0 mg/dL not estab. Not Available [facility] ([facility]) [address] [place], [address], 03/14/2024 16:07:21 03/13/20 24 03/14/2024 ALBUM IN/CR EAT RATIO , RANDO M UR albumin, urine 21.4 ug/mL not estab. Not Available [facility] ([facility]) [address] [place], [address], 03/14/2024 16:07:21 03/13/20 24 03/14/2024 ALBUM IN/CR EAT RATIO , RANDO M UR alb/creat ratio 21 mg/g_ creat 0-29 Kanika l: 0 - 29 Moder ately incre ased: 30 - 300 Sever darío incre ased: >300 Not Available [facility] ([facility]) [address], [place], [address], 03/14/2024 16:07:21 03/13/20 24 03/13/2024 hemog lobin A1C, finge rstic k A1C 6.5 % 4-6 Not Available In-Office Order Internal Use Only DO Not Attach Compendium DO Not Attach Compendium, Do Not Delete/merge, [id number] 03/13/2024 09:15:04 09/11/20 24 09/11/2024 hemog lobin A1C, finge rstic k A1C 6.0 % 4-6 normal Not Available In-Office Order Internal Use Only DO Not Attach Compendium DO Not Attach Compendium, Do Not Delete/merge, [id number] 09/11/2024 10:32:56 02/26/20 25 02/26/2025 CBC WITH DIFFE RENTI AL/PL ATELE T WBC 10.2 x10e3 /uL 3.4-10 .8 normal Not Available [facility] ([facility]) [address], [place], [address], 02/26/2025 18:07:00 02/26/20 25 02/26/2025 CBC WITH DIFFE RENTI AL/PL ATELE T RBC 3.78 x10e6 /uL 4.14-5 .80 below low normal Not Available [facility] ([facility]) [address] [facility] [address], [place], [address], 02/26/2025 18:07:00 02/26/20 25 02/26/2025 CBC WITH DIFFE RENTI AL/PL ATELE T hemoglobin 11.2 g/dL 13.0-1 7.7 below low normal Not Available [facility] ([facility]) [address] [place], [address], 02/26/2025 18:07:00 02/26/20 25 02/26/2025 CBC WITH DIFFE RENTI AL/PL ATELE T hematocrit 34.9 % 37.5-5 1.0 below low normal Not Available [facility] ([facility]) [address] [place], [address], 02/26/2025 18:07:00 02/26/20 25 02/26/2025 CBC WITH DIFFE RENTI AL/PL ATELE T MCV 92 fL 79-97 normal Not Available [facility] ([facility]) [address] [place], [address], 02/26/2025 18:07:00 02/26/20 25 02/26/2025 CBC WITH DIFFE RENTI AL/PL ATELE T MCH 29.6 pg 26.6-3 3.0 normal Not Available [facility] ([facility]) [address] [place], [address], 02/26/2025 18:07:00 02/26/20 25 02/26/2025 CBC WITH DIFFE RENTI AL/PL ATELE T MCHC 32.1 g/dL 31.5-3 5.7 normal Not Available [facility] ([facility]) [address] [place], [address], 02/26/2025 18:07:00 02/26/20 25 02/26/2025 CBC WITH DIFFE RENTI AL/PL ATELE T RDW 13.1 % 11.6-1 5.4 Not Available [facility] ([facility]) [address] [place], [address], 02/26/2025 18:07:00 02/26/20 25 02/26/2025 CBC WITH DIFFE RENTI AL/PL ATELE T platelets 278 x10e3 /uL 150-45 0 normal Not Available [facility] ([facility]) [address] [place], [address], 02/26/2025 18:07:00 02/26/20 25 02/26/2025 CBC WITH DIFFE RENTI AL/PL ATELE T neutrophils 63 % not estab. normal Not Available [facility] ([facility]) [address] [facility] [address], [place], [address], 02/26/2025 18:07:00 02/26/20 25 02/26/2025 CBC WITH DIFFE RENTI AL/PL ATELE T lymphs 21 % not estab. normal Not Available [facility] ([facility]) [address] [address], [place], [address], 02/26/2025 18:07:00 02/26/20 25 02/26/2025 CBC WITH DIFFE RENTI AL/PL ATELE T monocytes 9 % not estab. normal Not Available [facility] ([facility]) [address] [address], [place], [address], 02/26/2025 18:07:00 02/26/20 25 02/26/2025 CBC WITH DIFFE RENTI AL/PL ATELE T eos 6 % not estab. normal Not Available [facility] ([facility]) [address], [place], [address], 02/26/2025 18:07:00 02/26/20 25 02/26/2025 CBC WITH DIFFE RENTI AL/PL ATELE T basos 1 % not estab. normal Not Available [facility] ([facility]) [address] [place], [address], 02/26/2025 18:07:00 02/26/20 25 02/26/2025 CBC WITH DIFFE RENTI AL/PL ATELE T immature cells INDIRECT SALES EXEC Not Available [facility] ([facility]) [address] [place], [address], 02/26/2025 18:07:00 02/26/20 25 02/26/2025 CBC WITH DIFFE RENTI AL/PL ATELE T neutrophils (absolute) 6.5 x10e3 /uL 1.4-7. 0 normal Not Available [facility] ([facility]) [address] [place], [address], 02/26/2025 18:07:00 02/26/20 25 02/26/2025 CBC WITH DIFFE RENTI AL/PL ATELE T lymphs (absolute) 2.1 x10e3 /uL 0.7-3. 1 normal Not Available [facility] ([facility]) [address] [facility] [address], [place], [address], 02/26/2025 18:07:00 02/26/20 25 02/26/2025 CBC WITH DIFFE RENTI AL/PL ATELE T monocytes(ab solute) 0.9 x10e3 /uL 0.1-0. 9 normal Not Available [facility] ([facility]) [address] [place], [address], 02/26/2025 18:07:00 02/26/20 25 02/26/2025 CBC WITH DIFFE RENTI AL/PL ATELE T eos (absolute) 0.6 x10e3 /uL 0.0-0. 4 above high normal Not Available [facility] ([facility]) [address] [facility] [address], [place], [address], 02/26/2025 18:07:00 02/26/20 25 02/26/2025 CBC WITH DIFFE RENTI AL/PL ATELE T baso (absolute) 0.1 x10e3 /uL 0.0-0. 2 normal Not Available [facility] ([facility]) [address] [place], [address], 02/26/2025 18:07:00 02/26/20 25 02/26/2025 CBC WITH DIFFE RENTI AL/PL ATELE T immature granulocytes 0 % not estab. Not Available [facility] ([facility]) [address] [place], [address], 02/26/2025 18:07:00 02/26/20 25 02/26/2025 CBC WITH DIFFE RENTI AL/PL ATELE T immature grans (abs) 0.0 x10e3 /uL 0.0-0. 1 Not Available [facility] ([facility]) [address], [place], [address], 02/26/2025 18:07:00 02/26/20 25 02/26/2025 CBC WITH DIFFE RENTI AL/PL ATELE T NRBC INDIRECT SALES EXEC Not Available [facility] ([facility]) [address], [place], [address], 02/26/2025 18:07:00 02/26/20 25 02/26/2025 CBC WITH DIFFE RENTI AL/PL ATELE T hematology comments: INDIRECT SALES EXEC Not Available [facility] ([facility]) [address] [place], [place], [address], 02/26/2025 18:07:00 02/26/20 25 02/26/2025 COMP. METAB OLIC PANEL (14) glucose 82 mg/dL 70-99 normal Not Available [facility] ([facility]) [address], [place], [address], 02/26/2025 18:07:01 02/26/20 25 02/26/2025 COMP. METAB OLIC PANEL (14) BUN 22 mg/dL 8-27 normal Not Available [facility] ([facility]) [address] [place], [address], 02/26/2025 18:07:01 02/26/20 25 02/26/2025 COMP. METAB OLIC PANEL (14) creatinine 0.97 mg/dL 0.76-1 .27 normal Not Available [facility] ([facility]) [address] [place], [address], 02/26/2025 18:07:01 02/26/20 25 02/26/2025 COMP. METAB OLIC PANEL (14) eGFR 80 mL/mi n/1.7 3 >59 normal Not Available [facility] ([facility]) [address] [place], [address], 02/26/2025 18:07:01 02/26/20 25 02/26/2025 COMP. METAB OLIC PANEL (14) BUN/creatini ne ratio 23 10-24 normal Not Available [facility] ([facility]) [address] [place], [address], 02/26/2025 18:07:01 02/26/20 25 02/26/2025 COMP. METAB OLIC PANEL (14) sodium 141 mmol/ L 134-14 4 normal Not Available [facility] ([facility]) [address] [facility], [address], 02/26/2025 18:07:01 02/26/20 25 02/26/2025 COMP. METAB OLIC PANEL (14) potassium 4.6 mmol/ L 3.5-5. 2 normal Not Available [facility] ([facility]) [address] [facility] [address], [place], [address], 02/26/2025 18:07:01 02/26/20 25 02/26/2025 COMP. METAB OLIC PANEL (14) chloride 105 mmol/ L 96-106 normal Not Available [facility] ([facility]) [address] [place], [address], 02/26/2025 18:07:01 02/26/20 25 02/26/2025 COMP. METAB OLIC PANEL (14) carbon dioxide, total 21 mmol/ L 20-29 normal Not Available [facility] ([facility]) [address] [place], [address], 02/26/2025 18:07:01 02/26/20 25 02/26/2025 COMP. METAB OLIC PANEL (14) calcium 9.1 mg/dL 8.6-10 .2 normal Not Available [facility] ([facility]) [address] [place], [address], 02/26/2025 18:07:01 02/26/20 25 02/26/2025 COMP. METAB OLIC PANEL (14) protein, total 6.2 g/dL 6.0-8. 5 normal Not Available [facility] ([facility]) [address] [place], [address], 02/26/2025 18:07:01 02/26/20 25 02/26/2025 COMP. METAB OLIC PANEL (14) albumin 4.0 g/dL 3.8-4. 8 normal Not Available [facility] ([facility]) [address] [facility], [address], 02/26/2025 18:07:01 02/26/20 25 02/26/2025 COMP. METAB OLIC PANEL (14) globulin, total 2.2 g/dL 1.5-4. 5 Not Available [facility] ([facility]) [address] [place], [address], 02/26/2025 18:07:01 02/26/20 25 02/26/2025 COMP. METAB OLIC PANEL (14) bilirubin, total 1.1 mg/dL 0.0-1. 2 normal Not Available [facility] ([facility]) [address] [place], [address], 02/26/2025 18:07:01 02/26/20 25 02/26/2025 COMP. METAB OLIC PANEL (14) alkaline phosphatase 120 IU/L 44-121 normal Not Available [facility]) [address] [facility], [address], 02/26/2025 18:07:01 02/26/20 25 02/26/2025 COMP. METAB OLIC PANEL (14) AST (SGOT) 25 IU/L 0-40 normal Not Available [facility] ([facility]) [address] [facility] [address], [place], [address], 02/26/2025 18:07:01 02/26/20 25 02/26/2025 COMP. METAB OLIC PANEL (14) ALT (SGPT) 19 IU/L 0-44 normal Not Available [facility] ([facility]) [address] [place], [address], 02/26/2025 18:07:01 02/26/20 25 02/26/2025 LIPID PANEL cholesterol, total 111 mg/dL 100-19 9 normal Not Available [facility] ([facility]) [address] [place], [address], 02/26/2025 18:07:02 02/26/20 25 02/26/2025 LIPID PANEL triglyceride s 76 mg/dL 0-149 normal Not Available [facility] ([facility]) [address] [place], [address], 02/26/2025 18:07:02 02/26/20 25 02/26/2025 LIPID PANEL HDL cholesterol 53 mg/dL >39 normal Not Available [facility] ([facility]) [address] [place], [address], 02/26/2025 18:07:02 02/26/20 25 02/26/2025 LIPID PANEL VLDL cholesterol moshe 16 mg/dL 5-40 Not Available [facility] ([facility]) [address] [place], [address], 02/26/2025 18:07:02 02/26/20 25 02/26/2025 LIPID PANEL LDL chol calc ([facility]) 42 mg/dL 0-99 Not Available [facility]) [address] [place], [address], 02/26/2025 18:07:02 02/26/20 25 02/26/2025 LIPID PANEL LDL calc comment: INDIRECT SALES EXEC Not Available [facility] ([facility]) [address] [place], [address], 02/26/2025 18:07:02 02/26/20 25 02/26/2025 ALBUM IN/CR EAT RATIO , RANDO M UR creatinine, urine 104.5 mg/dL not estab. normal Not Available [facility] ([facility]) [address] [facility] [address], [place], [address], 02/26/2025 18:07:02 02/26/20 25 02/26/2025 ALBUM IN/CR EAT RATIO , RANDO M UR albumin, urine 22.8 ug/mL not estab. Not Available [facility] ([facility]) [address] [facility] [address], [place], [address], 02/26/2025 18:07:02 02/26/2002/26/2025 ALBUM IN/CR EAT RATIO , RANDO M UR alb/creat ratio 22 mg/g_ creat 0-29 Kanika l: 0 - 29 Moder ately incre ased: 30 - 300 Sever darío incre ased: >300 Not Available [facility] ([facility]) [address] [facility] [address], [place], [address], 02/26/2025 18:07:02 02/26/20 25 02/25/2025 PSA TOTAL (REFL EX TO FREE) reflex criteria Commen t The perce nt free PSA is perfo rmed on a refle x basis only when the total PSA is betwe en 4.0 and 10.0 ng/mL . Not Available [facility] ([facility]) [address] [place], [address], 02/26/2025 18:07:03 02/26/2002/26/2025 PSA TOTAL (REFL EX [...] stephanie childs disea se. Not Available [facility] ([facility]) [address] [facility] [address], [place], [address], 02/26/2025 18:07:03 02/26/20 25 02/26/2025 HEMOG LOBIN A1C hemoglobin A1C 6.0 % 4.8-5. 6 above high normal Predi abete s: 5.7 - 6.4 Diabe dena: >6.4 Glyce thelma contr ol for adult s with diabe dena: <7.0 Not Available [facility] ([facility]) [address] [facility] [address], [place], [address], 02/26/2025 18:07:03 09/11/20 24 09/11/2024 XR, cervi [...] at C5-C6. No acute findin gs. WSN: [id number] Orderi ng Physic fariha: Pedro Godinez Dictat ed By: Sofie Wagner MD Dictat ed Date/T zuri: 4:20 pm Review ed By: Sofie Wagner MD Signed By: Sofie Wagner MD Signed Date/T zuri: 4:20 pm Transc ribed By: LAVELL Transc ribed Date/T zuri: 4:16 pm Patien t Class: Outpat ient [facility] (Out[facility]) [address] [place], [address], 09/12/2024 09:39:16 Result Notes Documentation Provider Name [...] advanced at C5-C6. No acute findings. WSN: [id number] Ordering Physician: Pedro Orellana Dictated By: Myles Braswell MD Dictated Date/Time: 09/11/24 4:20 pm Reviewed By: Myles Braswell MD Signed By: Myles Braswell MD Signed Date/Time: 09/11/24 4:20 pm Transcribed By: LAVELL Transcribed Date/Time: 09/11/24 4:16 pm Patient Class: Outpatient Pedro Orellana MD [address] [facility] [address] [facility], [place], [address], [facility] 09/11/2024 18:59:11 Problems Name Problem SNOMED Code Status Onset Date Resolution Date Notes Provider Name and Address Organization Details Recorded Time Au' s esophagu s 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 Not Available [facility] 3 12:19:36 Nocturia 434125946 Active Not Available [facility] 3 12:19:36 Anemia 814311456 Active Pedro Orellana MD [address] [facility] [address], [place], [address] , [facility] 5 19:54:50 Sinusiti s 31985378 Active Not Available [facility] 3 12:19:36 Glaucoma 59836731 Active Open angle; on drops Not Available [facility] 3 12:19:36 Tinea corporis 61201405 Active Not Available [facility] 3 12:19:36 General examinat ion of patient Completed 200705/21/2014 RECORDED 02/13/20 08 1:57PM BY PEDRO CHEATHAM MD, ANNOTATI ON/ADDRE DUM Pedro Orellana MD [address] [facility] [address], [place], [address] , [facility] 6 09:46:56 General examinat ion of patient Completed 200706/10/2014 RECORDED 02/13/20 08 1:57PM BY PEDRO CHEATHAM MD, ANNOTATI ON/ADDEN DUM Pedro Orellana MD [address] [facility] [address], [place], [address] , [facility] 6 09:46:56 Administ ration of bacteria l and viral vaccine Completed 200705/21/2014 RECORDED 08/14/20 08 4:17PM BY RICKEY GUTIERREZ, OFFICE VISIT Pedro Orellana MD [address] [facility] [address], [place], [address] , [facility] 6 09:46:56 Administ ration of bacteria l and viral vaccine Completed 200706/10/2014 RECORDED 08/14/20 08 4:17PM BY RICKEY GUTIERREZ, OFFICE VISIT Pedro Orellana MD [address] [facility] [address], [place], [address] , [facility] 6 09:46:56 Cough [id number] Completed 201105/21/2014 RECORDED 07/24/20 12 9:12AM BY MARIO QUIROZ ON/HENRY Orellana MD [address] [facility] [address], [place], [address] , [facility] 6 09:46:56 Essentia l hyperten samina [id number] Completed 201105/21/2014 RECORDED 07/24/20 12 9:12AM BY MARIO QUIROZ ON/HENRY Orellana MD [address] [facility] [address], [place], [address] , [facility] 6 09:46:56 Nocturia [id number] Completed 201105/21/2014 RECORDED 07/24/20 12 9:11AM BY MARIO QUIROZ ON/HENRY Orellana MD [address] [facility] [address], [place], [address] , [facility] 6 09:46:56 Hemorrha ge of rectum and anus 481224221 Completed 201105/21/2014 RECORDED 07/24/20 12 9:11AM BY MARIO QUIROZ ON/HENRY Orellana MD [address] [facility] [address], [place], [address] , [facility] 6 09:46:56 Influenz a vaccine needed [id number] 06 Completed 201105/21/2014 RECORDED 07/24/20 12 9:16AM BY SHELLI VALENZUELA I, OFFICE VISIT Pedro Orellana MD [address] [facility] [address], [place], [address] , [facility] 6 09:46:56 Adult health examinat ion Completed 201105/21/2014 RECORDED 07/24/20 12 9:11AM BY MARIO QUIROZ ON/HENRY Orellana MD [address] [address], [place], [address] , [facility] 6 09:46:56 Dyspnea [id number] Completed 201105/21/2014 RECORDED 07/24/20 12 9:11AM BY MARIO QUIROZ ON/HENRY Orellana MD [address] [facility] [address], [place], [address] , [facility] 3 13:51:35 Screenin g for malignan t neoplasm of colon Completed 201105/21/2014 RECORDED 07/24/20 12 9:11AM BY MARIO QUIROZ ON/HENRY Orellana MD [address] [facility] [address], [place], [address] , [facility] 6 09:46:56 Tinnitus [id number] Completed 201105/21/2014 RECORDED 07/24/20 12 9:11AM BY MARIO QUIROZ ON/HENRY Orellana MD [address] [facility] [address], [place], [address] , [facility] 6 09:46:56 Cough [id number] Completed 201106/10/2014 RECORDED 07/24/20 12 9:12AM BY MARIO QUIROZ ON/HENRY Orellana MD [address] [facility] [address], [place], [address] , [facility] 6 09:46:56 Essentia l hyperten samina [id number] Completed 201106/10/2014 RECORDED 07/24/20 12 9:12AM BY MARIO QUIROZ ON/HENRY Orellana MD [address] [facility] [address], [place], [address] , [facility] 6 09:46:56 Nocturia [id number] Completed 201106/10/2014 RECORDED 07/24/20 12 9:11AM BY MARIO QUIROZ ON/HENRY Orellana MD [address] [facility] [address], [place], [address] , [facility] 6 09:46:56 Hemorrha ge of rectum and anus 132242039 Completed 201106/10/2014 RECORDED 07/24/20 12 9:11AM BY MARIO QUIROZ ON/HENRY Orellana MD [address] [facility] [address], [place], [address] , [facility] 6 09:46:56 Influenz a vaccine needed [id number] 06 Completed 201106/10/2014 RECORDED 07/24/20 12 9:16AM BY SHELLI VALENZUELA I, OFFICE VISIT Pedro Orellana MD [address] [facility] [address], [place], [address] , [facility] 6 09:46:56 Dyspnea 623458096 Completed 201106/10/2014 RECORDED 07/24/20 12 9:11AM BY MARIO QUIROZ/HENRY Orellana MD [address], [place], [address] , [facility] 3 13:51:35 Screenin g for malignan t neoplasm of colon Completed 201106/10/2014 RECORDED 07/24/20 12 9:11AM BY MARIO QUIROZ/HENRY Orellana MD [address] [facility] [address], [place], [address] , [facility] 6 09:46:56 Tinnitus 75787889 Completed 201106/10/2014 RECORDED 07/24/20 12 9:11AM BY MARIO QUIROZ/HENRY Orellana MD [address] [facility] [address], [place], [address] , [facility] 6 09:46:56 Acute sinusiti s [id number] Completed 201205/21/2014 RECORDED 01/23/20 13 8:43AM BY MARIO QUIROZ/HENRY Orellana MD [address] [facility] [address], [place], [address] , [facility] 6 09:46:56 Renewal of prescrip tion Completed 201205/21/2014 RECORDED 01/23/20 13 8:43AM BY MARIO QUIROZ/HENRY Orellana MD [address] [facility] [address], [place], [address] , [facility] 6 09:46:56 Active or passive immuniza tion Completed 201205/21/2014 RECORDED 01/23/20 13 9:29AM BY PEDRO CHEATHAM MD, OFFICE VISIT Pedro Orellana MD [address], [place], [address] , [facility] 6 09:46:56 Acute sinusiti s 17541704 Completed 201206/10/2014 RECORDED 01/23/20 13 8:43AM BY MARIO QUIROZ ON/ADDEN ALMAZ Orellana MD [address], [place], [address] , [facility] 6 09:46:56 Renewal of prescrip tion Completed 201206/10/2014 RECORDED 01/23/20 13 8:43AM BY MRAIO QUIROZ ON/ADDRE Orellana MD [address], [place], [address] , [facility] 6 09:46:56 Active or passive immuniza tion Completed 201206/10/2014 RECORDED 01/23/20 13 9:29AM BY PEDRO CHEATHAM MD, OFFICE VISIT Pedro Orellana MD [address], [place], [address] , [facility] 6 09:46:56 Tobacco user [id number] Completed 201205/21/2014 RECORDED 07/31/20 13 6:59AM BY MARIO QUIROZ ON/ADDEN ALMAZ Orellana MD [address], [place], [address] , [facility] 6 09:46:56 History of clinical finding in subject [id number] Completed 201208/08/2014 RECORDED 07/31/20 13 6:59AM BY MARIO QUIROZ ON/HENRY Orellana MD [address] [facility] [address], [place], [address] , [facility] 6 09:46:56 Tobacco user [id number] Completed 201206/10/2014 RECORDED 07/31/20 13 6:59AM BY MARIO QUIROZ ON/HENRY Orellana MD [address] [facility] [address], [place], [address] , [facility] 6 09:46:56 Immuniza tion refused Completed 201305/21/2014 IMPRESSI ON: HE WILL BE GETTING IT AT WORK.; RECORDED 02/06/20 14 6:57AM BY MARIO QUIROZ ON/HENRY Orellana MD [address] [facility] [address], [place], [address] , [facility] 6 09:46:56 Adult health examinat ion Completed 201308/08/2014 RECORDED 02/06/20 14 9:25AM BY SHELLI VALENZUELA I, OFFICE VISIT Pedro Orellana MD [address] [facility] [address], [place], [address] , [facility] 6 09:46:56 Immuniza tion refused Completed 201306/10/2014 IMPRESSI ON: HE WILL BE GETTING IT AT WORK.; RECORDED 02/06/20 14 6:57AM BY MARIO QUIROZ ON/HENRY Orellana MD [address] [facility] [address], [place], [address] , [facility] 6 09:46:56 Gastroes ophageal reflux disease 294232919 Active 2016 Not Available [facility] 3 12:19:36 Binocula r diplopia 892498594 Active 2017 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 Followed by Dr Diop Not Available [facility] 3 12:19:36 Hyperlip idemia 59800692 Active 2017 Pedro Orellana MD [address], [place], [address] , [facility] 4 10:29:12 Hydronep hrosis 37120423 Active 2017 Left; seen by urology; secondar y to left ureteral stone. Not Available [facility] 3 12:19:36 Glaucoma 79158205 Active 2020 Using drops Pedro Orellana MD [address], [place], [address] , [facility] 4 10:30:13 Obstruct gisela sleep apnea syndrome 03941805 Active 2021 Not Available [facility] 3 12:19:36 Atrial flutter 5469095 Active 2022 Followed by cardiolo gy On eliquis. Pedro Orellana MD [address], [place], [address] , [facility] 4 10:29:04 Coronary arterios clerosis 65827442 Active 2022 He had a cath done showing 50% stenosis in LAD, 50% in diagonal . RCA and left circumfl ex both <50%. Treated medicall y. Pedro Orellana MD [address], [place], [address] , [facility] 4 10:29:59 Dyspnea 283148230 Active 2022 Cardiac cath done; no stentabl e lesions. PFT's were normal. 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 Followed by HALIE Orellana MD [address], [place], [address] , [facility] 5 11:01:05 Problem Notes None recorded. Procedures Surgical History Date Name Laterality Status Provider Name and Address Organization Details Recorded Time 09/11 Advanced Care Planning completed Deisy Miller LPN [facility] 4 09:52:54 01/30 diabetic retinopathy screening completed Lupe Rojas [facility] 4 08:08:18 09/06 Advanced Care Planning completed Pedro Orellana MD [address] [facility] [address], [place], [address] , [facility] 3 11:06:49 09/06 Diabetic Foot Exam (Monofilament) completed Pedro Orellana MD [address] [facility] [address], [place], [address] , [facility] 3 11:06:12 08/24 Eye Surgery completed Rebeca Murphy MA [facility] 3 10:25:24 06/22 cardiac catheterization completed Lupe Rojas [facility] 3 12:43:19 10/31 Cataract Surgery completed Nikky Castellanos MA [facility] 2 09:38:30 10/07 Colonoscopy completed Amarilis Batres [facility] 0 14:10:13 10/07 esophagogastroduodenoscopy completed Kolton Batres [facility] 0 14:53:18 05/05 Six-Item Cognitive Test completed Shelli Hay [facility] 0 09:15:00 04/17 Mini-Cog Test completed Shelli Hay [facility] 9 09:23:00 04/17 Mini-Cog Test completed Shelli Hay [facility] 8 09:59:57 09/09 Endoscopic us exam esoph completed Elsa hCin [facility] 7 14:41:11 08/29 Upper GI Endoscopy completed Rosalina Cutler [facility] 7 16:38:21 04/13 Fall Risk Assessment completed Shelli Hay [facility] 7 13:02:11 04/13 Mini-Cog Test completed Shelli Hay [facility] 7 13:02:20 02/06 Fall Risk Assessment completed [facility] 5 10:14:42 02/06 Mini-Cog Test completed [facility] 5 10:14:42 Circumcision completed [facility] 5 10:06:30 Cholecystectomy completed Pedro Orellana MD [address] [facility] [address], [facility] [place], [address] , [facility] 4 11:26:44 Tonsillectomy completed Nikky Castellanos MA [facility] 2 09:38:30 release of trigger finger completed Fernie kaiser MA [facility] 3 09:39:09 Imaging Results None recorded. Procedure Notes None recorded. Medical Equipment None Reported. Allergies Allergen ID Allergen Name Allergen Category Reaction Reaction Severity Criticality Documentation Date Start Date Code Code System Note Provider Name and Address Organization Details Recorded Time 99533 Demerol medicatio n nausea severe Not available 05/14/2014 32784 1 RxNorm Not Available [facility] 3 12:19:38 35680 No known allergy (situatio n) Not available Not available Not available Not available 05/14/20142011 44273 6003 SNOMED COMME NT: RECOR DED 07/24 9:12A M BY SHELLI LEÓN, KATELYN E VISIT ; Linda mercado MA - Located Within [facility] [place] 5 10:05:59 Medications Name Sig Start Date [...] e 50 mcg/actua tion nasal spray,shalom pension Hiko 2 sprays every day by nasal route [...] Available Not Available Not Available Fluzone High-Dose [id number] (PF) 180 mcg/0.5 mL intramusc ular syringe [...] Updated DateTime 5 173.99 cm 32.5 kg/m2 43114.5 4 g 64 /min 99 % 99 % 98 [degF] 108/65 mm[Hg] Vinayak cassidy MA [facility] 5 14:51:04 Date Recorded Body height Body mass index (BMI) Body weight Heart rate Oxygen saturation Oxygen saturation in Arterial blood by Pulse oximetry Body temperature Systolic And Diastolic Provider Name and Address Organization Details Last Updated DateTime 4 173.99 cm 34.3 kg/m2 872693. 65 g 53 /min 96 % 96 % 98 [degF] 118/71 mm[Hg] Rebeca Murphy MA [facility] 4 09:22:04 Date Recorded Body height Body mass index (BMI) Body weight Heart rate Oxygen saturation Oxygen saturation in Arterial blood by Pulse oximetry Body temperature Systolic And Diastolic Provider Name and Address Organization Details Last Updated DateTime 4 173.99 cm 34.2 kg/m2 638390. 06 g 63 /min 96 % 96 % 98.3 [degF] 115/74 mm[Hg] Rebeca Murphy MA [facility] 4 14:04:03 Date Recorded Body height Body mass index (BMI) Body weight Heart rate Oxygen saturation Oxygen saturation in Arterial blood by Pulse oximetry Body temperature Systolic And Diastolic Provider Name and Address Organization Details Last Updated DateTime 3 173.99 cm 32.8 kg/m2 04037.7 3 g 73 /min 100 % 100 % 97.7 [degF] 133/83 mm[Hg] Rebeca Murphy MA [facility] 3 10:23:04 Date Recorded Body height Body mass index (BMI) Body weight Heart rate Oxygen saturation Oxygen saturation in Arterial blood by Pulse oximetry Body temperature Systolic And Diastolic Provider Name and Address Organization Details Last Updated DateTime 4 173.99 cm 32.7 kg/m2 64580.1 4 g 52 /min 99 % 99 % 98 [degF] 132/77 mm[Hg] Deisy Miller LPN [facility] 4 09:57:42 Social History Question Answer Notes LastModified by Organizat ion Details LastModified Time Tobacco Smoking Status Former Smoker 1 ppd for about 10 years; quit 50 years ago Not Available [facility] 09/02/2020 03:36:38 Do You Have An Advance Directive? Yes Information not available 05/31/2022 Animal Exposure? Yes Informat ion not available 05/31/2022 Is Blood Transfusion Acceptable In An Emergency? Yes [id number] Information not available 09/02/2020 What Is Your Level Of Caffeine Consumption? Moderate 2 Cups Coffee Daily Information not available 05/31/2022 How Much Tobacco Do You Chew? None [id number] Information not available 09/02/2020 What Type Of Diet Are You Following? REGULAR [id number] Information not available 09/02/2020 Which Illicit Or Recreational Drugs Have You Used? None [id number] Information not available 09/02/2020 Education 12 Information no t available 05/31/2022 Have There Been Any Changes To Your Family Or Social Situation? No Information not available 05/31/2022 When Did You Quit Smoking? 16+yearssinc elastcigaret te [email or web address] Information not available 05/12/2021 Are There Any [...] Or Greater Than 100 Degrees Fahrenheit? No [email or web address] Information not available 11/11/2020 Are You Or Anyone In Your Household A Health Care Provider Or Emergency Responder? No Information not available 11/11/2020 To The Best Of Your Knowledge Have You Been In Close Proximity To Any Individual Who Tested Positive For COVID-19? No [email or web address] Information not available 11/11/2020 Have You Recently Traveled To A COVID-19 High Risk Area Or Gathering In The Last 10 Days? No [email or web address] Information not available 11/11/2020 Marital Status Informatio [...] available 05/31/2022 Are You Sexually Active? No [id number] Information not available 09/02/2020 Smoke Alarm In Home Yes Information not available 05/31/2022 Do You Have Smoke And Carbon Monoxide Detectors In Your Home? Yes Information not available 05/31/2022 At What Age Did You Start Smoking Tobacco? 20 Quit At 30 Information not available 12/29/2022 Are You Passively Exposed To Smoke? No [email or web address] Information not available 05/12/2021 How Much Tobacco Do You Smoke? 1 PPD Information not available 12/29/2022 What Types Of Sporting Activities Do You Participate In? Golf Information not available 05/31/2022 Do You Use Sunscreen Routinely? No [id number] Information not available 09/02/2020 How Many Years [...] used smokeless tobacco? Never used smokeless tobacco [id number] Information not available 09/02/2020 Are you currently employed? No retired [email or web address] Information not available 12/29/2022 Difficulty driving at night? No Information no t available 05/31/2022 Are you able to walk independently without assistance or assistive devices? [email or web address] Information not available 05/31/2022 Are you able to care for yourself independently? 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[employer] [facility] Information not available 12/29/2022 Do you [...] Not available 02/09 09:26:14 Mother Sleep disorder [email or web address] Not available 05/12 09:55:40 Mother Atrial fibrillation [...] Diseases N Hyperthyroidism N Breast Cancer N COPD N Depression N Hypothyroidism N Lung Disease N Defects or Inherited Disease N Anesthesia Complications N Headaches/Migraines N Anxiety Disorder N Varicose Veins N Obesity N Vision or Eye Problems Y Arthritis N Head Injury/Concussion N Infertility N Polyps N Congenital Anomalies N Acid Reflux (GERD) [...] Eczema N Diverticulitis N Abuse/Domestic Violence N Asthma N Allergies N Reflux/GERD N Hepatitis N Pulmonary Embolism N Hypertension Y Osteoporosis N Chicken Pox N Autism Spectrum Disorder (ASD) N Immunizations Vaccine Type Date Status Note Provider Nam e and Address Organization Details Recorded Time Influenza, high-dose, trivalent, PF 8 completed Lupe mercado [facility] 08/19/2023 12:42:50 Influenza, adjuvanted, trivalent, PF 9 completed Lupe mercado [facility] 08/19/2023 12:42:50 Influenza, high-dose, quadrivalent, PF 0 completed Lupe mercado [facility] 08/19/2023 12:42:50 COVID-19, mRNA, LNP-S, PF, 30 mcg/0.3 mL dose 1 completed Lupe mercado [facility] 08/19/2023 12:42:50 COVID-19, mRNA, LNP-S, PF, 30 mcg/0.3 mL dose 04/03/202 1 completed Lupe Gainesnett null, [facility] 08/19/2023 12:42:50 COVID-19, mRNA, LNP-S, PF, 30 mcg/0.3 mL dose 1 completed Lupe Gainesnett null, [facility] 08/19/2023 12:42:50 Influenza, adjuvanted, quadrivalent, PF 1 completed Lupe Rojas null, [facility] 08/19/2023 12:42:50 Tdap 8 completed Lupe Rojas null, [facility] 08/19/2023 12:42:50 Pneumococcal conjugate PCV 13 5 completed Not Available [facility] 11/17/2019 02:21:36 Influenza, split virus, quadrivalent, PF 5 completed Not Available [facility] 11/17/2019 02:22:01 COVID-19, mRNA, LNP-S, bivalent, PF, 30 mcg/0.3 mL dose 2 completed Lupe Rojas null, [facility] 08/19/2023 12:42:50 Influenza, high-dose, quadrivalent, PF 2 completed Lupe Rojas null, [facility] 08/19/2023 12:42:50 Influenza, adjuvanted, quadrivalent, PF 3 completed Deisy Miller BARN [employer] null, [facility] 09/11/2024 09:57:55 COVID-19, mRNA, LNP-S, PF, 50 mcg/0.5 mL 3 completed Lupe Rojas null, [facility] 08/19/2023 12:42:50 COVID-19, mRNA, LNP-S, PF, 50 mcg/0.5 mL 4 completed Lupe Rojas null, [facility] 09/03/2024 13:43:20 Influenza, high-dose, trivalent, PF 4 completed Lupe Rojas null, [facility] 09/03/2024 13:43:20 Influenza, high-dose, trivalent, PF 6 completed Not Available [facility] 11/17/2019 02:22:03 Influenza, high-dose, trivalent, PF 7 completed Not Available [facility] 11/17/2019 02:22:21 Influenza, split virus, trivalent, PF 4 completed Not Available [facility] 11/17/2019 02:21:57 Td (adult), 2 Lf tetanus toxoid, preservative free, adsorbed 8 completed Not Available [facility] 11/17/2019 02:21:30 Tdap 8 completed Lupe mercado [facility] 08/19/2023 12:42:50 pneumococcal polysaccharide PPV23 3 completed Lupe mercado [facility] 08/19/2023 12:42:50 Past Encounters Encounter ID Performer Location Encounter Start Date Encounter Closed Date Diagnosis/Indication Diagnosis SNOMED-CT Code Diagnosis ICD10 Code Diagnosis IMO Codes Diagnosis Note [id number] auto[facility]Comm erce [address] [facility] [facility] [place] [address] 01/19/2007 00:00:00 [id number] autoEComm erce [address] [facility] [facility] [place] [address] 01/19/2007 00:00:00 [id number] autoEComm erce [address] [facility] [place] [address] 02/13/2008 00:00:00 [id number] autoEComm erce [address] [facility] [place] [address] 02/13/2008 00:00:00 [id number] autoEComm erce [address] [facility] [place] [address] 02/13/2008 00:00:00 [id number] auto[facility]Comm erce [address] [facility] [facility] [place] [address] 08/14/2008 00:00:00 [id number] auto[facility]Comm erce [address] [place] [address] 05/13/2009 00:00:00 [id number] autoEComm erce [address] [place] [address] 05/13/2009 00:00:00 [id number] autoEComm erce [address] [place] [address] 05/13/2009 00:00:00 [id number] autoEComm erce [address] [place] [address] 11/25/2009 00:00:00 [id number] autoEComm erce [address] [place] [address] 11/25/2009 00:00:00 [id number] autoEComm erce [address] [facility] [address] [place] [address] 11/25/2009 00:00:00 [id number] autoEComm erce [address] [facility] [address] [place] [address] 11/25/2009 00:00:00 [id number] autoEComm erce [address] [facility] [address] [place] [address] 01/08/2010 00:00:00 [id number] auto[facility]Comm erce [address] [facility] [address] [place] [address] 01/08/2010 00:00:00 [id number] auto[facility]Comm erce [address] [place] [address] 01/08/2010 00:00:00 [id number] autoEComm erce [address] [place] [address] 01/08/2010 00:00:00 [id number] autoEComm erce [address] [facility] [address] [place] [address] 07/16/2010 00:00:00 [id number] autoEComm erce [address] [place] [address] 07/16/2010 00:00:00 [id number] autoEComm erce [address] [place] [address] 07/16/2010 00:00:00 [id number] autoEComm erce [address] [place] [address] 07/16/2010 00:00:00 [id number] autoEComm erce [address] [facility] [address] [place] [address] 01/18/2011 00:00:00 [id number] autoEComm erce [address] [facility] [address] [place] [address] 01/18/2011 00:00:00 [id number] autoEComm erce [address] [facility] [place] [address] 01/18/2011 00:00:00 [id number] autoEComm erce [address] [facility] [address] [place] [address] 01/18/2011 00:00:00 [id number] autoEComm erce [address] [facility] [place] [address] 02/10/2011 00:00:00 [id number] autoEComm erce [address] [facility] [place] [address] 02/10/2011 00:00:00 [id number] autoEComm erce [address] [facility] [address] [place] [address] 02/10/2011 00:00:00 [id number] autoEComm erce [address] [facility] [address] [place] [address] 08/11/2011 00:00:00 [id number] autoEComm erce [address] [facility] [address] [place] [address] 01/26/2012 00:00:00 [id number] autoEComm erce [address] [facility] [place] [address] 01/26/2012 00:00:00 [id number] autoEComm erce [address] [place] [address] 01/26/2012 00:00:00 [id number] [employer]ce [address] [place] [address] 01/26/2012 00:00:00 [id number] [employer] erce [address] [place] [address] 07/24/2012 00:00:00 [id number] [employer] erce [address] [place] [address] 07/24/2012 00:00:00 [id number] auto[employer] erce [address] [facility] [address] [place] [address] 2013 00:00:00 [id number] [employer] erce [address] [facility],[address] [place] [address] 2013 00:00:00 [id number] autoEComm erce [address] [facility],[address] [place] [address] 07/31/2013 00:00:00 [id number] auto[employer] erce [address] [facility],[address] [place] [address] 07/31/2013 00:00:00 [id number] autoEComm erce [address] [facility],[address] [place] [address] 02/05/2014 00:00:00 [id number] [employer] erce [address] [place] [address] 02/05/2014 00:00:00 [id number] autoEComm erce [address] [facility] [address] [place] [address] 02/05/2014 00:00:00 [id number] auto[employer]Comm erce [address] [facility],[address] [place] [address] 02/05/2014 00:00:00 [id number] Pedro Orellana MD Main Office [address] [address] [place] [address] 08/08/2014 10:22:43 08/08/2014 11:26:35 Needs influenza immunization 896110321 Essential hypertension 07318452 Pure hypercholesterolemia 390525021 Au's esophagus 348932414 followed by Dr Molina; due for an EGD next year. [id number] Pedro Orellana MD Main Office [address] [address] [place] [address] 01/21/2015 12:42:34 01/21/2015 14:16:20 Sinusitis 15814019 [id number] Pedro Orellana MD Main Office [address] [address] [place] [address] 02/06/2015 09:53:17 02/06/2015 10:59:08 Adult health examination 031926506 Anemia 717209496 Essential hypertension 92653062 Pure hypercholesterolemia 517171106 Varicella vaccination 08171002 [id number] Pedro Orellana MD Main Office [address] [address] [place] [address] 08/12/2015 08:49:42 08/12/2015 09:45:21 Essential hypertension 16281977 I10 Anemia 607566298 D64.9 Administra tion of pneumococcal vaccine 26987505 Z23 Au's esophagus 30[address] Molina and had EGD in April. [id number] Pedro Orellana MD Main Office [address] [address] [place] [address] 08/21/2015 09:00:11 08/21/2015 09:07:10 Needs influenza immunization 732929311 Z23 [id number] Pedro Orellana MD Main Office [address] [address] [place] [address] 02/10/2016 09:01:34 02/10/2016 10:19:13 Adult health examination 972792779 Z00.00 Varicella vaccination 68 684728 Z23 Essential hypertension 05943129 I10 good control; continue current mgmt Pure hypercholesterolemia 375414865 E78.0 good control [id number] Pedro Orellana MD Main Office [address] [address] [place] [address] 08/11/2016 09:30:37 08/11/2016 10:40:04 Essential hypertension 45690407 I10 Influenza vaccine needed 7321959710 106 Z23 Body mass index 30+ - obesity 202135785 E66.01 Dyspnea on exertion 6084 5006 R06.09 Varicella vaccination 68 949640 Z23 [id number] Pedro Orellana MD Main Office [address] [address] [place] [address] 01/10/2017 10:41:07 01/10/2017 11:08:38 Herpes zoster 6738630 B02.9 Will treat with antiviral and he was instructed to call here if pain becomes a problem and we will start neurontin. [id number] Pedro Orellana MD Main Office [address] [address] [place] [address] 04/13/2017 12:41:23 04/13/2017 13:39:47 Adult health examination 173677672 Z00.00 Has had pneumonia shots and tetanus but not UTD with shingles. He had a bout of shingles a few years ago and is not sure if his insurance will cover the shot. Anemia 140468486 D64.9 Varicella vaccination 68 862591 Z23 Screening for malignant neoplasm of colon 493807225 Z12.11 He is due for a 5-year f/u this year. Last done by Dr Molina Essential hypertension 75028026 I10 Good control; continue current mgmt. [id number] Pedro Orellana MD Main Office [address] [address] [place] [address] 10/12/2017 08:56:06 10/12/2017 09:51:28 Essential hypertension 52656499 I10 Good control; continue current mgmt. Influenza vaccine needed 0492818811 106 Z23 Tinea corporis 16875892 B35.4 Obesity 063286126 E66.9 Body mass index 30+ - obesity 998440097 Z68.34 Gastroesop hageal reflux disease 317179202 K21.9 Cough 18561582 R05 [id number] Pedro Orellana MD Main Office [address] [address] [place] [address] 02/02/2018 15:12:25 02/02/2018 16:15:04 Tick bite 80757349 S00.96XA He will call if he develops a bulls eye rash. Skin lesion 91011788 L98 .9 [id number] Pedro Orellana MD Main Office [address] [place] [address] 04/17/2018 09:16:16 04/17/2018 10:31:32 Adult health examination 272594319 Z00.00 Has had pneumonia shots and tetanus but not UTD with shingles. He had a bout of shingles a few years ago and is not sure if his insurance will cover the shot. He is due for a colonoscop y in 2021. Gastroesop hageal reflux disease 948326831 K21.9 Essential hypertension 65192411 I10 Good control; continue current mgmt. Hyperlipidemia 10285744 E78.5 Au's esophagus 3029 [address]22[address] Davis. Due for an EGD in 2018. [id number] Pedro Orellana MD Main Office [address] [address] 05/16/2018 15:55:09 05/16/2018 16:53:06 Flank pain 316026519 R10.9 [id number] Pedro Orellana MD Main Office [address] [address] 10/17/2018 08:46:15 10/17/2018 09:35:33 Essential hypertension 52125352 I10 Good control; continue current mgmt. Requires a tetanus booster 375542033 Z23 [id number] Pedro Orellana MD Main Office [address] [place] [address] 04/17/2019 09:13:14 04/17/2019 10:32:38 Adult health examination 580831330 Z00.00 Has had pneumonia shots and tetanus but not UTD with shingles. He had a bout of shingles a few years ago and his insurance will not cover the shot. He is due for a colonoscop y in 2021. Hyperlipidemia 05841923 E78.5 Glaucoma 43776546 H40.9 on drops and followed by marietta Au's esophagus 3029 [address] Davis. Due for an EGD in 2019. Anemia 296323049 D64.9 Essential hypertension 24087952 I10 Good control; continue current mgmt. [id number] Pedro Orellana MD Main Office [address] [facility] [address] [place] [address] 10/17/2019 08:48:22 10/17/2019 10:06:27 Essential hypertension 23173831 I10 Good control; continue current mgmt. Au's esophagus 3029 [address] Davis. Due for an EGD in 2019. Glaucoma 31160008 H40.9 on drops and followed by ophtho Hyperlipidemia 35366504 E78.5 [id number] Pedro Orellana MD [facility] [address] [facility] [address] [place] [address] 05/05/2020 08:08:13 05/05/2020 10:53:36 Adult health examination 433545474 Z00.00 Has had pneumonia shots and tetanus but not UTD with shingles. He had a bout of shingles a few years ago and his insurance will not cover the shot. He is due for a colonoscop y in 2021. Au's esophagus 3029 56301 K22.70 Last EGD was 2016. Dr Chambers will do the next one the end of this year. Essential hypertension 02775712 I10 Good control; continue current mgmt. Binocular diplopia 37294 5008 H53.2 Wears special glasses which have resolved this. Hyperlipidemia 97278511 E78.5 On meds and at goal. Snoring 22479818 R06.83 Not interested in a sleep study at this time. [id number] Mouan bartholomew MD [facility] [address] [facility] [address] [place] [address] 07/11/2020 12:59:20 07/11/2020 15:10:32 Diarrhea 40564221 R19.7 MARLENE diet, clear fluids, advance to [...] and labs normal would refer to GI. [id number] Pedro Orellana MD Main Office [address] [address] [place] [address] 11/11/2020 08:54:59 11/11/2020 10:43:21 Essential hypertension 18170150 I10 Good control; continue current mgmt. Raynaud's phenomenon 266 114377 I73.00 Skin lesion 43883928 L98 .9 We discussed a derm referral for a full body check but he declined. Pain of le ft shoulder joint 7892110965 6497068 M25.512 He will do exercises at home and take pain meds prn. He will call for a referral if this persists or gets worse. Right now he is not interested in injection or PT. Increased frequency of urination 167034571 R35.0 Intermitte nt claudication 59823690 I73.9 Type 2 meche betes mellitus without complication 595249003 E11.9 We discussed starting meds but he would like to try lifestyle changes first. This is a new dx. He will f/u in 6 months. [id number] Pedro Orellana MD Main Office [address] [address] [place] [address] 05/12/2021 09:48:15 05/12/2021 10:48:36 Adult health examination 568247254 Z00.00 Has had pneumonia shots and tetanus but not UTD with shingles. He had a bout of shingles a few years ago and his insurance will not cover the shot. He is due for a colonoscop y in 2021. He is UTD with COVID vaccine. Benign pro static hyperplasia with outflow obstruction 005861677 N40.1 Having incontinen ce. Will start med and see him back in a few months. Essential hypertension 75565068 I10 Good control; continue current mgmt. Gastroesop hageal reflux disease 428202252 K21.9 Hyperlipidemia 01694128 E78.5 On meds and at goal. Hyperglycemia 35666705 R 73.9 Parents with dm2. [id number] Pedro Orellana MD Main Office [address] [place] [address] 08/13/2021 10:22:50 08/13/2021 11:06:39 Essential hypertension 58920819 I10 Good control; continue current mgmt. Gastroesop hageal reflux disease 136757106 K21.9 [id number] Pedro Orellana MD Main Office [address] [address] [place] [address] 10/08/2021 12:38:32 10/08/2021 13:45:22 Pre-surgery evaluation 812721331 Z01.818 Low cardiac risk for cataract surgery, no labs or EKG requested, should proceed as scheduled. Bilateral cataracts 9572 2003 H26.9 Having one surgery right 10/14 and the other on left 11/11. Essential hypertension 55391145 I10 BP well controlled , continue as directed. Glaucoma 12811648 H40.9 Au's esophagus 3029 64886 K22.70 [id number] Pedro Orellana MD Main Office [address] [address] [place] [address] 05/31/2022 09:24:33 05/31/2022 10:41:46 Adult health examination 621383548 Z00.00 Has had pneumonia shots and tetanus but not UTD with shingles. He had a bout of shingles a few years ago and his insurance will not cover the shot. He had his last colonoscop y September 2020 and does not want another one. He is UTD with COVID vaccine and boosted x1. Intermitte nt claudication 02538522 I73.9 This has improved some. Type 2 meche betes mellitus without complication 550110295 E11.9 His A1C went from 6.7 to 6.1 last year. He has never been on meds. Thoracic back pain 62980 8004 M54.6 possibly muscular; will get an xray to r/o compressio n fracture. Hereditary essential tremor 838732666 G25.0 This appears to be benign. Dyspnea on exertion 6084 5006 R06.09 Has not been as active because of back pain and probably due to deconditio candy. Daytime somnolence 35246 66301 00 R40.0 Some snoring at night as well. Hyperlipidemia 48037134 E78.5 On meds and at goal. [id number] Pedro Orellana MD [facility] [address] [address] [place] [address] 09/02/2022 11:04:52 09/06/2022 11:22:23 COVID-19 877467680 U07.1 He is past the window for taking paxlovid. Advised him to continue resting and to not try to do too much when he is feeling better in order to avoid a relapse. Cough 94774341 R05.9 Secondary to PND. Nasal discharge 92344554 J00 Advised an OTC decongesta nt. [id number] Pedro Orellana MD Main Office [address] [address] [place] [address] 12/15/2022 09:09:14 12/15/2022 09:51:22 Essential hypertension 47081269 I10 Good control; continue current mgmt. Hyperlipidemia 90222421 E78.5 On meds and at goal. Hyperglycemia 76199234 R 73.9 Both parents w/diabetes . Anemia 036534972 D64.9 Tachycardia 1665319 R00. 0 He gets episodes monthly with dizziness that may last for about an hour. Denies CP or SOB. Will refer to cardiology for further evaluation . May need a 30-day recorder to r/o an arrhythmia . Type 2 meche betes mellitus without complication 399938310 E11.9 His A1C went from 6.2 to 7.4. He will make a concerted effort to bring this down with lifestyle changes and will f/u in 3 months. [id number] Pedro Orellana MD Main Office [address] [address] [place] [address] 12/21/2022 08:30:25 12/29/2022 07:13:37 [id number] Maira gomez NP Main Office [address] [place] [address] 12/29/2022 09:20:56 12/29/2022 10:15:02 Atrial flutter 2245064 I48.92 See intake, converted to NSR, on multaq and eliquis, to followup with cardiology , has appt, stable at thsi time. Essential hypertension 58447451 I10 BP is controlled on present regimen, continue all meds at current dosages. Continue with low salt diet, exercise Type 2 meche betes mellitus 92273019 E11.9 recently diagnosed, on metformin and getting diabetes education. Has followup in February with Dr Mireles. [id number] Pedro Orellana MD Main Office [address] [facility] [address] [place] [address] 03/15/2023 10:18:21 03/15/2023 11:27:55 Essential hypertension 45775709 I10 Good control; continue current mgmt. Type 2 meche betes mellitus without complication 804911176 E11.9 A1C has gone from 7.4 to 5.7. We will continue with the same dose of metformin and recheck in 3 months. If it is still normal we will discuss decreasing his dose Hyperlipidemia 85581002 E78.5 On meds and at goal. Will recheck fasting lipid level. Dyspnea 650200023 R06.00 With exertion. Seen by cardiology and had a nuclear stress that was abnormal and will be getting a cath done at [facility]. Also getting PFT's done. [id number] Pedro Orellana MD Main Office [address] [facility] [address] [place] [address] 09/06/2023 10:15:55 09/06/2023 11:12:26 Adult health examination 900398884 Z00.00 Has had pneumonia shots and tetanus but not UTD with shingles. He had a bout of shingles a few years ago and his insurance will not cover the shot. He had his last colonoscop y September 2020 and does not want another one. He is UTD with COVID vaccine and boosted x1. Essential hypertension 95545092 I10 Good control; continue current mgmt. Gastroesop hageal reflux disease 495173930 K21.9 Hyperlipidemia 79899599 E78.5 On meds and at goal. Will recheck fasting lipid level. Type 2 meche betes mellitus without complication 321579894 E11.9 A1C remains below 6.0. He will continue with the same meds and we will now follow him every 6 months. Advance care planning 71 0873552 Z71.89 Discussed HCP and MOLST forms. Benign pro static hyperplasia with outflow obstruction 270267500 N40.1 Having incontinen ce. Will restart med and see him back in a few months. Dyspnea 596846268 R06.00 With exertion. Seen by cardiology and had a cardiac cath showing some blockage but did not need a stent or surgery. PFT's were normal. He was referred to cardiac rehab and has been exercising on his own. Coronary arteriosclerosis 62342755 I25.10 [id number] Pedro Orellana MD Main Office [address] [facility] [address] [place] [address] 03/13/2024 09:00:22 03/13/2024 09:57:11 Atrial flutter 1496303 I48.92 Followed by cardiology . Next appointmen t is in 2 months. Hyperlipidemia 06734737 E78.5 On meds and at goal. Will recheck fasting lipid level. Fatigue 66809877 R53.83 Probably multifacto rial---age , deconditio candy, and meds. He will speak to his cardiologi st about stopping his beta antwon. Type 2 meche betes mellitus without complication 531109671 E11.9 Very good control. No changes. [id number] Pedro Orellana MD Main Office [address] [facility] [address] [place] [address] 08/09/2024 14:03:02 08/09/2024 15:32:17 Mild major depression, single episode 90769045 F32.0 Will start a low dose of sertraline and then see him in one month to adjust the dose as needed. [id number] Pedro Orellana MD Main Office [address] [facility] [address] [place] [address] 09/11/2024 09:40:39 09/11/2024 10:46:05 Adult health examination 831456118 Z00.00 Has had pneumonia shots and tetanus [...] vaccine. Advance di rective discussed with patient 987811171 Z71.89 Type 2 meche betes mellitus without complication 381820732 E11.9 Very good control. No changes. Neck pain 97461179 M54.2 Probable arthritis. [id number] Pedro Orellana MD Main Office [address] [facility] [address] [place] [address] 02/25/2025 14:26:30 02/25/2025 15:34:14 Type 2 diabetes mellitus without complication 940434601 E11.9 Very good control. No changes. Will check labs. Nocturia 373519688 R35.1 65825 Atrial flutter 3391763 I 48.92 Followed by cardiology . Next appointmen t is in 2 months. Essential hypertension 87877924 I10 Good control; continue current mgmt. 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 He becomes easily SOB when climbing stairs. He has been less active recently because of this and low back pain; no injury. He was seen by cardiology and had a cath done which showed some blockages but nothing that needed surgery or stenting. PFT's were normal. He was referred to cardiac rehab.ROS as noted in the HPI Pedro Orellana MD [address] [address], [place], [address], [facility] 09/06/2023 13:52:32 4 text/html Hypertension F/UReported by [...] probably adding to his fatigue. 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 He becomes easily SOB when climbing stairs but this has been improving since he started cardiac rehab 3 times a week. His PFTs were normal and his cardiac cath showed some blockage which is treated medically.ROS as noted in the HPI Pedro Orellana MD [address] [facility] [address], [place], [address], [facility] 09/11/2024 12:27:34 5 text/html Hypertension F/UReported by [...] in the HPI Pedro Orellana MD [address] [facility] [address], [place], [address], [facility] 02/25/2025 17:00:57
--- OUTSIDE RECORDS SUMMARY | 2025-07-29 16:31 | XMS_ITS | Clinical Summary ---
Author Organization [facility] Address [address] [place], [place] [id number] Phone Care Team Providers Care Coordinator Volunteer Services Name Role Phone Roly Orellana MD Primary [...] [place]AC[place] Care Teams Coordinator Volunteer Services Relationship Specialty Start Date End Date Roly Orellana MD [address] [address] PCP - General Pediatrics 12/17/22 Additional Source Comments The information contained in this document represents components of the legal health record. It is not the complete legal health record.[facility]
== END 2025-07-29 15:54 | disposition home or self-care (01) ==
LOC: HO.HCS 14:40
PROVIDERS: PCP Internal Medicine; Visit Provider Nurse Practitioner Family
DX: I25.10 Atherosclerotic heart disease of native coronary artery without angina pectoris (principal); Z98.890 Other specified postprocedural states; I10 Essential (primary) hypertension; E78.2 Mixed hyperlipidemia; I48.92 Unspecified atrial flutter; R42 Dizziness and giddiness
CPT/HCPCS: 93010; 99214; G2211

== ENCOUNTER → 2025-07-29 14:40 | Outpatient (BNVA) | payer MEDICARE, SELFPAY ==
[2024-09-24 09:34] VITALS: BP 126/62; BP 132/60; BMI 33.7
== END ==
PROVIDERS: PCP Internal Medicine; Visit Provider Nurse Practitioner Family
DX: I25.10 Atherosclerotic heart disease of native coronary artery without angina pectoris (principal); I10 Essential (primary) hypertension; E78.2 Mixed hyperlipidemia
CPT/HCPCS: 93005; 99212

== ENCOUNTER 2025-08-21 12:46 | Outpatient (AMB) | payer MEDICARE, SELFPAY ==
[2024-09-24 09:34] VITALS: BP 126/62; BP 132/60; BMI 33.7
--- NOTE | 2025-08-21 13:02 | MHC.OFFWIV ---
Intake Vital Signs 08/21/25 13:03 08/21/25 13:05 08/21/25 13:53 08/21/25 13:54 08/21/25 13:54 Height 5 ft 9 in Weight 210 lb BMI 31.0 BP 155/72 H 145/74 H 132/80 140/80 H 128/78 Blood Pressure Location Lt brachial Rt brachial Lt brachial Lt brachial Lt brachial Position Sitting Sitting Supine Sitting Standing Respiration 16 16 Pulse 66 64 64 66 73 Pulse Source Pulse Oximeter Pulse Oximeter Pulse Oximeter Pulse Oximeter Temp 98.0 F 99 F Temp Source Oral Pulse Oximetry (%) 96 94 95 Oxygen Delivery Method Room Air Room Air Room Air Intake Visit Reasons: EP High BP 157/97 dizziness Intake Note: Pt ambulated (I) gait slightly unsteady to triage corner. Pt is A/O x 3 no shortness of breath noted. Speaks in full sentences. Pt stated that he took his blood pressure this am by automated cuff on left arm and right wrist. Pt stated that his blood pressure was 150/110. Pt c/o lightheadedness denied any dizziness. Pt c/o left shoulder pain and stated hx of heart block. Pt stated that he was taking blood pressure medication for tachycardia, but medication was discontinued by his record librarian. Lungs - cta. Heart sounds - irregular. Dr. Souza and Meme ([facility]) aware. Pt roomed to 12. Patient Tobacco Use Status: Former Tobacco user Allergies meperidine (From DEMEROL) Allergy (Unknown, Verified 08/21/25 13:04) SEVERE STOMACH UPSET Medication List - Last Reconciled 08/21/25 by Areli De Luna MD apixaban (Eliquis) 5 mg PO BID aspirin 81 mg PO DAILY atorvastatin 40 mg PO DAILY dorzolamide-timolol (PF) 2-0.5 % 1 drp ophthalmic (eye) BID dronedarone (Multaq) 400 mg PO BID 90 days latanoprost 0.005% 1 drp ophthalmic (eye) DAILY metformin 500 mg PO BID multivitamin (Daily Multi-Vitamin tablet) 1 tab PO DAILY omeprazole 20 mg PO DAILY sertraline 50 mg PO DAILY tamsulosin 0.4 mg PO DAILY Do you need a note to return to daycare/school/sports/work: No HPI HPI Comments History of Present Illness Details Patient was informed and verbally consented to the use of an ambient scribe for clinic note documentation during the visit. History of Present Illness The patient is a 80-year-old male presenting with elevated blood pressure and lightheadedness Lightheadedness - patient reports a previous history of hypertension, no longer on any medications - Home blood pressure monitors have shown high readings and irregular heartbeats. - Reports frequent episodes of lightheadedness, particularly when changing positions from sitting to standing. - Symptoms have ongoing for 1-2 years. Patient reports record librarian is aware of ongoing lightheadedness - Patient specifically denies dizziness reports he feels unsteady. - patient has a history of atrial flutter, currently managed with medications Eliquis and Multaq - Denies current chest pain, shortness of breath, vision changes, focal weakness, or headache. Constitutional: Negative for fevers, chills, Respiratory: Negative for shortness of breath Cardiac: Negative for chest pain, palpitations, leg edema Neurological: Reports lightheadedness. Negative for dizziness, headaches, numbness, weakness Physical Exam General Appearance: Normal appearance, well developed. No acute distress Head: Normocephalic, atraumatic Eyes: PEERLA. EOM intact. No nystagmus Cardiac: Regular rate and rhythm. No murmurs auscultated Pulmonary: No respiratory distress. Clear to auscultation bilaterally. Speaking in full sentences Musculoskeletal: Moving all extremities spontaneously and against gravity Neurological: Cranial nerves 2- 12 tested and intact. Strength 5/5 upper and lower extremities. Normal gait. Negative Romberg's. Umlvyo-en-firw testing normal Mental Status: Alert and Oriented x 3 Psychiatric: Normal mood. Normal affect. [facility] Medical History (Updated 07/29/25 @ 15:56 by Ainsley Dutta NP-C) GERD (gastroesophageal reflux disease) Non-insulin dependent type 2 diabetes mellitus Mixed hyperlipidemia Essential hypertension Surgical History (Updated 07/29/25 @ 15:57 by Ainsley Dutta NP-C) History of cardiac cath History of cataract surgery History of cholecystectomy Family History Mother CHF (congestive heart failure) Father No problems noted. Sister Heart attack Social History Household Members: Spouse Housing: House Do you presently have visiting nurse or other home services: No Alcohol intake: former Patient Tobacco Use Status: Former Tobacco user Tobacco use type: Cigarette Cigarette Packs Per Day: 2 Years Smoked: 10 Advance Directives Date on File: 12/18/22 service: Yes Current occupational status: retired Physical Exam Vital Signs: Last Vital Signs Temp 99 F 08/21/25 13:05 Pulse 64 08/21/25 13:05 Resp 16 08/21/25 13:05 BP 145/74 H 08/21/25 13:05 BMI result Body Mass Index 31.0 Assessment & Plan Assessment & Plan (1) Light-headedness: Code(s): R42 - Dizziness and giddiness (2) Elevated blood pressure reading: Code(s): R03.0 - Elevated blood-pressure reading, without diagnosis of hypertension Plan Assessment and Plan 1. Elevated blood pressure readings - Patient presents for concern of elevated blood pressure at home. - Besides longstanding lightheadedness, he is currently asymptomatic; no headaches, vision changes, chest pain, shortness of breath, or focal weakness. - Initial blood pressures in the office elevated, however repeat blood pressures show improvement - Discussed blood pressure monitoring at home. If blood pressure is consistently elevated, advised follow-up with PCP or record librarian. 2. Lightheadedness - Patient has longstanding lightheadedness for the last 1-2 years - Reviewed cardiology note from 07/29/2025. Atenolol was recently discontinued to assess for any improvement in symptoms. - Performed EKG and orthostatic vital signs in office; EKG does not show any arrhythmias or ST, T-wave changes upon personal review. - Orthostatic vitals unremarkable. - No neurological deficits noted on physical exam. - Due to ongoing symptoms recommend further follow up with PCP Orders: Orders AMB EKG-In Office Today R42 - Dizziness and giddiness Coding Level of Care Code New Pt Level 3 (54537) Diagnoses Light-headedness R42 Elevated blood pressure reading R03.0
[2025-08-21 13:03] VITALS: BP 155/72; PULSE 66; RESP 16; TEMP 36.7; BMI 31.0
[2025-08-21 13:05] VITALS: BP 145/74; PULSE 64; RESP 16; TEMP 37.2
[2025-08-21 13:53] VITALS: BP 132/80; PULSE 64; O2SAT 96
[2025-08-21 13:54] VITALS: BP 128/78; BP 140/80; PULSE 66; PULSE 73; O2SAT 94; O2SAT 95
--- OUTSIDE RECORDS SUMMARY | 2025-08-21 17:40 | XMS_ITS | Clinical Summary ---
Author Organization [facility] Address [address] [place], [place] [address] Phone Care Team Providers Care Motel Operator Name Role Phone Roly Orellana MD [...] [place] BLUE REPLACEMENT Care Teams Motel Operator Relationship Specialty Start Date End Date Roly Orellana MD [id number] [address] PCP - General Pediatrics 12/17/22 Additional Source Comments The information contained in this document represents components of the legal health record. It is not the complete legal health record.[facility]
--- OUTSIDE RECORDS SUMMARY | 2025-08-21 17:40 | XMS_ITS | Patient Health Record ---
Author Organization [facility] Address [address] [place] [address] Care Team Providers Care Gear Setter Name Role Phone Esteban JOSEPH, Roly Primary Care Provider Unav ailable Gustabo Lang Unavailable [phone] Allergies No Known Allergies Results Component Value [...] Problem Acquired hammer toe of right foot (7213251830330006 ) Other hammer toe(s) (acquired), right foot (M20.41) Active confirmed Problem Acquired hammer toe of left foot (8192879870837354 ) Other hammer toe(s) (acquired), left foot (M20.42) Active confirmed Problem Polyneuropathy due to type 2 diabetes mellitus (363303130) Type 2 diabetes mellitus with diabetic polyneuropathy (E11.42) Active confirmed Vital Signs Blood pressure diastolic 65 mm Hg 05/24/2025 Height 5 ft 9inch in 05/24/2025 Blood pressure systolic 128 mm Hg 05/24/2025 Weight 215 lbs 05/24/2025 BMI 31.75 kg/m2 05/24/2025 Procedures Procedure Date Ordered Date Performed Result Body Sit e 90703-AFIY SKIN LESIONS, 2 TO 4 02/05/2025 N/A M4944-FNSURCIE DYSTROPHIC NAILS ANY # 02/05/2025 N/A 71352-IZTN SKIN LESIONS, 2 TO 4 05/24/2025 N/A P9859-GFSTHIDU DYSTROPHIC NAILS ANY # 05/24/2025 N/A Encounters Encounter Location Date Provider Diagnosis [address] [address] 02/05/2025 Gustabo Lang Type 2 diabetes mellitus with diabetic polyneuropathy E11.42 ; Other hammer toe(s) (acquired), right foot M20.41 and Other hammer toe(s) (acquired), [facility] [address] 05/24/2025 Gustabo Lang Type 2 diabetes mellitus [...] Treatment Pending Test Test Name Order Date 61165-CYHP SKIN LESIONS, 2 TO 4 02/06/20 01478-HFCB SKIN LESIONS, 2 TO 4 05/24/20 N1802-VYIEICOB DYSTROPHIC NAILS ANY # C5715-PIEMNWJQ DYSTROPHIC NAILS ANY # Next Appt Details Provider Name:Gustabo Lang , 09/10/2025 01:30:00 PM, [address] [place] [address], [id number], Insurance Providers Payer Name Payer Address Payer Phone Subscriber Number Group Number Insured Name Patient Relationship to Insured Coverage Start Date Coverage End Date [facility] 65 Medicare Preferred [address] [place] [address] [id number] Rehan Hathaway Self - patient is the insured Medical (General) History Medical History History ICD Code Arthritis CAD (Cholesterol) Cataracts type II diabetes Glaucoma Heart disease High Blood Pressure Reflux ( GERD) Measles Mumps Chicken pox Transfusions Surgical History Surgery Date(Month/Year) Gall bladder
== END 2025-08-21 14:45 | disposition home or self-care (01) ==
PROVIDERS: PCP Internal Medicine; Visit Provider Family Medicine
DX: R42 Dizziness and giddiness (principal); R03.0 Elevated blood-pressure reading, without diagnosis of hypertension
CPT/HCPCS: 99203

== ENCOUNTER → 2025-08-21 12:46 | Outpatient (BNVA) | payer MEDICARE, SELFPAY ==
[2024-09-24 09:34] VITALS: BP 126/62; BP 132/60; BMI 33.7
== END ==
PROVIDERS: PCP Internal Medicine; Visit Provider Family Medicine
DX: R42 Dizziness and giddiness (principal); R03.0 Elevated blood-pressure reading, without diagnosis of hypertension
CPT/HCPCS: 99202